=== PATIENT | female | born 1955 | race Hispanic/Latino ===

== ENCOUNTER 2017-08-24 10:03 | Emergency (ER) | payer BC, SELFPAY ==
--- NOTE | 2017-08-24 12:48 | ER ---
Nurse's Notes [facility] Name: Arline Gregory Age: 62 yrs Sex: Female : 1955 Arrival Date: 08/24/2017 Time: 10:06 Bed Treatment Private MD: Lev Hunter E Diagnosis: Other seasonal allergic rhinitis Presentation: 08/24 10:13 Presenting complaint: Patient states: Nonproductive cough and sore throat since last hb night. Son has Flu B, worried she is getting it now. Transition of care: patient was not received from another setting of care. Onset of symptoms was August 23, 2017. Care prior to arrival: None. 10:13 Method Of Arrival: Ambulatory hb 10:13 Acuity: BEENA 4 hb Historical: - Allergies: 10:15 Sulfa (Sulfonamide Antibiotics) (Hives); hb - Home Meds: 10:15 amlodipine oral [Active]; fenofibrate oral oral [Active]; esomeprazole magnesium oral hb oral [Active]; Simvastatin Oral [Active]; - PMHx: 10:15 Hypertension; hb - PSHx: 10:15 Cholecystectomy; hb - Immunization history:: Adult Immunizations up to date. - Social history:: Smoking status: Patient/guardian denies using tobacco. - Family history:: not pertinent. - Hospitalizations: : No recent hospitalization is reported. - History obtained from: mother. Screenin:21 Abuse screen: Denies threats or abuse. Denies injuries from another. Nutritional ss screening: No deficits noted. Tuberculosis screening: Never had TB. Fall Risk None identified. Assessment: 12:18 General: Appears in no apparent distress. comfortable, Behavior is calm, cooperative. ss Pain: Denies pain. Neuro: Level of Consciousness is awake, alert, obeys commands, Oriented to person, place, time, situation. Cardiovascular: Capillary refill < 3 seconds is brisk in bilateral fingers. Respiratory: Reports cough that is non-productive, Airway is patent Respiratory effort is even, unlabored, Breath sounds are clear bilaterally. Denies cough, pain with respiration, pain with cough, pain with movement. GI: Patient currently denies abdominal pain, diarrhea, nausea, vomiting. EENT: Oral mucosa is moist. Throat is clear. Derm: Skin is intact, is healthy with good turgor, Skin is dry, Skin is pink, warm \T\ dry. normal. Musculoskeletal: Circulation, motion, and sensation intact. Capillary refill < 3 seconds, is brisk, in bilateral fingers. Range of motion: intact in all extremities, Swelling absent. 13:02 Reassessment: Patient appears in no apparent distress at this time. Patient and/or ss family updated on plan of care and expected duration. Pain level reassessed. Vital Signs: 10:15 BP 126 / 69; Pulse 82; Resp 16; Temp 98; Pulse Ox 98% on R/A; Weight 72.57 kg (R); hb Height 5 ft. 4 in. (162.56 cm); Pain 3/10; 10:15 Body Mass Index 27.46 (72.57 kg, 162.56 cm) hb ED Course: 10:06 Patient arrived in ED. as 10:06 Lev Hunter MD is Private Physician. as 10:13 Triage completed. hb 10:15 Arm band placed on right wrist. hb 11:42 [facility]oney [facility]. kav 11:42 Melo Stock MD is Attending Physician. kav 12:17 Lory Hawk, REJI is Primary Nurse. ss 12:17 Influenza Screen (a \T\ B) Sent. ss 12:21 Patient has correct armband on for positive identification. Bed in low position. Call ss light in reach. 12:46 Lev Hunter MD is Referral Physician. kav 13:03 No provider procedures requiring assistance completed. Patient did not have IV access ss during this emergency room visit. Administered Medications: No medications were administered Outcome: 12:47 Discharge ordered by . kav 13:03 Discharged to home ambulatory. ss 13:03 Condition: good 13:03 Discharge instructions given to patient, Instructed on discharge instructions, follow up and referral plans. medication usage, Demonstrated understanding of instructions, follow-up care, medications, Prescriptions given X 1. 13:03 Patient left the ED. ss Signatures: Anjelica Toney FNP FLATWORK FOLDERShanta Black Shelby, REJI RN Evelin Gaitan RN RN Corrections: (The following items were deleted from the chart) 12:21 12:18 Respiratory: Airway is patent Respiratory effort is even, unlabored, Breath ss sounds are clear bilaterally. Denies cough, pain with respiration, pain with cough, pain with movement, ss
--- NOTE | 2017-08-24 12:48 | EDPHYS ---
Physician Documentation [facility] Name: Arline Gregory Age: 62 yrs Sex: Female : 1955 Arrival Date: 08/24/2017 Time: 10:06 Bed Treatment Private MD: Lev Hunter E ED Physician Melo Stock HPI: 08/24 11:51 This 62 yrs old Female presents to ER via Ambulatory with complaints of Sore kav Throat. 11:51 The patient presents with sore throat. The patient describes throat pain as scratchy. kav Onset: The symptoms/episode began/occurred acutely, 1 day(s) ago. Severity of symptoms: At their worst the symptoms were mild, just prior to arrival, this morning. Modifying factors: The symptoms are alleviated by nothing. Associated signs and symptoms: Pertinent positives: flu-like symptoms, Sore throat Pertinent negatives chest pain, chills, cough, diarrhea, dysphagia, earache, fever, headache, nausea, rhinorrhea, shortness of breath, vomiting. The patient has not experienced similar symptoms in the past. The patient has not recently seen a physician. patient reports that she was exposed to influenza B from her grandchild and wants the influenza test; c/o sore throat. Historical: - Allergies: 10:15 Sulfa (Sulfonamide Antibiotics) (Hives); hb - Home Meds: 10:15 amlodipine oral [Active]; fenofibrate oral oral [Active]; esomeprazole magnesium oral hb oral [Active]; Simvastatin Oral [Active]; - PMHx: 10:15 Hypertension; hb - PSHx: 10:15 Cholecystectomy; hb - Immunization history:: Adult Immunizations up to date. - Social history:: Smoking status: Patient/guardian denies using tobacco. - Family history:: not pertinent. - Hospitalizations: : No recent hospitalization is reported. - History obtained from: mother. ROS: 11:53 Constitutional: Negative for fever, chills, and weight loss, Eyes: Negative for injury, kav pain, redness, and discharge, Neck: Negative for injury, pain, and swelling, Cardiovascular: Negative for chest pain, palpitations, and edema, Respiratory: Negative for shortness of breath, cough, wheezing, and pleuritic chest pain, Abdomen/GI: Negative for abdominal pain, nausea, vomiting, diarrhea, and constipation, Back: Negative for injury and pain, : Negative for injury, bleeding, discharge, and swelling, MS/Extremity: Negative for injury and deformity, Skin: Negative for injury, rash, and discoloration, Neuro: Negative for headache, weakness, numbness, tingling, and seizure, Psych: Negative for depression, anxiety, suicide ideation, homicidal ideation, and hallucinations, Allergy/Immunology: Negative for hives, rash, and allergies, Endocrine: Negative for neck swelling, polydipsia, polyuria, polyphagia, and marked weight changes, Hematologic/Lymphatic: Negative for swollen nodes, abnormal bleeding, and unusual bruising. 11:53 ENT: Positive for sore throat, Negative for ear pain, nasal discharge, sinus congestion, sinus pain, hoarseness. Exam: 11:53 Constitutional: This is a well developed, well nourished patient who is awake, alert, kav and in no acute distress. Head/Face: Normocephalic, atraumatic. Eyes: Pupils equal round and reactive to light, extra-ocular motions intact. Lids and lashes normal. Conjunctiva and sclera are non-icteric and not injected. Cornea within normal limits. Periorbital areas with no swelling, redness, or edema. Neck: Trachea midline, no thyromegaly or masses palpated, and no cervical lymphadenopathy. Supple, full range of motion without nuchal rigidity, or vertebral point tenderness. No Meningismus. Chest/axilla: Normal chest wall appearance and motion. Nontender with no deformity. No lesions are appreciated. Cardiovascular: Regular rate and rhythm with a normal S1 and S2. No gallops, murmurs, or rubs. Normal PMI, no JVD. No pulse deficits. Respiratory: Lungs have equal breath sounds bilaterally, clear to auscultation and percussion. No rales, rhonchi or wheezes noted. No increased work of breathing, no retractions or nasal flaring. Abdomen/GI: Soft, non-tender, with normal bowel sounds. No distension or tympany. No guarding or rebound. No evidence of tenderness throughout. Back: No spinal tenderness. No costovertebral tenderness. Full range of motion. Skin: Warm, dry with normal turgor. Normal color with no rashes, no lesions, and no evidence of cellulitis. MS/ Extremity: Pulses equal, no cyanosis. Neurovascular intact. Full, normal range of motion. Neuro: Awake and alert, GCS 15, oriented to person, place, time, and situation. Cranial nerves II-XII grossly intact. Motor strength 5/5 in all extremities. Sensory grossly intact. Cerebellar exam normal. Normal gait. Psych: Awake, alert, with orientation to person, place and time. Behavior, mood, and affect are within normal limits. 11:53 ENT: Posterior pharynx: no acute changes. Vital Signs: 10:15 BP 126 / 69; Pulse 82; Resp 16; Temp 98; Pulse Ox 98% on R/A; Weight 72.57 kg (R); hb Height 5 ft. 4 in. (162.56 cm); Pain 3/10; 10:15 Body Mass Index 27.46 (72.57 kg, 162.56 cm) hb MDM: 11:42 Patient medically screened. [facility] 11:53 Data reviewed: vital signs, nurses notes. [facility] 12:46 Data reviewed: lab test result(s), Flu: negative. [facility] 08/24 11:48 Order name: Influenza Screen (a \T\ B); Complete Time: 12:33 [facility] 08/24 12:33 Interpretation: Within normal limits. ka Administered Medications: No medications were administered Disposition: 18:39 Co-signature as Attending Physician, Melo Stock MD. rn Disposition: 08/24/17 12:47 Discharged to Home. Impression: Other seasonal allergic rhinitis. - Condition is Stable. - Discharge Instructions: Allergic Rhinitis. - Prescriptions for Loratadine 10 mg Oral Tablet - take 1 Tablet by ORAL route once daily; 14 Tablet. - Medication Reconciliation Form, Thank You Letter, Antibiotic Education, Prescription Opioid Use form. - Follow up: Lev Hunter MD; When: 5 - 6 days; Reason: If symptoms return, Recheck today's complaints, Continuance of care, Re-evaluation by your physician. - Problem is new. - Symptoms are unchanged. Signatures: Dispatcher [employer] Anjelica Keller, RAILWAY SHUNTER RAILWAY SHUNTER Melo Biggs MD MD rn Smirch, Shelby, RN RN ss Evelin Gaitan RN RN hb
== END 2017-08-24 13:03 | disposition home or self-care (01) ==
LOC: ER 10:03
DX: J30.2 Other seasonal allergic rhinitis (principal); I10 Essential (primary) hypertension; Z88.2 Allergy status to sulfonamides
CPT/HCPCS: 87804; 99283

== ENCOUNTER 2018-12-11 12:33 | Emergency (ER) | payer BC ==
--- OUTSIDE RECORDS SUMMARY | 2018-12-11 12:35 | XMS REPORT ---
:1955 [facility] Address [address] [place] [address] Care Team Providers Name Role Phone Unavailable Unavailable Unavailable Payers Payer Name Policy Type Policy Number Effective Date Expiration Date Problems This patient has no known problems. Allergies, Adverse Reactions, Alerts This patient has no known allergies or adverse reactions. Medications This patient has no known medications.
--- NOTE | 2018-12-11 14:19 | RAD REPORT ---
EXAM DESCRIPTION: US - Extrem Venous W Compress Stevie - 12/11/2018 1:36 pm CLINICAL HISTORY: Leg pain and swelling COMPARISON: None. TECHNIQUE: Real-time sonographic evaluation of the bilateral lower extremity common femoral, superfi cial femoral, popliteal and posterior tibial veins was performed. FINDINGS: Normal compressibility, flow augmentation, phasic flow and spontaneous flow are identified in the left and right lower extremity common femoral, superficial femoral, popliteal and posterior t ibial veins. No intraluminal filling defects seen. IMPRESSION: No DVT in either lower extremity.
--- NOTE | 2018-12-11 14:34 | ER ---
Nurse's Notes [facility] Name: Arline Gregory Age: 63 yrs Sex: Female : 1955 Arrival Date: 12/11/2018 Time: 12:35 Bed 24 Private MD: Lve Hunter E Diagnosis: Pain in left lower leg;Pain in right lower leg Presentation: 12/11 12:39 Presenting complaint: Worsening left leg pain x 2 weeks, had bloodwork done today, hb instructed by Dr. Hunter office to come to ED to r/o clot. Transition of care: patient was not received from another setting of care. Onset of symptoms was December 11, 2018. Risk Assessment: Do you want to hurt yourself or someone else? Patient reports no desire to harm self or others. Initial Sepsis Screen: Does the patient meet any 2 criteria? No. Patient's initial sepsis screen is negative. Does the patient have a suspected source of infection? No. Patient's initial sepsis screen is negative. Care prior to arrival: None. 12:39 Method Of Arrival: Ambulatory hb 12:39 Acuity: BEENA 3 hb Historical: - Allergies: 12:42 Sulfa (Sulfonamide Antibiotics) (Hives); hb - Home Meds: 12:42 amlodipine oral [Active]; esomeprazole magnesium Oral [Active]; fenofibrate Oral hb [Active]; Simvastatin Oral [Active]; - PMHx: 12:42 Hypertension; hb - PSHx: 12:42 Cholecystectomy; hb - Immunization history:: Adult Immunizations up to date. - Social history:: Smoking status: Patient/guardian denies using tobacco. - Ebola Screening: : No symptoms or risks identified at this time. Screenin:58 Abuse screen: Denies threats or abuse. Denies injuries from another. Nutritional iw screening: No deficits noted. Tuberculosis screening: No symptoms or risk factors identified. Fall Risk None identified. Assessment: 12:57 General: Appears in no apparent distress. Behavior is calm, cooperative. Pain: iw Complains of pain in left leg. Neuro: Level of Consciousness is awake, alert, obeys commands, Oriented to person, place, time, situation. Cardiovascular: Patient's skin is warm and dry. Respiratory: Respiratory effort is even, unlabored. GI: No signs and/or symptoms were reported involving the gastrointestinal system. Derm: Skin is intact, is healthy with good turgor. Musculoskeletal: Reports pain in left leg. Musculoskeletal: Reports. Vital Signs: 12:41 BP 164 / 77; Pulse 79; Resp 16; Temp 98.1; Pulse Ox 100% on R/A; Weight 71.21 kg; hb Height 5 ft. 4 in. (162.56 cm); Pain 9/10; 12:57 BP 139 / 84; Pulse 77; Resp 16; Pulse Ox 98% on R/A; Pain 8/10; iw 12:41 Body Mass Index 26.95 (71.21 kg, 162.56 cm) hb ED Course: 12:35 Patient arrived in ED. as 12:35 Lev Hunter MD is Private Physician. as 12:41 Triage completed. hb 12:41 Arm band placed on. hb 12:43 Lora Spears FNP-C is PHCP. kb 12:44 Reji Dong MD is Attending Physician. kb 12:50 Abby Gregory, RN is Primary Nurse. iw 13:10 Patient has correct armband on for positive identification. iw 13:37 US Extremity Venous W Compression Stevie In Process Unspecified. EDMS 14:33 Lev Hunter MD is Referral Physician. kb 15:00 No provider procedures requiring assistance completed. Patient did not have IV access iw during this emergency room visit. Administered Medications: No medications were administered Outcome: 14:33 Discharge ordered by . kb 15:01 Discharged to home ambulatory. iw 15:01 Condition: good 15:01 Discharge instructions given to patient, Instructed on discharge instructions, follow up and referral plans. Demonstrated understanding of instructions, follow-up care. 15:02 Patient left the ED. iw Signatures: Dispatcher [employer] EDMO Lora Spears FNP-C FNP-Shanta Calvo as Abby Gregory, RN RN iw Evelin Gaitan RN RN hb
--- NOTE | 2018-12-11 14:34 | EDPHYS ---
Physician Documentation [facility] Name: Arline Gregory Age: 63 yrs Sex: Female : 1955 Arrival Date: 12/11/2018 Time: 12:35 Bed 24 Private MD: Lev Hunter E ED Physician Reji Dong HPI: 12/11 13:29 This 63 yrs old Female presents to ER via Ambulatory with complaints of Leg kb Pain. 13:29 The patient presents with pain. The complaints affect the right leg and left leg. kb Context: The problem was sustained at home, resulted from an unknown cause, the patient can fully bear weight, the patient is able to ambulate, Problem is a result from a previous injury: No. Onset: The symptoms/episode began/occurred 2 week(s) ago. Modifying factors: The symptoms are alleviated by nothing. the symptoms are aggravated by nothing. Associated signs and symptoms: The patient has no apparent associated signs or symptoms. Treatment prior to arrival includes: no previous treatment. Severity of symptoms: At their worst the symptoms were moderate, in the emergency department the symptoms are unchanged. The patient has not experienced similar symptoms in the past. The patient has been recently seen by a physician:. Pt reports pain in left calf that started 2 weeks ago. States the pain radiates up leg and down to foot. Pain is described as tightness. Pain is now to right leg as well. Has been seen by PCP for this and given antiinflammatories and muscle relaxants without relief. States she went back to PCP yesterday and they ordered labs and an x-ray. She had those done today and was called and told to come back to the hospital because she may have a clot. Historical: - Allergies: 12:42 Sulfa (Sulfonamide Antibiotics) (Hives); hb - Home Meds: 12:42 amlodipine oral [Active]; esomeprazole magnesium Oral [Active]; fenofibrate Oral hb [Active]; Simvastatin Oral [Active]; - PMHx: 12:42 Hypertension; hb - PSHx: 12:42 Cholecystectomy; hb - Immunization history:: Adult Immunizations up to date. - Social history:: Smoking status: Patient/guardian denies using tobacco. - Ebola Screening: : No symptoms or risks identified at this time. ROS: 13:23 Constitutional: Negative for fever, chills, and weight loss, Cardiovascular: Negative kb for chest pain, palpitations, and edema, Respiratory: Negative for shortness of breath, cough, wheezing, and pleuritic chest pain, Abdomen/GI: Negative for abdominal pain, nausea, vomiting, diarrhea, and constipation, Skin: Negative for injury, rash, and discoloration, Neuro: Negative for headache, weakness, numbness, tingling, and seizure. 13:23 MS/extremity: Positive for pain. Exam: 13:26 Constitutional: This is a well developed, well nourished patient who is awake, alert, kb and in no acute distress. Head/Face: Normocephalic, atraumatic. Chest/axilla: Normal chest wall appearance and motion. Nontender with no deformity. No lesions are appreciated. Cardiovascular: Regular rate and rhythm with a normal S1 and S2. No gallops, murmurs, or rubs. Normal PMI, no JVD. No pulse deficits. Respiratory: Lungs have equal breath sounds bilaterally, clear to auscultation and percussion. No rales, rhonchi or wheezes noted. No increased work of breathing, no retractions or nasal flaring. Abdomen/GI: Soft, non-tender, with normal bowel sounds. No distension or tympany. No guarding or rebound. No evidence of tenderness throughout. Skin: Warm, dry with normal turgor. Normal color with no rashes, no lesions, and no evidence of cellulitis. Neuro: Awake and alert, GCS 15, oriented to person, place, time, and situation. Cranial nerves II-XII grossly intact. Motor strength 5/5 in all extremities. Sensory grossly intact. Cerebellar exam normal. Normal gait. 13:26 Musculoskeletal/extremity: Extremities: grossly normal except: noted in the right leg and left leg: pain, ROM: intact in all extremities, Circulation is intact in all extremities. Sensation intact. DVT Exam: no tenderness, negative Homans' sign noted on exam, no appreciated bluish discoloration, no erythema, no increased warmth, pain, that is moderate, of the right leg, of the left leg, swelling, that is mild, of the left leg. Vital Signs: 12:41 BP 164 / 77; Pulse 79; Resp 16; Temp 98.1; Pulse Ox 100% on R/A; Weight 71.21 kg; hb Height 5 ft. 4 in. (162.56 cm); Pain 9/10; 12:57 BP 139 / 84; Pulse 77; Resp 16; Pulse Ox 98% on R/A; Pain 8/10; iw 12:41 Body Mass Index 26.95 (71.21 kg, 162.56 cm) hb MDM: 12:44 Patient medically screened. kb 13:26 Data reviewed: vital signs, nurses notes. Data interpreted: Pulse oximetry: on room air kb is 98 %. Interpretation: normal. 13:32 Data reviewed: old medical records, PCP ordered left foot x-ray, cbc, basic, and kb d-dimer. d-dimer was elevated at 644, x-ray and other labs normal. 14:32 Counseling: I had a detailed discussion with the patient and/or guardian regarding: the kb historical points, exam findings, and any diagnostic results supporting the discharge/admit diagnosis, lab results, radiology results, the need for outpatient follow up, a family practitioner, to return to the emergency department if symptoms worsen or persist or if there are any questions or concerns that arise at home. ED course: Pt has no shortness of breath or any other indications of PE. Educated to follow back up with PCP . 12/11 12:51 Order name: US Extremity Venous W Compression Stevie; Complete Time: 14:27 kb Administered Medications: No medications were administered Disposition: 12/12 06:42 Co-signature as Attending Physician, Reji Dong MD I agree with the assessment and kdr plan of care. Disposition: 12/11/18 14:33 Discharged to Home. Impression: Pain in left lower leg, Pain in right lower leg. - Condition is Stable. - Discharge Instructions: Musculoskeletal Pain, Muscle Cramps and Spasms, [id number]. - Medication Reconciliation Form, Thank You Letter, Antibiotic Education, Prescription Opioid Use, Work release form form. - Follow up: Emergency Department; When: As needed; Reason: Worsening of condition. Follow up: Lev Hunter MD; When: 2 - 3 days; Reason: Recheck today's complaints, Continuance of care, Re-evaluation by your physician. Signatures: Dispatcher [employer] EDMA Lora Spears, PAPITO-C SENIOR ORACLE ADF DEVELOPER-Reji Hernandez MD MD kdr Williams, Irene, RN RN iw Evelin Gaitan, REJI RN Corrections: (The following items were deleted from the chart) 12/11 13:14 12:45 Extremity Venous Uni Ltd+[email or web address] ordered. EDMS EDMS 15:02 14:33 12/11/2018 14:33 Discharged to Home. Impression: Pain in left lower leg; Pain in iw right lower leg. Condition is Stable. Forms are Medication Reconciliation Form, Thank You Letter, Antibiotic Education, Prescription Opioid Use. Follow up: Emergency Department; When: As needed; Reason: Worsening of condition. Follow up: Lev Hunter; When: 2 - 3 days; Reason: Recheck today's complaints, Continuance of care, Re-evaluation by your physician. kb
== END 2018-12-11 15:02 | disposition home or self-care (01) ==
LOC: ER 12:33
DX: M79.605 Pain in left leg (principal); M79.604 Pain in right leg; I10 Essential (primary) hypertension; Z88.2 Allergy status to sulfonamides
CPT/HCPCS: 93970; 99283

== ENCOUNTER 2019-03-10 08:55 | Day surgery (SDC) | payer OTHER, BC ==
[2019-03-10 09:25] LABS: MPV 8.6 fL (7.6-11.3)
[2019-03-10 09:33] LABS: Protime INR 1.03
[2019-03-10 09:40] VITALS: BMI 26.9
[2019-03-10 09:43] LABS: Platelet Estimate ADEQ
[2019-03-10 12:21] LABS: CSF Glucose 48 mg/dL (40-70)
--- NOTE | 2019-03-10 12:45 | RAD REPORT ---
EXAM DESCRIPTION: RAD - Myelography Lumbar - 03/10/2019 11:59 am CLINICAL HISTORY: Left lower extremity radiculopathy COMPARISON: Lumbar plain films February 03, 2019 TECHNIQUE: The procedure, risks and alternatives to the procedure were discussed with the patient in detail. After answering all questions, both oral and written consent were obtained. Time-out procedu re was performed. Patient had no contraindicated allergy or medication history. The patient was placed in an oblique prone position on the fluoroscopic table. The skin of the lower back was prepped and draped in the usual sterile fashion. After anesthetizing the skin and deeper sof t tissues with 1% lidocaine, a 22 gauge needle was advanced into the thecal sac at the L3 level. Intrathecal placement was confirmed. Clear colorless CSF was observed. Approximately 8 mL of CSF was retained for requested laboratory studies. The patient was then administered approximately 10 mL Isov ue-M 200 contrast material. The needle was withdrawn and a sterile bandage placed to the puncture sit e. Multiple myelogram images were obtained. The patient tolerated the procedure well without immediate complications. Post-procedure care and pre caution instructions were discussed with the patient before the procedure. The patient was transferred to the CT suite for CT lumbar spine imaging. AP and lateral hop separator films were obtained. There were 8 fluoroscopic myelogram images obtained. Fluoro time was 2.1 minutes. IMPRESSION: Successful fluoroscopic guided lumbar myelogram. Myelogram findings are incorporated int o the CT lumbar spine report. Approximately 8 mL of CSF was retained for the requested laboratory studies.
[2019-03-10 13:25] VITALS: O2SAT 99
[2019-03-10 13:48] LABS: Appearance CLEAR (CLEAR); Body Fluid Source CSF; Color of fluid Colorless (COLORLESS); Fluid Total Volume 7 ml
[2019-03-10 13:49] LABS: Body Fluid WBC 12 /mm^3
[2019-03-10 15:00] VITALS: BP 110/59; TEMP 97.9
--- NOTE | 2019-03-11 09:54 | RAD REPORT ---
EXAM DESCRIPTION: CT - Spine Lumbar Wo Con - 03/10/2019 11:41 am CLINICAL HISTORY: Back pain, foot drop, left lower extremity radiculopathy COMPARISON: Lumbar plain films February 03, MRI lumbar spine February 03 TECHNIQUE: Thin section axial imaging of the lumbar spine was performed. Sagittal and coronal recon struction images were generated and reviewed. All CT scans are performed using dose optimization technique as appropriate and may include automated exposure control or mA/KV adjustment according to patient size. FINDINGS: CT lumbar spine imaging was performed immediately following separately reported lumbar mye logram procedure. Myelogram and CT findings are incorporated into this single report. Lumbar bodies are normal in height and alignment. No acute vertebral body finding. Hemangioma is pres ent in the T12 body. No perispinal mass. Conus terminates at the inferior L1 level. There is no clumping or thickening of the cauda equina. T12-L1: No significant finding L1-2 level: No significant disc finding. Mild facet degenerative change. L2-3 level: No significant disc finding. Minimal facet degenerative change. L3-4 level: No disc herniation. Mild disc bulge change in the left exit foramen present. No significa nt foraminal stenosis. Minimal facet joint degenerative change. Small amount of extradural contrast i s present on the left related to myelogram procedure. L4-5 level: Disc bulge extends across the central canal and into each exit foramen. No herniation see n. Disc bulge flattens the anterior thecal sac. Midline thecal sac diameter is 12 mm. No significant foraminal encroachment. Facet degenerative change and ligamentous thickening are present. L5-S1 level: Disc thinning is present. Disc bulge present in the midline. Disc bulge contacts but bustillo s not displace the exiting S1 nerve root sleeves. Disc bulge and endplate spurring cause a mild bilat eral foraminal stenosis. Loss in disc height may in part be due to partial sacralization of the L5 amaya dy. SI joint degenerative changes are present slightly worse on the right. IMPRESSION: No disc herniation is present. No central spinal stenosis. L3-4, L4-5 and L5-S1 central canal disc bulge changes are present similar to the finding on the MRI s tudy. Mild bilateral L5-S1 foraminal stenosis due to disc bulge and endplate hypertrophy.
== END 2019-03-10 14:55 | disposition home or self-care (01) ==
LOC: DS 08:55
PROVIDERS: ATTEND Psychiatry & Neurology Neurology
DX: M54.16 Radiculopathy, lumbar region (principal); M21.372 Foot drop, left foot; M79.605 Pain in left leg; Z88.2 Allergy status to sulfonamides
CPT/HCPCS: 36415; 62304; 72131; 82945; 84157; 85049; 85610; 85730; 86592; 87015; 87070; 87102; 87116; 87206; 89050

== ENCOUNTER 2019-05-19 17:52 | Emergency (ER) | payer OTHER, BC ==
--- OUTSIDE RECORDS SUMMARY | 2019-05-19 17:54 | XMS REPORT ---
:1955 [facility] Address [address] [place] [address] Care Team Providers Name Role Phone Unavailable Unavailable Unavailable Payers Payer Name Policy Type Policy Number Effective Date Expiration Date Problems This patient has no known problems. Allergies, Adverse Reactions, Alerts This patient has no known allergies or adverse reactions. Medications This patient has no known medications.
--- NOTE | 2019-05-19 19:51 | RAD REPORT ---
EXAM DESCRIPTION: RAD - Foot Left 3 View - 05/19/2019 7:20 pm CLINICAL HISTORY: History of foot drop, fall, left foot pain COMPARISON: None. FINDINGS: No fracture, dislocation or periosteal reaction. No acute or destructive bony process. Sc attered degenerative changes are present in the foot. There is remodeling from an old fifth metatarsa l fracture. No plantar spur. No air or foreign body in the soft tissues. IMPRESSION: Negative left foot for fracture or acute bone finding.
--- NOTE | 2019-05-19 19:55 | EDPHYS ---
Physician Documentation [facility] Name: Arline Gregory Age: 64 yrs Sex: Female : 1955 Arrival Date: 05/19/2019 Time: 17:55 Bed 27 Private MD: ED Physician Melo Stock HPI: 05/19 19:22 This 64 yrs old Female presents to ER via Wheelchair with complaints of Foot rn Injury. 19:22 The patient presents with an injury, pain. The complaints affect the left foot. rn Context: The problem was sustained at home, resulted from the patient falling, a mis-step by the patient, the patient can partially bear weight, must have assistance. Onset: The symptoms/episode began/occurred just prior to arrival. Modifying factors: The symptoms are alleviated by nothing, the symptoms are aggravated by weight bearing, movement. Severity of symptoms: At their worst the symptoms were moderate, in the emergency department the symptoms are unchanged. The patient has not experienced similar symptoms in the past. Reports has foot drop for 5 months, has gone to numerous specialists and unclear etiology, today, got up quickly, tripped and left foot went backward, hurts along medial edge of left foot, + mild swelling but patient states has been swollen for some time. No other injury.. Historical: - Allergies: 18:11 Sulfa (Sulfonamide Antibiotics) (Hives); aj1 - Home Meds: 18:11 amlodipine oral [Active]; esomeprazole magnesium Oral [Active]; fenofibrate Oral aj1 [Active]; Simvastatin Oral [Active]; - PMHx: 18:11 Hypertension; aj1 - Immunization history:: Flu vaccine is not up to date. - Social history:: Smoking status: Patient uses tobacco products, denies chronic smoking, but will smoke occasionally. - Ebola Screening: : Patient denies travel to an Ebola-affected area in the 21 days before illness onset. - Family history:: not pertinent. - Hospitalizations: : No recent hospitalization is reported. ROS: 19:22 Constitutional: Negative for fever, chills, and weight loss, Eyes: Negative for injury, rn pain, redness, and discharge, Cardiovascular: Negative for chest pain, palpitations, and edema, Respiratory: Negative for shortness of breath, cough, wheezing, and pleuritic chest pain, Abdomen/GI: Negative for abdominal pain, nausea, vomiting, diarrhea, and constipation, MS/Extremity: + left foot injury and pain Skin: Negative for injury, rash, and discoloration, Neuro: Negative for headache, weakness, numbness, tingling, and seizure. Exam: 19:22 Constitutional: This is a well developed, well nourished patient who is awake, alert, rn and in no acute distress. MS/ Extremity: Pulses equal, no cyanosis. + tenderness along medial edge left foot with mild swelling. Vital Signs: 18:11 BP 139 / 70; Pulse 76; Resp 18; Temp 98.7; Pulse Ox 99% on R/A; Weight 71.21 kg (R); aj1 Height 5 ft. 4 in. (162.56 cm) (R); Pain 4/10; 19:00 BP 134 / 73; Pulse 73; Resp 18; Pulse Ox 99% on R/A; rv 20:22 BP 128 / 71; Pulse 69; Resp 16; Pulse Ox 99% on R/A; rv 18:11 Body Mass Index 26.95 (71.21 kg, 162.56 cm) aj1 MDM: 19:14 Patient medically screened. rn 19:53 Differential diagnosis: fracture. Data reviewed: vital signs, nurses notes, radiologic rn studies, plain films. Test interpretation: by ED physician or midlevel provider: plain radiologic studies, xray left foot neg for fracture. Counseling: I had a detailed discussion with the patient and/or guardian regarding: the historical points, exam findings, and any diagnostic results supporting the discharge/admit diagnosis, radiology results, the need for outpatient follow up, to return to the emergency department if symptoms worsen or persist or if there are any questions or concerns that arise at home. Special discussion: I discussed with the patient/guardian in detail that at this point there is no indication for admission to the hospital. It is understood, however, that if the symptoms persist or worsen the patient needs to return immediately for re-evaluation. 20:12 ED course: . rn 05/19 18:13 Order name: Foot Left 3 View XRAY; Complete Time: 19:53 aj1 Administered Medications: 20:15 Drug: TORadol - Ketorolac 15 mg Route: IM; Site: right deltoid; rv 20:20 Follow up: Response: Medication administered at discharge. rv 20:15 Drug: [place] 5 mg-325 mg 1 tabs {Note: RASS 0.} Route: PO; rv 20:21 Follow up: Response: Medication administered at discharge. rv Disposition: 05/19/19 19:54 Discharged to Home. Impression: Other sprain of left foot. - Condition is Stable. - Discharge Instructions: Foot Contusion, Foot Sprain. - Medication Reconciliation Form, Thank You Letter, Antibiotic Education, Prescription Opioid Use form. - Follow up: Private Physician; When: As needed; Reason: Recheck today's complaints, Re-evaluation by your physician. - Problem is new. - Symptoms have improved. Signatures: Dispatcher [employer] EDMS Ananya Calzada RN RN aj1 Melo Stock MD MD rn Vicente, Ronaldo, RN RN rv Corrections: (The following items were deleted from the chart) 20:14 20:12 ED course: Consulted with Dr. Fisher, requests transfer due to cirrhosis, and rn liver related coagulopathy, and no GI/hepatology to consult at this facility. . rn 20:23 19:54 05/19/2019 19:54 Discharged to Home. Impression: Other sprain of left foot. rv Condition is Stable. Forms are Medication Reconciliation Form, Thank You Letter, Antibiotic Education, Prescription Opioid Use. Follow up: Private Physician; When: As needed; Reason: Recheck today's complaints, Re-evaluation by your physician. Problem is new. Symptoms have improved. rn
--- NOTE | 2019-05-19 19:55 | ER ---
Nurse's Notes [facility] Name: Arline Gregory Age: 64 yrs Sex: Female : 1955 Arrival Date: 05/19/2019 Time: 17:55 Bed 27 Private MD: Diagnosis: Other sprain of left foot Presentation: 05/19 18:09 Presenting complaint: Patient states: "I'm having problem with my foot, I have foot aj1 drop, its affecting my ankle and my knee. Today I fell and my foot completely turned and I was in excruciating pain, and I think I broke my foot" Patient reports pain to left foot that radiates all the way up her left leg. Transition of care: patient was not received from another setting of care. Onset of symptoms was May 19, 2019. Risk Assessment: Do you want to hurt yourself or someone else? Patient reports no desire to harm self or others. Initial Sepsis Screen: Does the patient meet any 2 criteria? No. Patient's initial sepsis screen is negative. Does the patient have a suspected source of infection? No. Patient's initial sepsis screen is negative. Care prior to arrival: None. 18:09 Method Of Arrival: Wheelchair aj1 18:09 Acuity: BEENA 4 aj1 Triage Assessment: 18:11 General: Appears in no apparent distress. uncomfortable, Behavior is calm, cooperative, aj1 appropriate for age. Pain: Complains of pain in left leg. Pain: Pain currently is 4 out of 10 on a pain scale. Neuro: Level of Consciousness is awake, alert, obeys commands. Cardiovascular: Patient's skin is warm and dry. Respiratory: Airway is patent Respiratory effort is even, unlabored, Respiratory pattern is regular, symmetrical. Musculoskeletal: Range of motion: limited in right ankle. Injury Description: Patient reports that she fell and rolled her ankle. Historical: - Allergies: 18:11 Sulfa (Sulfonamide Antibiotics) (Hives); aj1 - Home Meds: 18:11 amlodipine oral [Active]; esomeprazole magnesium Oral [Active]; fenofibrate Oral aj1 [Active]; Simvastatin Oral [Active]; - PMHx: 18:11 Hypertension; aj1 - Immunization history:: Flu vaccine is not up to date. - Social history:: Smoking status: Patient uses tobacco products, denies chronic smoking, but will smoke occasionally. - Ebola Screening: : Patient denies travel to an Ebola-affected area in the 21 days before illness onset. - Family history:: not pertinent. - Hospitalizations: : No recent hospitalization is reported. Screenin:52 Abuse screen: Denies threats or abuse. Denies injuries from another. Nutritional rv screening: No deficits noted. Tuberculosis screening: No symptoms or risk factors identified. Fall Risk None identified. Assessment: 18:52 General: Appears in no apparent distress. comfortable, Behavior is calm, cooperative. rv Pain: Complains of pain in left foot. Neuro: Level of Consciousness is awake, alert, obeys commands, Oriented to person, place, time, situation. Cardiovascular: Patient's skin is warm and dry. Respiratory: Airway is patent. Derm: Skin is intact. Musculoskeletal: Swelling absent. Vital Signs: 18:11 BP 139 / 70; Pulse 76; Resp 18; Temp 98.7; Pulse Ox 99% on R/A; Weight 71.21 kg (R); aj1 Height 5 ft. 4 in. (162.56 cm) (R); Pain 4/10; 19:00 BP 134 / 73; Pulse 73; Resp 18; Pulse Ox 99% on R/A; rv 20:22 BP 128 / 71; Pulse 69; Resp 16; Pulse Ox 99% on R/A; rv 18:11 Body Mass Index 26.95 (71.21 kg, 162.56 cm) aj1 ED Course: 17:55 Patient arrived in ED. as 18:10 Triage completed. aj1 18:11 Arm band placed on Patient placed in waiting room. aj1 18:51 Roger Bradshaw, REJI is Primary Nurse. rv 18:53 Patient has correct armband on for positive identification. Bed in low position. Call rv light in reach. Pulse ox on. NIBP on. 19:14 Melo Stock MD is Attending Physician. rn 19:20 Foot Left 3 View XRAY In Process Unspecified. EDMS 20:23 No provider procedures requiring assistance completed. Patient did not have IV access rv during this emergency room visit. Administered Medications: 20:15 Drug: TORadol - Ketorolac 15 mg Route: IM; Site: right deltoid; rv 20:20 Follow up: Response: Medication administered at discharge. rv 20:15 Drug: [place] 5 mg-325 mg 1 tabs {Note: RASS 0.} Route: PO; rv 20:21 Follow up: Response: Medication administered at discharge. rv Outcome: 19:54 Discharge ordered by . rn 20:23 Discharged to home via wheelchair, with family. rv 20:23 Condition: good 20:23 Discharge instructions given to patient, Instructed on discharge instructions, follow up and referral plans. Demonstrated understanding of instructions, follow-up care. 20:23 Patient left the ED. rv Signatures: Dispatcher [employer] EDMS Ananya Calzada RN RN ajShanta Colby Roman, MD MD rn Vicente, Ronaldo, RN RN rv Corrections: (The following items were deleted from the chart) 20:23 20:22 BP 134 / 73; Pulse 73bpm; Resp 18bpm; Pulse Ox 99% RA; rv rv
[2019-05-19] MEDS ORDERED: HYDROCODONE/APAP 5/325 MG TAB ONE (20:15)
[2019-05-19] MEDS ORDERED: KETOROLAC 30 MG/ML INJ ONE (20:15)
[2019-05-19 20:30] VITALS: TEMP 98.7; O2SAT 99
[2019-05-19 20:32] VITALS: BP 128/71
== END 2019-05-19 20:23 | disposition home or self-care (01) ==
LOC: ER 17:52
DX: S93.692A Other sprain of left foot, initial encounter (principal); I10 Essential (primary) hypertension; W01.0XXA Fall on same level from slipping, tripping and stumbling without subsequent striking against object, initial encounter; Y93.01 Activity, walking, marching and hiking; Y92.009 Unspecified place in unspecified non-institutional (private) residence as the place of occurrence of the external cause; Z72.0 Tobacco use; Z88.2 Allergy status to sulfonamides
CPT/HCPCS: 96372; 99283

== ENCOUNTER 2019-12-21 11:11 | Emergency (ER) | payer OTHER, BC ==
--- OUTSIDE RECORDS SUMMARY | 2019-12-21 12:48 | XMS REPORT | Clinical Summary ---
:1955 Author Organization [facility] Address [address] [place] [address] Care Team Providers Name Role Phone Asked, No Pcp Primary Care Provider Unavailable Allergies Active Allergy Reactions Severity Noted Date Comments Sulfa (Sulfonamide Antibiotics) Rash Low 0 Medications Medication Sig Dispensed Refills Start End Status Date Date amlodipine besylate Take by mouth 0 Active (AMLODIPINE ORAL) daily. FENOFIBRATE ORAL Take by mouth. 0 Active SIMVASTATIN ORAL Take by mouth. 0 Active LANSOPRAZOLE ORAL Take by mouth. 0 Active cholecalciferol, Chew 2,000 30 tablet 11 07/22/19 Ac tive vitamin D3, 2,000 Units daily. 20 unit tablet,chewable riluzole (RILUTEK) 50 Take 1 tablet 60 tablet 11 07/23/19 03/0 5/2 Active mg tabletIndications: (50 mg total) 20 021 ALS (amyotrophic by mouth every lateral sclerosis) 12 (twelve) (HCC) hours. gabapentin 300 mg/6 Take 300 mg by 600 mL 3 09/28/19 Active mL (6 mL) solution mouth 3 (three) 20 times a day. albuterol (ACCUNEB) Take 3 mL (2.5 75 mL 12 11/28/19 08/ / Active 2.5 mg /3 mL (0.083 mg total) by 20 020 %) nebulizer nebulization solutionIndications: every 6 (six) Chronic midline low hours as needed back pain without for wheezing sciatica for up to 30 days. ergocalciferol Take 1 capsule 6 capsule 1 07/22/19// (VITAMIN D2) 50,000 (50,000 Units 20 020 unit capsule total) by mouth once a week for 6 doses. gabapentin Take 1 capsule 90 capsule 11 09/28/19 Dis continued (NEURONTIN) 300 mg (300 mg total) 20 020 (Formulary capsule by mouth 3 change) (three) times a day. methocarbamoL Take 1 tablet 20 tablet 0 11/27/19 Ex pired (ROBAXIN) 500 MG (500 mg total) 20 020 tablet by mouth 2 (two) times a day for 10 days. 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 Encounters Date Type Specialty Care Team Description 11/27/2019 - Emergency General Internal Edson Patel Chronic lo w back pain, unspecified back pain laterality, unspecified whether sciatica present (Primary Dx); 11/28/2019 Medicine MD René ALS (amyotrophic lateral sclerosis) ([facility] ); FRANSISCA Cabrera (shortness of breath); MD Jaycee Chronic midline low back pain without sc iatica; Sandhya Brambila MD 11/27/2019 Telephone Neurology Mason Trinidad RN 11/24/2019 Orders Only Neurology SUSAN Dumont (amyotrophi c lateral sclerosis) ([facility]) (Primary Dx); Naomi Paul RN Chronic respir atory insufficiency 11/23/2019 Social Work Neurology Светлана Hurley LCSW 11/19/2019 Travel 11/19/2019 Telephone Neurology Naomi Dumont RN 11/12/2019 Telephone Neurology Mason Trinidad, REJI 10/28/2019 Hospital Encounter Pulmonology Brenda Ford ALS (am marge Fernando MD lateral scleros is) ([facility]) 10/28/2019 Procedure visit Neurology Brenda Ford (chas Fernando MD lateral scleros is) ([facility]) 10/28/2019 Travel 10/27/2019 Social Work Neurology Светлана Hurley, LARRY 10/14/2019 Travel 10/07/2019 Orders Only Neurology Tim ALS (amyotrophi c Naomi Paul RN lateral sclero sis) ([facility]) (Primary Dx) 09/28/2019 Telemedicine Neurology Brenda Ford ALS (amyotrop hic lateral sclerosis) ([facility]) (Primary Dx); MD Abdullahi Chronic respira tory insufficiency 09/28/2019 Travel 09/23/2019 Telephone Neurology Brenda Ford MD 08/19/2019 Travel 07/30/2019 Telephone Neurology Ashley Calzada MA 07/23/2019 Hospital Encounter Radiology Brenda Ford Neuropa thy; MD Abdullahi Motor neuron di sease ([facility]) 07/23/2019 Procedure visit Neurology Brenda Ford ALS (chas Fernando MD lateral scleros is) ([facility]) (Primary Dx) 07/23/2019 Documentation Neurology Evelyne Singh Patient Edu cation RN 07/22/2019 Procedure visit Neurology Brenda Ford ALS (amyot rophic lateral sclerosis) ([facility]) (Primary Dx); MD Abdullahi Neuropathy; Motor neuron di sease ([facility]); Cranial nerve l esion 07/22/2019 Documentation ADMIN Jose Alfredo, Najma 07/22/2019 Documentation ADMIN [place], Najma 07/21/2019 Hospital Encounter Radiology Brenda Ford Multifo joana acquired motor axonopathy; MD Abdullahi Progressive foc al motor weakness 07/21/2019 Hospital Encounter Pulmonology Brenda Ford Multifo joana acquired motor axonopathy; MD Abdullahi Progressive foc al motor weakness; SOB (shortness of breath) 07/21/2019 Procedure visit Neurology Brenda Ford Multifocal acquired motor axonopathy; MD Abdullahi Progressive foc al motor weakness 07/21/2019 Social Work Neurology Светлана Hurley, LARRY 07/14/2019 Telephone Neurology Naomi Dumont RN 07/14/2019 Orders Only Neurology Cachorro Dumont acqu ired motor axonopathy (Primary Dx); Naomi Paul RN Progressive fo joana motor weakness 07/13/2019 Orders Only Neurology Brenda Ford Multifocal ac quired motor axonopathy (Primary Dx); MD Abdullahi Progressive foc al motor weakness 07/13/2019 Telephone Neurology Brenda Ford MD after 12/20/2018 Social History Tobacco Use Types Packs/Day Years Used Date Current Some Day Smoker Smokeless Tobacco: Former User Alcohol Use Drinks/Week oz/Week Comments Defer Sex Assigned at Date Recorded Not on file Job Start Date Occupation Industry Not on file Not on file Not on file Travel History Travel Start Travel End No recent travel history available. Last Filed Vital Signs Vital Sign Reading Time Taken Comments Blood Pressure 142/68 11/28/2019 7:35 AM CDT Pulse 91 11/28/2019 7:35 AM CDT Temperature 36.6 C (97.9 F) 11/28/2019 7:35 AM CDT Respiratory Rate 16 11/28/2019 7:35 AM CDT Oxygen Saturation 100% 11/28/2019 7:35 AM CDT Inhaled Oxygen Concentration - - Weight 66.1 kg (145 lb 12.8 oz) 10/28/2019 8:00 AM CDT Height 160 cm (5' 3") 10/28/2019 8:00 AM CDT Body Mass Index 25.83 10/28/2019 8:00 AM CDT Plan of Treatment Health Maintenance Due Date Last Done Comments BREAST CANCER SCREENING 01/10/2004 COLONOSCOPY SCREENING 01/10/2004 SHINGLES VACCINES (#1) 01/10/2004 65+ PNEUMOCOCCAL VACCINE (1 of 2 - PCV13) 2019 INFLUENZA VACCINE 12/19/2019 CERVICAL CANCER SCREENING 07/21/2022 07/22/2019 Procedures Procedure Name Priority Date/Time Associated Comments Diagnosis TTE COMPLETE, WO Routine 11/28/2019 12:00 Results for this CONTRAST, W DOPPLER PM CDT procedur e are in ([id number]) the results section. TROPONIN Timed 11/28/2019 6:00 Results for this AM CDT procedure are i n the results section. MRI BRAIN WO CONTRAST STAT 11/28/2019 5:05 Re sults for this AM CDT procedure are i n the results section. COVID-19 QUALITATIVE PCR STAT 11/28/2019 12:30 Results for this AM CDT procedure are i n the results section. XR CHEST 1 VW PORTABLE STAT 11/28/2019 12:05 R esults for this AM CDT procedure are i n the results section. CT ANGIOGRAM PE CHEST STAT 11/27/2019 11:57 Re sults for this PM CDT procedure are i n the results section. VENOUS BLOOD GAS STAT 11/27/2019 11:35 Results for this PM CDT procedure are i n the results section. TROPONIN STAT 11/27/2019 11:35 Results for this PM CDT procedure are i n the results section. B NATRIURETIC PEPTIDE STAT 11/27/2019 11:35 Re sults for this PM CDT procedure are i n the results section. CT LUMBAR SPINE WO STAT 11/27/2019 10:15 Resul ts for this CONTRAST PM CDT procedure are i n the results section. RI CRITICAL CARE, E/M Routine 11/27/2019 7:53 Re sults for this 30-74 MINUTES PM CDT procedure are in the results section. URINALYSIS SCREEN AND STAT 11/27/2019 7:45 Re sults for this MICROSCOPY, WITH REFLEX PM CDT proc edure are in TO CULTURE the results section. URINE CULTURE STAT 11/27/2019 7:45 Results fo r this PM CDT procedure are i n the results section. ESTIMATED GFR STAT 11/27/2019 7:35 Results fo r this PM CDT procedure are i n the results section. COMPREHENSIVE METABOLIC STAT 11/27/2019 7:35 Results for this PANEL PM CDT procedure are i n the results section. HC COMPLETE BLD COUNT STAT 11/27/2019 7:35 Re sults for this W/AUTO DIFF PM CDT procedure are i n the results section. SPIROMETRY, MIPS/MEPS Routine 10/28/2019 8:19 ALS (amyotrophi c Results for this AM CDT lateral sclerosis) procedure are in (HCC) the results section. ESTIMATED GFR Routine 10/28/2019 8:14 Results fo r this AM CDT procedure are i n the results section. HEPATIC FUNCTION PANEL Routine 10/28/2019 8:14 ALS (amyotroph ic Results for this AM CDT lateral sclerosis) procedure are in (HCC) the results section. BASIC METABOLIC PANEL Routine 10/28/2019 8:14 ALS (amyotrophi c Results for this AM CDT lateral sclerosis) procedure are in (HCC) the results section. CREATINE KINASE, TOTAL Routine 10/28/2019 8:14 ALS (amyotroph ic Results for this (CPK) AM CDT lateral sclerosis) procedure are in (HCC) the results section. HC COMPLETE BLD COUNT Routine 10/28/2019 8:14 ALS (amyotrophi c Results for this W/AUTO DIFF AM CDT lateral sclerosis) procedure are in (HCC) the results section. CT CHEST W CONTRAST Routine 07/23/2019 12:18 Neuropathy Results for this ABDOMEN W WO CONTRAST [employer] Motor neuron proced ure are in PELVIS W CONTRAST disease (HCC) the resul ts section. FLOW CYTOMETRY Routine 07/22/2019 12:03 Results f or this EVALUATION [employer] procedure are i n the results section. WEST NILE VIRUS BY PCR, Routine 07/22/2019 12:03 Results for this CSF [employer] procedure are i n the results section. ENTEROVIRUS BY PCR Routine 07/22/2019 12:03 Resul ts for this [employer] procedure are i n the results section. MALCOM CASH VIRUS (EBV) Routine 07/22/2019 12:03 Results for this BY PCR [employer] procedure are i n the results section. HERPES SIMPLEX VIRUS BY Routine 07/22/2019 12:03 Results for this PCR [employer] procedure are i n the results section. VARICELLA ZOSTER BY PCR Routine 07/22/2019 12:03 Results for this [employer] procedure are i n the results section. CYTOLOGY Routine 07/22/2019 11:44 Results for this (NON-GYNECOLOGICAL) [employer] procedur e are in REQUEST the results section. MISCELLANEOUS REFERRAL Routine 07/22/2019 8:44 R esults for this TEST [employer] procedure are i n the results section. OLIGOCLONAL BANDING, CSF Routine 07/21/2019 6:04 Results for this [employer] procedure are i n the results section. CSF CELL COUNT WITH Routine 07/21/2019 6:04 Multifocal Resu lts for this DIFFERENTIAL [employer] acquired motor procedure are in axonopathy the results Progressive focal section. motor weakness GLUCOSE LEVEL, CSF Routine 07/21/2019 6:04 Multifocal Resul ts for this [employer] acquired motor procedure are in axonopathy the results Progressive focal section. motor weakness IGG SYNTHESIS RATE STUDY Routine 07/21/2019 6:04 Multifocal Results for this [employer] acquired motor procedure are in axonopathy the results Progressive focal section. motor weakness MYELIN BASIC PROTEIN Routine 07/21/2019 6:04 Multifocal Res ults for this [employer] acquired motor procedure are in axonopathy the results Progressive focal section. motor weakness VDRL, CSF SCREEN Routine 07/21/2019 6:04 Multifocal Results for this [employer] acquired motor procedure are in axonopathy the results Progressive focal section. motor weakness ANGIOTENSIN CONVERTING Routine 07/21/2019 6:04 Multifocal R esults for this ENZYME, CSF [employer] acquired motor procedure are in axonopathy the results Progressive focal section. motor weakness GRAM STAIN Routine 07/21/2019 6:04 Results for this [employer] procedure are i n the results section. CSF CULTURE Routine 07/21/2019 6:04 Results for this [employer] procedure are i n the results section. MISCELLANEOUS REFERRAL Routine 07/21/2019 5:04 R esults for this TEST [employer] procedure are i n the results section. IR LUMBAR PUNCTURE Routine 07/21/2019 4:09 Multifocal Resul ts for this [employer] acquired motor procedure are in axonopathy the results Progressive focal section. motor weakness EMG Routine 07/21/2019 11:05 Multifocal Results for this [employer] acquired motor procedure are in axonopathy the results Progressive focal section. motor weakness SPIROMETRY, MIPS/MEPS Routine 07/21/2019 8:43 Multifocal Re sults for this [employer] acquired motor procedure are in axonopathy the results Progressive focal section. motor weakness SOB (shortness of breath) COMPREHENSIVE METABOLIC Routine 07/21/2019 6:49 Results for this PANEL [employer] procedure are i n the results section. ESTIMATED GFR Routine 07/21/2019 6:49 Results fo r this [employer] procedure are i n the results section. ACETYLCHOLINE RECEPTOR Routine 07/21/2019 6:49 Multifocal R esults for this BINDING AB [employer] acquired motor procedure are in axonopathy the results Progressive focal section. motor weakness SANDRA Routine 07/21/2019 6:49 Multifocal Results for this [employer] acquired motor procedure are in axonopathy the results Progressive focal section. motor weakness BASIC METABOLIC PANEL Routine 07/21/2019 6:49 Multifocal Re sults for this [employer] acquired motor procedure are in axonopathy the results Progressive focal section. motor weakness HC COMPLETE BLD COUNT Routine 07/21/2019 6:49 Multifocal Re sults for this W/AUTO DIFF [employer] acquired motor procedure are in axonopathy the results Progressive focal section. motor weakness CREATINE KINASE, TOTAL Routine 07/21/2019 6:49 Multifocal R esults for this (CPK) [employer] acquired motor procedure are in axonopathy the results Progressive focal section. motor weakness C-REACTIVE PROTEIN Routine 07/21/2019 6:49 Multifocal Resul ts for this [employer] acquired motor procedure are in axonopathy the results Progressive focal section. motor weakness GM1 AB PANEL Routine 07/21/2019 6:49 Multifocal Results for this [employer] acquired motor procedure are in axonopathy the results Progressive focal section. motor weakness HTLV I/II AB WITH REFLEX Routine 07/21/2019 6:49 Multifocal Results for this TO CONFIRMATION [employer] acquired motor procedure are in axonopathy the results Progressive focal section. motor weakness PARATHYROID HORMONE Routine 07/21/2019 6:49 Multifocal Resu lts for this [employer] acquired motor procedure are in axonopathy the results Progressive focal section. motor weakness SERUM ELECTROPHORESIS Routine 07/21/2019 6:49 Multifocal Re sults for this [employer] acquired motor procedure are in axonopathy the results Progressive focal section. motor weakness SEDIMENTATION RATE Routine 07/21/2019 6:49 Multifocal Resul ts for this [employer] acquired motor procedure are in axonopathy the results Progressive focal section. motor weakness RHEUMATOID FACTOR Routine 07/21/2019 6:49 Multifocal Result s for this [employer] acquired motor procedure are in axonopathy the results Progressive focal section. motor weakness PROTHROMBIN TIME WITH Routine 07/21/2019 6:49 Multifocal Re sults for this INR [employer] acquired motor procedure are in axonopathy the results Progressive focal section. motor weakness VITAMIN D 25 HYDROXY Routine 07/21/2019 6:49 Multifocal Res ults for this LEVEL [employer] acquired motor procedure are in axonopathy the results Progressive focal section. motor weakness VITAMIN B12 LEVEL Routine 07/21/2019 6:49 Multifocal Result s for this [employer] acquired motor procedure are in axonopathy the results Progressive focal section. motor weakness after 12/20/2018 Results Transthoracic Echocardiogram Complete, (w Contrast, Strain and 3D if needed) (11/28/2019 12:00 PM CDT) Specimen Narrative Performed At [facility] Echo cardiography Report [id number] [facility], [address] [place] [address], [place] [address] Pat.Name: PARVIN COVINGTON.ID: [id number] St.Date: 11/28/2019 Refer.MD: BRIAN DAVEY MD Exam Time: 10:29:00 AM Study Type:Ro utine Echo Height: 63in Weight: 145lb BSA: 1.69 m2 Ag e: 1955,64Y Sex: FEMALE BP: 142/68 HR: 91 bpm Sonogr phr: Declan Mcdaniels RDCS Pat. Stat.:Inpatient Room: [facility] Study Status:Final Echo Event ID:[id number] Order ID: [id number] Reason for Study:STROKE. Post stroke p rotocol. If Patient < 60 yrs old, please perform evaluation for PFO w ith saline agitation. Thanks. History / Clinical:Stroke Procedures: 2D Echo, Colorflow Doppler, Portable Race: SUMMARY: LV EF is normal.Estimated EF is >70%. RV systolic function is normal. LV filling pressure is normal. No significant valvular abnormalities. Estimated PA systolic pressure is appx 2 8 mmHg, assuming a mean RAP of 5 mmHg. FINDINGS: LV: LV size is normal. LV EF is normal. Overall wall motion is normal. Estimated EF is > 70%. RV: RV size is normal. RV systo lic function is normal. LA: LA size is normal. RA: RA size is normal. AO: Aortic root diameter is nor mal. MAL: No pericardial effusion. The re is an anterior space consistent with a promine nt epicardial fat pad. AV: No structural AV abnormalit ies noted. MV: No structural MV abnormalit ies noted. PV: Pulmonic valve not well see n. TV: No structural TV abnormalit ies noted. There is mild TR. Dean: LV relaxation is impaired. L V filling pressure is normal. Other: Estimated PA systolic pressu re is appx 28 mmHg, assuming a mean RAP of 5 mmHg. MEASUREMENTS: 2D Parasternal Long Combs Ao Rtd 3.1 cm Index 1.8 cm/m2 LVPWd 1 cm IVSd 1 cm LA Ds 2.5 cm LVIDd 3.4 cm Index 2 cm/m2 RWT 0.59 LVIDs 1.8 cm LV Mas s 99 g (87-129) LV%fs 47 % Left Ventricle LVM Index 59 g/m LA Sng Plane LA Area 16 cm (8.8-23.4) LA Vol 42 ml Index 25 ml/m2 LA LngAx 4.9 cm RA Sng Plane RA Vol 27 ml Index 16 ml/m2 RA LngAx 4.1 cm RA Area 11 cm (8.3-1 9.5) LVOT Stroke Vol LVOT 1.9 cm LVOT LVOT Area 2.8 cm DOPPLER LVOT Stroke Vol LVOT TVI 24 cm LVOT CI 3.7 l/m/m LVOT SV 68 ml HR 92 bpm LVOT CO 6.2 l/min LVOT SVi 40 ml/m Signed 11/28/2019 05:09 PM Reina Nguyen MD Procedure Note Interface, Radiology Results In - 2019 5:09 PM CDT Echocardiography Report [address] [place] [address] Pat.Name: PARVIN COVINGTON Susan.I D: [id number] .Date: 11/28/2019 Refer .MD: BRIAN DAVEY MD Exam Time: 10:29:00 AM Study Type:Routine Echo Height: 63in Weigh t: 145lb BSA: 1.69 m2 Age: 8 1955,64Y Sex: FEMALE BP: 142/68 HR: 91 bpm Sonog rphr: Declan Mcdaniels RDCS Pat. Stat.:Inpatient Room: [facility] Study Status:Final Echo Event ID:[id number] Order ID: [id number] Reason for Study:STROKE. Post stroke pr otocol. If Patient < 60 yrs old, please perform evaluation for PFO w ith saline agitation. Thanks. History / Clinical:Stroke Procedures: 2D Echo, Colorflow Doppler, Portable Race: SUMMARY: LV EF is normal.Estimated EF is >70%. RV systolic function is normal. LV filling pressure is normal. No significant valvular abnormalities. Estimated PA systolic pressure is appx 2 8 mmHg, assuming a mean RAP of 5 mmHg. FINDINGS: LV: LV size is normal. LV EF is no rmal. Overall wall motion is normal. Estimated EF is >70%. RV: RV size is normal. RV systolic function is normal. LA: LA size is normal. RA: RA size is normal. AO: Aortic root diameter is normal . MAL: No pericardial effusion. There is an anterior space consistent with a prominent ep icardial fat pad. AV: No structural AV abnormalities noted. MV: No structural MV abnormalities noted. PV: Pulmonic valve not well seen. TV: No structural TV abnormalities noted. There is mild TR. Dean: LV relaxation is impaired. LV filling pressure is normal. Other: Estimated PA systolic pressure is appx 28 mmHg, assuming a mean RAP of 5 mmHg. MEASUREMENTS: 2D Parasternal Long Combs Ao Rtd 3.1 cm Inde x 1.8 cm/m2 LVPWd 1 cm IVSd 1 cm LA D s 2.5 cm LVIDd 3.4 cm Inde x 2 cm/m2 RWT 0.59 LVIDs 1.8 cm LV M ass 99 g (87-129) LV%fs 47 % Left Ventricle LVM Index 59 g/m LA Sng Plane LA Area 16 cm (8.8-23.4) L A Vol 42 ml Index 25 ml/m2 LA LngAx 4.9 cm RA Sng Plane RA Vol 27 ml Inde x 16 ml/m2 RA LngAx 4.1 cm RA Area 11 cm (8.3-19.5) LVOT Stroke Vol LVOT 1.9 cm LVOT LVOT Area 2.8 cm DOPPLER LVOT Stroke Vol LVOT TVI 24 cm LVOT CI 3.7 l/m/m LVOT SV 68 ml HR 92 bpm LVOT CO 6.2 l/min LVOT SVi 40 ml/m Signed 11/28/2019 05:09 PM Reina Nguyen MD Performing Organization Address City/State/Zipcode Phone Number [facility] [address] [place] [address] Troponin (11/28/2019 6:00 AM CDT)Only the most recent of2 resultswithin the time period is included. Troponin <0.006 0.000 - 0.040 [facility] Comment: ng/mL [facility]OSPITAL In patients suspected of having a myocardial infarctio n, along with all other appropriate clinical measures and actions includ ing ECG and other diagnostics as appropriate, measure Ultra TnI at 0 hrs and at 3 hrs. Myocardial infarction VERY LIKELY The 0 hr TnI level is > 0.10 ng/mL Myocardial infarction LIKELY The 0 hr TnI level is > 0.04 ng/mL and 3 hr level is i ncreased or decreased by at least 0.020 ng/mL Myocardial infarction VERY UNLIKELY Both the 0 hr and 3 hr TnI levels <= 0.04 ng/mL(within normal limits) OR 0 hr is > 0.04 ng/mL and 3 hr is increased OR decreased by less than 0.020 ng/mL Specimen Blood Performing Organization Address City/State/Zipcode Phone Number [facility] DEPARTMENT OF PATHOLOGY AND [address] [place], [place] [address] [facility] [address] [place] [address] MRI Brain Wo Contrast (11/28/2019 5:05 AM CDT) Specimen Narrative Performed At This result has an attachment that is no t available. EXAMINATION: MRI BRAIN WO CONTRAST RADIANT CLINICAL HISTORY: stroke COMPARISON: None TECHNIQUE: Multiplanar and multisequence MRI imaging of the brain was obtained without contrast. FINDINGS: No acute intra or extra-axial hemorrhage , mass effect or shift of normally midline structures is present. There is no evidence of acute infarction. Sellar/suprasellar structures, craniocervical junction is maintained. Minimal periventricular and few punctate deep T2 FLAIR hyperintense foci are noted, nonspecific, likely to reflect chronic small vessel ischemic change. There is no abnormal signal on T2 star GRE to suggest intracranial blood products . Evidence of mild hyperostosis frontalis interna is incidentally noted along the inner table of the front al calvarium. Mild mucosal thickening is present in th e ethmoid sinus. Minimal mucosal thickening is seen in the maxillary sinuses bilaterally. Globes are maintained bilaterally. Principal intracranial flow voids are maintained. IMPRESSION: No acute intracranial abnorm ality. Mild nonspecific T2 FLAIR hyperintensities likely chronic small vessel ischemia otherwise unremarkable study. [id number] Procedure Note Interface, Radiology Results Incoming - 11/28/2019 6:46 AM CDT EXAMINATION: MRI BRAIN WO CONTRAST CLINICAL HISTORY: stroke COMPARISON: None TECHNIQUE: Multiplanar and multisequence MRI imaging of the brain was obtained without contrast. FINDINGS: No acute intra or extra-axial hemorrhage , mass effect or shift of normally midline structures is present. There is no evidence of acute infarction. Sellar/suprasellar structures, craniocervical junction is maintained. Minimal periventricular and few punctate deep T2 FLAIR hyperintense foci are noted, nonspecific, likely to reflect chronic small vessel ischemic change. There is no abnormal signal on T2 star GRE to suggest intracranial blood products. Evidence of mild hyperostosis frontalis interna is incidentally noted along the inner tabl e of the frontal calvarium. Mild mucosal thickening is present in th e ethmoid sinus. Minimal mucosal thickening is seen in the maxillary sinuses bilaterally. Globes are maintained bilaterally. Principal intracranial flow voids are maintained. IMPRESSION: No acute intracranial abnorm ality. Mild nonspecific T2 FLAIR hyperintensities likely chronic small vessel ischemia otherwise unremarkable study. [id number] Performing Organization Address City/[facility] Cent[facility]ode Phone Number [facility] [address] [place] [phone] COVID-19 qualitative PCR (11/28/2019 12:30 AM CDT) Interpretation Negative results do not prec lude 2019-nCoV infection and should not be used as the sole basis for treatment or other patient management decisions. Negative results must be combined with clinical observations, patient history, and epidemiological [place] information. [facility] COVID-19 qualitative Not-Detected Not-Detecte [place] PCR result d [facility] COVID-19 qualitative See link below for [place] PCR PDF Lab HINDUISM ReportComment: Case HOSPITAL Number: [id number] Specimen Nasopharyngeal swab Performing Organization Address [facility] Phone Number [facility] DEPARTMENT OF PATHOLOGY AND [address] [place] [address] GENOMIC MEDICINE [address] [address] [facility] XR Chest 1 Vw Portable (11/28/2019 12:05 AM CDT) Specimen Narrative Performed At EXAMINATION: XR CHEST 1 VW PORTABLE [facility] CLINICAL HISTORY: 64 years Female SOB COMPARISON: None. IMPRESSION: Lines/Tubes: None. Lungs/Pleura: Mild scarring/atelectasis is seen in the left lung base. No pleural effusion or pneumothorax is s een. Heart/Mediastinum: The cardiomediastinal silhouette is mildly enlarged. Bones: No acute osseous abnormality. [id number] Procedure Note Interface, Radiology Results Incoming - 11/28/2019 12:37 AM CDT EXAMINATION: XR CHEST 1 VW PORTABLE CLINICAL HISTORY: 64 years Female SOB COMPARISON: None. IMPRESSION: Lines/Tubes: None. Lungs/Pleura: Mild scarring/atelectasis is seen in the left lung base. No pleural effusion or pneumothorax is seen. Heart/Mediastinum: The cardiomediastinal silhouette is mildly enlarged. Bones: No acute osseous abnormality. [id number] Performing Organization Address [facility] Centercode Phone Number [facility] [address] [place] [address] CT Angiogram Pe Chest (11/27/2019 11:57 PM CDT) Specimen Narrative Performed At EXAMINATION: CT ANGIOGRAM PE CHEST [facility] CLINICAL HISTORY: 64 years Female sob TECHNIQUE: Multiple CT angiographic images of the ches t were obtained during intravenous administration of contrast. Multipl e computerized reformatted images as well as 3-D volume rendered imag es were also obtained. CT imaging was performed with iterative reconstruction techniques and/or automated e xposure control to reduce radiation dose. COMPARISON: CT of the chest, abdomen, and pelvis from 07/23/2019. FINDINGS: Lungs and airways: A 2 mm nodule along the right obliq ue fissure seen on series 303 image 41 is unchanged. There is mild atelec tasis in the lung bases bilaterally. An 8 mm calcified granuloma in the left lower lobe is stable. No new consolidation or mass lesion is identified in the lungs. Pleura: No pleural effusion or pneumotho rax. Mediastinum and lymph nodes: No lymphade nopathy. Cardiovascular: The heart is mildly enlarged. No peric ardial effusion is identified. The caliber of the ascending, transverse, and descendi ng thoracic aorta is normal. The thoracic aorta is patent. There is no e vidence of dissection flap in the thoracic aorta. The pulmonary artery trunk, right main pulmonary arter y, and left main pulmonary artery are within normal limits of size. No saddle embolus is identified. There is no evidence of right heart strain . No filling defect is identified within the central segmental opacified pulmonary arteries. Upper abdomen: No suspicious abnormalities. There is a small hiatal hernia. Bones: No suspicious osseous lesions. Other: None. IMPRESSION: 1.No evidence of pulmonary embolism. 2.No acute abnormality identified in the chest. [id number] Procedure Note Interface, Radiology Results Incoming - 11/28/2019 12:18 AM CDT EXAMINATION: CT ANGIOGRAM PE CHEST CLINICAL HISTORY: 64 years Female sob TECHNIQUE: Multiple CT angiographic imag es of the chest were obtained during intravenous administration of contrast. Multiple computerized reformatted images as well as 3-D volume rendered images were also obtained. CT imaging was performed with iterative reconstruction techniques and/ or automated exposure control to reduce radiation dose. COMPARISON: CT of the chest, abdomen, a nd pelvis from 07/23/2019. FINDINGS: Lungs and airways: A 2 mm nodule along t he right oblique fissure seen on series 303 image 41 is unchanged. There is mild atelectasis in the lung bases bilaterally. An 8 mm calcified granuloma in the left lower lobe is stable. No new consolidation or mass lesion is identified in the lungs. Pleura: No pleural effusion or pneumotho rax. Mediastinum and lymph nodes: No lymphade nopathy. Cardiovascular: The heart is mildly enla rged. No pericardial effusion is identified. The caliber of the ascending, transverse , and descending thoracic aorta is normal. The thoracic aorta is patent. There is no evidence of dissection flap in the thoracic aorta. The pulmonary artery trunk, right main p ulmonary artery, and left main pulmonary artery are within normal limits of size. No saddle embolus is identified. There is no evidence of right heart strain. No filling defect is identified within the central segmental opacified pulmonary arteries. Upper abdomen: No suspicious abnormaliti es. There is a small hiatal hernia. Bones: No suspicious osseous lesions. Other: None. IMPRESSION: 1.No evidence of pulmonary embolism. 2.No acute abnormality identified in the chest. [id number] Performing Organization Address [facility] Centercoar Phone Number [address] [address] B natriuretic peptide (11/27/2019 11:35 PM CDT) Pathologist [facility] BNP 5 0 - 100 pg/mL [facility] Specimen Blood Performing Organization Address [facility] Center[facility] Phone Number [facility] DEPARTMENT OF PATHOLOGY AND [address] [place] [phone] GENOMIC MEDICINE [address] [address] Venous blood gas (11/27/2019 11:35 PM CDT) Pathologist [facility] pH, venous 7.39 7.32 - 7.42 [facility] pCO2, venous 43 (L) 45 - 51 mmHg [facility] pO2, venous 54 (H) 25 - 40 mmHg [facility] Base excess, venous 1 -2 - 2 meq/L [facility] O2 saturation, 85 (H) 40 - 70 % [facility]OSPITAL Bicarbonate, venous 25.4 21.0 - 28.0 [facility] mmol/L HOSPITAL Specimen Blood Performing Organization Address [facility] Centercoar Phone Number [facility] DEPARTMENT OF PATHOLOGY AND [address] [place], [place] [address] GENOMIC MEDICINE [facility] [address] [place] [address] CT Lumbar Spine Wo Contrast (11/27/2019 10:15 PM CDT) Specimen Narrative Performed At EXAMINATION: CT LUMBAR SPINE WO CONTRA [facility] CLINICAL HISTORY: back pain COMPARISON: None. FINDINGS: Noncontrast CT of the lumbar spine is in terpreted. CT imaging was performed with iterative reconstruction techniques and/or automated exposure control to reduce rad iation dose. The lowest fully formed disc space is de signated L5-S1. Vertebral heights preserved. No displaced fracture agg ressive bone lesion is seen. T12 vertebral body hemangiomas present. L1-2: Unremarkable. L2-3: Unremarkable. L3-4: Unremarkable. L4-5: Mild disc degenerative changes. Mild disc bulge. Minimal bilateral facet arthrosis. Mild canal narrowing. L5-S1: Moderate loss of disc height. Mild disc bulge. Small right subarticular zone disc protrusion. There is potential slight contact on the traversing right S1 nerve root. There is deconditioning of the paraspino us musculature. IMPRESSION: Mild degenerative changes in the lower l umbar spine. Small right subarticular zone disc protrusion is suspe cted at L5-S1 and there is potential contact on the alteha sing right S1 nerve root. [id number] Procedure Note Interface, Radiology Results Incoming - 11/27/2019 10:24 PM CDT EXAMINATION: CT LUMBAR SPINE WO CONTRAST CLINICAL HISTORY: back pain COMPARISON: None. FINDINGS: Noncontrast CT of the lumbar spine is in terpreted. CT imaging was performed with iterative reconstruction techniques and/or automated exposure control to reduce radiation dose. The lowest fully formed disc space is de signated L5-S1. Vertebral heights preserved. No displace d fracture aggressive bone lesion is seen. T12 vertebral body hemangiomas present. L1-2: Unremarkable. L2-3: Unremarkable. L3-4: Unremarkable. L4-5: Mild disc degenerative changes. Mi ld disc bulge. Minimal bilateral facet arthrosis. Mild canal narrowing. L5-S1: Moderate loss of disc height. Mil d disc bulge. Small right subarticular zone disc protrusion. There is potential slight contact on the traversing right S1 nerve root. There is deconditioning of the paraspino us musculature. IMPRESSION: Mild degenerative changes in the lower l umbar spine. Small right subarticular zone disc protr usion is suspected at L5-S1 and there is potential contact on the traversing right S1 nerve root. [id number] Performing Organization Address City/State/Zipcode Phone Number YAJAIRA CARTY [address] [place] [address] CRITICAL CARE (11/27/2019 7:53 PM CDT) Narrative Performed At Edson Patel MD 11/30/2019 7:55 PM Critical Care Performed by: Edson Patel MD Authorized by: Edson Patel MD Critical care provider statement: Critical care time (minutes): 35 Critical care time was exclusive of: Separately b illable procedures and treating other patients and teaching marco e Critical care was necessary to treat or prevent imminent or life-threatening deterioration of the following condit ions: Respiratory failure and [employer] failure or compromise Critical care was time spent personal ly by me on the following activities: Obtaining history from patient or surrog ate, interpretation of cardiac output measurements, examinat ion of patient, evaluation of patient's response to treatment, discussions with cons ultants, development of treatment plan with patient or surrog ate, blood draw for specimens, ordering and performing treatments and interventions, ordering and review of laboratory studies, ordering and review of radiogra phic studies, pulse oximetry, re-evaluation of patient's con dition and review of old charts Timothy 'yes' if you are taking over critical care for this patient from another provider.: no Urinalysis screen and microscopy, with reflex to culture (11/27/2019 7:45 PM CDT) Specimen site Catheterized [facility] Color, UA Yellow [facility] Appearance, UA Hazy [facility] Specific gravity, UA 1.019 1.001 - 1.035 [facility] pH, UA 6.0 5.0 - 8.5 [facility] Protein, UA 1+ (A) Negative [facility] Glucose, UA Negative Negative [facility] Ketones, UA Negative Negative [facility] Bilirubin, UA Negative Negative [facility] Blood, UA Negative Negative [facility] Nitrite, UA Negative Negative [facility] Urobilinogen, UA 2.0 (A) <2.0 [facility] Leukocyte esterase, Negative Negative [facility] Epithelial cells, UA 3 /HPF [facility] WBC, UA 3 0 - 4 /HPF [facility] RBC, UA 1 0 - 5 /HPF [facility] Bacteria, UA Few None seen [facility] Yeast, UA None seen [facility] Yeast with None seen [facility] pseudohyphae, [facility] Hyaline casts, UA 1 /LPF [facility] Specimen Urine Performing Organization Address City/[facility]/Zipcode Phone Number [facility] DEPARTMENT OF PATHOLOGY AND [address] [place] [phone] Urine culture (11/27/2019 7:45 PM CDT) Pathologist Sig nature Urine culture SEE COMMENTComment: [facility] Bacteriuria screen HOSPITAL negative. Specimen Performing Organization Address [facility] Centercode Phone Number [facility] DEPARTMENT OF PATHOLOGY AND [address] [place] [phone] Estimated GFR (11/27/2019 7:35 PM CDT)Only the most recent of3 resultswithin the time period is included. Pathologist [facility] Estimated GFR >=90 mL/min/1.73 [facility] Comment: HOSPITAL Catergory Units Interpretation G1 >=90 Normal or high G2 60-89 Mildly decreased G3a 45-59 Mildly to moderately decreas ed G3b 30-44 Moderately to severely decre ased G4 15-29 Severely decreased G5 <15 Kidney failure The eGFR was calculated using the Chronic Kidney Disea se Epidemiology Collaboration (CKD-EPI) equation. Interpretation is based on recommendations of the National Kidney Foundation-Kidney Disease Outcomes Sumeet lity Initiative (NKF-KDOQI) published in 2014. Specimen Performing Organization Address City/[facility]/Zipcode Phone Number [facility] DEPARTMENT OF PATHOLOGY AND [address] [place] [phone] CBC with platelet and differential (11/27/2019 7:35 PM CDT)Only the most recent of3 resultswithin the time period is included. WBC 10.98 4.50 - 11.00 [facility] k/uL HOSPITAL RBC 4.26 4.20 - 5.50 [facility] m/uL HOSPITAL HGB 12.6 12.0 - 16.0 [facility] g/dL HOSPITAL HCT 39.0 37.0 - 47.0 % [facility] MCV 91.5 82.0 - 100.0 [facility] MCH 29.6 27.0 - 34.0 pg [facility] MCHC 32.3 31.0 - 37.0 [facility] g/dL HOSPITAL RDW - SD 40.6 37.0 - 55.0 [facility] MPV 10.3 8.8 - 13.2 [facility] Platelet count 285 150 - 400 k/uL [facility] Nucleated RBC 0.00 /100 WBC [facility] Neutrophils 70.2 (H) 39.0 - 69.0 % [facility] Lymphocytes 18.2 (L) 25.0 - 45.0 % [facility] Monocytes 4.7 0.0 - 10.0 % [facility] Eosinophils 6.1 (H) 0.0 - 5.0 % [facility] Basophils 0.5 0.0 - 1.0 % [facility] Immature granulocytes 0.3Comment: 0.0 - 1.0 % [facility] "Immature [facility] granulocytes" (promyelocytes , myelocytes, metamyelocytes ) Specimen Blood Performing Organization Address City/State/Zipcode Phone Number [facility] DEPARTMENT OF PATHOLOGY AND [address] [place], [place] [address] 0 GENOMIC MEDICINE [address] [address] Comprehensive metabolic panel (11/27/2019 7:35 PM CDT)Only the most recent of2 resultswithin the time period is included. Sodium 145 135 - 148 [facility] mEq/L [facility] Potassium 4.3 3.5 - 5.0 [facility] mEq/L [facility] Chloride 104 98 - 112 [facility] mEq/L [facility] CO2 27 24 - 31 mEq/L [facility] Anion gap 14@ANIO 7 - 15 mEq/L [facility] BUN 17 8 - 23 mg/dL [facility] Creatinine 0.35 (L) 0.50 - 0.90 [facility] mg/dL [facility] Glucose 95 65 - 99 mg/dL [facility] Calcium 9.9 8.8 - 10.2 [facility] mg/dL HOSPITAL Protein 7.0 6.3 - 8.3 [facility] Comment: g/dL HOSPITAL - 4.6-7.0 g/dL 1 week 4.4-7.6 g/dL 7 months-1year 5.1-7.3 g/dL 1-2 years 5.6-7.5 g/dL >3 years 6.0-8.0 g/dL 18-150 6.3-8.3 g/dL Albumin 4.0 3.5 - 5.0 [facility] g/dL [facility] A/G ratio 1.3 0.7 - 3.8 [facility] Alkaline phosphatase 64 35 - 104 U/L [facility] AST 39 (H) 10 - 35 U/L [facility] ALT 20 5 - 50 U/L [facility] Total bilirubin 0.3 0.0 - 1.2 [facility] mg/dL HOSPITAL Specimen Blood Performing Organization Address City/State/Zipcode Phone Number [facility] DEPARTMENT OF PATHOLOGY AND [address] [place] [phone] GENOMIC MEDICINE [facility] [address] [place] [address] Spirometry, MIPS/MEPS (10/28/2019 8:19 AM CDT) Pathologist Sig nature FEV1 Pre 1.43 1.74 - 2.90 L [facility] FEV1/FVC % Pre 79.37 68.43 - 87.06 % [facility] FVC Pre 1.80 2.28 - 3.65 L [facility] PEF Pre 3.80 3.67 - 7.56 L/s [facility] FEF 25-75% Pre 1.37 0.92 - 3.48 L/s [facility] FEV1 Predicted 2.32 [facility] FEV1 LLN 1.74 [facility] FEV1 % Pre of Predicted 61.6 % [facility] FVC Predicted 2.97 [facility] FVC LLN 2.28 [facility] FVC % Pre of Predicted 60.7 % [facility] FEV1/FVC % Predicted 78 [facility] FEV1/FVC % LLN 68 [facility] FEV1/FVC % Pre of Predicted 102.1 % [facility] FEF 25-75% Predicted 2.20 [facility] FEF 25-75% LLN 0.92 [facility] FEF 25-75% % Pre of 62.4 % [facility] Predicted PEF Predicted 5.62 [facility] PEF LLN 3.67 [facility] PEF % Pre of Predicted 67.7 % [facility] Specimen Narrative Performed At This result has an attachment that is no t available. Performing Organization Address [facility] Centercoar Phone Number [address] [address] Creatine kinase, total (CPK) (10/28/2019 8:14 AM CDT)Only the most recent of2 resultswithin the time period is included. Pathologist [facility] nature Creatine kinase 63 26 - 192 U/L [facility] Specimen Blood Performing Organization Address [facility] Phone Number [facility] DEPARTMENT OF PATHOLOGY AND [address] [place] [address] [address] Hepatic function panel (10/28/2019 8:14 AM CDT) Albumin 3.6 3.5 - 5.0 [facility] g/dL [facility] Total bilirubin 0.3 0.0 - 1.2 [facility] mg/dL [facility] Bilirubin direct <0.2 0.0 - 0.3 [facility] mg/dL [facility] Alkaline phosphatase 47 35 - 104 U/L [facility] Protein 6.1 (L) 6.3 - 8.3 [facility] Comment: g/dL [facility] - [place] 4.6-7.0 g/dL 1 week 4.4-7.6 g/dL 7 months-1year 5.1-7.3 g/dL 1-2 years 5.6-7.5 g/dL >3 years 6.0-8.0 g/dL 18-150 6.3-8.3 g/dL ALT 19 5 - 50 U/L [facility] AST 22 10 - 35 U/L [facility] Specimen Blood Performing Organization Address [facility] Phone Number [facility] DEPARTMENT OF PATHOLOGY AND [address] [place] [address] [phone] [address] Basic metabolic panel (10/28/2019 8:14 AM CDT)Only the most recent of2 results within the time period is included. Pathologist Sig nature Sodium 143 135 - 148 mEq/L [facility] L Potassium 4.0 3.5 - 5.0 mEq/L [facility] L Chloride 102 98 - 112 mEq/L [facility] CO2 28 24 - 31 mEq/L [facility] Anion gap 13@ANIO 7 - 15 mEq/L [facility] BUN 20 8 - 23 mg/dL [facility] Creatinine 0.53 0.50 - 0.90 mg/dL [facility] Glucose 94 65 - 99 mg/dL [facility] Calcium 9.9 8.8 - 10.2 mg/dL [facility] Specimen Blood Performing Organization Address City/State/Zipcode Phone Number [facility] DEPARTMENT OF PATHOLOGY AND [address] [place] [phone] GENOMIC MEDICINE [facility] [address] [place] [address] CT Chest W Contrast Abdomen W Wo Contrast Pelvis W Contrast (07/23/2019 12:18 PM [employer]) Specimen Narrative Performed At EXAMINATION: CT CHEST W CONTRAST ABDOMEN W WO CONTRA ST PELVIS W [facility] CONTRAST CLINICAL HISTORY: G62.9 Polyneuropathy unspecified , 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 TECHNIQUE: Axial images of the abdomen were obtained p rior to intravenous contrast administration. Multiple axial im ages of the chest, abdomen, and pelvis were obtained following intravenou s administration of iodinated contrast. Sagittal and ines nal computerized reformatted images were obt ained. CT imaging was performed with iterative reconstruction techniques and/or automated exposure control to reduce rad iation dose. COMPARISON: None. FINDINGS: Chest: No significant adenopathy is seen in the base of the n [place]. There is a nodule in the right lobe of the thyroid gland which me asures up to 1.4 cm in size. No significant adenopathy in the axilla. N o significant mediastinal or hilar lymph nodes by size criteria. Thoracic esophagus is grossly unremarkable. Small hiatal hernia. The thoracic aorta is nonaneurysmal. The left vertebra l artery arises directly from the aortic arch, an anatomic variant. Pu lmonary trunk is normal in caliber. Heart size is normal. No pericardial effusion. There is a nodule in the right lower lobe along the ma dionte fissure on series 3, image 61 which measures up to 3 mm in size. No definite additional nodule is seen. Calcified granuloma in the left lower lobe. There is an additional nodule in the rig ht middle lobe along the minor fissure whic h measures up to 5 mm in size. Degenerative changes of the bones. Abdomen: The liver is enlarged with fatty infiltration. There i s geographic fatty infiltration involving the right hepatic lobe relative to the left hepatic lobe. Hypodensity in segment 7 of the liver me asuring up to 8 mm is most consistent with a cyst. No definite additional focal abnormality is identified in the liver. The hepatic veins are patent. Portal vein, splenic vein, a nd superior mesenteric vein are patent. Prior cholecystectomy. No significant dilatation of th e intrahepatic or the extrahepatic biliary tree. The spleen is not enlar ged. Calcified granulomata are noted in the spleen. The adrenal gland s are unremarkable. No focal abnormality can b e seen within the pancreas. No peripancreatic inflammatory change o r evidence of ductal dilatation. The abdominal aorta is nonaneurysmal. The mesenteric v asculature appears widely patent. Atherosclerosis of the infrarenal abdom inal aorta without evidence of an aneurysm. There is no evidence of a solid mass seen in either ki dney. Numerous bilateral peripelvic cysts are noted with a discrete c yst in the posterior interpolar region of the left kidney measuri ng up to 1.4 cm in size. No hydronephrosis. No significant adenopathy in the upper abdomen, retrop eritoneum, or root of the mesentery by size criteria. No ascites. No susp icious peritoneal or omental nodularity. Apart from the small hiatal hernia. The stomach is verna ssly unremarkable although underdistended. The duodenum appears unremark able. No evidence of small bowel thickening or findings to suggest a sma ll bowel obstruction. Appendix is normal. Moderat e stool is seen in the colon. There is no evidence of abnorma l colonic wall thickening or evidence of a colonic obstruction. Few s cattered right-sided colonic diverticula. Pelvis: Urinary bladder is grossly unremarkable. Pelvic phlebo liths. Uterus appears unremarkable. No definite suspicious findings in the adnexa. No adenopathy. Degenerative changes of the bones. There is a hemangio ma in the T12 vertebral body. IMPRESSION: 1.No definite CT evidence of malignancy in the chest, abdomen, or pelvis. 2.2 small nodules in the right middle and right lower lobe. Follow-up per guidelines guidelines as detailed be low is recommended. 3.Hepatomegaly and diffuse fatty infiltration of the l iver with a small hepatic cyst. 4.Numerous peripelvic cysts in the kidne ys. 5.Moderate stool in colon. Colonic diverticulosis with out evidence of diverticulitis. 6.Right sided thyroid nodule for which further evaluat ion with thyroid ultrasound is recommended. 7.Small hiatal hernia. 8.Please see above for additional findin gs and details. 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 TECHNIQUE: Axial images of the abdomen w ere obtained prior to intravenous contrast administration. Multiple axial images of the chest, abdomen, and pelvis were obtained following intravenous administration of iodinated contrast. Sagittal and coronal computerized reformatted images were obt ained. CT imaging was performed with iterative reconstruction techniques and/or automated exposure control to reduce radiation dose. COMPARISON: None. FINDINGS: Chest: No significant adenopathy is seen in the base of the neck. There is a nodule in the right lobe of the thyroid gland which measures up to 1.4 cm in size. No significant adenopathy in the axilla. No significant mediastinal or hilar lymph nodes by size criteria. Thoracic esophagus is grossly unremarkable. Small hiatal hernia. The thoracic aorta is nonaneurysmal. The left vertebral artery arises directly from the aortic arch, an anatomic variant. Pulmonary trunk is normal in caliber. Heart size is normal. No pericardial effusion. There is a nodule in the right lower lob e along the major fissure on series 3, image 61 which measures up to 3 mm in size. No definite additional nodule is seen. Calcified granuloma in the left lower lobe. There is an additional nodule in the right middle lobe along the minor fissure whic h measures up to 5 mm in size. Degenerative changes of the bones. Abdomen: The liver is enlarged with fatty infiltr ation. There is geographic fatty infiltration involving the right hepatic lobe relative to the left hepatic lobe. Hypodensity in segment 7 of the liver measuring up to 8 mm is most consistent with a cyst. No definite additional focal abnormality is identified in the liver. The hepatic veins are patent. Portal vein, splenic vein, and superior mesenteric vein are patent. Prior cholecystectomy. No significant di latation of the intrahepatic or the extrahepatic biliary tree. The spleen is not enlarged. Calcified granulomata are noted in the spleen. The adrenal glands are unremarkable. No focal abnormality can be seen within the pancreas. No peripancreatic inflamm atory change or evidence of ductal dilatation. The abdominal aorta is nonaneurysmal. Th e mesenteric vasculature appears widely patent. Atherosclerosis of the infrarenal abdominal aorta without evidence of an aneurysm. There is no evidence of a solid mass see n in either kidney. Numerous bilateral peripelvic cysts are noted with a discrete cyst in the posterior interpolar region of the left kidney measuring up to 1.4 cm in size. No hydronephrosis. No significant adenopathy in the upper a bdomen, retroperitoneum, or root of the mesentery by size criteria. No ascites. No suspicious peritoneal or omental nodularity. Apart from the small hiatal hernia. The stomach is grossly unremarkable although underdistended. The duodenum appears unremarkable. No evidence of small bowel thickening or findings to suggest a small bowel obstruction. Appendix is normal. Moderate stool is seen in the colon. There is no evide nce of abnormal colonic wall thickening or evidence of a colonic obstruction. Few scattered right-sided colonic diverticula. Pelvis: Urinary bladder is grossly unremarkable. Pelvic phleboliths. Uterus appears unremarkable. No definite suspicious findings in the adnexa. No adenopathy. Degenerative changes of the bones. There is a hemangioma in the T12 vertebral body. IMPRESSION: 1.No definite CT evidence of malignancy in the chest, abdomen, or pelvis. 2.2 small nodules in the right middle an d right lower lobe. Follow-up per guidelines guidelines as detailed below is recommended. 3.Hepatomegaly and diffuse fatty infiltr ation of the liver with a small hepatic cyst. 4.Numerous peripelvic cysts in the kidne ys. 5.Moderate stool in colon. Colonic diver ticulosis without evidence of diverticulitis. 6.Right sided thyroid nodule for which f urther evaluation with thyroid ultrasound is recommended. 7.Small hiatal hernia. 8.Please see above for additional findin gs and details. Management Recommendations: According to a consensus statement published by the [employer] physicians and the Fleischner Society, the [facility] collaborative imaging recommendations for multiple solid nodules < 6 mm in a patient without malignancy or immunosuppression are: Low risk - No routine follow-up High risk - Optional CT at 12 months* *use most suspicious nodule as guide to management; follow-up intervals may vary according to size and risk [facility]-[id number] Performing Organization Address City/[facility]/Zipcode Phone Number [address] [address] West Nile virus by PCR, CSF (07/22/2019 12:03 PM SCHOOL FUNDRAISING DIRECTOR) West Nile virus Not-Detected Not-Detected [facility] PCR, CSF [facility] West Nile virus See link below [facility] PCR, CSF for PDF Lab HOSPITAL ReportComment: Specimen Performing Organization Address City/[facility] Phone Number [facility] DEPARTMENT OF PATHOLOGY AND [address] [place] [address] [phone] [address] [facility] Varicella zoster by PCR (07/22/2019 12:03 PM SCHOOL FUNDRAISING DIRECTOR) Pathologist [facility] VZV result Not-Detected Not-Detected [facility] copies/mL [facility] Varicella zoster, See link below [facility] pcr for PDF Lab HOSPITAL ReportComment: Specimen Performing Organization Address City/[facility]/Zipcode Phone Number [facility] DEPARTMENT OF PATHOLOGY AND [address] [place] [phone] GENOMIC MEDICINE [address] [address] [facility] Herpes simplex virus by PCR (07/22/2019 12:03 PM SCHOOL FUNDRAISING DIRECTOR) Herpes virus, PCR Not-Detected Not-Detected [facility] Herpes virus, PCR See link below [facility] for PDF Lab HOSPITAL ReportComment: Specimen Performing Organization Address City/State/Zipcode Phone Number [facility] DEPARTMENT OF PATHOLOGY AND [address] [place] [address] Flow cytometry evaluation (07/22/2019 12:03 PM SCHOOL FUNDRAISING DIRECTOR) [facility] Flow cytometry See link below [facility] evaluation for PDF Lab HOSPITAL Report Specimen Performing Organization Address City/[facility]/Zipcode Phone Number [facility] DEPARTMENT OF PATHOLOGY AND [address] [place] [address] Malcom Cash Virus (EBV) by PCR (07/22/2019 12:03 PM SCHOOL FUNDRAISING DIRECTOR) Malcom Cash virus, Not-Detected Not-Detected [facility] PCR copies/mL [facility] Malcom Cash virus, See link below [facility] PCR for PDF Lab HOSPITAL ReportComment: Specimen Performing Organization Address City/[facility] Centercode Phone Number [facility] DEPARTMENT OF PATHOLOGY AND [address] [place] [address] Enterovirus by PCR (07/22/2019 12:03 PM SCHOOL FUNDRAISING DIRECTOR) Pathologist Sig nature Enterovirus PCR Not-Detected Not-Detected [facility] Enterovirus PCR See link below [facility] for PDF Lab HOSPITAL ReportComment: Specimen Performing Organization Address City/[facility]/Zipcode Phone Number [facility] DEPARTMENT OF PATHOLOGY AND [address] [place] [address] Cytology (non-gynecological) request (07/22/2019 11:44 AM SCHOOL FUNDRAISING DIRECTOR) [facility] DEPARTMENT OF PATHOLOGY AND GENOMIC MEDICINE Cytology See link below [facility] DEPARTMENT OF (non-gynecological) for PDF Lab PATHOLOGY AND report Report GENOMIC MEDICINE Result status This is Final [facility] DEPARTMENT OF Report for PATHOLOGY AND [id number] GENOMIC MEDICINE Specimen Performing Organization Address City/[facility]/Zipcode Phone Number [facility] DEPARTMENT OF PATHOLOGY AND [address] [place] [address] GENOMIC MEDICINE Miscellaneous referral test (07/22/2019 8:44 AM SCHOOL FUNDRAISING DIRECTOR)Only the most recent of2 resultswithin the time period is included. [facility] test name ENS2 SHOWN ABOVE [facility] test result SEE NOTE SHOWN ABOVE Comment: Patient Name: PARVIN COVINGTON Date: 1955 Age: 64 Gender: F Order Number: [id number] Client Order Number: [id number] Report Status: FINAL ====== Encephalopathy-Autoimmune Eval, S ====== Encephalopathy, Interpretation, S No informative autoantibodies were detected in this evaluation. However, a negative result does not exclud e autoimmune encephalopathy, idiopathic or paraneoplasti c. Sensitivity and specificity of antibody testing are enhanced by testing both serum and CSF. ...................................................... ...... AChR Ganglionic Neuronal Ab, S 0.00 nmol/L Reference Value: <=0.02 ...................................................... ...... AMPA-R Ab CBA, S Negative Reference Value: Negative ...................................................... ...... Amphiphysin Ab, S Negative titer Reference Value: <1:240 ...................................................... ...... Anti-Glial Nuclear Ab, Type 1 AGNA-1, S Negative titer Reference Value: <1:240 ...................................................... ...... Anti-Neuronal Nuclear Ab, Type 1 PRANAV-1, S Negative titer Reference Value: <1:240 ...................................................... ...... Reflex Added None. ...................................................... ...... Anti-Neuronal Nuclear Ab, Type 2 PRANAV-2, S Negative titer Reference Value: <1:240 ...................................................... ...... Anti-Neuronal Nuclear Ab, Type 3 PRANAV-3, S Negative titer Reference Value: <1:240 ...................................................... ...... CASPR2-IgG CBA, S Negative Reference Value: Negative ...................................................... ...... CRMP-5-IgG, S Negative titer Reference Value: <1:240 ...................................................... ...... DPPX Ab IFA, S Negative Reference Value: Negative ...................................................... ...... JUANCHO-B-R Ab CBA, S Negative Reference Value: Negative ...................................................... ...... GAD65 Ab Assay, S 0.00 nmol/L Reference Value: <= 0.02 ...................................................... ...... GFAP IFA, S Negative Reference Value: Negative ...................................................... ...... LGI1-IgG CBA, S Negative Reference Value: Negative ...................................................... ...... mGluR1 Ab IFA, S Negative Reference Value: Negative ...................................................... ...... NMDA-R Ab CBA, S Negative Reference Value: Negative ...................................................... ...... N-Type Calcium Channel Ab 0.00 nmol/L Reference Value: <=0.03 ...................................................... ...... P/Q-Type Calcium Channel Ab 0.00 nmol/L Reference Value: <=0.02 ...................................................... ...... Purkinje Cell Cytoplasmic Ab Type 1 NET TECHNICAL ARCHITECT-1, S Negative titer Reference Value: <1:240 ...................................................... ...... Purkinje Cell Cytoplasmic Ab Type 2 NET TECHNICAL ARCHITECT-2, S Negative titer Reference Value: <1:240 ...................................................... ...... Purkinje Cell Cytoplasmic Ab Type Tr NET TECHNICAL ARCHITECT-Tr, S Negative titer Reference Value: <1:240 - - - - - - - - - - - - - - - - - - - - - - - - - - - - - - - Laboratory Notes: This test was developed and its performance characteristics determined by [facility] in a manner consistent with CLIA requirements. This test has not b een cleared or approved by the U.S. Food and Drug Administration. + -----+ : PERFORMING S ITE LEGEND : + -----+ : : [facility] : : : [address] [place] [address] : + -----+ Specimen Narrative Performed At [facility] AUTOIMMUNE ENCEPHALITIS PANEL 4ML [facility] ENT OF PATHOLOGY AND GENOMIC [employer] MEDICINE Test ID: [id number], Autoimmune Evaluation, Serum Performing Organization Address City/State/Zipcode Phone Number [facility] DEPARTMENT OF PATHOLOGY AND [address] [place], [place] [address] [employer] SHOWN ABOVE IgG synthesis rate study (07/21/2019 6:04 PM SCHOOL FUNDRAISING DIRECTOR) Pathologist Sig nature IgG albumin ratio, 0.09 0.00 - 0.23 [facility] IgG index, CSF 0.50 0.01 - 0.63 [facility] IgG synthetic rate 1.63 -9.90 - 3.30 [facility] mg/day HOSPITAL Q-albumin ratio, CSF 7.88 2.40 - 8.10 [facility] IgG, CSF 2.91 1.00 - 3.00 [facility] mg/dL [facility] Albumin, CSF 33.88 (H) 10.00 - 30.00 [facility] mg/dL HOSPITAL IgG 735 700 - 1,600 [facility] mg/dL HOSPITAL Albumin, S 4,300.0 3,640.0 - [facility]304.[facility] mg/dL HOSPITAL Specimen Serum Performing Organization Address [facility]/Zipcode Phone Number [facility] DEPARTMENT OF PATHOLOGY AND [address] [place], [place] [address] [facility] MEDICINE [address] [address] Oligoclonal banding, CSF (07/21/2019 6:04 PM SCHOOL FUNDRAISING DIRECTOR) Protein, CSF SEE COMMENT 15 - 45 [place] Comment: mg/dL [facility] Footnote--------- HOSPITAL Cancel test per Dr. Deirdre Burton. Credit will be [facility] ed. Corrected result; previously reported as 56 on 020 at 19:18 by I/AUT Prealbumin, CSF SEE 3.5 - 11.1 % [place] COMMENTComment: [facility] Footnote--------- HOSPITAL Albumin, CSF SEE 40.8 - 66.2 [place] COMMENTComment: % [facility] Footnote--------- HOSPITAL Alpha 1, CSF SEE 2.3 - 6.4 % [place] COMMENTComment: [facility] Footnote--------- HOSPITAL Alpha 2, CSF SEE 6.1 - 12.6 % [place] COMMENTComment: [facility] Footnote--------- HOSPITAL Beta, CSF SEE 11.7 - 24.1 [place] COMMENTComment: % [facility] Footnote--------- HOSPITAL Gamma, CSF SEE 5.6 - 12.2 % [place] COMMENTComment: [facility] Footnote--------- HOSPITAL CSF extended SEE [place] interpretation COMMENTComment: [facility] Footnote--------- HOSPITAL CSF interpretation SEE [place] COMMENTComment: [facility] Footnote--------- HOSPITAL Specimen Cerebrospinal fluid Performing Organization Address City/[facility]/Zipcode Phone Number [facility] DEPARTMENT OF PATHOLOGY AND [address] [place], [place] [address] [facility] MEDICINE [place] [id number] [place] [address] Gram stain (07/21/2019 6:04 PM SCHOOL FUNDRAISING DIRECTOR) Gram stain isolate No WBC's or organisms seen. ALESIA LAY Comment: HOSPITAL Specimen Information Specimen Source: CSF (Spinal Fluid) Specimen Site: No tube number noted Specimen Cerebrospinal fluid - No tube number not ed Performing Organization Address City/[facility]/Zipcode Phone Number [facility] DEPARTMENT OF PATHOLOGY AND [address] [place] [address] [phone] [address] CSF culture (07/21/2019 6:04 PM SCHOOL FUNDRAISING DIRECTOR) CSF culture No growth after 3 days. [facility] isolate Comment: HOSPITAL Specimen Information Specimen Source: CSF (Spinal Fluid) Specimen Site: No tube number noted Specimen Cerebrospinal fluid - No tube number not ed Performing Organization Address City/[facility]/Zipcode Phone Number [facility] DEPARTMENT OF PATHOLOGY AND [address] [place] [address] [phone] [address] CSF cell count with differential (07/21/2019 6:04 PM SCHOOL FUNDRAISING DIRECTOR) Pathologist Sig nature Color, CSF Colorless [facility] Appearance, CSF Clear [facility] RBC, CSF 1,836 (H) 0 - 1 /CMM [facility] WBC, CSF 40 (H) 0 - 5 /CMM [facility] CSF mononuclear cell See Diff [facility] Neutrophils, CSF 2 % [facility] Lymphocytes, CSF 93 % [facility] Monocytes, CSF 5 % [facility] Specimen Cerebrospinal fluid Performing Organization Address City/[facility] Centercoar Phone Number [facility] DEPARTMENT OF PATHOLOGY AND [address] [place] [address] [phone] [address] VDRL, CSF screen (07/21/2019 6:04 PM SCHOOL FUNDRAISING DIRECTOR) Pathologist Sig nature VDRL, CSF screen Non-reactive Non-reactive [facility] Specimen Cerebrospinal fluid Performing Organization Address City/[facility]/Zipcode Phone Number [facility] DEPARTMENT OF PATHOLOGY AND [address] [place] [address] [phone] [address] Myelin basic protein (07/21/2019 6:04 PM SCHOOL FUNDRAISING DIRECTOR) Myelin basic 10.15 (H) 0.00 - 5.50 [facility] REF LAB protein Comment: ng/mL INTERPRETIVE INFORMATION: Myelin Basic Protein Test developed and characteristics determined by [facility]. See Compliance Statement D: [employer]/ Performed by [facility], [address] [place] [id number] [email or web address], Damian Singh MD, Lab. Director Specimen Cerebrospinal fluid Performing Organization Address [facility] Centercode Phone Number [facility] [address] [place] [address] [facility] [address] [place] [address] Glucose level, CSF (07/21/2019 6:04 PM SCHOOL FUNDRAISING DIRECTOR) Pathologist Sig nature Glucose, CSF 56 40 - 70 mg/dL [facility] Specimen Cerebrospinal fluid Performing Organization Address [facility]/Zipcode Phone Number [facility] DEPARTMENT OF PATHOLOGY AND [address] [place], [place] [address] GENOMIC MEDICINE [facility] [address] [place] [address] Angiotensin converting enzyme, CSF (07/21/2019 6:04 PM SCHOOL FUNDRAISING DIRECTOR) Angiotensin <0.4 0.0 - 2.5 [facility] converting enzyme, Comment: U/L CSF This test was developed and its performance characteri stics determined by [facility]. The U.S. Food and Jonathon g Administration has not approved or cleared this test; however, FDA clearance or approval is not currently required for cl inical use. The results are not intended to be used as the sole me ans for clinical diagnosis or patient management decisions. Performed by [facility], [address] [place] [id number] [email or web address], Damian Singh MD, Lab. 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 The patient's lower back was prepped and draped in the usual sterile fashion. Fluoroscopy was used for image guidance for lumbar puncture. FINDINGS: 1% lidocaine was used for local anesthesia. Under dire ct fluoroscopic guidance, access to the thecal sac was made with a 22- gauge spinal needle at the L5-S1 level. A total of approximately 11 cc of clear colorless CSF was removed without diffic ulty. The patient tolerated the procedure well. There were no co mplications. The sample was sent to the laboratory for an alysis as requested. Total fluoroscopy time was 0.1 minute. Total radiati on dose is 1 mGY mGy 0 images IMPRESSION: Successful fluoroscopic guided lumbar pu ncture as detailed above. [facility]-[id number] Procedure Note Interface, Radiology Results Incoming - 07/21/2019 5:38 PM SCHOOL FUNDRAISING DIRECTOR EXAMINATION: IR LUMBAR PUNCTURE CLINICAL HISTORY: G62.89 Other specified polyneuropathies, R53.1 Weakness, mnd motor axonopathy COMPARISON: None TECHNIQUE: Informed consent and a timeou t was performed. The patient's lower back was prepped and draped in the usual sterile fashion. Fluoroscopy was used for image guidance for lumbar puncture. FINDINGS: 1% lidocaine was used for local anesthes ia. Under direct fluoroscopic guidance, access to the thecal sac was made with a 22-gauge spinal needle at the L5-S1 level. A total of approximately 11 cc of clear colorless CSF was removed without difficulty. The patient tolerated the procedure well. Th ere were no complications. The sample was sent to the laboratory for analysis as requested. Total fluoroscopy time was 0.1 minute. Total radiation dose is 1 mGY mGy 0 images IMPRESSION: Successful fluoroscopic guided lumbar pu ncture as detailed above. [facility]-[id number] Performing Organization Address City/State/Zipcode Phone Number [facility] [address] [place] [address] [facility] general request (07/21/2019 11:05 AM SCHOOL FUNDRAISING DIRECTOR) Impressions Performed At Ms. Covington complains of weakness in her bilateral arms a nd legs (especially her left leg), states that she has fasciculations and is being evaluated for neuropathy and motor neuron disease. 1) Right median motor latency is borderl ine normal with slightly slowed velocity and slightly small amplitudes; right ulnar motor latency is normal with borderline normal velocity a nd low normal amplitudes. 2) Phrenic motor latencies are bilateral ly normal with slightly small amplitudes. 3) Peroneal and tibial motor latencies a re normal in the right leg with borderline normal velocities and small a mplitudes; peroneal and tibial responses are absent in the left leg. 4) Repetitive stimulations are normal, a s noted above. 5) Sensory responses: a. Right median palmar delayed with borderline normal amplitude b. Right median digital: mildly delayed with normal amplitude c. Right ulnar normal d. Sural bilaterally minimally delayed with small amplitudes 6) Intramuscular recordings of the right arm, bilatera l legs and bilateral thoracic paraspinous (level T3-T11) musc les suggest acute and chronic denervation as noted above. 7) Intramuscular recordings of the bilat eral diaphragm and tongue (genioglossus) muscles are normal, witho ut denervation. 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 Vimal Ro M.D. Narrative Performed At This result has an attachment that is no t available. NERVE CONDUCTION AND ELECTROMYOGRAPHY REPORT Neurological [place], [facility]th [facility]; [place], [place] [address]; Teleph one [phone] Name: Parvin Covington Date of Procedure: July 21, 2019 Location: Sex: Female Date of : 53 Referring Physician: Brenda Rowan M.D. FAX: Patient is 5 3 ; 148 lbs.; RAa 35.1 C; RL 30.9 C; LL 31.4 C Nerve Conduction (Latencies in msec, Amplitudes uV, Distance cm, Velocity M/Sec) Right Motor Nerves Dist. Lat. Prox lat. D. amp. P. Amp . Dist. Velocity Right Median 3.9 8.3 4.6 4.3 21.0 48.4 Right Ulnar (below elb) 2.1 5.3 6.6 5.7 16.3 50. 1 Right Peroneal EDB 3.1 11.4 1.6 1.1 32.0 38.4 Right Tibial 6.5 13.6 1.5 0.4 36.5 38.4 Right Phrenic 6.2 0.3 Right Sensory Nerves Dist. Lat. Prox lat. Dist. amp. Prox Amp. Distance Velocity Right Median Palmar 2.7 52.0 8.0 Right Median Digital 3.6 22.0 13.0 Right Ulnar 2.7 19.3 11.0 Right Sural 4.1 7.7 14.0 Left Motor Nerves Dist. Lat. Prox lat. D. amp. P. Amp. Dist. Velocity Left Peroneal EDB absent absent Left Tibial absent absent Left Phrenic 6.5 0.4 Left Sensory Nerves Dist. Lat. Prox lat. Dist. a mp. Prox Amp. Distance Velocity Left Sural 4.1 3.2 14.0 Electromyography (Motor Unit in mV; H=High; L=Low; P=P olyphasic; NS=Non-specific) Right Arm Fibs. Pos. Waves Fasc. Polyphasia Motor Units Recruitment Deltoid wnl wnl wnl wnl wnl wnl Biceps wnl wnl wnl wnl wnl wnl Triceps R R wnl wnl wnl -1 Brachioradialis 1 1 wnl 30HP wnl -2 Ext. Dig. Comm. 2 2 wnl 30HP wnl -2 lst D. Interosseous 2 2 wnl 30HP wnl -2 Right Leg Fibs. Pos. Waves Fasc. Polyphasia Motor Units Recruitment Vas. Medialis R R 1P 30HP wnl -2 Ant. Tibialis 3 3 wnl 30HP wnl -3 Peroneus Longus 3 3 wnl 30HP wnl -3 Gastronemius wnl wnl wnl wnl wnl -3 Ext. Dig. Brevis 3 3 wnl 50HP wnl -3 Diaphragm Fibs. Pos. Waves Fasc. Polyphasia Motor Units Recruitment Right wnl wnl wnl wnl wnl wnl Left wnl wnl wnl wnl wnl wnl Left Leg Fibs. Pos. Waves Fasc. Polyphasia M otor Units Recruitment Vas. Medialis 2 2 1P 50HP wnl -3 Ant. Tibialis 3 3 wnl no motor units -0 Peroneus Longus 3 3 wnl no motor units -0 Gastronemius wnl wnl wnl wnl wnl -3 Ext. Dig. Brevis 3 3 wnl no motor units -0 Thoracic Paraspinous (T3-T11 level): Right: 3 3 wnl wnl wnl wnl Left: 2 2 wnl wnl wnl wnl Genioglossus (tongue): Left: wnl wnl wnl wnl wnl wnl Repetitive stimulations: Repetitive stimulations at 3 Hz. of the right ulnar ne rve (recording from ADM), before and after exercise, are normal, without s ignificant increment or decrement in the response: At rest: 4.2% decrement; immediately post-exercise: 2.2% increment; one minute post-exercis e: 1.0% decrement; two minutes post-exercise: 6.3% decrement; three minut es post-exercise: 0.0% decrement. Repetitive stimulations at 3 Hz. of the right XI nerve (recording from trapezius), before and after exercise, are normal, wit hout significant increment or decrement in the response: At rest: 2.8% decrement; immediately post-exercise: 2.9% decrement; one minute post-exercise: 3.0% decrement; two minutes post-exercise: 0.0% decrement; three minutes post-exercise: 1.5% increment. Spirometry, MIPS/MEPS (07/21/2019 8:43 AM SCHOOL FUNDRAISING DIRECTOR) Pathologist Sig nature FEV1 Pre 1.60 1.76 - 2.89 L [facility] FEV1/FVC % Pre 80.29 67.20 - 86.79 % [facility] FVC Pre 2.00 2.37 - 3.71 L [facility] PEF Pre 5.16 4.19 - 7.50 L/s [facility] FEF 25-75% Pre 1.60 0.87 - 3.27 L/s [facility] FEV1 Predicted 2.32 [facility] FEV1 LLN 1.76 [facility] FEV1 % Pre of Predicted 69.0 % [facility] FVC Predicted 3.04 [facility] FVC LLN 2.37 [facility] FVC % Pre of Predicted 65.6 % [facility] FEV1/FVC % Predicted 77 [facility] FEV1/FVC % LLN 67 [facility] FEV1/FVC % Pre of Predicted 104.3 % [facility] FEF 25-75% Predicted 2.07 [facility] FEF 25-75% LLN 0.87 [facility] FEF 25-75% % Pre of 77.1 % [facility] Predicted PEF Predicted 5.84 [facility] PEF LLN 4.19 [facility] PEF % Pre of Predicted 88.3 % [facility] Specimen Narrative Performed At This result has an attachment that is no t available. Performing Organization Address City/[facility]/Zipcode Phone Number [facility] [address] [place] [address] HTLV I/II Ab with reflex to confirmation (07/21/2019 6:49 AM SCHOOL FUNDRAISING DIRECTOR) Pathologist Sig nature HTLV I/II Ab Negative Negative [facility] Comment: Based on the non-reactive anti-HTLV SUNNY screen, the HTLV Western Blot is not indicated and therefore not performed. INTERPRETIVE INFORMATION: HTLV I/II Antibodies w/Ref stephanie to Confirm This assay should not be used for blood donor screenin g, associated re-entry protocols, or for screening Human Cell, Tissues and Cellular and Tissue-Based Products (HCT/P) . Performed by [facility], [address] [place] [id number] [email or web address], Damian Singh MD, Lab. Director Specimen Serum Performing Organization Address [facility]/Zip[employer]ar Phone Number [facility] [address] [place] [address] [facility] [address] [place] [address] GM1 Ab panel (07/21/2019 6:49 AM SCHOOL FUNDRAISING DIRECTOR) GM1 IgG 3 0 - 50 IV [facility] GM1 IgM 3 0 - 50 IV [facility] Comment: INTERPRETIVE INFORMATION: Ganglioside (GM1) Antibodies , IgG and IgM 29 IV or less: Negative 30-50 IV: Equivocal 51-100 IV: Positive 101 IV or greater: Strong positive Ganglioside antibodies are associated with diverse per ipheral neuropathies. Elevated antibody levels to ganglioside- monosialic acid (GM1) are associated with motor or sensorimotor n europathies, particularly multifocal motor neuropathy. Anti-GM1 may occur as IgM (polyclonal or monoclonal) or IgG antibodies. Thes e antibodies may also be found in patients with diverse connective tissue diseases as well as normal individuals. These tests by themselves are not diagnostic and should be used in conjunction w ith other clinical parameters to confirm disease. Test developed and characteristics determined by [facility]. See Compliance Statement D: [facility]/ Performed by [facility], [address] [place], [place] [id number] [email or web address], Damian Singh MD, Lab. Director Asialo GM1 IgG see noteComment: not [facility] performed as a part of GM1 panel Asialo GM1 IgM see noteComment: not [facility] performed as a part of GM1 panel Specimen Serum Performing Organization Address [facility] Phone Number [facility] [address] [place] [address] [facility] [address] [place] [address] Acetylcholine receptor binding Ab (07/21/2019 6:49 AM SCHOOL FUNDRAISING DIRECTOR) Acetylcholine 0.0 0.0 - 0.4 [facility] receptor binding Ab Comment: nmol/L INTERPRETIVE INFORMATION: Acetylcholine Binding Ab Negative ....... 0.0 - 0.4 nmol/L Positive ....... 0.5 nmol/L or greater Approximately 85-90 percent of patients with myastheni a gravis (MG) express antibodies to the acetylcholine receptor (AChR), which can be divided into binding, blocking, and modul ating antibodies. Binding antibody can activate complement a nd lead to loss of AChR. Blocking antibody may impair binding of acetylcholine to the receptor, leading to poor muscle contraction. Modulating antibody causes receptor endocytosis result ing in loss of AChR expression, which correlates most closely with clinical severity of disease. Approximately 10-15 percent of in dividuals with confirmed myasthenia gravis have no measurable bi nding, blocking, or modulating antibodies. Test developed and characteristics determined by [facility]. See Compliance Statement B: [employer]/ CS Performed by [facility], [address] [place], [place] [id number] [email or web address], Damian Singh MD, Lab. Director Specimen Serum Performing Organization Address [facility] Centercode Phone Number [facility] [address] [place] [address] [facility] [address] [place] [address] Vitamin D 25 hydroxy level (07/21/2019 6:49 AM SCHOOL FUNDRAISING DIRECTOR) Vitamin D, 8.9 (L) 30.0 - 150.0 [facility] 25-hydroxy Comment: ng/mL HOSPITAL This assay reports the sum of 25-hydroxy vitamin D3 an d 25-hydroxy vitamin D2. Reference range: 0-17 years: Deficiency: less than 20ng/mL Optimum level: greater than or equal to 20 ng/mL. 18 years and older: Deficiency: less than 20ng/mL Insufficiency: 20-29 ng/mL Optimum Level: 30-80 ng/mL The assay reportable range is 3.4 155.9 ng/mL. Level s higher than 150 ng/mL may be associated with toxicity. If toxicity is clinically suspected and the reported r esult is >155.9 ng/mL,contact lab for alternative methods to obtain a definitive level. If separate quantitation of 25-hydroxy vitamin D3 and 25-hydroxy vitamin D2 is needed, please contact lab for alternative methods. Specimen Blood Performing Organization Address City/[facility]/Zipcode Phone Number [facility] DEPARTMENT OF PATHOLOGY AND [address] [place] [address] [phone] [address] Sedimentation rate (07/21/2019 6:49 AM SCHOOL FUNDRAISING DIRECTOR) Pathologist [facility] Sedimentation rate 5 0 - 20 mm/hr [facility] Specimen Blood Performing Organization Address [facility] Centercode Phone Number [facility] DEPARTMENT OF PATHOLOGY AND [address] [place] [address] [phone] [address] Prothrombin time with INR (07/21/2019 6:49 AM SCHOOL FUNDRAISING DIRECTOR) Pathologist [facility] Prothrombin time 13.7 11.5 - 14.5 [facility] INR 1.0 [place] Comment: [facility] International Normalized Ratio (INR) is a [facility] monitoring tool for patients who are stable on oral anticoagulant therapy. An INR of 2.0-3.0 is suggested for deep vein thrombosis/pulmonary embolism. Specimen Blood Performing Organization Address City/[facility]/Zipcode Phone Number [facility] DEPARTMENT OF PATHOLOGY AND [address] [place] [address] [phone] [address] Rheumatoid factor (07/21/2019 6:49 AM SCHOOL FUNDRAISING DIRECTOR) Pathologist Sig nature Rheumatoid factor <10 0 - 13 IU/mL [facility] Specimen Plasma specimen Performing Organization Address City/[facility]/Zipcode Phone Number [facility] DEPARTMENT OF PATHOLOGY AND [address] [place] [address] [phone] [address] C-reactive protein (07/21/2019 6:49 AM SCHOOL FUNDRAISING DIRECTOR) Pathologist Sig nature CRP <0.30 0.00 - 0.50 mg/dL [facility] Specimen Plasma specimen Performing Organization Address [facility] Phone Number [facility] DEPARTMENT OF PATHOLOGY AND [address] [place] [address] [phone] [address] SANDRA (07/21/2019 6:49 AM SCHOOL FUNDRAISING DIRECTOR) SANDRA screen Negative Negative [facility] Comment: HOSPITAL Test performed using [employer] DAPI SANDRA kit (Indirect Immunofluorescence Assay) for Anti-Nuclear Antibody on [employer] 160 Analyzer. Specimen Blood Performing Organization Address [facility] Phone Number [facility] DEPARTMENT OF PATHOLOGY AND [address] [place] [address] Serum electrophoresis (07/21/2019 6:49 AM SCHOOL FUNDRAISING DIRECTOR) Pathologist Cele Protein 7.0 6.3 - 8.3 [place] Comment: g/dL HINDUISM Ueipkvs2623.6-7.0 g/dL HOSPITAL 1 xuss6750.4-7.6 g/dL 7 months-2ayzv299.1-7.3 g/dL 1-2 .6-7.5 g/dL >3 mbpil178.0-8.0 g/dL 18-3651954.3-8.3 g/dL SPE albumin 4.56 3.51 - 5.42 [place] g/dL [facility] SPE alpha 1 0.33 0.18 - 0.40 [place] g/dL [facility] SPE alpha 2 0.60 0.44 - 0.96 [place] g/dL [facility] SPE beta 0.86 0.52 - 1.07 [place] g/dL [facility] SPE gamma 0.64 (L) 0.70 - 1.54 [place] g/dL [facility] SPE extended See [place] interpretation CommentComment: HINDUISM Gamma globulins HOSPITAL are slightly decreased. SPE interpretation See [place] CommentComment: HINDUISM Yvon Aguilar, [facility] PhD; Lynn Daigle, PhD; Rui Lara MD, PhD Specimen Serum Performing Organization Address City/State/Zipcode Phone Number [facility] DEPARTMENT OF PATHOLOGY AND [address] [place], [place] [phone] [facility] [address] [place] [address] Parathyroid hormone (07/21/2019 6:49 AM SCHOOL FUNDRAISING DIRECTOR) Pathologist Sig nature PTH 33 15 - 65 pg/mL [facility] Specimen Blood Performing Organization Address City/State/Zipcode Phone Number [facility] DEPARTMENT OF PATHOLOGY AND [address] [place], [place] [address] [facility] [address] [place] [address] Vitamin B12 level (07/21/2019 6:49 AM SCHOOL FUNDRAISING DIRECTOR) Vitamin B12 570 211 - 946 [facility] Comment: pg/mL HOSPITAL Significant overlap exists between normal and deficien cy states. However, most patients with deficiencies will have Ser um B12 <200 pg/mL. Specimen Serum Performing Organization Address City/State/Zipcode Phone Number [facility] DEPARTMENT OF PATHOLOGY AND [address] [place], [place] [address] [facility] [address] [place] [address] after 12/20/2018 Insurance Payer Benefit Plan / Subscriber ID Effective Dates Phone Addre ss Type Group MEDICARE MEDICARE PART A xxxxxxxxxxx 2018-Present [place], [place] Medicare AND B BCBS BCBS CHOICE xxxxxxxxxxxx 2018-Present PPO PPO/[employer] PPO Advance Directives For more information, please contact: [phone] Type Date Recorded Patient [employer] Mechanical Explanati on Advance Directives, Living Will 11/27/2019 6:27 PM and Medical Power of Photoengraving Supervisor
--- OUTSIDE RECORDS SUMMARY | 2019-12-21 12:49 | XMS REPORT | Continuity of Care Document ---
:1955 Author Organization [facility] t Address [address] [place] [address] Care Team Providers Name Role Phone Asked, Pcp Primary Care Physician Unavailable René Patel MD Attending Clinician Deborah LAUREANO Attending Clinician Hardy Brambila MD Attending Clinician Vivi MENDOZA Attending Clinician Unavailable Hubmerto Dumont RN Attending Clinician Unavailable Xavi JUAREZ Attending Clinician Unavailable Abdullahi Ford MD Attending Clinician Zheng RODRÍGUEZ Attending Clinician Unavailable Francisco MENDOZA Attending Clinician Unavailable Jose Alfredo Attending Clinician Unavailable DEBORAH Branchitting Clinician Unavailable Payers Payer Name Policy Policy Number Effective Expiration Source Type Date Date MEDICAREMEDICARE PART xxxxxxxxxxx 2018 Ab lyonaleta Billingsley AND 00:00:00 [facility] [id number] [facility] BCBSBC[facility] CHOICE xxxxxxxxxxxx 2018 [place] PPO/FEDERAL EMPL 00:00:00 Methodis t PPOxxxxxxxxxxxx4-PresentPPO Problems Condition Condition Condition Status Onset Resolution Last Treating Co mments Source Name Details Category Date Date Treatment Clinician Date Chronic Chronic Disease Active [place] low back low back 11 Method i pain pain 00:00: st 00 SOB SOB Disease Active [place] (shortness (shortness 7-11 Me thodi of breath) of breath) 00:00: st 00 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 3-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 00:00: st sclerosis) sclerosis) 00 Chronic Chronic Disease Active [place] respirator respirator 3-03 Me thodi y y 00:00: st insufficie insufficie 00 ncy ncy Progressiv Progressiv Disease Active [place] e focal e focal 2-24 Method[facility] motor motor 00:00: st weakness weakness 00 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 00:00: MND st axonopathy axonopathy 00 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 Myasthenia Myasthenia Disease Active [place] gravis gravis Methodi with with st exacerbati exacerbati on on History of Past Illness Condition Condition Condition Status Onset Resolution Last Treating Co mments Source Name Details Category Date Date Treatment Clinician Date Motor Motor Disease Resolve 2019-07-23 2019-07-23 [place] neuron neuron d 00:00:00 13:35:[address] Allergies, Adverse Reactions, Alerts Allergy Allergy Status Severity Reaction(s) Onset Inactive Treating Comm ents Source Name Type Date Date Clinician Sulfa Propensi Active Rash [place] (Sulfona ty to 3-02 Methodi mide adverse 00:00: st Antibiot reaction 00 ics) s to drug Social History Social Habit Start Date Stop Date Quantity Comments Source Sex Assigned At [place] M ethodist Alcohol intake 2019-11-28 2019-11-28 [facility] thodist 00:00:00 00:00:00 Smoking Status Start Date Stop Date Source Current some day smoker 2019-11-28 00:00:00 [place] [facility] Medications Ordered Filled Start Stop Current Ordering Indication Dosage Frequency Signature Comments Components Source Medication Medication Date Date Medication? Clinician (SIG) Name Name amlodipine Yes QD Take by [place] besylate 11-27 mouth [facility] (AMLODIPINE 14:27: daily. st ORAL) 15 FENOFIBRATE 2020-0 Yes Take by Mychal ston ORAL 7-11 mouth. Methodi 14:27: st 15 SIMVASTATIN 2020-0 Yes Take by Mychal luna ORAL 7-11 mouth. [facility]i 14:27: st 15 LANSOPRAZOL 2020-0 Yes Take by Mychal luna E ORAL 7-11 mouth. [facility] 14:27: st 15 albuterol 2019-0 2020- Yes Chronic 2.5mg Q6H Take 3 mL [facility] (ACCUNEB) 11-27 08 midline low (2.5 mg Methodi 2.5 mg /3 00:00: 23:59 back pain total) by st mL (0.083 00 :00 without nebulizati %) sciatica on every 6 nebulizer (six) solution hours as needed for wheezing for up to 30 days. methocarbam 2019- No 500mg Q.5D Take 1 [place] oL 11-2620 tablet [facility] (ROBAXIN) 00:00: 23:59 ([address] 500 MG 00 :00 total) by tablet mouth 2 (two) times a day for 10 days. methylPREDN 2019- 2020- No follow Mychal luna ISolone 11-2616 package [facility] (MEDROL 00:00: 23:[address] DOSEPAK) 4 00 :00 mg tablet gabapentin 2019- Yes 300mg Q.[id number] Take 300 [place] 300 mg/6 mL 09-27 [id number] mg by Cal vides (6 mL) 00:00: 3D mouth 3 st solution 00 (three) times a day. gabapentin 2019-2019- No 300mg Q.26679875 Take 1 [place] (NEURONTIN) 09-27 [id number] capsule [facility] 300 mg 00:00: 00:00 3D ([address] capsule 00 :00 total) by mouth 3 (three) times a day. riluzole 2019-2020- No ALS [facility]H [facility] 03-05 (amyotrophi tablet (50 [facility] 50 mg 00:00: 23:59 c lateral mg total) s t tablet 00 :00 sclerosis) by mouth (HCC) every 12 (twelve) hours. cholecalcif 2020-0 Yes 2000U QD Chew 2,000 [place] kain, 3-04 Units [facility] vitamin D3, 00:00: daily. st 2,000 unit 00 tablet,chew able ergocalcife 2019- No 44604I Q7D Take 1 H shamar menjivar 07-21-09 capsule [facility] (VITAMIN 00:00: 23:59 (50,000 st D2) 50,000 00 :00 Units unit total) by capsule mouth once a week for 6 doses. Vital Signs Vital Name Observation Time Observation Value Comments Source Systolic blood 2019-11-28 07:35:14 142 mm[Hg] [place] [facility] pressure Diastolic blood 2019-11-28 07:35:14 68 mm[Hg] Ashley on [facility] pressure Heart rate 2019-11-28 07:35:14 91 /min [place] Body temperature 2019-11-28 07:35:14 36.61 [place] [facility] Respiratory rate 2019-11-28 07:35:14 16 /min [place] [facility] Oxygen saturation in 2019-11-28 07:35:14 100 /min [place] Arterial blood by Pulse oximetry Body height 2019-10-28 08:00:25 160 cm [place] Body weight 2019-10-28 08:00:25 66.134 kg [place] BMI 2019-10-28 08:00:25 25.83 kg/m2 [place] Procedures Procedure Date / Time Performing Clinician Source Performed TTE COMPLETE, WO CONTRAST, 2019-11-28 12:00:00 Vivi Sykes W DOPPLER ([id number]) Imarendenewe TROPONIN 2019-11-28 06:00:00 Todd Sykes ethodist Imarendcathi MRI BRAIN WO CONTRAST 2019-11-28 05:05:00 Todd Sykes Imarendcathi COVID-19 QUALITATIVE PCR 2019-11-28 00:30:00 Edson Patel XR CHEST 1 VW PORTABLE 2019-11-28 00:05:[address] ANGIOGRAM PE CHEST 2019-11-27 23:57:35 Edson Patel B NATRIURETIC PEPTIDE 2019-11-27 23:35:00 Edson Patel TROPONIN 2019-11-27 23:35:00 Todd Sykes M ethodist Imarendenewe VENOUS BLOOD GAS 2019-11-27 23:35:[address] LUMBAR SPINE WO 2019-11-27 22:15:55 Edson Patel [facility] CONTRAST WI CRITICAL CARE, E/M 2019-11-27 19:53:06 Edson Patel 30-74 MINUTES URINE CULTURE 2019-11-27 19:45:00 Edson Patel URINALYSIS SCREEN AND 2019-11-27 19:45:00 Edson Patel MICROSCOPY, WITH REFLEX TO CULTURE HC COMPLETE BLD COUNT 2019-11-27 19:35:00 Edson Patel W/AUTO DIFF COMPREHENSIVE METABOLIC 2019-11-27 19:35:00 dEson Patel PANEL ESTIMATED GFR 2019-11-27 19:35:00 Edson Patel SPIROMETRY, MIPS/MEPS 2019-10-28 08:19:05 Adelina Ford HC COMPLETE BLD COUNT 2019-10-28 08:14:00 Adelina Ford W/AUTO DIFF CREATINE KINASE, TOTAL 2019-10-28 08:14:00 Adelina Ford (CPK) BASIC METABOLIC PANEL 2019-10-28 08:14:00 Adelina Ford HEPATIC FUNCTION PANEL 2019-10-28 08:14:00 Adelina Ford ESTIMATED GFR 2019-10-28 08:14:[address] CHEST W CONTRAST 2019-07-23 12:18:16 Deirdre Burton ABDOMEN W WO CONTRAST PELVIS W CONTRAST HERPES SIMPLEX VIRUS BY 2019-07-22 12:03:00 Adelina Ford PCR MALCOM CASH VIRUS (EBV) 2019-07-22 12:03:00 Adelina Ford [facility] BY PCR ENTEROVIRUS BY PCR 2019-07-22 12:03:00 Adelina Ford Ab dawkins [facility] [place] VIRUS BY PCR, 2019-07-22 12:03:00 Adelina Ford Maciej [facility] CSF FLOW CYTOMETRY EVALUATION 2019-07-22 12:03:00 Adelina Ford Haja belle [facility] CYTOLOGY 2019-07-22 11:44:00 Adelina Ford on [facility] (NON-GYNECOLOGICAL) REQUEST MISCELLANEOUS REFERRAL 2019-07-22 08:44:00 Adelina Ford Dawn [facility] TEST CSF CULTURE 2019-07-21 18:04:00 Adelina Ford on [facility] GRAM STAIN 2019-07-21 18:04:00 Adelina Ford on [facility] ANGIOTENSIN CONVERTING 2019-07-21 18:04:00 Adelina Ford jaclyn [facility] ENZYME, CSF VDRL, CSF SCREEN 2019-07-21 18:04:00 Adelina Ford [facility] MYELIN BASIC PROTEIN 2019-07-21 18:04:00 Adelina Ford [facility] IGG SYNTHESIS RATE STUDY 2019-07-21 18:04:00 Adelina Ford an [place] GLUCOSE LEVEL, CSF 2019-07-21 18:04:00 Adelina Ford juancho [facility] CSF CELL COUNT WITH 2019-07-21 18:04:00 Adelina Ford [facility] DIFFERENTIAL OLIGOCLONAL BANDING, CSF 2019-07-21 18:04:00 Adelina Ford Toño [facility] MISCELLANEOUS REFERRAL 2019-07-21 17:04:00 Adelina Ford jaclyn [facility] TEST IR LUMBAR PUNCTURE 2019-07-21 16:09:40 Adelina Ford aleta Meade EMG 2019-07-21 11:05:51 Adelina Ford on [facility] SPIROMETRY, MIPS/MEPS 2019-07-21 08:43:41 Adelina Ford [facility] VITAMIN B12 LEVEL 2019-07-21 06:49:00 Adelina Ford [facility] VITAMIN D 25 HYDROXY LEVEL 2019-07-21 06:49:00 Adelina Ford hyun [facility] PROTHROMBIN TIME WITH INR 2019-07-21 06:49:00 Adelina Ford Haja belle [facility] RHEUMATOID FACTOR 2019-07-21 06:49:00 Adelina Fordshelby joseuqe [facility] SEDIMENTATION RATE 2019-07-21 06:49:00 Adelina Ford Ab dawkins [facility] SERUM ELECTROPHORESIS 2019-07-21 06:49:00 Adelina Ford [facility] PARATHYROID HORMONE 2019-07-21 06:49:00 Adelina Ford [facility] HTLV I/II AB WITH REFLEX 2019-07-21 06:49:00 Adelina Ford an Eh [place] TO CONFIRMATION GM1 AB PANEL 2019-07-21 06:49:00 Adelina Ford [facility] C-REACTIVE PROTEIN 2019-07-21 06:49:00 Adelina Ford juancho [facility] CREATINE KINASE, TOTAL 2019-07-21 06:49:00 Adelina Ford (CPK) HC COMPLETE BLD COUNT 2019-07-21 06:49:00 Adelina Ford W/AUTO DIFF BASIC METABOLIC PANEL 2019-07-21 06:49:00 Adelina Ford SANDRA 2019-07-21 06:49:00 Adelina Ford [facility] ACETYLCHOLINE RECEPTOR 2019-07-21 06:49:00 Adelina Ford BINDING AB ESTIMATED GFR 2019-07-21 06:49:00 Adelina Ford on [facility] COMPREHENSIVE METABOLIC 2019-07-21 06:49:00 Adelina Ford [facility] PANEL Plan of Care Planned Activity Planned Date Details Comments Source Future Scheduled 2022-07-21 Screening for [facility] Me thodist Test 00:00:00 malignant neoplasm of cervix (procedure) [code = 458048475] Future Scheduled 2019-12-19 INFLUENZA VACCINE [place] [facility] Test 00:00:00 [code = INFLUENZA VACCINE] Future Scheduled 2019 65+ PNEUMOCOCCAL [place] [facility] Test 00:00:00 VACCINE (1 of 2 - PCV13) [code = 65+ PNEUMOCOCCAL VACCINE (1 of 2 - PCV13)] Future Scheduled 2004-01-10 BREAST CANCER [place] Me thodist Test 00:00:00 SCREENING [code = BREAST CANCER SCREENING] Future Scheduled 2004-01-10 COLONOSCOPY SCREENING Ab dawkins [facility] Test 00:00:00 [code = COLONOSCOPY SCREENING] Future Scheduled 2004-01-10 SHINGLES VACCINES (#1) H shamar [facility] Test 00:00:00 [code = SHINGLES VACCINES (#1)] Encounters Start End Encounter Admission Attending Care Care Encounter Source Date/Time Date/Time Type Type Clinicians Facility Department ID 2019-11-27 2019-11-28 Outpatient DEBORAH, [facility] [id number] [place] 00:00:00 00:00:00 GIO [address] 2019-10-28 2019-10-28 Outpatient FORD, [facility] [id number] 109 [place] 00:00:00 00:00:00 ADELINA [address] 2019-10-28 2019-10-28 Outpatient FORD, [facility] [id number] 798 [place] 00:00:00 00:00:00 ADELINA [address] 2019-09-28 2019-09-28 Outpatient FORD, [facility] [id number] 267 [place] 00:00:00 00:00:00 ADELINA [address] 2019-07-23 2019-07-23 Outpatient FORD, [facility] [id number] 559 [place] 00:00:00 00:00:00 ADELINA [address] 2019-07-23 2019-07-23 Outpatient FORD, [facility] [id number] 910 [place] 00:00:00 00:00:00 ADELINA [address] 2019-07-22 2019-07-22 Outpatient FORD, [facility] [id number] 559 [place] 00:00:00 00:00:00 ADELINA [address] 2019-07-21 2019-07-21 Outpatient FORD, [facility] [id number] 557 [place] 00:00:00 00:00:00 ADELINA [address] 2019-07-21 2019-07-21 Outpatient FORD, [facility] [id number] 559 [place] 00:00:00 00:00:00 ADELINA [address] 2019-07-21 2019-07-21 Outpatient ANNALISA [facility] [id number] 795 [place] 00:00:00 00:00:00 ADELINA [address] 2019-07-21 2019-07-21 Outpatient ANNALISA [facility] [id number] 561 [place] 00:00:00 00:00:00 ADELINA [address] Results Test Description Test Time Test Results Result Source Comments Comments Transthoracic 2019-11-18 Interface, Radiology [facility] Echocardiogram 1 Results In - Methodis t Complete, (w 17:09:00 11/28/2019 5:09 PM Contrast, Strain CDT and 3D if needed) Echocardiography Report [address] [place] [address] Pat.Name: PARVIN COVINGTON.ID: [id number] .Date: 11/28/2019 Refer.MD: BRIAN DAVEY MD Exam Time: 10:29:00 AM Study Type:Routine Echo Height: 63in Weight: 145lb BSA: 1.69 m2 Age: 8 1955,64Y Sex: FEMALE BP: 142/68 HR: 91 bpm Sonogrphr: Declan Mcdaniels RDCS Pat. Stat.:Inpatient Room: [facility] Study Status:Final Echo Event ID:[id number] Order ID: [id number] Reason for Study:STROKE. Post stroke protocol. If Patient < 60 yrsold, please perform evaluation for PFO with saline agitation. Thanks.History / Clinical:Stroke Procedures: 2D Echo, Colorflow Doppler, PortableRace: SUMM JYOTSNA: LV EF is normal.Estimated EF is >70%.RV systolic function is normal.LV filling pressure is normal.No significant valvular abnormalities.Estima alex PA systolic pressure is appx 28 mmHg, assuming a mean RAP of5 mmHg. -FINDINGS: ------LV: LV size is normal. LV EF is normal. Overall wall motion is normal. Estimated EF is >70%.RV: RV size is normal. RV systolic function is normal.LA: LA size is normal.RA: RA size is normal.AO: Aortic root diameter is normal.MAL: No pericardial effusion. There is an anterior space consistent with a prominent epicardial fat pad.AV: No structural AV abnormalities noted.MV: No structural MV abnormalities noted.PV: Pulmonic valve not well seen.TV: No structural TV abnormalities noted. There is mild TR.Dean: LV relaxation is impaired. LV filling pressure is normal.Other: Estimated PA systolic pressure is appx 28 mmHg, assuming a mean RAP of 5 mmHg. -MEASUREMENTS:------ 2DParasternal Long [place] Ao Rtd 3.1 cm Index 1.8 cm/m2 LVPWd 1 cm IVSd 1 cm LA Ds 2.5 cm LVIDd 3.4 cm Index 2 cm/m2 RWT 0.59 LVIDs 1.8 cm LV Mass 99 g (87-129) LV%fs 47 % Left Ventricle LVM Index 59 g/m2 LA Sng Plane LA Area 16 cm2 (8.8-23.4) LA Vol 42 ml Index 25 ml/m2 LA LngAx 4.9 cm RA Sng Plane RA Vol 27 ml Index 16 ml/m2 RA LngAx 4.1 cm RA Area 11 cm2 (8.3-19.5)LVOT Stroke Vol LVOT 1.9 cm LVOT LVOT Area 2.8 cm2 DOPPLERLVOT Stroke Vol LVOT TVI 24 cm LVOT CI 3.7 l/m/m2 LVOT SV 68 ml HR 92 bpm LVOT CO 6.2 l/min LVOT SVi 40 ml/m2 Signed 11/28/2019 05:09 PMReina Nguyen MD COVID-19 qualitative PCR 2019-11-28 13:51:41 Test Item Value Reference Range Interpretation Comme nts Interpretation (test code = Negative results do not 8975917) preclude 2019-nCoV infection and should not be used as the sole basis for treatment or other patient management decisions. Negative results must be combined with clinical observations, patient history, and epidemiological information. COVID-19 qualitative PCR Not-Detected Not-Detected result (test code = 73953-9) COVID-19 qualitative PCR See link below for PDF Lab Case Number: (test code = 7070) Report [id number] [facility] [id number] 06:57:53 Test Item Value Reference Range Interpretation Comments Troponin (test code = <0.006 0-0.04 [place] [address]-8) having a myocar dial infarction, marc andrade with all other appro priate clinical measur es and actions includi ng ECG and other diagnosti cs as appropriate, me asure Ultra TnI at 0 hrs and at 3 hrs.Myocardia l infarction VERY LIKELYThe 0 hr TnI level is > 0.10 ng/mL --Myocardial in farction LIKELYThe 0 hr TnI level is > 0.04 ng/mL and 3 hr level is increa sed or decreased by at least 0.020 ng/mL -------Dandy cardial infarct ion VERY UNLIKELYBoth th e 0 hr and 3 hr TnI levels <= 0.04 ng/mL(within no rmal limits) OR 0 hr is > 0.04 ng/mL and 3 hr is increased OR de creased by less than 0.020 ng/mL [facility] [id number] 06:43:40Hm Interface, Radiology Results 11/28/2019 6:46 AM CDTEXAMINATION: MRI BRAIN WO CONTRASTC LINICAL HISTORY: strokeCOMPARISON: NoneTECHNIQUE: Multiplanar and multisequence MRI imaging of the brain was obtained without contrast.FINDINGS:No acute intra or extra-axial hemorrhage, mass effect orshift of normally midline structures is present. There is no evidence of acute infarction. Sellar/suprasellar structures, craniocervical junction is maintained. Minimal periventricular and few punctatedeep T2 FLAIR hyperintense foci are noted, nonspecific, likely to reflect chronic small vessel ischemic change. There is no abnormal signal on T2 star GRE to suggest intracranial blood products. Evidence of mild hyperostosis frontalis interna is incidentally noted along the inner table of the frontal c alvarium.Mild mucosal thickening is present in the ethmoid sinus. Minimal mucosal thickening is seenin the maxillary sinuses bilaterally. Globes are maintained bilaterally. Principal intracranial flowvoids are maintained.IMPRESSION: No acute intracranial abnormality. Mild nonspecific T2 FLAIR hyperintensities likely chronic small vessel ischemia otherwise unremarkable study.[id number] MethodistXR Chest 1 Vw Portable 2019-11-28 00:34:39Hm Interface, Radiology Results 11/28/2019 12:37 AM CDTEXAMINATION: XR CHEST 1 VW PORTABLECLINICAL HISTORY: 64 years Female SOBCOMPARISON: None.IMPRESSION:Lines/Tubes: None.Lungs/Pleura: Mild scarring/atelectasis is seen in the left lung base. No pleural effusion or pneumothorax is seen.Heart/Mediastinum: The cardiomediastinal silhouette is mildly enlarged.Bones: No acute osseous abnormality. [facility]-[id number] MethodistB natriuretic [id number] 00:16:37 Test Item Value Reference Range Interpretation Comments BNP (test code = 09691-1) 5 pg/mL 0-100 [place] MethodistCT Angiogram Pe [id number] 00:15:49Hm Interface, Radiology Results 11/28/2019 12:18 AM CDTEXAMINATION: CT ANGIOGRAM PE CHEST CLINICAL HISTORY: 64 years Female sobTECHNIQUE: Multiple CT angiographic images of the chest were obtained during intravenous administration of contrast. Multiple computerized reformatted images as well as 3-D volume rendered images were also obtained. CT imaging was performed with iterative reconstruction techniques and/or automated exposure control to reduce radiation dose. COMPARISON: CT of the chest, abdomen, and pelvis from 07/23/2019.FINDINGS:Lungs and airways: A 2 mm nodule along the right oblique fissure seen on series 303 image 41 is unchanged. There is mild atelectasis in the lung bases bilaterally. An 8 mm calcified granuloma in the left lower lobe is stable. No new consolidation or mass lesion is identified in the lungs. Pleura: No pleural effusion or pneumothorax.Mediastinum and lymph nodes: No lymphadenopathy. Cardiovascular: The heart is mildly enlarged. No pericardial effusion is identified.The caliber of the ascending, transverse, and descending thoracic aorta is normal. The thoracic aorta is patent. There is no evidence of dissection flap in the thoracic aorta.The pulmonary artery trunk, right main pulmonary artery, and left main pulmonary artery are within normal limits of s ize. No saddle embolus is identified. There is no evidence of right heart strain. No filling defect is identified within the central segmental opacified pulmonary arteries.Upper abdomen: No suspicious abnormalities. There is a small hiatal hernia.Bones: No suspicious osseous lesions. Other: None.IMPRESSION:1.No evidence of pulmonary embolism.2.No acute abnormality identified in the chest.[facility]-[id number] MethodistVenous blood [id number] 23:51:55 Test Item Value Reference Range Interpretation Comments pH, venous (test code = 2746-6) 7.39 7.32-7.42 pCO2, venous (test code = 2020-) 43 45- 51 mmHg L pO2, venous (test code = 2705-2) 54 25- 40 mmHg H Base excess, venous (test code = 1 meq/L -2-2 1927-3) O2 saturation, venous (test code 85 % 40-70 H = 2711-0) Bicarbonate, venous (test code = 25.4 mmol/L 21-28 25875-3) Lab Interpretation (test code = Abnormal 44953-3) [place] MethodistUrinalysis screen and microscopy, with reflex to culture 2019-11-27 22:44:59 Test Item Value Reference Range Interpretation Comments Specimen site (test code = Catheterized 5883876) Color, UA (test code = 5778-6) Yellow Appearance, UA (test code = Hazy 5767-9) Specific gravity, UA (test code 1.019 1.001-1.035 = 5811-5) pH, UA (test code = 5803-2) 6.0 5.0-8.5 Protein, UA (test code = 1+ Negative A 04237-2) Glucose, UA (test code = Negative Negative 43161-3) Ketones, UA (test code = 2514-8) Negative Negative Bilirubin, UA (test code = Negative Negative 5770-3) Blood, UA (test code = 5794-3) Negative Negative Nitrite, UA (test code = 5802-4) Negative Negative Urobilinogen, UA (test code = 2.0 <2.0 A 29156-9) Leukocyte esterase, UA (test Negative Negative code = 5799-2) Epithelial cells, UA (test code 3 /HPF = 5787-7) WBC, UA (test code = 5821-4) 3 0- 4 /HPF RBC, UA (test code = 13761-8) 1 0- 5 /HPF Bacteria, UA (test code = Few None seen 03607-1) Yeast, UA (test code = 11253-7) None seen Yeast with pseudohyphae, UA None seen (test code = 42866-9) Hyaline casts, UA (test code = 1 /LPF 5796-8) Lab Interpretation (test code = Abnormal 30113-5) [facility] Lumbar Spine Wo [id number] 22:21:13Hm Interface, Radiology Results 11/27/2019 10:24 PM CDTEXAMINATION: CT LUMBAR SPINE WO CONTRASTCLINICAL HISTORY: back painCOMPARISON: None.FINDINGS:Noncontrast CT of the lumbar spine is interpreted.CT imaging was performed with iterative reconstruction techniques and/or automated exposure control to reduce radiation dose.The lowest fully formed disc space is designated L5-S1.Vertebral heights preserved. No displaced fracture aggressive bone lesion is seen.T12 vertebral body hemangiomas present.L1-2: Unremarkable.L2-3: Unremarkable.L3-4: Unremarkable.L4-5: Mild disc degenerative changes. Mild disc bulge. Minimal bilateral facet arthrosis. Mild canal narrowing.L5-S1: Moderate loss of disc height. Mild disc bulge. Small right subarticular zone disc protrusion. There is potential slight contact on the traversing right S1 nerve root.There is deconditioning of the paraspinous musculature.IMPRESSION:Mild degenerative changes in the lower lumbar spine. Small right subarticular zone disc protrusion is suspected at L5-S1 and there is potential contact on the traversing right S1 nerve root.[id number] MethodistComprehensive metabolic [id number] 20:32:19 Test Item Value Reference Range Interpretation Comments Sodium (test code = 145 135- 148 mEq/L 2951-2) Potassium (test code = 4.3 3.5- 5.0 mEq/L 2823-3) Chloride (test code = 104 98- 112 mEq/L 2074-0) CO2 (test code = 2027-9) 27 24- 31 mEq/L Anion gap (test code = 14@ANIO 7- 15 mEq/L 36129-6) BUN (test code = 3094-0) 17 mg/dL 8-23 Creatinine (test code = 0.35 mg/dL 0.5-0.9 L 2160-0) Glucose (test code = 95 mg/dL 65-99 2345-7) Calcium (test code = 9.9 mg/dL 8.8-10.2 56295-9) Protein (test code = 7.0 g/dL 6.3-8.3 -[place] n 2885-2) 4.6-7.0 g/dL1 week 4.4-7 .6 g/dL7 months-1y ear 5.1-7 .3 g/dL1-2 years 5.6-7 .5 g/dL>3 years 6.0-8 .0 g/lE21-753 6.3-8 .3 g/dL Albumin (test code = 4.0 g/dL 3.5-5 1751-7) A/G ratio (test code = 1.3 0.7-3.8 1759-0) Alkaline phosphatase 64 U/L 35-104 (test code = 6768-6) AST (test code = 1920-8) 39 U/L 10-35 H ALT (test code = 1742-6) 20 U/L 5-50 Total bilirubin (test 0.3 mg/dL 0-1.2 code = 1975-2) Lab Interpretation (test Abnormal code = 46781-3) Eh MethodistEstimated [id number] 20:32:16 Test Item Value Reference Range Interpretation Comments Estimated GFR (test >=90 mL/min/1.73 m2 Melissa morales Units code = 5488) InterpretationG 1 >=90 Normal or highG2 60-89 Mildly hmyztbmshU7a 45-59 Mildly to mode rately szsbmjfnqY2m 30-44 Moderately to severely decreasedG4 15-29 Severely decre asedG5 <15 Kidn ey failureThe eGFR was calculated jojo jerome the Chronic Kidney Disease Epidemiology Co llaboration (CKD-EPI) equat ion. Interpretation is based on recommendations of the National Kidney Foundation-Kidn ey Disease Outcomes Qualit y Initiative (NKF-KDOQI) pub lished in 2013. [facility] MethodistUrine inyrvum2578-10-88 20:09:06 Test Item Value Reference Range Interpretation Comments Urine culture (test SEE COMMENT Bacteriu reji screen code = 0662870) negative. [place] MethodistCBC with platelet and eynbqzncaqma9217-78-24 20:05:32 Test Item Value Reference Range Interpretation Comments WBC (test code = 47778-2) 10.98 4.50- 11.00 k/uL RBC (test code = 54472-4) 4.26 m/uL 4.2-5.5 HGB (test code = 718-7) 12.6 g/dL 12-16 HCT (test code = 4544-3) 39.0 % 37-47 MCV (test code = 787-2) 91.5 fL 82-100 MCH (test code = 785-6) 29.6 pg 27-34 MCHC (test code = 786-4) 32.3 g/dL 31-37 RDW - SD (test code = 40.6 fL 37-55 93976-1) MPV (test code = 95101-7) 10.3 fL 8.8-13.2 Platelet count (test code 285 150- 400 k/uL = 02093-8) Nucleated RBC (test code 0.00 /100 WBC = 83065-2) Neutrophils (test code = 70.2 % 39-69 H 78892-3) Lymphocytes (test code = 18.2 % 25-45 L 72041-8) Monocytes (test code = 4.7 % 0-10 56720-6) Eosinophils (test code = 6.1 % 0-5 H 56637-1) Basophils (test code = 0.5 % 0-1 87899-1) Immature granulocytes 0.3 % 0-1 "Immat ure (test code = 20259-3) granul ocytes" (promyelocytes, myelocytes, metamyelocytes) Lab Interpretation (test Abnormal code = 69921-7) [facility] [id number] 19:53:06Edson Patel MD 11/30/2019 7:55 PMCritical CarePerformed by: Edson Patel MDAuthorized by: Edson Patel MD Critical care provider statement: Critical care time (minutes): 35 Critical care time was exclusive of: Separately billable procedures and treating other patients and teaching time Critical care was necessary to treat or prevent imminent or life-threatening deterioration of the following conditions: Respiratory failure and INSURANCE CLAIMS CLERK failure or compromise Critical care was time spent personally by me on the following activities: Obtaining history from patient or surrogate, interpretation of cardiac output measurements, examination of patient, evaluation of patient's response to treatment, discussions with consultants, development of treatment plan with patient or surrogate, blood draw for specimens, ordering and performing treatments and interventions, ordering and review of laboratory studies, ordering and review of radiographic studies, pulse oximetry, re-evaluation of patient's condition and review of old charts Timothy 'yes' if you are taking over critical care for this patient from another provider.: brendaBaylor Scott & White [facility] Center – Trophy ClubistBasic metabolic [id number] 10:46:49 Test Item Value Reference Range Interpretation Comments Sodium (test code = 2951-2) 143 135- 148 mEq/L Potassium (test code = 2823-3) 4.0 3.5- 5.0 mEq/L Chloride (test code = 2075-0) 102 98- 112 mEq/L CO2 (test code = 2027-9) 28 24- 31 mEq/L Anion gap (test code = 60382-7) 13@ANIO 7- 15 mEq/L BUN (test code = 3094-0) 20 mg/dL 8-23 Creatinine (test code = 2160-0) 0.53 mg/dL 0.5-0.9 Glucose (test code = 2345-7) 94 mg/dL 65-99 Calcium (test code = 82165-0) 9.9 mg/dL 8.8-10.2 [place] [facility] hospitalHepatic function [id number] 10:46:48 Test Item Value Reference Range Interpretation Comments Albumin (test code = 3.6 g/dL 3.5-5 1750-7) Total bilirubin (test 0.3 mg/dL 0-1.2 code = 1974-06) Bilirubin direct (test <0.2 0-0.3 code = 1967-11) Alkaline phosphatase 47 U/L 35-104 (test code = 6768-6) Protein (test code = 6.1 g/dL 6.3-8.3 L -[place] n 2885-2) 4.6-7.0 g /dL1 week 4.4-7.6 g/dL 7 months-1year 5.1-7.3 g/dL 1-2 years 5.6-7.5 g/dL>3 years 6.0-8.0 g/sF30-293 6.3-8. 3 g/dL ALT (test code = 1742-6) 19 U/L 5-50 AST (test code = 1920-8) 22 U/L 10-35 Lab Interpretation (test Abnormal code = 04028-8) [place] MethodistCreatine kinase, total (CPK)2019-10-28 10:46:48 Test Item Value Reference Range Interpretation Comments Creatine kinase (test code = 2157-6) 63 U/L 26-192 [place] MethodistSpirometry, [facility]/[id number] 08:19:05 Test Item Value Reference Range Interpretation Comments FEV1 Pre (test code = 5348) 1.43 L 1.74-2.9 FEV1/FVC % Pre (test code = 5361) 79.37 % 68.43-87.06 FVC Pre (test code = 5354) 1.8 L 2.28-3.65 PEF Pre (test code = 5367) 3.8 L/s 3.67-7.56 FEF 25-75% Pre (test code = 5547) 1.37 L/s 0.92-3.48 FEV1 Predicted (test code = 5302) 2.32 FEV1 LLN (test code = 5347) 1.74 FEV1 % Pre of Predicted (test code = 61.6 % 5308) FVC Predicted (test code = 5307) 2.97 FVC LLN (test code = 5353) 2.28 FVC % Pre of Predicted (test code = 60.7 % 5355) FEV1/FVC % Predicted (test code = 78 5359) FEV1/FVC % LLN (test code = 5360) 68 FEV1/FVC % Pre of Predicted (test 102.1 % code = 5362) FEF 25-75% Predicted (test code = 2.2 5546) FEF 25-75% LLN (test code = 5545) 0.92 FEF 25-75% % Pre of Predicted (test 62.4 % code = 5548) PEF Predicted (test code = 5310) 5.62 PEF LLN (test code = 5366) 3.67 PEF % Pre of Predicted (test code = 67.7 % 5368) [place] MethodistMiscellaneous referral [id number] 17:42:02 Test Item Value Reference Interpretation Comments Range Misc test ENS2 name (test code = 2566) Mis test SEE NOTE Patient ID: result [id number] Name: (test code Ginny COVINGTON Date: = 1729) 1955 Age: 64 Gender: FOrder Number: [id number] Order Number: [id number] Status: FINAL =====Encephalop athy-Autoimmune Eval, S =Encephalopathy , Interpretation, S No in formative autoantibodies were detected in this evaluat ion. However, a negative result does not exclude autoimm une encephalopathy, idiopathic or paraneoplastic. Sensitivity and specificity of antibody testing are enh anced by testing both se rum and CSF............ ............... ............... ............... ....AChR Gangli onic Neuronal Ab, S 0.00 nmol/L Reference Value: <=0.02......... ............... ............... ............... ......AMPA-R Ab CBA, S Negative R eference Value: Negative....... ............... ............... ............... ........Amphiph ysin Ab, S Negative tit er Reference Value : <1:240......... ............... ............... ............... ......Anti-Glia l Nuclear Ab, Type 1 AGNA-1, S Negative titer Reference Value: <1:240......... ............... ............... ............... ......Anti-Neur onal Nuclear Ab, Type 1 PRANAV-1, S Negative titer Reference Value: <1:240......... ............... ............... ............... ......Reflex Ad ded None. ............... ............... ............... ............... Anti-Neuronal N uclear Ab, Type 2 PRANAV-2, S Negative titer Reference Value: <1:240......... ............... ............... ............... ......Anti-Neur onal Nuclear Ab, Type 3 PRANAV-3, S Negative titer Reference Value: <1:240......... ............... ............... ............... ......CASPR2-Ig G CBA, S Negative R eference Value: Negative....... ............... ............... ............... ........CRMP-5- IgG, S Negative tit er Reference Value : <1:240......... ............... ............... ............... ......DPPX Ab I FA, S Negative R eference Value: Negative....... ............... ............... ............... ........JUANCHO-B- R Ab CBA, S Negative Reference Value: Negative....... ............... ............... ............... ........GAD65 A b Assay, S 0.00 nmol/L Reference Value: <= 0.02........... ............... ............... ............... ....GFAP IFA, S Negative Re ference Value: Negative....... ............... ............... ............... ........LGI1-Ig G CBA, S Negative Reference Value: Negative....... ............... ............... ............... ........mGluR1 Ab IFA, S Negative Reference Value: Negative....... ............... ............... ............... ........NMDA-R Ab CBA, S Negative Reference Value: Negative....... ............... ............... ............... ........N-Type Calcium Channel Ab 0.00 nmol/L Reference Value: <=0.03......... ............... ............... ............... ......P/Q-Type Calcium Channel Ab 0.00 nmol/L Reference Value: <=0.02......... ............... ............... ............... ......Purkinje Cell Cytoplasmic Ab Type 1 MOLDING CUTTER -1, S Negative titer Reference Value : <1:240......... ............... ............... ............... ......Purkinje Cell Cytoplasmic Ab Type 2 MOLDING CUTTER -2, S Negative titer Reference Value : <1:240......... ............... ............... ............... ......Purkinje Cell Cytoplasmic Ab Type Tr MOLDING CUTTER -Tr, S Negative titer Reference Value : <1:240- - - - - - - - - - - - - - - - - - - - - - - - - - - - - - -Laboratory Not es:This test was developed a nd its performancechar acteristics determined by [facility] in a mannerconsisten t with CLIA requirements. T his test has not beencleared or approved by the U.S. Food a nd DrugAdministrat ion.+ ---+: PERFORMI NG SITE LEGEND :+ +: : [facility] :: : [address] , [place], [place] [address] :+ + DIANE (test WOODWARD AUTOIMMUNE code = DIANE) ENCEPHALITIS PANEL 4ML RED TOPTest ID: [id number] hy, Autoimmune Evaluation, Serum Eh MethodistCSF [id number] 17:25:01 Test Item Value Reference Range Interpretation Comments CSF culture No growth Specimen isolate (test after 3 days. InformationSp ecimen code = 606-4) Source: CSF (S jerome Fluid)Specimen Site: No tube number not ed Eh MethodistGram [id number] 17:25:01 Test Item Value Reference Range Interpretation Comments Gram stain No WBC's or Specimen isolate (test organisms seen. Information Specimen code = 1469) Source: CSF (Sp inal Fluid)Specimen Site: No tube number not ed [place] MethodistMyelin basic [id number] 16:44:37 Test Item Value Reference Range Interpretation Comments Myelin basic protein 10.15 ng/mL 0-5.5 H INTERPR ETIVE (test code = 2638-5) INFORMA TION: Myelin Basic ProteinTe st developed and characteristics determined by [facility]. S ee Compliance Stat ement D: Betyah/CSP erform ed by [employer],[address] [place] [address] uiz .[employer], Damian Singh MD, La b. Director Lab Interpretation Abnormal (test code = 99876-1) [place] MethodistAngiotensin converting enzyme, [id number] 08:30:20 Test Item Value Reference Range Interpretation Comments Angiotensin converting <0.4 0-2.5 This test was developed enzyme, CSF (test code and i ts performance = 69937-9) characteristics determined by [facility]. The U.S. Food and D rug Administration has not approved or leonardo ared this test; however, FDA clearance or ap proval is not currently r equired for clinical use. T he results are not intende d to be used as the asha e means for clinical diagno sis or patient managem ent decisions.Perfo rmed by [facility],[address], [facility] [address] qdn .[facility] centerlab.Damian valentin MD, Lab. Director Eh MeadeWest Nile virus by PCR, [id number] 07:02:48 Test Item Value Reference Range Interpretation Comments West Nile virus Not-Detected Not-Detected PCR, CSF (test code = 78532-2) West Nile virus See link below for Case N umber: PCR, CSF (test PDF Lab Report [id number] 7 code = 2510) Eh MeadeEpstein Cash Virus (EBV) by [id number] 18:09:10 Test Item Value Reference Range Interpretation Comments Malcom Cash Not-Detected Not-Detected virus, PCR (test copies/mL code = 5005-4) Malcom Cash See link below Case Number: virus, PCR (test for PDF Lab [id number] 7 code = 1340) Report Eh MeadeHerpes simplex virus by [id number] 15:46:50 Test Item Value Reference Range Interpretation Comments Herpes virus, PCR Not-Detected Not-Detected (test code = 55931-8) Herpes virus, PCR See link below Case Num adilson: (test code = 1523) for PDF Lab [id number] Report Eh MeadeVaricella zoster by [id number] 15:14:54 Test Item Value Reference Range Interpretation Comments VZV result (test Not-Detected Not-Detected code = 61025-6) copies/mL Varicella zoster, See link below Case Num adilson: pcr (test code = for PDF Lab [id number] 7 124) Report Eh MethodistEnterovirus by [id number] 15:08:50 Test Item Value Reference Range Interpretation Comments Enterovirus PCR (test See link below Not-Detected Case Number: code = 30378-7) for PDF Lab [id number] Report Eh MethodistGM1 Ab [id number] 14:24:13 Test Item Value Reference Range Interpretation Comments GM1 IgG (test 3 0- 50 IV code = 76139-9) GM1 IgM (test 3 0- 50 IV INTERPRETIVE I NFORMATION: code = 49465-9) Ganglioside (GM1) Antibodies, IgG an d IgM 29 IV or less: Negati ve 30-50 IV: Equivocal 51-10 0 IV: Positive 101 IV or greater: Strong positive Ganglioside antibodies are associated with diverse pe ripheral neuropathies. E levated antibody levels to ganglioside-mon osialic acid (GM1) are assoc iated with motor or sensor imotor neuropathies, p articularly multifocal garrison r neuropathy. Anti-GM1 may oc cur as IgM (polyclonal or monoclonal) or IgG antibodi es. These antibodies may also be found in patients wit h diverse connective tiss ue diseases as well as norm al individuals. Th ron tests by themselves are not diagnostic and should be used in conjunc tion with other clinical parameters to confirm disease .Test developed and characteristics determined by [facility]. See Compliance Stat ement D: Betyah/CSP erformed by [employer] Abdulaziz parson,[address], [facility] [address] erw .[facility], Damian Singh MD, Lab. Director Asialo GM1 IgM see note not performed as a part of (test code = GM1 panel 92655-8) [place] MethodistCytology (non-gynecological) [id number] 14:19:55 Test Item Value Reference Range Interpretation Comments Case number (test code = [id number]) Cytology See link below for (non-gynecological) PDF Lab Report report (test code = 1178) Result status (test code This is Final Report = [id number]) for [id number] [place] MethodistCT Chest W Contrast Abdomen W Wo Contrast Pelvis W Contrast 2019-07-23 12:55:05Hm Interface, Radiology Results 07/23/2019 12:58 PM CSTEXAMINATION: CT CHEST W CONTRAST ABDOMEN W WO CONTRAST PELVIS W CONTRASTCLINICAL HISTORY: G62.9 Polyneuropathy unspecified, 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 Multiple axial images of the chest, abdomen, and pelvis were obtained following intravenous administration of iodinated contrast. Sagittal and coronal computerized reformatted images were obtained.CT imaging was performed with iterative reconstructiontechniques and/or automated exposure control to reduce radiation dose.COMPARISON: None.FINDINGS:Chest: No significant adenopathy is seen in the base of the neck. There is a nodule in the right lobe of the thyroid gland which measures up to 1.4 cm in size. No significant adenopathy in the axilla. No significant mediastinal or hilar lymph nodes by size criteria. Thoracic esophagus is grossly unremarkable. Small hiatal hernia.The thoracic aorta is nonaneurysmal. The left vertebral artery arises directly from the aortic arch, an anatomic variant. Pulmonary trunk is normal in caliber. Heart size is normal. No pericardial effusion.There is a nodule in the right lower lobe along the major fissure on series 3, image 61 which measures up to 3 mm in size. No definite additional nodule is seen. Calcified granuloma in the left lower lobe. There is an additional nodule in the right middle lobe along the min or fissure which measures up to 5 mm in size.Degenerative changes of the bones.Abdomen: The liver isenlarged with fatty infiltration. There is geographic fatty infiltration involving the right hepaticlobe relative to the left hepatic lobe. Hypodensity in segment 7 of the liver measuring up to 8 mm is most consistent with a cyst. No definite additional focal abnormality is identified in the liver. The hepatic veins are patent. Portal vein, splenic vein, and superior mesenteric vein are patent.Priorcholecystectomy. No significant dilatation of the intrahepatic or the extrahepatic biliary tree. Thespleen is not enlarged. Calcified granulomata are noted in the spleen. The adrenal glands are unremarkable. No focal abnormality can be seen within the pancreas. No peripancreatic inflammatory change or evidence of ductal dilatation.The abdominal aorta is nonaneurysmal. The mesenteric vasculature appears widely patent. Atherosclerosis of the infrarenal abdominal aorta without evidence of an aneurysm.There is no evidence of a solid mass seen in either kidney. Numerous bilateral peripelvic cysts are noted with a discrete cyst in the posterior interpolar region of the left kidney measuring up to 1.4 cm in size. No hydronephrosis.No significant adenopathy in the upper abdomen, retroperitoneum, or rootof the mesentery by size criteria. No ascites. No suspicious peritoneal or omental nodularity.Apart from the small hiatal hernia. The stomach is grossly unremarkable although underdistended. The duodenum appears unremarkable. No evidence of small bowel thickening or findings to suggest a small bowel ob struction. Appendix is normal. Moderate stool is seen in the colon. There is no evidence of abnormalcolonic wall thickening or evidence of a colonic obstruction. Few scattered right-sided colonic diverticula.Pelvis: Urinary bladder is grossly unremarkable. Pelvic phleboliths. Uterus appears unremarkab le. No definite suspicious findings in the adnexa. No adenopathy.Degenerative changes of the bones. There is a hemangioma in the T12 vertebral body.IMPRESSION:1.No definite CT evidence of malignancy inthe chest, abdomen, or pelvis.2.2 small nodules in the right middle and right lower lobe. Follow-up per guidelines guidelines as detailed below is recommended.3.Hepatomegaly and diffuse fatty infiltration of the liver with a small hepatic cyst.4.Numerous peripelvic cysts in the kidneys.5.Moderate stool in colon. Colonic diverticulosis without evidence of diverticulitis.6.Right sided thyroid nodule for which further evaluation with thyroid ultrasound is recommended.7.Small hiatal hernia.8.Please see above for additional findings and details.Management Recommendations: According to a consensus statement published by the [employer] of chest physicians and the Fleischner Society, the [facility] collaborative imaging recommendations for multiple solid nodules < 6 mm in a patient without malignancy or immunosuppression are:Low risk - No routine follow-upHigh risk - Optional CT at 12 monthsuse most suspicious nodule as guide to management; follow-up intervals may vary according to size and riskHM [id number] MethodistIg synthesis rate [id number] 11:34:23 Test Item Value Reference Range Interpretation Comments IgG albumin ratio, CSF (test 0.09 0.00-0.23 code = 1588) IgG index, CSF (test code = 0.50 0.01-0.63 97369-5) IgG synthetic rate (test 1.63 -9.90 - 3.30 mg-day code = 28268-4) Q-albumin ratio, CSF (test 7.88 2.40-8.10 code = 1756-6) IgG, CSF (test code = 2.91 mg/dL 1-3 2464-6) Albumin, CSF (test code = 33.88 mg/dL 10-30 H 33958-5) IgG (test code = 2465-3) 735 mg/dL 700-1600 Albumin, S (test code = 4300.0 mg/dL 1542-1708 37694-3) Lab Interpretation (test Abnormal code = 28607-4) [place] MormonismFlow cytometry [id number] 09:24:00 Test Item Value Reference Range Interpretation Comments Case number (test code = [id number]) Flow cytometry evaluation See link below for (test code = 8692049) PDF Lab Report Eh MeadeVDRL, CSF [id number] 20:51:39 Test Item Value Reference Range Interpretation Comments VDRL, CSF screen (test code = Non-reactive Non-reactive 3046) [place] MethodistAcetylcholine receptor binding [id number] 18:05:55 Test Item Value Reference Range Interpretation Comments Acetylcholine 0.0 nmol/L 0-0.4 INTERPRETIVE I NFORMATION: receptor binding Ab Acetylch oline Binding Ab (test code = 482) Negative . ...... 0.0 - 0.4 nmol/L Pos itive ....... 0.5 nmo l/L or greaterApproxim ately 85-90 percent o f patients with myasthenia gravis (MG) express an tibodies to the acetylch oline receptor (AChR) , which can be divided into binding, blocki ng, and modulating anti bodies. Binding antibod y can activate comple ment and lead to loss of AChR. Blocking antibo dy may impair binding of acetylcholine t o the receptor, leadi ng to poor muscle contract ion. Modulating anti body causes receptor endocytosis res ulting in loss of AChR ex pression, which correlate s most closely with cl inical severity of dis ease. Approximately 1 0-15 percent of rita viduals with confirmed myasthenia gravis have no measurable binding, blocki ng, or modulating antibodies.Test developed and characteris tics determined by [facility]. S ee Compliance Stat ement B: Betyah/CSP erformed by [facility],[address], [place] [address] nqz .ryanne.c Damian carver do, MD, Lab. Director [place] MethodistSerum [id number] 17:44:08 Test Item Value Reference Range Interpretation Comments Protein (test code = 7.0 g/dL 6.3-8.3 [place] 9994.6-7.0 2885-2) g/dL1 qgvo0386.4-7.6 g/dL7 months-1yyht061 .1- 7.3 g/dL1-2 .6-7.5 g/dL>3 otpvm114.0-8.0 g/mI86-1243799. 3-8 .3 g/dL SPE albumin (test code = 4.56 g/dL 3.51-5.42 2862-1) SPE alpha 1 (test code = 0.33 g/dL 0.18-0.4 2865-4) SPE alpha 2 (test code = 0.60 g/dL 0.44-0.96 2868-8) SPE beta (test code = 0.86 g/dL 0.52-1.07 92321-6) SPE gamma (test code = 0.64 g/dL 0.7-1.54 L 2874-6) SPE extended See Comment Gamma globulins interpretation (test are sli ghtly code = 66325-4) decreased. SPE interpretation (test See Comment Armani Aguilar, PhD; code = 2218) Lynn Daigle, PhD; Zia Lara MD, Ph D Lab Interpretation (test Abnormal code = 32691-3) [place] [id number] 15:21:32 Test Item Value Reference Range Interpretation Comments SANDRA screen (test Negative Negative Test perfor med using NOVA code = 550) Lite DAPI SANDRA k it (Indirect Immunofluoresce nce Assay) for Anti-Nuclea r Antibody on [employer] QUANTA-Ly ser 160 Analyzer. [place] KeilaistHTLV I/II Ab with reflex to [id number] 14:35:16 Test Item Value Reference Range Interpretation Comments HTLV I/II Ab (test Negative Negative Based on the non-reactive code = 63279-5) anti-HTLV EL MARY JO screen, the HTLV Katelyn n Blot is not indicated a nd therefore not performed.INTER PRETIVE INFORMATION: H TLV I/II Antibodies w/Re flex to ConfirmThis ass ay should not be used for blood donor screening , associated re-e ntry protocols, or f or screening Human Cell, Tissues and [place] lular and Tissue-Based Pr oducts (HCT/P).Perform ed by [facility],[address] [facility], [facility],[place] [address] xqw .[facility]fax medical centerCuriosityville.co Damian harkins MD, Lab. Director [facility] Trophy ClubistOligoclonal banding, [id number] 13:46:30 Test Item Value Reference Range Interpretation Comments Protein, CSF (test code SEE COMMENT 15-45 Foot note---------Ca = 2880-3) ncel test per Joelle Burton. Credit will be issued.Correcte d result; beatrice malhotra reported as 56 on 07/21/2019 at 1 9:18 by I/AUT Prealbumin, CSF (test SEE COMMENT 3.5-11.1 Footno te--------- code = 76128-8) Albumin, CSF (test code SEE COMMENT 40.8-66.2 Foot note--------- = 40476-4) Alpha 1, CSF (test code SEE COMMENT 2.3-6.4 Foot note--------- = 36714-4) Alpha 2, CSF (test code SEE COMMENT 6.1-12.6 Foot note--------- = 23709-3) Beta, CSF (test code = SEE COMMENT 11.7-24.1 Footn ote--------- 82793-3) Gamma, CSF (test code = SEE COMMENT 5.6-12.2 Foot note--------- 98479-7) CSF extended SEE COMMENT Footnote------- -- interpretation (test code = 16952-4) CSF interpretation SEE COMMENT Footnote- -------- (test code = 1163) Formerly [facility] cell count with [id number] 21:25:11 Test Item Value Reference Range Interpretation Comments Color, CSF (test code = 07160-7) Colorless Appearance, CSF (test code = Clear 31736-1) RBC, CSF (test code = 52136-1) 1836 0- 1 /CMM H WBC, CSF (test code = 92684-3) 40 0- 5 /CMM H CSF mononuclear cell (test code = See Diff 34393-2) Neutrophils, CSF (test code = 2 % 15315-9) Lymphocytes, CSF (test code = 93 % 13657-2) Monocytes, CSF (test code = 5 % 64838-5) Lab Interpretation (test code = Abnormal 31806-2) Eh MeadeGlucose level, [id number] 19:18:51 Test Item Value Reference Range Interpretation Comments Glucose, CSF (test code = 2342-4) 56 mg/dL 40-70 Eh MeadeIR Lumbar Puncture by [id number] 17:35:17Hm Interface, Radiology Results 07/21/2019 5:38 PM CSTEXAMINATION: IR LUMBAR PUNCTURECLINICAL HISTORY: G62.89 Other specified polyneuropathies, R53.1 Weakness, mnd motor axonopathyCOMPARISON: NoneTECHNIQUE: Informed consent and a timeout was performed. The patient's lower back was preppedand draped in the usual sterile fashion. Fluoroscopy was used for image guidance for lumbar puncture.FINDINGS:1% lidocaine was used for local anesthesia. Under direct fluoroscopic guidance, access to the thecal sac was made with a 22-gauge spinal needle at the L5-S1 level. A total of approximately 11 cc of clear colorless CSF was removed without difficulty. The patient tolerated the procedure well. There were no complications. The sample was sent to the laboratory for analysis as requested.Total fluoroscopy time was 0.1 minute. Total radiation dose is 1 mGY mGy 0 imagesIMPRESSION:Successful fluoroscopic guided lumbar puncture as detailed above.[facility]-[id number] MethodistVitamin D 25 hydroxy level 2019-07-21 15:36:36 Test Item Value Reference Range Interpretation Comments Vitamin D, 25-hydroxy 8.9 ng/mL 30-150 L This a ssay reports (test code = 1989-3) the sum of 25-hydroxy vitamin D3 and 25-hydroxy reta min D2. Reference range:0-17 years:Deficienc y: less than 20ng/mLOptimum level: greater than or equal to 20 ng/mL.18 years and older:Defic iency: less than 20ng/mLInsuffic iency: 20-29 ng/mLOpti mum Level: 30-80 ng /mLThe assay reportabl e range is 3.4 1 55.9 ng/mL. Levels h igher than 150 ng/mL may be associated with toxicity.If tox icity is clinically suspected and t he reported result is >155.9 ng/mL,co ntact lab for alterna tive methods to obta in a definitive lev el.If separate quanti tation of 25-hydroxy v itamin D3 and 25-hydro xy vitamin D2 is n eeded, please contact lab for alternative methods. Lab Interpretation Abnormal (test code = 89596-5) Eh MethodistRheumatoid [id number] 12:20:51 Test Item Value Reference Range Interpretation Comments Rheumatoid factor (test code = 47617-2) <10 0- 13 IU/mL Stauffer MethodistVitamin B12 [id number] 10:08:29 Test Item Value Reference Range Interpretation Comments Vitamin B12 (test 570 pg/mL 211-946 Significan t overlap code = 2132-9) exists betwee n normal and deficiency states.However, most patients with deficiencies wi ll have Serum B12 <2 00 pg/mL. Eh MethodistC-reactive [id number] 09:51:45 Test Item Value Reference Range Interpretation Comments CRP (test code = 1988-5) <0.30 0-0.5 Stauffer MethodistParathyroid [id number] 09:42:53 Test Item Value Reference Range Interpretation Comments PTH (test code = 2731-8) 33 pg/mL 15-65 Stauffer MethodistSedimentation [id number] 09:42:53 Test Item Value Reference Range Interpretation Comments Sedimentation rate (test code = 5 0- 20 mm/hr 76701-6) Eh MethodistProthrombin time with [id number] 09:35:21 Test Item Value Reference Range Interpretation Comments Prothrombin time (test 13.7 11.5- 14.5 sec code = 5902-2) INR (test code = 1.0 The Interna tional 35126-2) Normalized Rati o (INR) is a therapeutic m onitoring tool for patien ts who are stable on oral anticoagulant t herapy. An INR of 2.0-3.0 is suggested for d eep vein thrombosis/pulm onary embolism. hE MethodistSpirometry, [id number] 08:43:41 Test Item Value Reference Range Interpretation Comments FEV1 Pre (test code = 5348) 1.6 L 1.76-2.89 FEV1/FVC % Pre (test code = 5361) 80.29 % 67.2-86.79 FVC Pre (test code = 5354) 2 L 2.37-3.71 PEF Pre (test code = 5367) 5.16 L/s 4.19-7.5 FEF 25-75% Pre (test code = 5547) 1.6 L/s 0.87-3.27 FEV1 Predicted (test code = 5302) 2.32 FEV1 LLN (test code = 5347) 1.76 FEV1 % Pre of Predicted (test code = 69 % 5308) FVC Predicted (test code = 5307) 3.04 FVC LLN (test code = 5353) 2.37 FVC % Pre of Predicted (test code = 65.6 % 5355) FEV1/FVC % Predicted (test code = 77 5359) FEV1/FVC % LLN (test code = 5360) 67 FEV1/FVC % Pre of Predicted (test 104.3 % code = 5362) FEF 25-75% Predicted (test code = 2.07 5546) FEF 25-75% LLN (test code = 5545) 0.87 FEF 25-75% % Pre of Predicted (test 77.1 % code = 5548) PEF Predicted (test code = 5310) 5.84 PEF LLN (test code = 5366) 4.19 PEF % Pre of Predicted (test code = 88.3 % 5368) Eh Meade
--- NOTE | 2019-12-21 12:59 | RAD REPORT ---
EXAM DESCRIPTION: Daniel Single View12/21/2019 12:50 pm CLINICAL HISTORY: cough COMPARISON: none FINDINGS: The lungs appear clear of acute infiltrate. The heart is borderline enlarged IMPRESSION: No acute abnormalities displayed
--- NOTE | 2019-12-21 14:32 | EDPHYS ---
Physician Documentation [facility] Name: Arline Gregory Age: 64 yrs Sex: Female : 1955 Arrival Date: 12/21/2019 Time: 11:21 Bed 16 Private MD: ED Physician Rashad Loredo HPI: 12/20 12:20 This 64 yrs old Female presents to ER via EMS with complaints of Phlegm in snw throat. 12:20 Onset: The symptoms/episode began/occurred gradually, and became worse this morning. snw Associated signs and symptoms: Pertinent positives: congestion, Pertinent negatives: chest pain. The patient has experienced similar episodes in the past, multiple times, but today's symptoms are worse, unable to get mucus expelled, today's symptoms are similar. It is unknown whether or not the patient has recently seen a physician. Historical: - Allergies: 11:28 Sulfa (Sulfonamide Antibiotics) (Hives); aa5 - Home Meds: 11:28 amlodipine oral [Active]; esomeprazole magnesium Oral [Active]; fenofibrate Oral aa5 [Active]; Simvastatin Oral [Active]; riluzole 50 mg oral tab 1 tab every 12 hours [Active]; - PMHx: 11:28 Hypertension; ALS; aa5 11:28 Uses CPAP at home; aa5 - Immunization history:: Adult Immunizations unknown. - Social history:: Smoking status: Patient reports the use of cigarette tobacco products, denies chronic smoking, but will smoke occasionally. ROS: 12:17 Constitutional: Negative for fever, chills, and weight loss, Eyes: Negative for injury, snw pain, redness, and discharge, Cardiovascular: Negative for chest pain, palpitations, and edema, Abdomen/GI: Negative for abdominal pain, nausea, vomiting, diarrhea, and constipation, Back: Negative for injury and pain, : Negative for injury, bleeding, discharge, and swelling, MS/Extremity: Negative for injury and deformity, Skin: Negative for injury, rash, and discoloration, Neuro: Negative for headache, weakness, numbness, tingling, and seizure, Psych: Negative for depression, anxiety, suicide ideation, homicidal ideation, and hallucinations. 12:17 Neck: Negative for injury, pain, and swelling. 12:17 ENT: Positive for pt states she is trying to cough up phlegm but is unable to produce forceful enough cough to expel it. 12:17 Respiratory: Positive for shortness of breath, at rest. Exam: 12:16 Constitutional: This is a well developed, well nourished patient who is awake, alert, snw and in no acute distress. Head/Face: Normocephalic, atraumatic. Eyes: Pupils equal round and reactive to light, extra-ocular motions intact. Lids and lashes normal. Conjunctiva and sclera are non-icteric and not injected. Cornea within normal limits. Periorbital areas with no swelling, redness, or edema. ENT: Nares patent. No nasal discharge, no septal abnormalities noted. Tympanic membranes are normal and external auditory canals are clear. Oropharynx with no redness, swelling, or masses, exudates, or evidence of obstruction, uvula midline. Mucous membranes moist. Neck: Trachea midline, no thyromegaly or masses palpated, and no cervical lymphadenopathy. Supple, full range of motion without nuchal rigidity, or vertebral point tenderness. No Meningismus. Chest/axilla: Normal chest wall appearance and motion. Nontender with no deformity. No lesions are appreciated. Respiratory: Lungs have equal breath sounds bilaterally, clear to auscultation and percussion. No rales, rhonchi or wheezes noted. No increased work of breathing, no retractions or nasal flaring. 12:16 Abdomen/GI: Soft, non-tender, with normal bowel sounds. No distension or tympany. No guarding or rebound. No evidence of tenderness throughout. Back: No spinal tenderness. No costovertebral tenderness. Full range of motion. Skin: Warm, dry with normal turgor. Normal color with no rashes, no lesions, and no evidence of cellulitis. MS/ Extremity: Pulses equal, no cyanosis. Neurovascular intact. Full, normal range of motion. Neuro: Awake and alert, GCS 15, oriented to person, place, time, and situation. Cranial nerves II-XII grossly intact. Motor strength 5/5 in all extremities. Sensory grossly intact. Cerebellar exam normal. Normal gait. 12:16 Cardiovascular: Rate: normal, Rhythm: irregular. Vital Signs: 11:21 BP 118 / 74; Pulse 95; Resp 20 S; Temp 98.7(O); Pulse Ox 97% on 2 lpm NC; Weight 63.5 aa5 kg (R); Height 5 ft. 3 in. (160.02 cm) (R); Pain 0/10; 14:00 BP 134 / 90; Pulse 92; Resp 20; Pulse Ox 96% on R/A; aa5 15:00 BP 130 / 88; Pulse 88; Resp 16 S; Pulse Ox 95% on R/A; aa5 11:21 Body Mass Index 24.80 (63.50 kg, 160.02 cm) aa5 MDM: 11:36 Patient medically screened. [facility] [place] 14:32 Data reviewed: vital signs, nurses notes. Data interpreted: Pulse oximetry: on room air snw is 93 %. Interpretation: acceptable. Counseling: I had a detailed discussion with the patient and/or guardian regarding: the historical points, exam findings, and any diagnostic results supporting the discharge/admit diagnosis, radiology results, the need for outpatient follow up, for definitive care. Response to treatment: the patient's symptoms have mildly improved after treatment. Special discussion: Based on the history and exam findings, there is no indication for further emergent testing or inpatient evaluation. I discussed with the patient/guardian the need to see the primary care provider for further evaluation of the symptoms. ED course: Pt with ineffective cough 2nd to ALS. 12/20 11:46 Order name: Chest Single View XRAY; Complete Time: 13:05 snw 12/20 12:06 Order name: Suction; Complete Time: 12:36 snw Administered Medications: No medications were administered Disposition: 17:43 Co-signature as Attending Physician, Rashad Loredo MD I agree with the assessment and [facility] [place] plan of care. Disposition: 12/21/19 14:31 Discharged to Home. Impression: Cough. - Condition is Stable. - Discharge Instructions: Cool Mist Vaporizer, Cough, Adult. - Medication Reconciliation Form, Thank You Letter, Antibiotic Education, Prescription Opioid Use form. - Follow up: Private Physician; When: 1 - 2 days; Reason: Recheck today's complaints, Continuance of care, Re-evaluation by your physician. Follow up: Emergency Department; When: As needed; Reason: Worsening of condition. Signatures: Dispatcher [employer] Rashad Howell MD MD cha Waters, Shelly, RUG RENOVATOR-C RUG RENOVATOR-Csnw Liz Roldan, RN RN aa5 Corrections: (The following items were deleted from the chart) 15:10 14:31 12/21/2019 14:31 Discharged to Home. Impression: Cough. Condition is Stable. aa5 Forms are Medication Reconciliation Form, Thank You Letter, Antibiotic Education, Prescription Opioid Use. Follow up: Private Physician; When: 1 - 2 days; Reason: Recheck today's complaints, Continuance of care, Re-evaluation by your physician. Follow up: Emergency Department; When: As needed; Reason: Worsening of condition. snw
--- NOTE | 2019-12-21 14:32 | ER ---
Nurse's Notes [facility] Name: Arline Gregory Age: 64 yrs Sex: Female : 1955 Arrival Date: 12/21/2019 Time: 11:21 Bed 16 Private MD: Diagnosis: Cough Presentation: 12/20 11:21 Chief complaint: Patient states: "I have phlegm in my throat and I can't cough it up". aa5 Pt reports baseline SOB and states "I am only coughing because I am trying to get this phlegm to come up". Pt reports negative COVID-19 results approximately 3 weeks ago. EMS reports pt was 91% RA upon scene arrival and increased to 96% via 2 L NC. 11:21 Coronavirus screen: Client denies travel out of the [place] in the last 14 days. "phlegm aa5 in throat" Client presents with at least one sign or symptom that may indicate coronavirus-19. Standard/surgical mask placed on the client. Provider contacted for isolation considerations. The client reports previous COVID testing was negative. Ebola Screen: Patient negative for fever greater than or equal to 101.5 degrees Fahrenheit, and additional compatible Ebola Virus Disease symptoms. Initial Sepsis Screen: Does the patient meet any 2 criteria? No. Patient's initial sepsis screen is negative. Does the patient have a suspected source of infection? No. Patient's initial sepsis screen is negative. Risk Assessment: Do you want to hurt yourself or someone else? Patient reports no desire to harm self or others. Onset of symptoms was 2019. 11:21 Acuity: BEENA 3 aa5 11:21 Method Of Arrival: EMS: [facility] aa5 Historical: - Allergies: 11:28 Sulfa (Sulfonamide Antibiotics) (Hives); aa5 - Home Meds: 11:28 amlodipine oral [Active]; esomeprazole magnesium Oral [Active]; fenofibrate Oral aa5 [Active]; Simvastatin Oral [Active]; riluzole 50 mg oral tab 1 tab every 12 hours [Active]; - PMHx: 11:28 Hypertension; ALS; aa5 11:28 Uses CPAP at home; aa5 - Immunization history:: Adult Immunizations unknown. - Social history:: Smoking status: Patient reports the use of cigarette tobacco products, denies chronic smoking, but will smoke occasionally. Screenin:30 Abuse screen: Denies threats or abuse. Nutritional screening: No deficits noted. aa5 Tuberculosis screening: No symptoms or risk factors identified. Fall Risk Fall in past 12 months (25 points). Secondary diagnosis (15 points) ALS. Total [place] Fall Scale indicates High Risk Score (45 or more points). Fall prevention measures have been instituted. Side Rails Up X 2 Placed Close to Nursing Station. Assessment: 11:30 General: Appears comfortable, Behavior is calm, cooperative. Pain: Denies pain. Neuro: aa5 Level of Consciousness is awake, alert, obeys commands, Oriented to person, place, time, situation. Cardiovascular: Heart tones S1 S2 present Rhythm is regular. Respiratory: Airway is patent Respiratory effort is even, unlabored, Respiratory pattern is regular, symmetrical, Breath sounds are clear bilaterally. GI: No signs and/or symptoms were reported involving the gastrointestinal system. : No signs and/or symptoms were reported regarding the genitourinary system. EENT: Reports "phlegm in throat" . Derm: Skin is pink, warm \\T\\ dry. Musculoskeletal: Range of motion: intact in all extremities. 12:30 Reassessment: RT at bedside deep suctioning pt per C JAVA DEVELOPER. aa5 12:42 Reassessment: RT states she was able to suction small amount of sputum. . aa5 13:00 Reassessment: Patient is alert, oriented x 3, equal unlabored respirations, skin aa5 warm/dry/pink. 13:55 Reassessment: Patient is alert, oriented x 3, equal unlabored respirations, skin aa5 warm/dry/pink. NC d/c'd at this time per C JAVA DEVELOPER for monitoring O2 sat on RA per C JAVA DEVELOPER at this time. Pt sitting up in bed, states no complaints, pt notified of wait time for disposition, pt verbalized understanding. . 14:15 Reassessment: Pt's O2 sat fluctuating between 93% to 95 % on RA, Leodan, C JAVA DEVELOPER aa5 notified of findings. . 15:05 Reassessment: Patient is alert, oriented x 3, equal unlabored respirations, skin aa5 warm/dry/pink. Vital Signs: 11:21 BP 118 / 74; Pulse 95; Resp 20 S; Temp 98.7(O); Pulse Ox 97% on 2 lpm NC; Weight 63.5 aa5 kg (R); Height 5 ft. 3 in. (160.02 cm) (R); Pain 0/10; 14:00 BP 134 / 90; Pulse 92; Resp 20; Pulse Ox 96% on R/A; aa5 15:00 BP 130 / 88; Pulse 88; Resp 16 S; Pulse Ox 95% on R/A; aa5 11:21 Body Mass Index 24.80 (63.50 kg, 160.02 cm) aa5 ED Course: 11:21 Patient arrived in ED. aa5 11:21 Arm band placed on. aa5 11:21 Patient has correct armband on for positive identification. Bed in low position. Call aa5 light in reach. Side rails up X2. Pulse ox on. NIBP on. 11:22 Liz Roldan, RN is Primary Nurse. aa5 11:24 Petty Marquez FNP-C is PHCP. snw 11:24 Rashad Loredo MD is Attending Physician. snw 11:27 Triage completed. aa5 12:50 Chest Single View XRAY In Process Unspecified. EDMS 15:05 No provider procedures requiring assistance completed. Patient did not have IV access aa5 during this emergency room visit. Administered Medications: No medications were administered Outcome: 14:31 Discharge ordered by . snw 15:05 Discharged to home via wheelchair, with significant other. aa5 15:05 Condition: stable 15:05 Discharge instructions given to patient, Instructed on discharge instructions, follow up and referral plans. Demonstrated understanding of instructions, follow-up care, Pt instructed by C JAVA DEVELOPER to use CPAP at home and to use albuterol inhaler at home. 15:10 Patient left the ED. aa5 Signatures: Dispatcher [employer] EDMS Petty Marquez FNP-C PROFESSOR OF GERMAN-Csnw Liz Roldan, RN RN aa5 Corrections: (The following items were deleted from the chart) 11:30 11:21 BP 118 / 74; Pulse 95bpm; Resp 20bpm; Spontaneous; Pulse Ox 97% 2 lpm Nasal aa5 Cannula; aa5
[2019-12-21 15:15] VITALS: TEMP 98.7
[2019-12-21 15:16] VITALS: BP 134/90; O2SAT 96
== END 2019-12-21 15:10 | disposition home or self-care (01) ==
LOC: ER 11:11
DX: R05 Cough (principal); I10 Essential (primary) hypertension; Z88.2 Allergy status to sulfonamides; Z72.0 Tobacco use
CPT/HCPCS: 71045; 99283

== ENCOUNTER 2019-12-22 10:56 | Observation (INO) | payer OTHER, BC ==
--- OUTSIDE RECORDS SUMMARY | 2019-12-22 11:30 | XMS REPORT | Clinical Summary ---
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); Naomi Paul RN Chronic respir atory insufficiency 11/23/2019 Social Work Neurology Светлана Hurley LCSW 11/19/2019 Travel 11/19/2019 Telephone Neurology Naomi Dumont RN 11/12/2019 Telephone Neurology Mason Trinidad, REJI 10/28/2019 Hospital Encounter Pulmonology Brenda Ford ALS (am marge Fernando MD lateral scleros is) ([facility]) 10/28/2019 Procedure visit Neurology Brenda Ford (chas Fernando MD lateral scleros is) ([facility]) 10/28/2019 Travel 10/27/2019 Social Work Neurology Светлана Hurley, LARRY 10/14/2019 Travel 10/07/2019 Orders Only Neurology Tim ALS (amyotrophi c Naomi Paul RN lateral sclero sis) ([facility]) (Primary Dx) 09/28/2019 Telemedicine Neurology Brenda Ford ALS (amyotrop hic lateral sclerosis) ([facility]) (Primary Dx); MD Abdullahi Chronic respira tory insufficiency 09/28/2019 Travel 09/23/2019 Telephone Neurology Brenda Ford MD 08/19/2019 Travel 07/30/2019 Telephone Neurology Ashley Calzada MA 07/23/2019 Hospital Encounter Radiology Brenda Ford Neuropa thy; MD Abdullahi 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 Procedure visit Neurology Brenda Ford ALS (chas Fernando MD lateral scleros is) ([facility]) (Primary Dx) 07/23/2019 Documentation Neurology Evelyne Singh Patient Edu cation RN 07/22/2019 Procedure visit Neurology Brenda Ford ALS (amyot rophic lateral sclerosis) ([facility]) (Primary Dx); MD Abdullahi Neuropathy; 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 TROPONIN Timed 11/28/2019 6:00 [...] procedure are i n the results section. NC CRITICAL CARE, E/M Routine 11/27/2019 7:53 Re [...] for this ABDOMEN W WO CONTRAST PM DISABILITY ADVOCATE Motor neuron proced ure are in PELVIS W CONTRAST disease (HCC) the resul ts section. FLOW CYTOMETRY Routine 07/22/2019 12:03 Results f or this EVALUATION PM DISABILITY ADVOCATE procedure are i n the results section. WEST NILE VIRUS BY PCR, Routine 07/22/2019 12:03 Results for this CSF PM DISABILITY ADVOCATE procedure are i n the results section. ENTEROVIRUS BY PCR Routine 07/22/2019 12:03 Resul ts for this PM [facility]ABILITY [facility]OC[facility] procedure are i n the results section. MALCOM CASH VIRUS (EBV) Routine 07/22/2019 12:03 Results for this BY PCR PM [facility]ABILITY [facility]OCATE procedure are i n the results section. HERPES SIMPLEX VIRUS BY Routine 07/22/2019 12:03 Results for this PCR PM DISABILITY AD[facility]OCATE procedure are i n the results section. VARICELLA ZOSTER BY PCR Routine 07/22/2019 12:03 Results for this PM [facility]ABILITY [facility]OCATE procedure are i n the results section. CYTOLOGY Routine 07/22/2019 11:44 Results for this (NON-GYNECOLOGICAL) AM DISABILITY AD[facility]OCATE procedur e are in REQUEST the results section. MISCELLANEOUS REFERRAL Routine 07/22/2019 8:44 R esults for this TEST AM DISABILITY ADVOCATE procedure are i n the results section. OLIGOCLONAL BANDING, CSF Routine 07/21/2019 6:04 Results for this PM [facility] procedure are i n the results section. CSF CELL COUNT WITH Routine 07/21/2019 6:04 Multifocal Resu lts for this DIFFERENTIAL PM DISABILITY AD[facility]OCATE acquired motor procedure are in axonopathy the results Progressive focal section. motor weakness GLUCOSE LEVEL, CSF Routine 07/21/2019 6:04 Multifocal Resul ts for this PM [facility]ABILITY ADVOCATE acquired motor procedure are in axonopathy the results Progressive focal section. motor weakness IGG SYNTHESIS RATE STUDY Routine 07/21/2019 6:04 Multifocal Results for this PM DISABILITY ADVOCATE acquired motor procedure are in axonopathy the results Progressive focal section. motor weakness MYELIN BASIC PROTEIN Routine 07/21/2019 6:04 Multifocal Res ults for this PM [employer]ABILITY ADVOCATE acquired motor procedure are in axonopathy the results Progressive focal section. motor weakness VDRL, CSF SCREEN Routine 07/21/2019 6:04 Multifocal Results for this PM [employer]ABILITY ADVOCATE acquired motor procedure are in axonopathy the results Progressive focal section. motor weakness ANGIOTENSIN CONVERTING Routine 07/21/2019 6:04 Multifocal R esults for this ENZYME, CSF PM DISABILITY ADVOCATE acquired motor procedure are in axonopathy the results Progressive focal section. motor weakness GRAM STAIN Routine 07/21/2019 6:04 Results for this PM [facility] procedure are i n the results section. CSF CULTURE Routine 07/21/2019 6:04 Results for this PM [facility]ABILITY [facility]OCATE procedure are i n the results section. MISCELLANEOUS REFERRAL Routine 07/21/2019 5:04 R esults for this TEST PM DISABILITY ADVOCATE procedure are i n the results section. 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 motor weakness EMG Routine 07/21/2019 11:05 Multifocal Results for this AM DISABILITY ADVOCATE acquired motor procedure are in axonopathy the results Progressive focal section. motor weakness SPIROMETRY, MIPS/MEPS Routine 07/21/2019 8:43 Multifocal Re sults for this AM DISABILITY ADVOCATE acquired motor procedure are in axonopathy the results Progressive focal section. motor weakness SOB (shortness of breath) COMPREHENSIVE METABOLIC Routine 07/21/2019 6:49 Results for this PANEL AM DISABILITY ADVOCATE procedure are i n the results section. ESTIMATED GFR Routine 07/21/2019 6:49 Results fo r this AM [facility]ABILITY [facility]ATE procedure are i n the results section. ACETYLCHOLINE RECEPTOR Routine 07/21/2019 6:49 Multifocal R esults for this BINDING AB AM DISABILITY ADVOCATE acquired motor procedure are in axonopathy the results Progressive focal section. motor weakness SANDRA Routine 07/21/2019 6:49 Multifocal Results for this AM DISABILITY ADVOCATE acquired motor procedure are in axonopathy the results Progressive focal section. motor weakness BASIC METABOLIC PANEL Routine 07/21/2019 6:49 Multifocal Re sults for this AM DISABILITY ADVOCATE acquired motor procedure are in axonopathy the results Progressive focal section. motor weakness HC COMPLETE BLD COUNT Routine 07/21/2019 6:49 Multifocal Re sults for this W/AUTO DIFF AM DISABILITY ADVOCATE acquired motor procedure are in axonopathy the results Progressive focal section. motor weakness CREATINE KINASE, TOTAL Routine 07/21/2019 6:49 Multifocal R esults for this (CPK) AM DISABILITY ADVOCATE acquired motor procedure are in axonopathy the results Progressive focal section. motor weakness C-REACTIVE PROTEIN Routine 07/21/2019 6:49 Multifocal Resul ts for this AM DISABILITY ADVOCATE acquired motor procedure are in axonopathy the results Progressive focal section. motor weakness GM1 AB PANEL Routine 07/21/2019 6:49 Multifocal Results for this AM DISABILITY ADVOCATE acquired motor procedure are in axonopathy the results Progressive focal section. motor weakness HTLV I/II AB WITH REFLEX Routine 07/21/2019 6:49 Multifocal Results for this TO CONFIRMATION AM DISABILITY ADVOCATE acquired motor procedure are in axonopathy the results Progressive focal section. motor weakness PARATHYROID HORMONE Routine 07/21/2019 6:49 Multifocal Resu lts for this AM DISABILITY ADVOCATE acquired motor procedure are in axonopathy the results Progressive focal section. motor weakness SERUM ELECTROPHORESIS Routine 07/21/2019 6:49 Multifocal Re sults for this AM DISABILITY ADVOCATE acquired motor procedure are in axonopathy the results Progressive focal section. motor weakness SEDIMENTATION RATE Routine 07/21/2019 6:49 Multifocal Resul ts for this AM DISABILITY ADVOCATE acquired motor procedure are in axonopathy the results Progressive focal section. motor weakness RHEUMATOID FACTOR Routine 07/21/2019 6:49 Multifocal Result s for this AM DISABILITY ADVOCATE acquired motor procedure are in axonopathy the results Progressive focal section. motor weakness PROTHROMBIN TIME WITH Routine 07/21/2019 6:49 Multifocal Re sults for this INR AM DISABILITY ADVOCATE acquired motor procedure are in axonopathy the results Progressive focal section. motor weakness VITAMIN D 25 HYDROXY Routine 07/21/2019 6:49 Multifocal Res ults for this LEVEL AM DISABILITY ADVOCATE acquired motor procedure are in axonopathy the results Progressive focal section. motor weakness VITAMIN B12 LEVEL Routine 07/21/2019 6:49 Multifocal Result s for this AM DISABILITY ADVOCATE acquired motor procedure are in axonopathy the results Progressive focal section. motor weakness after 12/21/2018 Results Transthoracic Echocardiogram Complete, (w Contrast, Strain and 3D if needed) (11/28/2019 12:00 PM CDT) Specimen Narrative Performed At [facility] Echo cardiography Report [address] [facility], [place] [address], [place] [address] Pat.Name: PARVIN COVINGTON.ID: [id number] St.Date: 11/28/2019 Refer.MD: BRIAN DAVEY MD Exam Time: 10:29:00 AM Study Type:Ro utine Echo Height: 63in Weight: 145lb BSA: 1.69 m2 Ag e: 1955,64Y Sex: FEMALE BP: 142/68 HR: 91 bpm Sonogr phr: Declan Mcdaniels RDCS Pat. Stat.:Inpatient Room: [facility] Study Status:Final Echo Event ID:[id number] Order ID: [id number] Reason for Study:STROKE. Post stroke p rotocol. [...] of 5 mmHg. MEASUREMENTS: 2D Parasternal Long [place] Ao Rtd 3.1 cm Index 1.8 cm/m2 [...] 2019 5:09 PM CDT Echocardiography Report [address] [place] [address] Pat.Name: PARVIN COVINGTON Susan.I D: [id number] .Date: 11/28/2019 Refer .MD: BRIAN DAVEY MD Exam Time: 10:29:00 AM Study Type:Routine Echo Height: 63in Weigh t: 145lb BSA: 1.69 m2 Age: 8 1955,64Y Sex: FEMALE BP: 142/68 HR: 91 bpm Sonog rphr: Declan Mcdaniels RDCS Pat. Stat.:Inpatient Room: [facility] Study Status:Final Echo Event ID:[id number] Order ID: [id number] Reason for Study:STROKE. Post stroke pr otocol. [...] of 5 mmHg. MEASUREMENTS: 2D Parasternal Long [place] Ao Rtd 3.1 cm Inde x 1.8 [...] Performing Organization Address City/State/Zipcode Phone Number [facility] [address] [place] [address] Troponin (11/28/2019 6:00 AM CDT)Only the most recent of2 resultswithin the time period is included. Troponin <0.006 0.000 - 0.040 [place] [facility] Comment: ng/mL HOSPITAL In patients suspected of [...] Blood Performing Organization Address City/State/Zipcode Phone Number [facility] DEPARTMENT OF PATHOLOGY AND [address] [place], [place] [address] [facility] MED[facility] [address] [place] [address] MRI Brain Wo Contrast (11/28/2019 5:05 AM [...] chronic small vessel ischemia otherwise unremarkable study. [id number] Procedure Note Interface, Radiology Results Incoming - [...] chronic small vessel ischemia otherwise unremarkable study. [id number] Performing Organization Address City/[facility] Phone Number [facility] [address] [place] [phone] COVID-19 qualitative PCR (11/28/2019 12:30 AM CDT) Interpretation Negative results do not prec lude 2019-nCoV infection and should not be used as the sole basis for treatment or other patient management decisions. Negative results must be combined with clinical observations, patient history, and epidemiological [place] information. [facility] COVID-19 qualitative Not-Detected Not-Detecte [place] PCR result d [facility] COVID-19 qualitative See link below for [place] PCR PDF Lab [facility] ReportComment: Case HOSPITAL Number: [id number] Specimen Nasopharyngeal swab Performing Organization Address [facility] Phone Number [facility] DEPARTMENT OF PATHOLOGY AND [address] [place] [address] [facility] MEDICINE [address] [address] [facility] XR Chest 1 Vw Portable (11/28/2019 12:05 AM CDT) Specimen Narrative Performed At EXAMINATION: XR CHEST 1 VW PORTABLE RADIBANNER CLINICAL HISTORY: 64 years Female SOB COMPARISON: None. IMPRESSION: Lines/Tubes: None. Lungs/Pleura: Mild scarring/atelectasis is seen in the left lung base. No pleural effusion or pneumothorax is s een. Heart/Mediastinum: The cardiomediastinal silhouette is mildly enlarged. Bones: No acute osseous abnormality. [facility]-[id number] Procedure Note Interface, Radiology Results Incoming - 11/28/2019 12:37 AM CDT EXAMINATION: XR CHEST 1 VW PORTABLE CLINICAL HISTORY: 64 years Female SOB COMPARISON: None. IMPRESSION: Lines/Tubes: None. Lungs/Pleura: Mild scarring/atelectasis is seen in the left lung base. No pleural effusion or pneumothorax is seen. Heart/Mediastinum: The cardiomediastinal silhouette is mildly enlarged. Bones: No acute osseous abnormality. [facility]-[id number] Performing Organization Address [facility] Cent[facility]ode Phone Number [facility] [address] [place] [address] CT Angiogram Pe Chest (11/27/2019 11:57 PM [...] 2.No acute abnormality identified in the chest. [facility]-[id number] Procedure Note Interface, Radiology Results Incoming - [...] 2.No acute abnormality identified in the chest. [facility]-[id number] Performing Organization Address [facility] Phone Number [address] [address] B natriuretic peptide (11/27/2019 11:35 PM CDT) Pathologist [facility] BNP 5 0 - 100 pg/mL [facility] Specimen Blood Performing Organization Address [facility] Phone Number [facility] DEPARTMENT OF PATHOLOGY AND [address] [place] [phone] GENOMIC MEDICINE [address] [address] Venous blood gas (11/27/2019 11:35 PM CDT) Pathologist [facility] pH, venous 7.39 7.32 - 7.42 [facility] pCO2, venous 43 (L) 45 - 51 mmHg [facility] pO2, venous 54 (H) 25 - 40 mmHg [facility] Base excess, venous 1 -2 - 2 meq/L [facility] O2 saturation, 85 (H) 40 - 70 % [facility] Bicarbonate, venous 25.4 21.0 - 28.0 [facility] mmol/L HOSPITAL Specimen Blood Performing Organization Address [facility] Phone Number [facility] DEPARTMENT OF PATHOLOGY AND [address] [place], [place] [address] [facility] MEDICINE [facility] [address] [place] [address] CT Lumbar Spine Wo Contrast (11/27/2019 10:15 [...] and there is potential contact on the aletha sing right S1 nerve root. [facility]-[id number] Procedure Note Interface, Radiology Results Incoming - [...] on the traversing right S1 nerve root. [facility]-[id number] Performing Organization Address City/State/Zipcode Phone Number YAJAIRA CART[facility] [address] [place] [address] CRITICAL CARE (11/27/2019 7:53 PM CDT) Narrative [...] the following condit ions: Respiratory failure and [employer] failure or compromise Critical care was time [...] (11/27/2019 7:45 PM CDT) Specimen site Catheterized [facility] Color, UA Yellow [facility] Appearance, UA Hazy [facility] Specific gravity, UA 1.019 1.001 - 1.035 [facility] pH, UA 6.0 5.0 - 8.5 [facility] Protein, UA 1+ (A) Negative [facility] Glucose, UA Negative Negative [facility] Ketones, UA Negative Negative [facility] Bilirubin, UA Negative Negative [facility] Blood, UA Negative Negative [facility] Nitrite, UA Negative Negative [facility] Urobilinogen, UA 2.0 (A) <2.0 [facility] Leukocyte esterase, Negative Negative [facility] Epithelial cells, UA 3 /HPF [facility] WBC, UA 3 0 - 4 /HPF [facility] RBC, UA 1 0 - 5 /HPF [facility] Bacteria, UA Few None seen [facility] Yeast, UA None seen [facility] Yeast with None seen [facility] pseudohyphae, [facility] Hyaline casts, UA 1 /LPF [facility] Specimen Urine Performing Organization Address City/[facility]/Zipcode Phone Number [facility] DEPARTMENT OF PATHOLOGY AND [address] [place] [phone] Urine culture (11/27/2019 7:45 PM CDT) Pathologist Sig nature Urine culture SEE COMMENTComment: [facility] Bacteriuria screen HOSPITAL negative. Specimen Performing Organization Address [facility] Centercode Phone Number [facility] DEPARTMENT OF PATHOLOGY AND [address] [place] [phone] Estimated GFR (11/27/2019 7:35 PM CDT)Only the most recent of3 resultswithin the time period is included. Pathologist [facility] Estimated GFR >=90 mL/min/1.73 [facility] Comment: HOSPITAL Catergory Units Interpretation G1 >=90 [...] published in 2014. Specimen Performing Organization Address City/[facility]/Zipcode Phone Number [facility] DEPARTMENT OF PATHOLOGY AND [address] [place] [phone] CBC with platelet and differential (11/27/2019 7:35 PM CDT)Only the most recent of3 resultswithin the time period is included. WBC 10.98 4.50 - 11.00 [facility] k/uL HOSPITAL RBC 4.26 4.20 - 5.50 [facility] m/uL HOSPITAL HGB 12.6 12.0 - 16.0 [facility] g/dL HOSPITAL HCT 39.0 37.0 - 47.0 % [facility] MCV 91.5 82.0 - 100.0 [facility] MCH 29.6 27.0 - 34.0 pg [facility] MCHC 32.3 31.0 - 37.0 [facility] g/dL HOSPITAL RDW - SD 40.6 37.0 - 55.0 [facility] MPV 10.3 8.8 - 13.2 [facility] Platelet count 285 150 - 400 k/uL [facility] Nucleated RBC 0.00 /100 WBC [facility] Neutrophils 70.2 (H) 39.0 - 69.0 % [facility] Lymphocytes 18.2 (L) 25.0 - 45.0 % [facility] Monocytes 4.7 0.0 - 10.0 % [facility] Eosinophils 6.1 (H) 0.0 - 5.0 % [facility] Basophils 0.5 0.0 - 1.0 % [facility] Immature granulocytes 0.3Comment: 0.0 - 1.0 % [facility] "Immature [facility] granulocytes" (promyelocytes , myelocytes, metamyelocytes ) Specimen Blood Performing Organization Address City/State/Zipcode Phone Number [facility] DEPARTMENT OF PATHOLOGY AND [address] [place], [place] [address] GENOM[facility] MEDICINE [address] [address] Comprehensive metabolic panel (11/27/2019 7:35 PM CDT)Only the most recent of2 resultswithin the time period is included. Sodium 145 135 - 148 [facility] mEq/L [facility] Potassium 4.3 3.5 - 5.0 [facility] mEq/L [facility] Chloride 104 98 - 112 [facility] mEq/L [facility] CO2 27 24 - 31 mEq/L [facility] Anion gap 14@ANIO 7 - 15 mEq/L [facility] BUN 17 8 - 23 mg/dL [facility] Creatinine 0.35 (L) 0.50 - 0.90 [facility] mg/dL [facility] Glucose 95 65 - 99 mg/dL [facility] Calcium 9.9 8.8 - 10.2 [facility] mg/dL HOSPITAL Protein 7.0 6.3 - 8.3 [facility] Comment: g/dL HOSPITAL - 4.6-7.0 g/dL 1 week 4.4-7.6 g/dL 7 months-1year 5.1-7.3 g/dL 1-2 years 5.6-7.5 g/dL >3 years 6.0-8.0 g/dL 18-150 6.3-8.3 g/dL Albumin 4.0 3.5 - 5.0 [facility] g/dL [facility] A/G ratio 1.3 0.7 - 3.8 [facility] Alkaline phosphatase 64 35 - 104 U/L [facility] AST 39 (H) 10 - 35 U/L [facility] ALT 20 5 - 50 U/L [facility] Total bilirubin 0.3 0.0 - 1.2 [facility] mg/dL HOSPITAL Specimen Blood Performing Organization Address City/State/Zipcode Phone Number [facility] DEPARTMENT OF PATHOLOGY AND [address] [place] [phone] GENOMIC MEDICINE [facility] [address] [place] [address] Spirometry, MIPS/MEPS (10/28/2019 8:19 AM CDT) Pathologist [...] is no t available. Performing Organization Address [facility] Phone Number [facility] [address] Creatine kinase, total (CPK) (10/28/2019 8:14 AM CDT)Only the most recent of2 resultswithin the time period is included. Pathologist [facility] nature Creatine kinase 63 26 - 192 U/L [facility] L Specimen Blood Performing Organization Address [facility] Phone Number [facility] DEPARTMENT OF PATHOLOGY AND [address] [place] [address] [address] Hepatic function panel (10/28/2019 8:14 AM CDT) Albumin 3.6 3.5 - 5.0 [facility] g/dL [facility] Total bilirubin 0.3 0.0 - 1.2 [facility] mg/dL [facility] Bilirubin direct <0.2 0.0 - 0.3 [facility] mg/dL [facility] Alkaline phosphatase 47 35 - 104 U/L [facility] Protein 6.1 (L) 6.3 - 8.3 [facility] Comment: g/dL HOSPITAL - [place] 4.6-7.0 g/dL 1 week 4.4-7.6 g/dL 7 months-1year 5.1-7.3 g/dL 1-2 years 5.6-7.5 g/dL >3 years 6.0-8.0 g/dL 18-150 6.3-8.3 g/dL ALT 19 5 - 50 U/L [facility] AST 22 10 - 35 U/L [facility] Specimen Blood Performing Organization Address [facility] Phone Number [facility] DEPARTMENT OF PATHOLOGY AND [address] [place] [address] [phone] [address] Basic metabolic panel (10/28/2019 8:14 AM CDT)Only the most recent of2 results within the time period is included. Pathologist Sig nature Sodium 143 135 - 148 mEq/L [facility] L Potassium 4.0 3.5 - 5.0 mEq/L [facility] L Chloride 102 98 - 112 mEq/L [facility] CO2 28 24 - 31 mEq/L [facility] Anion gap 13@ANIO 7 - 15 mEq/L [facility] BUN 20 8 - 23 mg/dL [facility] Creatinine 0.53 0.50 - 0.90 mg/dL [facility] Glucose 94 65 - 99 mg/dL [facility] Calcium 9.9 8.8 - 10.2 mg/dL [facility] Specimen Blood Performing Organization Address City/State/Zipcode Phone Number [facility] DEPARTMENT OF PATHOLOGY AND [address] [place] [phone] GENOMIC MEDICINE [facility] [address] [place] [address] CT Chest W Contrast Abdomen W Wo Contrast Pelvis W Contrast (07/23/2019 12:18 PM DISABILITY ADVOCATE) Specimen Narrative Performed At EXAMINATION: CT CHEST [...] a consensus s tatement published by the [employer] chest physicians and the [place] eischner [employer], the [facility] collaborative imaging recommendations for mult iple solid nodules < 6 mm in a patient without malignancy or immunosuppression are: Low risk - No routine follow-up High risk - Optional CT at 12 months* *use most suspicious nodule as guide to management; fo llow-up intervals may vary according to size and risk [id number] Procedure Note Interface, Radiology Results Incoming - 07/23/2019 12:58 PM DISABILITY ADVOCATE EXAMINATION: CT CHEST W CONTRAST ABDOMEN W [...] to a consensus statement published by the [employer] of chest physicians and the Fleischner [employer], the [facility] collaborative imaging recommendations for multiple solid nodules < 6 mm in a patient without malignancy or immunosuppression are: Low risk - No routine follow-up High risk - Optional CT at 12 months* *use most suspicious nodule as guide to management; follow-up intervals may vary according to size and risk [facility]-[id number] Performing Organization Address City/[facility]/Zipcode Phone Number [address] [address] West Nile virus by PCR, CSF (07/22/2019 12:03 PM DISABILITY ADVOCATE) West Nile virus Not-Detected Not-Detected [facility] PCR, CSF [facility] West Nile virus See link below [facility] PCR, CSF for PDF Lab HOSPITAL ReportComment: Specimen Performing Organization Address City/[facility] Cent[facility]ode Phone Number [facility] DEPARTMENT OF PATHOLOGY AND [address] [place] [address] [phone] [address] [facility] Varicella zoster by PCR (07/22/2019 12:03 PM DISABILITY ADVOCATE) Pathologist [facility] VZV result Not-Detected Not-Detected [facility] copies/mL [facility] Varicella zoster, See link below [facility] pcr for PDF Lab HOSPITAL ReportComment: Specimen Performing Organization Address City/[facility]/Zipcode Phone Number [facility] DEPARTMENT OF PATHOLOGY AND [address] [place] [address] [phone] [facility] [address] [address] [facility] Herpes simplex virus by PCR (07/22/2019 12:03 PM DISABILITY ADVOCATE) Herpes virus, PCR Not-Detected Not-Detected [facility] Herpes virus, PCR See link below [facility] for PDF Lab HOSPITAL ReportComment: Specimen Performing Organization Address City/State/Zipcode Phone Number [facility] DEPARTMENT OF PATHOLOGY AND [address] [place] [address] Flow cytometry evaluation (07/22/2019 12:03 PM DISABILITY ADVOCATE) [facility] Flow cytometry See link below [facility] evaluation for PDF Lab HOSPITAL Report Specimen Performing Organization Address City/[facility]/Zipcode Phone Number [facility] DEPARTMENT OF PATHOLOGY AND [address] [place] [address] Malcom Cash Virus (EBV) by PCR (07/22/2019 12:03 PM DISABILITY ADVOCATE) Malcom Cash virus, Not-Detected Not-Detected [facility] PCR copies/mL [facility] Malcom Cash virus, See link below [facility] PCR for PDF Lab HOSPITAL ReportComment: Specimen Performing Organization Address City/[facility] Centercode Phone Number [facility] DEPARTMENT OF PATHOLOGY AND [address] [place] [address] Enterovirus by PCR (07/22/2019 12:03 PM DISABILITY ADVOCATE) Pathologist Sig nature Enterovirus PCR Not-Detected Not-Detected [facility] Enterovirus PCR See link below [facility] for PDF Lab HOSPITAL ReportComment: Specimen Performing Organization Address City/[facility]/Zipcode Phone Number [facility] DEPARTMENT OF PATHOLOGY AND [address] [place] [address] Cytology (non-gynecological) request (07/22/2019 11:44 AM DISABILITY ADVOCATE) [facility] DEPARTMENT OF PATHOLOGY AND GENOMIC MEDICINE Cytology See link below [facility] DEPARTMENT OF (non-gynecological) for PDF Lab PATHOLOGY AND report Report GENOMIC MEDICINE Result status This is Final [facility] DEPARTMENT OF Report for PATHOLOGY AND [id number] [facility]ICINE Specimen Performing Organization Address City/[facility]/Zipcode Phone Number [facility] DEPARTMENT OF PATHOLOGY AND [address] [place] [address] GENOMIC MEDICINE Miscellaneous referral test (07/22/2019 8:44 AM DISABILITY ADVOCATE)Only the most recent of2 resultswithin the time period is included. [facility] test name ENS2 SHOWN ABOVE [facility] test result SEE NOTE SHOWN ABOVE Comment: Patient Name: PARVIN COVINGTON Date: 1955 Age: 64 Gender: F Order Number: [id number] Client Order Number: [id number] Report Status: FINAL ====== Encephalopathy-Autoimmune Eval, S [...] ...... Purkinje Cell Cytoplasmic Ab Type 1 SUPPLY CATALOGUER-1, S Negative titer Reference Value: <1:240 ...................................................... ...... Purkinje Cell Cytoplasmic Ab Type 2 SUPPLY CATALOGUER-2, S Negative titer Reference Value: <1:240 ...................................................... ...... Purkinje Cell Cytoplasmic Ab Type Tr SUPPLY CATALOGUER-Tr, S Negative titer Reference Value: <1:240 - - - - - - - - - - - - - - - - - - - - - - - - - - - - - - - Laboratory Notes: This test was developed and its performance characteristics determined by [facility] in a manner consistent with CLIA requirements. This test has not b een cleared or approved by the U.S. Food and Drug Administration. + -----+ : PERFORMING S ITE LEGEND : + -----+ : : [facility] : : : [address] [place] [address] : + -----+ Specimen Narrative Performed At [place] AUTOIMMUNE ENCEPHALITIS PANEL 4ML RED [facility] ENT OF PATHOLOGY AND GENOMIC [employer] MEDICINE Test ID: [id number], Autoimmune Evaluation, Serum Performing Organization Address City/State/Zipcode Phone Number [facility] DEPARTMENT OF PATHOLOGY AND [address] [place], [place] [address] [employer] SHOWN ABOVE IgG synthesis rate study (07/21/2019 6:04 PM DISABILITY ADVOCATE) Pathologist Sig nature IgG albumin ratio, 0.09 0.00 - 0.[address] [facility] IgG index, CSF 0.50 0.01 - 0.63 [facility] IgG synthetic rate 1.63 -9.90 - 3.30 [facility] mg/day HOSPITAL Q-albumin ratio, CSF 7.88 2.40 - 8.10 [facility] IgG, CSF 2.91 1.00 - 3.00 [facility] mg/dL [facility] Albumin, CSF 33.88 (H) 10.00 - 30.00 [facility] mg/dL HOSPITAL IgG 735 700 - 1,600 [facility] mg/dL HOSPITAL Albumin, S 4,300.0 3,640.0 - [facility],304.0 mg/dL HOSPITAL Specimen Serum Performing Organization Address [facility]/Zipcode Phone Number [facility] DEPARTMENT OF PATHOLOGY AND [address] [place], [place] [address] [facility] MEDICINE [address] [address] Oligoclonal banding, CSF (07/21/2019 6:04 PM DISABILITY ADVOCATE) Protein, CSF SEE COMMENT 15 - 45 [place] Comment: mg/dL [facility] Footnote--------- HOSPITAL Cancel test per Dr. Deirdre Burton. Credit will be [facility] ed. Corrected result; previously reported as 56 on 020 at 19:18 by I/AUT Prealbumin, CSF SEE 3.5 - 11.1 % [place] COMMENTComment: [facility] Footnote--------- HOSPITAL Albumin, CSF SEE 40.8 - 66.2 [place] COMMENTComment: % [facility] Footnote--------- HOSPITAL Alpha 1, CSF SEE 2.3 - 6.4 % [place] COMMENTComment: [facility] Footnote--------- HOSPITAL Alpha 2, CSF SEE 6.1 - 12.6 % [place] COMMENTComment: [facility] Footnote--------- HOSPITAL Beta, CSF SEE 11.7 - 24.1 [place] COMMENTComment: % [facility] Footnote--------- HOSPITAL Gamma, CSF SEE 5.6 - 12.2 % [place] COMMENTComment: [facility] Footnote--------- HOSPITAL CSF extended SEE [place] interpretation COMMENTComment: [facility] Footnote--------- HOSPITAL CSF interpretation SEE [place] COMMENTComment: [facility] Footnote--------- HOSPITAL Specimen Cerebrospinal fluid Performing Organization Address City/[facility]/Zipcode Phone Number [facility] DEPARTMENT OF PATHOLOGY AND [address] [place], [place] [address] [facility] MEDICINE [place] [id number] [place] [address] Gram stain (07/21/2019 6:04 PM DISABILITY ADVOCATE) Gram stain isolate No WBC's or organisms seen. ALESIA [facility] Comment: HOSPITAL Specimen Information Specimen Source: CSF (Spinal Fluid) Specimen Site: No tube number noted Specimen Cerebrospinal fluid - No tube number not ed Performing Organization Address City/[facility]/Zipcode Phone Number [facility] DEPARTMENT OF PATHOLOGY AND [address] [place] [address] [phone] [address] CSF culture (07/21/2019 6:04 PM DISABILITY ADVOCATE) CSF culture No growth after 3 days. [facility] isolate Comment: HOSPITAL Specimen Information Specimen Source: CSF (Spinal Fluid) Specimen Site: No tube number noted Specimen Cerebrospinal fluid - No tube number not ed Performing Organization Address City/[facility]/Zipcode Phone Number [facility] DEPARTMENT OF PATHOLOGY AND [address] [place] [address] [phone] [address] CSF cell count with differential (07/21/2019 6:04 PM DISABILITY ADVOCATE) Pathologist Sig nature Color, CSF Colorless [facility] Appearance, CSF Clear [facility] RBC, CSF 1,836 (H) 0 - 1 /[facility] WBC, CSF 40 (H) 0 - 5 /[facility] CSF mononuclear cell See Diff [facility] Neutrophils, CSF 2 % [facility] Lymphocytes, CSF 93 % [facility] Monocytes, CSF 5 % [facility] Specimen Cerebrospinal fluid Performing Organization Address City/[facility] Cent[facility]owa Phone Number [facility] DEPARTMENT OF PATHOLOGY AND [address] [place] [address] [phone] [address] VDRL, CSF screen (07/21/2019 6:04 PM DISABILITY ADVOCATE) Pathologist Sig nature VDRL, CSF screen Non-reactive Non-reactive [facility] Specimen Cerebrospinal fluid Performing Organization Address City/[facility]/Zipcode Phone Number [facility] DEPARTMENT OF PATHOLOGY AND [address] [place] [address] [phone] [address] Myelin basic protein (07/21/2019 6:04 PM DISABILITY ADVOCATE) Myelin basic 10.15 (H) 0.00 - 5.50 [facility] REF LAB protein Comment: ng/mL INTERPRETIVE INFORMATION: Myelin Basic Protein Test developed and characteristics determined by [facility]. See Compliance Statement D: [facility]/ Performed by [facility], [address] [place] [id number] www.[facility], Damian Singh MD, Lab. Director Specimen Cerebrospinal fluid Performing Organization Address [facility] Centercode Phone Number [facility] [address] [place] [address] [facility] [address] [place] [address] Glucose level, CSF (07/21/2019 6:04 PM DISABILITY ADVOCATE) Pathologist Sig nature Glucose, CSF 56 40 - 70 mg/dL [facility] Specimen Cerebrospinal fluid Performing Organization Address [facility]/Zipcode Phone Number [facility] DEPARTMENT OF PATHOLOGY AND [address] [place], [place] [address] GENOMIC MEDICINE [facility] [address] [place] [address] Angiotensin converting enzyme, CSF (07/21/2019 6:04 PM DISABILITY ADVOCATE) Angiotensin <0.4 0.0 - 2.5 [facility] converting enzyme, Comment: U/L CSF This test was developed and its performance characteri stics determined by [facility]. The U.S. Food and Jonathon g Administration has not approved or cleared this test; however, FDA clearance or approval is not currently required for cl inical use. The results are not intended to be used as the sole me ans for clinical diagnosis or patient management decisions. Performed by [facility], [address] [place] [id number] www.[facility], Damian Singh MD, Lab. Director Specimen Cerebrospinal fluid Performing Organization Address [facility] Phone Number [facility] [address] [place] [address] [facility] [address] [place] [address] IR Lumbar Puncture by Radiology (07/21/2019 4:09 PM DISABILITY ADVOCATE) Specimen Narrative Performed At EXAMINATION: IR LUMBAR [...] guided lumbar pu ncture as detailed above. [facility]-[id number] Procedure Note Interface, Radiology Results Incoming - 07/21/2019 5:38 PM DISABILITY ADVOCATE EXAMINATION: IR LUMBAR PUNCTURE CLINICAL HISTORY: G62.89 [...] guided lumbar pu ncture as detailed above. [facility]-[id number] Performing Organization Address City/State/Zipcode Phone Number [facility] [address] [place] [address] EMG general request (07/21/2019 11:05 AM DISABILITY ADVOCATE) Impressions Performed At Ms. Covington complains of [...] available. NERVE CONDUCTION AND ELECTROMYOGRAPHY REPORT Neurological [place], [facility]th Floor; [place], [place] [address]; Teleph one [phone] Name: Parvin Covington Date of Procedure: July [...] 1.5% increment. Spirometry, MIPS/MEPS (07/21/2019 8:43 AM DISABILITY ADVOCATE) Pathologist Sig nature FEV1 Pre 1.60 1.76 [...] is no t available. Performing Organization Address City/[facility]/Zipcode Phone Number [facility] [address] [place] [address] HTLV I/II Ab with reflex to confirmation (07/21/2019 6:49 AM DISABILITY ADVOCATE) Pathologist Sig nature HTLV I/II Ab Negative [...] and Tissue-Based Products (HCT/P) . Performed by [facility], [address] [place] [id number] www.[facility], Damian Singh MD, Lab. Director Specimen Serum Performing Organization Address [facility]/[place] Phone Number [facility] [address] [place] [address] [facility] [address] [place] [address] GM1 Ab panel (07/21/2019 6:49 AM DISABILITY ADVOCATE) GM1 IgG 3 0 - 50 IV [...] disease. Test developed and characteristics determined by [facility]. See Compliance Statement D: [facility]/ Performed by [facility], [address] [place], [place] [id number] www.[facility], Damian Singh MD, Lab. Director Asialo GM1 IgG see noteComment: not [facility] performed as a part of GM1 panel Asialo GM1 IgM see noteComment: not [facility] performed as a part of GM1 panel Specimen Serum Performing Organization Address [facility] Phone Number [facility] [address] [place] [address] [facility] [address] [place] [address] Acetylcholine receptor binding Ab (07/21/2019 6:49 AM DISABILITY ADVOCATE) Acetylcholine 0.0 0.0 - 0.4 [facility] [...] antibodies. Test developed and characteristics determined by [facility]. See Compliance Statement B: [employer]/ CS Performed by [facility], [address] [place], [place] [id number] www.[facility], Damian Singh MD, Lab. Director Specimen Serum Performing Organization Address [facility] Centercode Phone Number [facility] [address] [place] [address] [facility] [address] [place] [address] Vitamin D 25 hydroxy level (07/21/2019 6:49 AM DISABILITY ADVOCATE) Vitamin D, 8.9 (L) 30.0 - 150.0 [...] alternative methods. Specimen Blood Performing Organization Address City/[facility]/Zipcode Phone Number [facility] DEPARTMENT OF PATHOLOGY AND [address] [place] [address] [phone] [address] Sedimentation rate (07/21/2019 6:49 AM DISABILITY ADVOCATE) Pathologist [facility] Sedimentation rate 5 0 - 20 mm/hr [facility] Specimen Blood Performing Organization Address [facility] Centercode Phone Number [facility] DEPARTMENT OF PATHOLOGY AND [address] [place] [address] [phone] [address] Prothrombin time with INR (07/21/2019 6:49 AM DISABILITY ADVOCATE) Pathologist [facility] Prothrombin time 13.7 11.5 - 14.5 [facility] INR 1.0 [place] Comment: [facility] International Normalized Ratio (INR) is a [facility] monitoring tool for patients who are stable on oral anticoagulant therapy. An INR of 2.0-3.0 is suggested for deep vein thrombosis/pulmonary embolism. Specimen Blood Performing Organization Address City/[facility]/Zipcode Phone Number [facility] DEPARTMENT OF PATHOLOGY AND [address] [place] [address] [phone] [address] Rheumatoid factor (07/21/2019 6:49 AM DISABILITY ADVOCATE) Pathologist Sig nature Rheumatoid factor <10 0 - 13 IU/mL [facility] Specimen Plasma specimen Performing Organization Address City/[facility]/Zipcode Phone Number [facility] DEPARTMENT OF PATHOLOGY AND [address] [place] [address] [phone] [address] C-reactive protein (07/21/2019 6:49 AM DISABILITY ADVOCATE) Pathologist Sig nature CRP <0.30 0.00 - 0.50 mg/dL [facility] Specimen Plasma specimen Performing Organization Address [facility] Phone Number [facility] DEPARTMENT OF PATHOLOGY AND [address] [place] [address] [phone] [address] SANDRA (07/21/2019 6:49 AM DISABILITY ADVOCATE) SANDRA screen Negative Negative [facility] Comment: HOSPITAL Test performed using [employer] O[employer] DAPI SANDRA kit (Indirect Immunofluorescence Assay) for Anti-Nuclear Antibody on [employer] 160 Analyzer. Specimen Blood Performing Organization Address [facility] Phone Number [facility] DEPARTMENT OF PATHOLOGY AND [address] [place] [address] Serum electrophoresis (07/21/2019 6:49 AM DISABILITY ADVOCATE) Pathologist Cele Protein 7.0 6.3 - 8.3 [place] Comment: g/dL [facility] Eexebwf9254.6-7.0 g/dL HOSPITAL 1 yzet6775.4-7.6 g/dL 7 months-1dite173.1-7.3 g/dL 1-2 .6-7.5 g/dL >3 bhlug828.0-8.0 g/dL 18-6223390.3-8.3 g/dL SPE albumin 4.56 3.51 - 5.42 [place] g/dL [facility] SPE alpha 1 0.33 0.18 - 0.40 [place] g/dL [facility] SPE alpha 2 0.60 0.44 - 0.96 [place] g/dL [facility] SPE beta 0.86 0.52 - 1.07 [place] g/dL [facility] SPE gamma 0.64 (L) 0.70 - 1.54 [place] g/dL [facility] SPE extended See [place] interpretation CommentComment: [facility] Gamma globulins HOSPITAL are slightly decreased. SPE interpretation See [place] CommentComment: [facility] Yvon Aguilar, [facility] PhD; Lynn Daigle, PhD; Rui Lara MD, PhD Specimen Serum Performing Organization Address City/State/Zipcode Phone Number [facility] DEPARTMENT OF PATHOLOGY AND [address] [place], [place] [address] [facility] [address] [place] [address] Parathyroid hormone (07/21/2019 6:49 AM DISABILITY ADVOCATE) Pathologist Sig nature PTH 33 15 - 65 pg/mL [facility] Specimen Blood Performing Organization Address City/State/Zipcode Phone Number [facility] DEPARTMENT OF PATHOLOGY AND [address] [place] [address] [facility] [address] [place] [address] Vitamin B12 level (07/21/2019 6:49 AM DISABILITY ADVOCATE) Vitamin B12 570 211 - 946 [facility] Comment: pg/mL HOSPITAL Significant overlap exists between normal and deficien cy states. However, most patients with deficiencies will have Ser um B12 <200 pg/mL. Specimen Serum Performing Organization Address City/State/Zipcode Phone Number [facility] DEPARTMENT OF PATHOLOGY AND [address] [place], [place] [address] [facility] [address] [place] [address] after 12/21/2018 Insurance Payer Benefit Plan / Subscriber ID Effective Dates Phone Addre ss Type Group MEDICARE MEDICARE PART A xxxxxxxxxxx 2018-Present [place], [place] Medicare AND B BCBS BCBS CHOICE xxxxxxxxxxxx 2018-Present PPO PPO/[employer]PL PPO Advance Directives For more information, please contact: [phone] Type Date Recorded Patient Water Filter Cleaner Explanati on Advance Directives, Living Will 11/27/2019 6:27 PM and Medical Power of Editor Book
--- OUTSIDE RECORDS SUMMARY | 2019-12-22 11:32 | XMS REPORT | Continuity of Care Document ---
:1955 Author Organization [facility] t Address [address] [place] [address] Care Team Providers Name Role Phone Asked, Pcp Primary Care Physician Unavailable René Patel MD Attending Clinician Deborah LAUREANO Attending Clinician Hardy Brambila MD Attending Clinician Vivi MENDOZA Attending Clinician Unavailable Humberto Dumont RN Attending Clinician Unavailable Xavi JUAREZ Attending Clinician Unavailable Abdullahi Ford MD Attending Clinician Zheng RODRÍGUEZ Attending Clinician Unavailable Francisco MENDOZA Attending Clinician Unavailable Jose Alfredo Attending Clinician Unavailable DEBORAH Branchitting Clinician Unavailable Payers Payer Name Policy Policy Number Effective Expiration Source Type Date Date MEDICAREMEDICARE PART xxxxxxxxxxx 2018 Ab lyonaleta Billingsley AND 00:00:00 Confucianism Bxxxxxxxxxxx8- 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 3-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 00:00: st sclerosis) sclerosis) 00 Chronic Chronic Disease Active [place] respirator respirator 3-03 Me thodi y y 00:00: st insufficie insufficie 00 ncy ncy Progressiv Progressiv Disease Active [place] e focal e focal 2-24 Methodi motor motor 00:00: st weakness weakness 00 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 00:00: MND st axonopathy axonopathy 00 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 [...] Date Motor Motor Disease Resolve 2019-07-23 2019-07-23 [place] neuron neuron d 00:00:00 13:35:[address] Allergies, Adverse Reactions, Alerts Allergy Allergy Status Severity Reaction(s) Onset Inactive Treating Comm ents Source Name Type Date Date Clinician Sulfa Propensi Active Rash [place] (Sulfona ty to 3-02 Methodi mide adverse 00:00: st Antibiot reaction 00 ics) s to drug Social History Social Habit Start Date Stop Date Quantity Comments Source Sex Assigned At [place] M ethodist Alcohol intake 2019-11-28 2019-11-28 [facility] thodist 00:00:00 00:00:00 Smoking Status Start Date Stop Date Source Current some day smoker 2019-11-28 00:00:00 [place] Confucianism Medications Ordered Filled Start Stop Current Ordering [...] :00 mg tablet gabapentin 2019- Yes 300mg Q.[id number] Take 300 [place] 300 mg/6 mL 09-27 [id number] mg by Cal vides (6 mL) 00:00: 3D mouth 3 st solution 00 (three) times a day. gabapentin 2019-2019- No 300mg Q.13917963 Take 1 [place] (NEURONTIN) 09-27 [id number] capsule Methodi 300 mg 00:00: 00:00 3D ([address] capsule 00 :00 total) by mouth 3 (three) times a day. riluzole 2019-2020- No ALS 50[facility]H [facility] 07-22 03-05 (amyotrophi tablet (50 Methodi 50 mg 00:00: 23:59 c lateral mg total) s t tablet 00 :00 sclerosis) by mouth (HCC) every 12 (twelve) hours. cholecalcif 2020-0 Yes 2000U QD Chew 2,000 Stauffer kain, 3-04 Units Methodi vitamin D3, 00:00: daily. st 2,000 unit 00 tablet,chew able ergocalcife 2019- No 51575L Q7D Take 1 H shamar menjivar 07-21-09 capsule Methodi (VITAMIN 00:00: 23:59 (50,000 st D2) 50,000 00 :00 Units unit total) by capsule mouth once a week for 6 doses. Vital Signs Vital Name Observation Time Observation Value Comments Source Systolic blood 2019-11-28 07:35:14 142 mm[Hg] [place] Confucianism pressure Diastolic blood 2019-11-28 07:35:14 68 mm[Hg] Ashley on Confucianism pressure Heart rate 2019-11-28 07:35:14 91 /min Eh Meade Body temperature 2019-11-28 07:35:14 36.61 [place] Confucianism Respiratory rate 2019-11-28 07:35:14 16 /min [place] Confucianism Oxygen saturation in 2019-11-28 07:35:14 100 /min Eh Meade Arterial blood by Pulse oximetry Body height 2019-10-28 08:00:25 160 cm Eh Meade Body weight 2019-10-28 08:00:25 66.134 kg Eh Meade BMI 2019-10-28 08:00:25 25.83 kg/m2 Eh Meade Procedures Procedure Date / Time Performing Clinician Source Performed TTE COMPLETE, WO CONTRAST, 2019-11-28 12:00:00 Vivi Sykes W DOPPLER ([id number]) Imarendenewe TROPONIN 2019-11-28 06:00:00 Todd Sykes ethodist [...] LUMBAR SPINE WO 2019-11-27 22:15:55 Edson Patel Confucianism CONTRAST OR CRITICAL CARE, E/M 2019-11-27 19:53:06 Edson Patel 30-74 MINUTES URINE CULTURE 2019-11-27 19:45:00 Edson Patel URINALYSIS SCREEN AND 2019-11-27 19:45:00 Edson Patel MICROSCOPY, WITH REFLEX TO CULTURE HC COMPLETE BLD COUNT 2019-11-27 19:35:00 Edson Patel W/AUTO DIFF COMPREHENSIVE METABOLIC 2019-11-27 19:35:00 Edson Patel PANEL ESTIMATED GFR 2019-11-27 19:35:00 Edson [...] CASH VIRUS (EBV) 2019-07-22 12:03:00 Adelina Ford Confucianism BY PCR ENTEROVIRUS BY PCR 2019-07-22 12:03:00 Adelina Ford Ab dawkins Confucianism [place] VIRUS BY PCR, 2019-07-22 12:03:00 Adelina Ford Maciej Stauffer Confucianism CSF FLOW CYTOMETRY EVALUATION 2019-07-22 12:03:00 Adelina Ford Haja belle Stauffer Confucianism CYTOLOGY 2019-07-22 11:44:00 Adelina Ford on Confucianism (NON-GYNECOLOGICAL) REQUEST MISCELLANEOUS REFERRAL 2019-07-22 08:44:00 Adelina Ford Dawn Stauffer Confucianism TEST CSF CULTURE 2019-07-21 18:04:00 Adelina Ford on Confucianism GRAM STAIN 2019-07-21 18:04:00 Adelina Ford on Confucianism ANGIOTENSIN CONVERTING 2019-07-21 18:04:00 Adelina Ford jaclyn Stauffer Confucianism ENZYME, CSF VDRL, CSF SCREEN 2019-07-21 18:04:00 Adelina Ford Confucianism MYELIN BASIC PROTEIN 2019-07-21 18:04:00 Adelina Ford Confucianism IGG SYNTHESIS RATE STUDY 2019-07-21 18:04:00 Adelina Ford an Stauffer Confucianism GLUCOSE LEVEL, CSF 2019-07-21 18:04:00 Adelina Ford juancho Confucianism CSF CELL COUNT WITH 2019-07-21 18:04:00 Adelina Ford Confucianism DIFFERENTIAL OLIGOCLONAL BANDING, CSF 2019-07-21 18:04:00 Adelina Ford Toño Stauffer Confucianism MISCELLANEOUS REFERRAL 2019-07-21 17:04:00 Adelina Ford jaclyn Stauffer Confucianism TEST IR LUMBAR PUNCTURE 2019-07-21 16:09:40 Adelina Ford aleta Meade EMG 2019-07-21 11:05:51 Adelina Ford on Confucianism SPIROMETRY, MIPS/MEPS 2019-07-21 08:43:41 Adelina Ford Confucianism VITAMIN B12 LEVEL 2019-07-21 06:49:00 Adelina Ford Confucianism VITAMIN D 25 HYDROXY LEVEL 2019-07-21 06:49:00 Adelina Ford hyun Stauffer Confucianism PROTHROMBIN TIME WITH INR 2019-07-21 06:49:00 Adelina Ford Haja belle Stauffer Confucianism RHEUMATOID FACTOR 2019-07-21 06:49:00 Adelina Fordsehlby joseque Confucianism SEDIMENTATION RATE 2019-07-21 06:49:00 Adelina Ford Ab dawkins Confucianism SERUM ELECTROPHORESIS 2019-07-21 06:49:00 Adelina Ford Confucianism PARATHYROID HORMONE 2019-07-21 06:49:00 Adelina Ford Confucianism HTLV I/II AB WITH REFLEX 2019-07-21 06:49:00 Adelina Ford an Eh Meade TO CONFIRMATION GM1 AB PANEL 2019-07-21 06:49:00 Adelina Ford Confucianism C-REACTIVE PROTEIN 2019-07-21 06:49:00 Adelina Ford juancho Confucianism CREATINE KINASE, TOTAL 2019-07-21 06:49:00 Adelina Ford (CPK) HC COMPLETE BLD COUNT 2019-07-21 06:49:00 Adelina Ford W/AUTO DIFF BASIC METABOLIC PANEL 2019-07-21 06:49:00 Adelina Ford SANDRA 2019-07-21 06:49:00 Adelina Ford Confucianism ACETYLCHOLINE RECEPTOR 2019-07-21 06:49:00 Adelina Ford BINDING AB ESTIMATED GFR 2019-07-21 06:49:00 Adelina Ford on Confucianism COMPREHENSIVE METABOLIC 2019-07-21 06:49:00 Adelina Ford Confucianism PANEL Plan of Care Planned Activity Planned Date Details Comments Source Future Scheduled 2022-07-21 Screening for Stauffer Me thodist Test 00:00:00 malignant neoplasm of cervix (procedure) [code = 339040903] Future Scheduled 2019-12-19 INFLUENZA VACCINE [place] Confucianism Test 00:00:00 [code = INFLUENZA VACCINE] Future Scheduled 2019 65+ PNEUMOCOCCAL [place] Confucianism Test 00:00:00 VACCINE (1 of 2 - PCV13) [code = 65+ PNEUMOCOCCAL VACCINE (1 of 2 - PCV13)] Future Scheduled 2004-01-10 BREAST CANCER [place] Me thodist Test 00:00:00 SCREENING [code = BREAST CANCER SCREENING] Future Scheduled 2004-01-10 COLONOSCOPY SCREENING Ab dawkins Confucianism Test 00:00:00 [code = COLONOSCOPY SCREENING] Future Scheduled 2004-01-10 SHINGLES VACCINES (#1) H shamar Confucianism Test 00:00:00 [code = SHINGLES VACCINES (#1)] Encounters Start End Encounter Admission Attending Care Care Encounter Source Date/Time Date/Time Type Type Clinicians Facility Department ID 2019-11-27 2019-11-28 Outpatient DEBORAH, [facility] [id number] [place] 00:00:00 00:00:00 GIO [address] 2019-10-28 2019-10-28 Outpatient FORD, [facility] [id number] [place] 00:00:00 00:00:00 ADELINA [address] 2019-10-28 2019-10-28 Outpatient FORD, [facility] [id number] [place] 00:00:00 00:00:00 ADELINA [address] 2019-09-28 2019-09-28 Outpatient FORD, [facility] [id number] [place] 00:00:00 00:00:00 ADELINA [address] 2019-07-23 2019-07-23 Outpatient FORD, [facility] [id number] [place] 00:00:00 00:00:00 ADELINA [address] 2019-07-23 2019-07-23 Outpatient FORD, [facility] [id number] [place] 00:00:00 00:00:00 ADELINA [address] 2019-07-22 2019-07-22 Outpatient FORD, [facility] [id number] [place] 00:00:00 00:00:00 ADELINA [address] 2019-07-21 2019-07-21 Outpatient FORD, [facility] [id number] [place] 00:00:00 00:00:00 ADELINA [address] 2019-07-21 2019-07-21 Outpatient FORD, [facility] [id number] [place] 00:00:00 00:00:00 ADELINA [address] 2019-07-21 2019-07-21 Outpatient ANNALISA [facility] [id number] [place] 00:00:00 00:00:00 ADELINA [address] 2019-07-21 2019-07-21 Outpatient ANNALISA [facility] [id number] [place] 00:00:00 00:00:00 ADELINA [address] Results Test Description Test Time Test Results Result Source Comments Comments Transthoracic 2019-11-18 Interface, Radiology [facility] Echocardiogram 1 Results In - Methodis t Complete, (w 17:09:00 11/28/2019 5:09 PM Contrast, Strain CDT and 3D if needed) Echocardiography Report [address] [place] [address] Pat.Name: PARVIN COVINGTON.ID: [id number] .Date: 11/28/2019 Refer.MD: BRIAN DAVEY MD Exam Time: 10:29:00 AM Study Type:Routine Echo Height: 63in Weight: 145lb BSA: 1.69 m2 Age: 8 1955,64Y Sex: FEMALE BP: 142/68 HR: 91 bpm Sonogrphr: Declan Mcdaniels RDCS Pat. Stat.:Inpatient Room: [facility] Study Status:Final Echo Event ID:[id number] Order ID: [id number] Reason for Study:STROKE. Post stroke protocol. If [...] RAP of 5 mmHg. -MEASUREMENTS:------ 2DParasternal Long [place] Ao Rtd 3.1 cm Index 1.8 cm/m2 [...] (test code = Negative results do not 9161154) preclude 2019-nCoV infection and should not be used as the sole basis for treatment or other patient management decisions. Negative results must be combined with clinical observations, patient history, and epidemiological information. COVID-19 qualitative PCR Not-Detected Not-Detected result (test code = 99015-7) COVID-19 qualitative PCR See link below for PDF Lab Case Number: (test code = 7070) Report [id number] [place] [id number] 06:57:53 Test Item Value Reference Range Interpretation Comments Troponin (test code = <0.006 0-0.04 [place] [address]-3) having a myocar dial infarction, marc andrade [...] de creased by less than 0.020 ng/mL [facility] Wo [id number] 06:43:40Hm Interface, Radiology Results 11/28/2019 6:46 AM [...] likely chronic small vessel ischemia otherwise unremarkable study.[id number] MethodistXR Chest 1 Vw Portable 2019-11-28 00:34:39Hm Interface, Radiology Results 11/28/2019 12:37 AM CDTEXAMINATION: XR CHEST 1 VW PORTABLECLINICAL HISTORY: 64 years Female SOBCOMPARISON: None.IMPRESSION:Lines/Tubes: None.Lungs/Pleura: Mild scarring/atelectasis is seen in the left lung base. No pleural effusion or pneumothorax is seen.Heart/Mediastinum: The cardiomediastinal silhouette is mildly enlarged.Bones: No acute osseous abnormality. [facility]-[id number] MethodistB natriuretic [id number] 00:16:37 Test Item Value Reference Range Interpretation Comments BNP (test code = 89001-8) 5 pg/mL 0-100 [place] MethodistCT Angiogram Pe [id number] 00:15:49Hm Interface, Radiology Results 11/28/2019 12:18 AM [...] pulmonary embolism.2.No acute abnormality identified in the chest.[facility]-[id number] MethodistVenous blood [id number] 23:51:55 Test Item Value Reference Range Interpretation [...] venous (test code = 25.4 mmol/L 21-28 99622-8) Lab Interpretation (test code = Abnormal 63484-7) [place] MethodistUrinalysis screen and microscopy, with reflex to culture 2019-11-27 22:44:59 Test Item Value Reference Range Interpretation Comments Specimen site (test code = Catheterized 2292997) Color, UA (test code = 5778-6) Yellow Appearance, UA (test code = Hazy 5767-9) Specific gravity, UA (test code 1.019 1.001-1.035 = 5811-5) pH, UA (test code = 5803-2) 6.0 5.0-8.5 Protein, UA (test code = 1+ Negative A 80322-0) Glucose, UA (test code = Negative Negative 44951-7) Ketones, UA (test code = 2514-8) Negative Negative Bilirubin, UA (test code = Negative Negative 5770-3) Blood, UA (test code = 5794-3) Negative Negative Nitrite, UA (test code = 5802-4) Negative Negative Urobilinogen, UA (test code = 2.0 <2.0 A 82022-0) Leukocyte esterase, UA (test Negative Negative code = 5799-2) Epithelial cells, UA (test code 3 /HPF = 5787-7) WBC, UA (test code = 5821-4) 3 0- 4 /HPF RBC, UA (test code = 21916-6) 1 0- 5 /HPF Bacteria, UA (test code = Few None seen 87116-3) Yeast, UA (test code = 47224-9) None seen Yeast with pseudohyphae, UA None seen (test code = 46756-6) Hyaline casts, UA (test code = 1 /LPF 5796-8) Lab Interpretation (test code = Abnormal 53638-7) [facility] Lumbar Spine Wo [id number] 22:21:13Hm Interface, Radiology Results 11/27/2019 10:24 PM [...] contact on the traversing right S1 nerve root.[id number] MethodistComprehensive metabolic [id number] 20:32:19 Test Item Value Reference Range Interpretation Comments Sodium (test code = 145 135- 148 mEq/L 2951-2) Potassium (test code = 4.3 3.5- 5.0 mEq/L 2823-3) Chloride (test code = 104 98- 112 mEq/L 2074-0) CO2 (test code = 2027-9) 27 24- 31 mEq/L Anion gap (test code = 14@ANIO 7- 15 mEq/L 11725-7) BUN (test code = 3094-0) 17 mg/dL 8-23 Creatinine (test code = 0.35 mg/dL 0.5-0.9 L 2160-0) Glucose (test code = 95 mg/dL 65-99 2345-7) Calcium (test code = 9.9 mg/dL 8.8-10.2 67119-5) Protein (test code = 7.0 g/dL 6.3-8.3 -[place] n 2885-2) 4.6-7.0 g/dL1 week 4.4-7 .6 g/dL7 months-1y ear 5.1-7 .3 g/dL1-2 years 5.6-7 .5 g/dL>3 years 6.0-8 .0 g/mS50-275 6.3-8 .3 g/dL Albumin (test code = 4.0 g/dL 3.5-5 1751-7) A/G ratio (test code = 1.3 0.7-3.8 1759-0) Alkaline phosphatase 64 U/L 35-104 (test code = 6768-6) AST (test code = 1920-8) 39 U/L 10-35 H ALT (test code = 1742-6) 20 U/L 5-50 Total bilirubin (test 0.3 mg/dL 0-1.2 code = 1975-2) Lab Interpretation (test Abnormal code = 16778-6) Eh MethodistEstimated [id number] 20:32:16 Test Item Value Reference Range Interpretation Comments Estimated GFR (test >=90 mL/min/1.73 m2 Melissa morales Units code = 5488) InterpretationG 1 >=90 Normal or highG2 60-89 Mildly zqqraobmzI6h 45-59 Mildly to mode rately mehkyljooK1b 30-44 Moderately to severely decreasedG4 15-29 Severely decre asedG5 <15 Kidn ey failureThe eGFR was calculated jojo jerome the Chronic Kidney Disease Epidemiology Co llaboration (CKD-EPI) equat ion. Interpretation is based on recommendations of the National Kidney Foundation-Kidn ey Disease Outcomes Qualit y Initiative (NKF-KDOQI) pub lished in 2013. Stauffer MethodistUrine [id number] 20:09:06 Test Item Value Reference Range Interpretation Comments Urine culture (test SEE COMMENT Bacteriu reji screen code = 1064983) negative. [place] MethodistCBC with platelet and awbfaagkhbtd4038-91-87 20:05:32 Test Item Value Reference Range Interpretation Comments WBC (test code = 84547-0) 10.98 4.50- 11.00 k/uL RBC (test code = 08137-2) 4.26 m/uL 4.2-5.5 HGB (test code = 718-7) 12.6 g/dL 12-16 HCT (test code = 4544-3) 39.0 % 37-47 MCV (test code = 787-2) 91.5 fL 82-100 MCH (test code = 785-6) 29.6 pg 27-34 MCHC (test code = 786-4) 32.3 g/dL 31-37 RDW - SD (test code = 40.6 fL 37-55 14571-0) MPV (test code = 47060-7) 10.3 fL 8.8-13.2 Platelet count (test code 285 150- 400 k/uL = 02708-8) Nucleated RBC (test code 0.00 /100 WBC = 44557-5) Neutrophils (test code = 70.2 % 39-69 H 27324-2) Lymphocytes (test code = 18.2 % 25-45 L 71233-8) Monocytes (test code = 4.7 % 0-10 50995-8) Eosinophils (test code = 6.1 % 0-5 H 90139-3) Basophils (test code = 0.5 % 0-1 90130-1) Immature granulocytes 0.3 % 0-1 "Immat ure (test code = 84021-7) granul ocytes" (promyelocytes, myelocytes, metamyelocytes) Lab Interpretation (test Abnormal code = 11416-0) [facility] [id number] 19:53:06Edson Patel MD 11/30/2019 7:55 PMCritical CarePerformed by: Edson Patel MDAuthorized by: Edson Patel MD Critical care provider statement: Critical care time (minutes): 35 Critical care time was exclusive of: Separately billable procedures and treating other patients and teaching time Critical care was necessary to treat or prevent imminent or life-threatening deterioration of the following conditions: Respiratory failure and TUBE SKIVER failure or compromise Critical care was time [...] care for this patient from another provider.: [facility] TomballistBasic metabolic [id number] 10:46:49 Test Item Value Reference Range Interpretation Comments Sodium (test code = 2951-2) 143 135- 148 mEq/L Potassium (test code = 2823-3) 4.0 3.5- 5.0 mEq/L Chloride (test code = 2075-0) 102 98- 112 mEq/L CO2 (test code = 2027-9) 28 24- 31 mEq/L Anion gap (test code = 21909-2) 13@ANIO 7- 15 mEq/L BUN (test code = 3094-0) 20 mg/dL 8-23 Creatinine (test code = 2160-0) 0.53 mg/dL 0.5-0.9 Glucose (test code = 2345-7) 94 mg/dL 65-99 Calcium (test code = 39055-6) 9.9 mg/dL 8.8-10.2 [place] Methodmescalero service unitHepatic function [id number] 10:46:48 Test Item Value Reference Range Interpretation [...] g/dL 1-2 years 5.6-7.5 g/dL>3 years 6.0-8.0 g/oH11-360 6.3-8. 3 g/dL ALT (test code = 1742-6) 19 U/L 5-50 AST (test code = 1920-8) 22 U/L 10-35 Lab Interpretation (test Abnormal code = 19521-0) [place] MethodistCreatine kinase, total (CPK)2019-10-28 10:46:48 Test Item Value Reference Range Interpretation Comments Creatine kinase (test code = 2157-6) 63 U/L 26-192 [place] MethodistSpirometry, [facility]/[id number] 08:19:05 Test Item Value Reference Range Interpretation [...] Predicted (test code = 67.7 % 5368) [place] MethodistMiscellaneous referral [id number] 17:42:02 Test Item Value Reference Interpretation Comments Range Misc test ENS2 name (test code = 2566) Mis test SEE NOTE Patient ID: result [id number] Name: (test code Ginny COVINGTON Date: = 1729) 1955 Age: 64 Gender: FOrder Number: [id number] Order Number: [id number] Status: FINAL =====Encephalop athy-Autoimmune Eval, S [...] ............... ......Purkinje Cell Cytoplasmic Ab Type 1 DIGITAL CAMPAIGN SPECIALIST -1, S Negative titer Reference Value : <1:240......... ............... ............... ............... ......Purkinje Cell Cytoplasmic Ab Type 2 DIGITAL CAMPAIGN SPECIALIST -2, S Negative titer Reference Value : <1:240......... ............... ............... ............... ......Purkinje Cell Cytoplasmic Ab Type Tr DIGITAL CAMPAIGN SPECIALIST -Tr, S Negative titer Reference Value : <1:240- - - - - - - - - - - - - - - - - - - - - - - - - - - - - - -Laboratory Not es:This test was developed a nd its performancechar acteristics determined by [facility] in a mannerconsisten t with CLIA requirements. T his test has not beencleared or approved by the U.S. Food a nd DrugAdministrat ion.+ ---+: PERFORMI NG SITE LEGEND :+ +: : [facility], [place] :: : [address] , [place], [place] [address] :+ + DIANE (test [place] AUTOIMMUNE code = DIANE) ENCEPHALITIS PANEL 4ML RED TOPTest ID: [id number] hy, Autoimmune Evaluation, Serum Eh MethodistCSF [id number] 17:25:01 Test Item Value Reference Range Interpretation Comments CSF culture No growth Specimen isolate (test after 3 days. InformationSp ecimen code = 606-4) Source: CSF (S jerome Fluid)Specimen Site: No tube number not ed Eh MethodistGram [id number] 17:25:01 Test Item Value Reference Range Interpretation Comments Gram stain No WBC's or Specimen isolate (test organisms seen. Information Specimen code = 1469) Source: CSF (Sp inal Fluid)Specimen Site: No tube number not ed [place] MethodistMyelin basic [id number] 16:44:37 Test Item Value Reference Range Interpretation Comments Myelin basic protein 10.15 ng/mL 0-5.5 H INTERPR ETIVE (test code = 2638-5) INFORMA TION: Myelin Basic ProteinTe st developed and characteristics determined by [facility]. S ee Compliance Stat ement D: [employer]/CSP erform ed by [employer],[address] [place] [address] nlr .[employer], Damian Singh MD, La b. Director Lab Interpretation Abnormal (test code = 29496-3) [place] MethodistAngiotensin converting enzyme, [id number] 08:30:20 Test Item Value Reference Range Interpretation Comments Angiotensin converting <0.4 0-2.5 This test was developed enzyme, CSF (test code and i ts performance = 43659-5) characteristics determined by [employer] [facility]. The U.S. Food and D rug Administration has not approved or leonardo ared this test; however, FDA clearance or ap proval is not currently r equired for clinical use. T he results are not intende d to be used as the asha e means for clinical diagno sis or patient managem ent decisions.Perfo rmed by [employer] [facility],[address], [place] [address] doc .[facility].Damian valentin MD, Lab. Director Eh MeadeWest Nile virus by PCR, [id number] 07:02:48 Test Item Value Reference Range Interpretation Comments West Nile virus Not-Detected Not-Detected PCR, CSF (test code = 02456-4) West Nile virus See link below for Case N umber: PCR, CSF (test PDF Lab Report [id number] 7 code = 2510) Eh MeadeEpstein Cash Virus (EBV) by [id number] 18:09:10 Test Item Value Reference Range Interpretation Comments Malcom Cash Not-Detected Not-Detected virus, PCR (test copies/mL code = 5005-4) Malcom Cash See link below Case Number: virus, PCR (test for PDF Lab [id number] 7 code = 1340) Report Eh MeadeHerpes simplex virus by [id number] 15:46:50 Test Item Value Reference Range Interpretation Comments Herpes virus, PCR Not-Detected Not-Detected (test code = 44939-8) Herpes virus, PCR See link below Case Num adilson: (test code = 1523) for PDF Lab [id number] Report Eh MeadeVaricella zoster by [id number] 15:14:54 Test Item Value Reference Range Interpretation Comments VZV result (test Not-Detected Not-Detected code = 77161-3) copies/mL Varicella zoster, See link below Case Num adilson: pcr (test code = for PDF Lab [id number] 7 124) Report Eh MethodistEnterovirus by [id number] 15:08:50 Test Item Value Reference Range Interpretation Comments Enterovirus PCR (test See link below Not-Detected Case Number: code = 79912-1) for PDF Lab [id number] Report Eh MethodistGM1 Ab [id number] 14:24:13 Test Item Value Reference Range Interpretation Comments GM1 IgG (test 3 0- 50 IV code = 23206-8) GM1 IgM (test 3 0- 50 IV INTERPRETIVE I NFORMATION: code = 88858-3) Ganglioside (GM1) Antibodies, IgG an d IgM [...] disease .Test developed and characteristics determined by Tindie negro. See Compliance Stat ement D: [employer]/CSP erformed by [employer] Abdulaziz parson,Uzma Maurer, [place] [address] typ .[employer], Damian Singh MD, Lab. Director Asialo GM1 IgM see note not performed as a part of (test code = GM1 panel 88562-6) [place] MethodistCytology (non-gynecological) [id number] 14:19:55 Test Item Value Reference Range Interpretation Comments Case number (test code = [id number]) Cytology See link below for (non-gynecological) PDF Lab Report report (test code = 1178) Result status (test code This is Final Report = [id number]) for [id number] [place] MethodistCT Chest W Contrast Abdomen W Wo [...] to a consensus statement published by the [place] [employer] physicians and the Fleischner Society, the [facility] collaborative imaging recommendations for multiple solid nodules < 6 mm in a patient without malignancy or immunosuppression are:Low risk - No routine follow-upHigh risk - Optional CT at 12 monthsuse most suspicious nodule as guide to management; follow-up intervals may vary according to size and riskHM [id number] MethodistIg synthesis rate [id number] 11:34:23 Test Item Value Reference Range Interpretation Comments IgG albumin ratio, CSF (test 0.09 0.00-0.23 code = 1588) IgG index, CSF (test code = 0.50 0.01-0.63 38947-5) IgG synthetic rate (test 1.63 -9.90 - 3.30 mg-day code = 69139-7) Q-albumin ratio, CSF (test 7.88 2.40-8.10 code = 1756-6) IgG, CSF (test code = 2.91 mg/dL 1-3 2464-6) Albumin, CSF (test code = 33.88 mg/dL 10-30 H 51180-7) IgG (test code = 2465-3) 735 mg/dL 700-1600 Albumin, S (test code = 4300.0 mg/dL 2142-1387 95175-7) Lab Interpretation (test Abnormal code = 18190-9) [place] ConfucianismFlow cytometry [id number] 09:24:00 Test Item Value Reference Range Interpretation Comments Case number (test code = [id number]) Flow cytometry evaluation See link below for (test code = 6352794) PDF Lab Report Eh MeadeVDRL, CSF [id number] 20:51:39 Test Item Value Reference Range Interpretation Comments VDRL, CSF screen (test code = Non-reactive Non-reactive 3046) [place] MethodistAcetylcholine receptor binding [id number] 18:05:55 Test Item Value Reference Range Interpretation [...] Laboratories. S ee Compliance Stat ement B: [facility]/CSP erformed by RENEE tom,[address], [place] [address] rbp .ryanne.c Damian carver do, MD, Lab. Director [place] MethodistSerum [id number] 17:44:08 Test Item Value Reference Range Interpretation Comments Protein (test code = 7.0 g/dL 6.3-8.3 [place] 9994.6-7.0 2885-2) g/dL1 uxjc7070.4-7.6 g/dL7 months-4blub147 .1- 7.3 g/dL1-2 ngwaq980.6-7.5 g/dL>3 lfvaf615.0-8.0 g/yG18-4028341. 3-8 .3 g/dL SPE albumin (test code = 4.56 g/dL 3.51-5.42 2862-1) SPE alpha 1 (test code = 0.33 g/dL 0.18-0.4 2865-4) SPE alpha 2 (test code = 0.60 g/dL 0.44-0.96 2868-8) SPE beta (test code = 0.86 g/dL 0.52-1.07 53471-0) SPE gamma (test code = 0.64 g/dL 0.7-1.54 L 2874-6) SPE extended See Comment Gamma globulins interpretation (test are sli ghtly code = 95366-6) decreased. SPE interpretation (test See Comment Armani Aguilar, PhD; code = 2218) Lynn Daigle, PhD; Zia Lara MD, Ph D Lab Interpretation (test Abnormal code = 25021-7) [place] [id number] 15:21:32 Test Item Value Reference Range Interpretation Comments SANDRA screen (test Negative Negative Test perfor med using NOVA code = 550) Lite DAPI SANDRA k it (Indirect Immunofluoresce nce Assay) for Anti-Nuclea r Antibody on [employer] QUANTA-Ly ser 160 Analyzer. [place] KeilaistHTLV I/II Ab with reflex to [id number] 14:35:16 Test Item Value Reference Range Interpretation Comments HTLV I/II Ab (test Negative Negative Based on the non-reactive code = 36323-9) anti-HTLV EL MARY JO screen, the HTLV Katelyn n Blot is not indicated a nd therefore not performed.INTER PRETIVE INFORMATION: H TLV I/II Antibodies w/Re flex to ConfirmThis ass ay should not be used for blood donor screening , associated re-e ntry protocols, or f or screening Human Cell, Tissues and [place] lular and Tissue-Based Pr oducts (HCT/P).Perform ed by [facility] Attivio,50 0 [facility], [facility] [place] [address] zkz .[facility] centerDanforth [employer] Damian harkins MD, Lab. Director [facility] TomballistOligoclonal banding, [id number] 13:46:30 Test Item Value Reference Range Interpretation Comments Protein, CSF (test code SEE COMMENT 15-45 Foot note---------Ca = 2880-3) ncel test per Joelle Burton. Credit will be issued.Correcte d result; beatrice malhotra reported as 55 on 07/21/2019 at 1 9:18 by I/AUT Prealbumin, CSF (test SEE COMMENT 3.5-11.1 Footno te--------- code = 58762-6) Albumin, CSF (test code SEE COMMENT 40.8-66.2 Foot note--------- = 10188-6) Alpha 1, CSF (test code SEE COMMENT 2.3-6.4 Foot note--------- = 27063-9) Alpha 2, CSF (test code SEE COMMENT 6.1-12.6 Foot note--------- = 00531-3) Beta, CSF (test code = SEE COMMENT 11.7-24.1 Footn ote--------- 60538-4) Gamma, CSF (test code = SEE COMMENT 5.6-12.2 Foot note--------- 61403-1) CSF extended SEE COMMENT Footnote------- -- interpretation (test code = 07992-2) CSF interpretation SEE COMMENT Footnote- -------- (test code = 1163) [facility] cell count with [id number] 21:25:11 Test Item Value Reference Range Interpretation Comments Color, CSF (test code = 08931-4) Colorless Appearance, CSF (test code = Clear 67048-8) RBC, CSF (test code = 05990-9) 1836 0- 1 /CMM H WBC, CSF (test code = 16951-3) 40 0- 5 /CMM H CSF mononuclear cell (test code = See Diff 64747-8) Neutrophils, CSF (test code = 2 % 22524-5) Lymphocytes, CSF (test code = 93 % 19344-4) Monocytes, CSF (test code = 5 % 30487-2) Lab Interpretation (test code = Abnormal 03339-2) Eh MeadeGlucose level, [id number] 19:18:51 Test Item Value Reference Range Interpretation Comments Glucose, CSF (test code = 2342-4) 56 mg/dL 40-70 Eh MeadeIR Lumbar Puncture by [id number] 17:35:17Hm Interface, Radiology Results 07/21/2019 5:38 PM [...] imagesIMPRESSION:Successful fluoroscopic guided lumbar puncture as detailed above.[facility]-[id number] MethodistVitamin D 25 hydroxy level 2019-07-21 15:36:36 [...] methods. Lab Interpretation Abnormal (test code = 24035-7) Eh MethodistRheumatoid [id number] 12:20:51 Test Item Value Reference Range Interpretation Comments Rheumatoid factor (test code = 06407-3) <10 0- 13 IU/mL [place] MethodistVitamin B12 [id number] 10:08:29 Test Item Value Reference Range Interpretation Comments Vitamin B12 (test 570 pg/mL 211-946 Significan t overlap code = 2132-9) exists betwee n normal and deficiency states.However, most patients with deficiencies wi ll have Serum B12 <2 00 pg/mL. Eh MethodistC-reactive [id number] 09:51:45 Test Item Value Reference Range Interpretation Comments CRP (test code = 1988-5) <0.30 0-0.5 [place] MethodistParathyroid [id number] 09:42:53 Test Item Value Reference Range Interpretation Comments PTH (test code = 2731-8) 33 pg/mL 15-65 [place] MethodistSedimentation [id number] 09:42:53 Test Item Value Reference Range Interpretation Comments Sedimentation rate (test code = 5 0- 20 mm/hr 77498-5) Eh MethodistProthrombin time with [id number] 09:35:21 Test Item Value Reference Range Interpretation Comments Prothrombin time (test 13.7 11.5- 14.5 sec code = 5902-2) INR (test code = 1.0 The Interna tional 61881-2) Normalized Rati o (INR) is a therapeutic m onitoring tool for patien ts who are stable on oral anticoagulant t herapy. An INR of 2.0-3.0 is suggested for d eep vein thrombosis/pulm onary embolism. Eh MethodistSpirometry, [id number] 08:43:41 Test Item Value Reference Range Interpretation [...]
[2019-12-22 11:43] LABS: Arterial Blood Carboxyhemoglob 0.6 % (0-1.5); Blood O2 Saturation 89.8 % (92-98.5)
[2019-12-22] MEDS ORDERED: ALBUTEROL 2.5 MG/3 ML NEB SOL ONE (11:47)
[2019-12-22] MEDS ORDERED: NA CHLORIDE 0.9% 1,000 ML ONE (11:47)
[2019-12-22] MEDS ORDERED: IPRATROPIUM BROM 0.5MG/2.5ML ONE (11:47)
--- NOTE | 2019-12-22 11:50 | RAD REPORT ---
EXAM DESCRIPTION: RAD - Chest Single View - 12/22/2019 11:35 am CLINICAL HISTORY: Cough;Dyspnea Chest pain. COMPARISON: Chest Single View dated 12/21/2019; Chest Pa And Lat (2 Views) dated 05/18/2019; Chest Pa And Lat (2 Views) dated 04/29/2018; Chest Pa And Lat (2 Views) dated 05/08/2016 FINDINGS: Portable technique limits examination quality. The lungs are grossly clear. Patient's chin obscures the right apex. The heart is mildly enlarged.
[2019-12-22 12:13] LABS: Absolute Lymphocytes (CBC) 2.2 K/uL (0.7-4.9); Basophils % 0.5 % (0-1.3); Hematocrit 40.1 % (36.0-45.0); Lymphocytes % 18.9 % (15.3-44.8); MPV 8.1 fL (7.6-11.3); RBC Red Blood Cell Count 4.55 M/uL (3.86-4.86)
[2019-12-22 12:31] LABS: ALT/SGPT 36 U/L (12-78); AST/SGOT 27 U/L (15-37); Albumin 4.2 g/dL (3.4-5.0); Alkaline Phosphatase 65 U/L (45-117); BUN Blood Urea Nitrogen 24 mg/dL (7-18); Bicarbonate 29 mmol/L (21-32); Bilirubin Direct 0.2 mg/dL (0-0.2); Bilirubin Total 0.5 mg/dL (0.2-1.0); Glucose Level 140 mg/dL (74-106); Magnesium 2.2 mg/dL (1.8-2.4); NT PRO-BNP 54 pg/mL (<125); Potassium 3.5 mmol/L (3.5-5.1); Protein, Total 7.4 g/dL (6.4-8.2); Sodium Level 143 mmol/L (136-145); Troponin (Emerg Dept Use Only) 0.15 ng/mL (0.0-0.045)
[2019-12-22] MEDS ORDERED: FAMOTIDINE 20 MG/2 ML VIAL IV ONE (12:52)
[2019-12-22] MEDS ORDERED: ASPIRIN 81 MG CHEWABLE TABLET ONE (12:52)
[2019-12-22] MEDS ORDERED: Levofloxacin500mg IV 500 MG/100 ML BAG IV ONE (12:52)
[2019-12-22] MEDS ORDERED: ENOXAPARIN 60 MG/0.6 ML SQ ONE (12:52)
--- NOTE | 2019-12-22 13:11 | EDPHYS ---
Physician Documentation [facility] Name: Arline Gregory Age: 64 yrs Sex: Female : 1955 Arrival Date: 12/22/2019 Time: 10:59 Bed 15 Private MD: ED Physician Rashad Loredo HPI: 12/21 11:16 This 64 yrs old Female presents to ER via EMS with complaints of Breathing agapito Difficulty. 11:16 The patient has shortness of breath at rest. Onset: The symptoms/episode began/occurred agapito 3 day(s) ago. Duration: The symptoms are continuous, and are steadily getting worse. The patient's shortness of breath has no apparent modifying factors. Associated signs and symptoms: Pertinent positives: non-productive cough. Severity of symptoms: At their worst the symptoms were mild moderate in the emergency department the symptoms are unchanged. The patient has experienced similar episodes in the past, multiple times. Historical: - Allergies: 11:02 Sulfa (Sulfonamide Antibiotics) (Hives); tw2 - Home Meds: 11:02 Simvastatin Oral [Active]; riluzole 50 mg Oral tab 1 tab every 12 hours [Active]; tw2 fenofibrate Oral [Active]; esomeprazole magnesium Oral [Active]; amlodipine oral [Active]; - PMHx: 11:02 Hypertension; ALS; Uses CPAP at home; tw2 - Immunization history:: Adult Immunizations. - Social history:: Smoking status: . ROS: 11:18 Constitutional: Negative for fever, chills, and weight loss, Eyes: Negative for injury, agapito pain, redness, and discharge, ENT: Negative for injury, pain, and discharge, Neck: Negative for injury, pain, and swelling, Cardiovascular: Negative for chest pain, palpitations, and edema, Abdomen/GI: Negative for abdominal pain, nausea, vomiting, diarrhea, and constipation, Back: Negative for injury and pain, : Negative for injury, bleeding, discharge, and swelling, MS/Extremity: Negative for injury and deformity, Neuro: Negative for headache, weakness, numbness, tingling, and seizure, Psych: Negative for depression, anxiety, suicide ideation, homicidal ideation, and hallucinations, Allergy/Immunology: Negative for hives, rash, and allergies, Endocrine: Negative for neck swelling, polydipsia, polyuria, polyphagia, and marked weight changes, Hematologic/Lymphatic: Negative for swollen nodes, abnormal bleeding, and unusual bruising. 11:18 Respiratory: Positive for cough, shortness of breath. 11:18 Neuro: Positive for weakness. Exam: 11:20 Constitutional: This is a well developed, well nourished patient who is awake, alert, agapito and in no acute distress. Head/Face: Normocephalic, atraumatic. Eyes: Pupils equal round and reactive to light, extra-ocular motions intact. Lids and lashes normal. Conjunctiva and sclera are non-icteric and not injected. Cornea within normal limits. Periorbital areas with no swelling, redness, or edema. ENT: Nares patent. No nasal discharge, no septal abnormalities noted. Tympanic membranes are normal and external auditory canals are clear. Oropharynx with no redness, swelling, or masses, exudates, or evidence of obstruction, uvula midline. Mucous membranes moist. Neck: Trachea midline, no thyromegaly or masses palpated, and no cervical lymphadenopathy. Supple, full range of motion without nuchal rigidity, or vertebral point tenderness. No Meningismus. Chest/axilla: Normal chest wall appearance and motion. Nontender with no deformity. No lesions are appreciated. Abdomen/GI: Soft, non-tender, with normal bowel sounds. No distension or tympany. No guarding or rebound. No evidence of tenderness throughout. Back: No spinal tenderness. No costovertebral tenderness. Full range of motion. Female : Normal external genitalia. MS/ Extremity: Pulses equal, no cyanosis. Neurovascular intact. Full, normal range of motion. Neuro: Awake and alert, GCS 15, oriented to person, place, time, and situation. Cranial nerves II-XII grossly intact. Motor strength 5/5 in all extremities. Sensory grossly intact. Cerebellar exam normal. Normal gait. Psych: Awake, alert, with orientation to person, place and time. Behavior, mood, and affect are within normal limits. 11:20 Cardiovascular: Rate: tachycardic, Rhythm: regular, Pulses: Pulses are 4+ in bilateral radial, brachial, femoral, popliteal, posterior tibial and and dorsalis pedis arteries.. Heart sounds: normal, Edema: is not appreciated, JVD: is not appreciated. 11:20 Respiratory: mild respiratory distress is noted, Respirations: labored breathing, that is mild, Breath sounds: decreased breath sounds, Respiratory rate: 22 13:16 ECG was reviewed by the Attending Physician. [facility] Vital Signs: 10:59 BP 117 / 90; Pulse 103; Resp 19; Temp 98.8(O); Pulse Ox 93% on R/A; Weight 56.7 kg (R); tw2 12:22 BP 117 / 77; Pulse 100; Resp 22; Pulse Ox 98% on 2 lpm NC; tw2 13:26 BP 120 / 82; Pulse 77; Resp 20; Pulse Ox 99% on 2 lpm NC; tw2 14:11 BP 118 / 80; Pulse 102; Resp 23; Pulse Ox 98% on 2 lpm NC; tw2 10:59 pt placed on 2L nc for comfort tw2 MDM: 11:09 Patient medically screened. [facility] 13:04 Differential diagnosis: asthma, Bronchitis CHF exacerbation, Chronic Obstructive agapito Pulmonary Disease pneumonia, pulmonary edema, Pulmonary Embolism reactive airway disease, Sepsis Unstable Angina. Antibiotic administration: Levaquin given. The patient's Wells Deep Vein Thrombosis Score was calculated as follows: Heart Rate >100 BPM (1.5 Pts) Imm/Surg in last 4 wks (1.5 Pts) Total Score: 3-6 Pts - Mod Risk. Differential Diagnosis: Obstructed Airway Bronchitis Influenza Asthma Exacerbation Pneumonia. The patient's pulmonary embolism risk score was calculated as follows: the patients heart rate is greater than 100 beats per minute (1.5 Pts) patient has experienced immobilization or surgery in the last four weeks (1.5 Pts) Total Score: 3-6 points. This patient was found to be at moderate risk for a pulmonary embolism by using the Well's assessment criteria. Immunization status: Pneumococcal vaccine: Influenza vaccine: Data reviewed: vital signs, nurses notes, old medical records, lab test result(s), EKG, radiologic studies. Data interpreted: hose seamer: rate is 100 beats/min, rhythm is regular, Pulse oximetry: on 2L(s) per nasal canula, is 98 %. Test interpretation: by ED physician or midlevel provider: ECG, plain radiologic studies. 13:06 ED course: hx als, co dyspnea, no pain, weak cough, sats on room air 93%. [facility] 12/21 11:15 Order name: Basic Metabolic Panel; Complete Time: 12:33 [facility] 12/21 11:15 Order name: CBC with Diff; Complete Time: 12:33 [facility] 12/21 11:15 Order name: LFT's; Complete Time: 12:33 [facility] 12/21 11:15 Order name: Magnesium; Complete Time: 12:33 [facility] 12/21 11:15 Order name: NT PRO-BNP; Complete Time: 12:33 [facility] 12/21 11:15 Order name: Troponin (emerg Dept Use Only); Complete Time: 12:33 [facility] 12/21 11:15 Order name: XRAY Chest (1 view); Complete Time: 12:33 [facility] 12/21 11:15 Order name: D-Dimer; Complete Time: 12:33 [facility] 12/21 11:15 Order name: ABG: room air; Complete Time: 12:33 [facility] 12/21 11:30 Order name: Blood Culture Adult (2) 12/21 12:37 Order name: CT Chest For PE Angio; Complete Time: 13:47 [facility] 12/21 11:15 Order name: EKG; Complete Time: 11:16 [facility] 12/21 11:15 Order name: Cardiac monitoring; Complete Time: 12:04 [facility] 12/21 11:15 Order name: EKG - Nurse/Tech; Complete Time: 12:22 [facility] 12/21 11:15 Order name: IV Saline Lock; Complete Time: 12:04 [facility] 12/21 11:15 Order name: Labs collected and sent; Complete Time: 12:05 [facility] 12/21 11:15 Order name: O2 Per Protocol; Complete Time: 11:32 [facility] 12/21 11:15 Order name: O2 Sat Monitoring; Complete Time: 11:32 [facility] EC:16 Rate is 94 beats/min. Rhythm is regular. QRS [place] is Normal. OR interval is normal. QRS agapito interval is normal. QT interval is normal. No Q waves. T waves are Normal. No ST changes noted. Clinical impression: NSR w/ Non-specific ST/T Changes and No evidence of ischemia. Interpreted by me. Reviewed by me. Administered Medications: 11:50 Drug: NS 0.9% 500 ml Route: IV; Rate: bolus; Site: left antecubital; tw2 12:00 Follow up: Response: No adverse reaction; IV Status: Completed infusion; IV Intake: tw2 500ml 11:50 Drug: NS 0.9% 1000 ml Route: IV; Rate: 125 ml/hr; Site: left antecubital; tw2 14:37 Follow up: IV Status: Infusion continued upon admission tw2 12:00 Drug: Xopenex 2.5 mg Route: Inhalation; tw2 12:00 Drug: AtroVENT Aerosol 0.5 mg Route: Inhalation; tw2 12:50 Drug: Aspirin 162 mg Route: PO; tw2 13:29 Follow up: Response: No adverse reaction tw2 12:50 Drug: Lovenox 1 mg/kg Route: Sub-Q; Site: right lower abdomen; tw2 13:29 Follow up: Response: No adverse reaction tw2 12:57 Drug: Pepcid 20 mg Route: IVP; Site: left antecubital; tw2 13:29 Follow up: Response: No adverse reaction tw2 13:24 Drug: levofloxacin 500 mg Volume: 100 ml; Route: IVPB; Infused Over: 60 mins; Site: tw2 left antecubital; 14:30 Follow up: Response: No adverse reaction; IV Status: Completed infusion tw2 Disposition: 12/22/19 13:11 Hospitalization ordered by Prince Mike for Inpatient Admission. Preliminary diagnosis are Dyspnea, Amyotrophic lateral sclerosis, Hypoxemia, Weakness. - Bed requested for Telemetry/MedSurg (Inpatient). - Status is Inpatient Admission. tw2 - Condition is Fair. - Problem is new. - Symptoms have improved. Signatures: Dispatcher [employer] Reshma Shelley RN Rashad Ann MD MD cha Attema, Lee, HOME AIDE-C HOME AIDE-Cla1 Yanna Salomon RN RN tw2 Corrections: (The following items were deleted from the chart) 13:43 13:11 Hospitalization Ordered by Prince Mike LAUREANO for Inpatient Admission. Preliminary dw diagnosis is Dyspnea; Amyotrophic lateral sclerosis; Hypoxemia; Weakness. Bed requested for Telemetry/MedSurg (Inpatient). Status is Inpatient Admission. Condition is Fair. Problem is new. Symptoms have improved. agapito 14:36 13:43 12/22/2019 13:11 Hospitalization Ordered by Prince Mike LAUREANO for Inpatient tw2 Admission. Preliminary diagnosis is Dyspnea; Amyotrophic lateral sclerosis; Hypoxemia; Weakness. Bed requested for Telemetry/MedSurg (Inpatient). Status is Inpatient Admission. Condition is Fair. Problem is new. Symptoms have improved. lu
--- NOTE | 2019-12-22 13:11 | ER ---
Nurse's Notes [facility] Name: Arline Gregory Age: 64 yrs Sex: Female : 1955 Arrival Date: 12/22/2019 Time: 10:59 Bed 15 Private MD: Diagnosis: Dyspnea;Amyotrophic lateral sclerosis;Hypoxemia;Weakness Presentation: 12/21 10:59 Chief complaint: EMS states: call out was for breathing difficulty, she has a hx of ALS tw2 and says that she is too weak to cough it up, on the way here she was anxious and stating over and over that she couldn't breathe, 92% on RA upon arrival, vs stable. she does try to cough but is really too weak to get a productive cough. Coronavirus screen: Client denies travel out of the [place] in the last 14 days. Ebola Screen: Patient denies travel to an Ebola-affected area in the 21 days before illness onset. Initial Sepsis Screen: Does the patient meet any 2 criteria? HR > 90 bpm. No. Patient's initial sepsis screen is negative. Does the patient have a suspected source of infection? No. Patient's initial sepsis screen is negative. Risk Assessment: Do you want to hurt yourself or someone else? Patient reports no desire to harm self or others. Onset of symptoms was December 22, 2019. 10:59 Method Of Arrival: EMS: [facility] tw2 10:59 Acuity: BEENA 3 tw2 Triage Assessment: 11:03 General: Appears slender, Behavior is anxious. Pain: Denies pain. Respiratory: Reports tw2 shortness of breath Onset: The symptoms/episode began/occurred yesterday, the patient has mild shortness of breath. Historical: - Allergies: 11:02 Sulfa (Sulfonamide Antibiotics) (Hives); tw2 - Home Meds: 11:02 Simvastatin Oral [Active]; riluzole 50 mg Oral tab 1 tab every 12 hours [Active]; tw2 fenofibrate Oral [Active]; esomeprazole magnesium Oral [Active]; amlodipine oral [Active]; - PMHx: 11:02 Hypertension; ALS; Uses CPAP at home; tw2 - Immunization history:: Adult Immunizations. - Social history:: Smoking status: . Screenin:05 Abuse screen: Denies threats or abuse. Nutritional screening: No deficits noted. tw2 Tuberculosis screening: No symptoms or risk factors identified. Fall Risk Secondary diagnosis (15 points) impaired mobility, ALS. Assessment: 11:00 General: Appears in no apparent distress. Behavior is anxious. Pain: Denies pain. tw2 Neuro: Level of Consciousness is awake, alert, obeys commands, Oriented to person, place, time, situation. Cardiovascular: Heart tones S1 S2 Patient's skin is warm and dry. Rhythm is sinus tachycardia. Respiratory: Reports shortness of breath at rest on exertion pt reports "i just cant cough good, i feel so short of breath" Airway is patent Respiratory effort is even, unlabored, Respiratory pattern is regular, symmetrical, Breath sounds are diminished bilaterally. GI: No signs and/or symptoms were reported involving the gastrointestinal system. Abdomen is flat, Bowel sounds present X 4 quads. : No signs and/or symptoms were reported regarding the genitourinary system. EENT: No signs and/or symptoms were reported regarding the EENT system. Derm: No signs and/or symptoms reported regarding the dermatologic system. Musculoskeletal: Circulation, motion, and sensation intact. 12:24 Reassessment: Patient appears in no apparent distress at this time. Patient and/or tw2 family updated on plan of care and expected duration. Pain level reassessed. 13:27 Reassessment: Patient appears in no apparent distress at this time. Patient and/or tw2 family updated on plan of care and expected duration. Pain level reassessed. 13:27 Reassessment: pts spouse called to check status of pt, informed spouse pt will need to tw2 be admitted for at least an overnight stay d/t her elevated cardiac enzymes for monitoring and that a room # has no been assigned yet. he said he would have to call us back to check on the room # because his cell phone wasn't ringing. 14:00 Reassessment: pt was rolled by REJI Hill to right side of the bed and bed benites was placed tw2 under pt, pt returned 200 ml alma urine, unable to obtain urine specimen collection as wipe contaminated urine, pt cleaned and repositioned with HOB elevated until comfortable. 14:12 Reassessment: Patient appears in no apparent distress at this time. Patient and/or tw2 family updated on plan of care and expected duration. Pain level reassessed. Patient is alert, oriented x 3, equal unlabored respirations, skin warm/dry/pink. Vital Signs: 10:59 BP 117 / 90; Pulse 103; Resp 19; Temp 98.8(O); Pulse Ox 93% on R/A; Weight 56.7 kg (R); tw2 12:22 BP 117 / 77; Pulse 100; Resp 22; Pulse Ox 98% on 2 lpm NC; tw2 13:26 BP 120 / 82; Pulse 77; Resp 20; Pulse Ox 99% on 2 lpm NC; tw2 14:11 BP 118 / 80; Pulse 102; Resp 23; Pulse Ox 98% on 2 lpm NC; tw2 10:59 pt placed on 2L nc for comfort tw2 ED Course: 10:59 Patient arrived in ED. tw2 11:00 Bed in low position. Call light in reach. Side rails up X2. monitor technician on. Pulse tw2 ox on. NIBP on. Warm blanket given. 11:01 Triage completed. tw2 11:03 Arm band placed on. tw2 11:09 Rashad Loredo MD is Attending Physician. agapito 11:31 Yanna Salomon RN is Primary Nurse. tw2 11:35 XRAY Chest (1 view) In Process Unspecified. EDMS 11:50 Inserted saline lock: 22 gauge in left antecubital area, using aseptic technique. Blood tw2 collected. 13:06 CT Chest For PE Angio In Process Unspecified. EDMS 13:09 Prince Mckeon MD is Hospitalizing Provider. agapito 14:11 No provider procedures requiring assistance completed. Patient admitted, IV remains in tw2 place. Administered Medications: 11:50 Drug: NS 0.9% 500 ml Route: IV; Rate: bolus; Site: left antecubital; tw2 12:00 Follow up: Response: No adverse reaction; IV Status: Completed infusion; IV Intake: tw2 500ml 11:50 Drug: NS 0.9% 1000 ml Route: IV; Rate: 125 ml/hr; Site: left antecubital; tw2 14:37 Follow up: IV Status: Infusion continued upon admission tw2 12:00 Drug: Xopenex 2.5 mg Route: Inhalation; tw2 12:00 Drug: AtroVENT Aerosol 0.5 mg Route: Inhalation; tw2 12:50 Drug: Aspirin 162 mg Route: PO; tw2 13:29 Follow up: Response: No adverse reaction tw2 12:50 Drug: Lovenox 1 mg/kg Route: Sub-Q; Site: right lower abdomen; tw2 13:29 Follow up: Response: No adverse reaction tw2 12:57 Drug: Pepcid 20 mg Route: IVP; Site: left antecubital; tw2 13:29 Follow up: Response: No adverse reaction tw2 13:24 Drug: levofloxacin 500 mg Volume: 100 ml; Route: IVPB; Infused Over: 60 mins; Site: tw2 left antecubital; 14:30 Follow up: Response: No adverse reaction; IV Status: Completed infusion tw2 Intake: 12:00 IV: 500ml; Total: 500ml. tw2 Outcome: 13:11 Decision to Hospitalize by Provider. agapito 14:18 Admitted to Med/surg accompanied by tech, via stretcher, room 204, Report called to tw2 REJI Salvador 14:18 Condition: stable 14:18 Instructed on the need for admit. 14:36 Patient left the ED. tw2 Signatures: Dispatcher [employer] EDRashad Benitez MD MD cha Wise, Tara, RN RN tw2 Corrections: (The following items were deleted from the chart) 11:03 10:59 Chief complaint: EMS states: call out was for breathing difficulty, she has a hx tw2 of ALS and says that she is too weak to cough it up, on the way here she was anxious and stating over and over that she couldn't breathe, 92% on RA, vs stable. tw2
--- NOTE | 2019-12-22 13:29 | RAD REPORT ---
EXAM DESCRIPTION: CT - Chest For Pe Angio - 12/22/2019 1:06 pm CLINICAL HISTORY: Chest pain COMPARISON: None. TECHNIQUE: Dynamically enhanced axial 3 mm thick images of the chest were obtained during administra tion of <100> mL Isovue 370 IV contrast. Coronal and oblique reconstruction images were generated and reviewed. Exam utilizes a protocol for optimal evaluation of pulmonary arterial tree. Maximum intensity projections 3D imaging was utilized All CT scans are performed using dose optimization technique as appropriate and may include automated exposure control or mA/KV adjustment according to patient size. FINDINGS: A pulmonary embolus is not seen. A thoracic aortic aneurysm is not noted. A pleural effusion is not seen. A pericardial effusion is not seen. Mild right lower lobe atelectasis Soft tissue is present within the right lower lobe bronchus Parapelvic renal cysts IMPRESSION: Negative for a pulmonary embolism. Soft tissue within the right lower lobe bronchus may represent mucus, less likely neoplasm. It is rec ommended that patient have a followup CT chest in 1 month for re-evaluation. Alternatively an endosco py could be performed
[2019-12-22 15:05] VITALS: BMI 24.7
--- NOTE | 2019-12-22 16:01 | P.HP ---
Certification for Inpatient Patient admitted to: Observation With expected LOS: <2 Midnights Practitioner: I am a practitioner with admitting privileges, knowledge of patient current condition, hospital course, and medical plan of care. Services: Services provided to patient in accordance with Admission requirements found in Title 42 Section 412.3 of the Code of Federal Regulations Patient History Date of Service: 12/22/19 Reason for admission: hypoxia History of Present Illness: 54-year-old female with unknown past medical history of hypertension anxiety and a recent diagnosis of Brii Gehrig's disease June of 2019. She present to the hospital complaining of a 7 day history of shortness of breath associated with cough. Patient is been having dry cough but was unable to expectorate the sputum. This caused her to become dyspneic and anxious. She denies any fever or chills. Was tested for coronal virus 3 weeks ago and was negative. She was hypoxic in the ER. A CT scan ruled out pulmonary embolism but revealed findings concerning for mucus plug. Patient lives with her and has outpatient physical therapy scheduled. Allergies Sulfa (Sulfonamide Antibiotics) Allergy (Unverified 08/24/17 13:06) Unknown - Past Medical/Surgical History Has patient received pneumonia vaccine in the past: No - Social History Smoking Status: Never smoker Alcohol use: No CD- Drugs: No Caffeine use: No Place of Residence: Home Review of Systems 10-point ROS is otherwise unremarkable Physical Examination - Vital Signs Temperature: 97.5 F Blood Pressure: 137/84 Pulse: 98 Respirations: 20 Pulse Ox (%): 98 - Physical Exam General: In no apparent distress, Cooperative, Other (Speaking in full sentences) HEENT: Atraumatic, Normocephalic, EOMI Neck: Supple, Other (no stridor) Respiratory: Clear to auscultation bilaterally, Normal air movement Cardiovascular: No edema, Normal pulses, Regular rate/rhythm, Normal S1 S2 Gastrointestinal: Normal bowel sounds, Soft and benign, Non-distended, No tende rness Musculoskeletal: No clubbing, No swelling, No contractures, No erythema, No tenderness, No warmth Integumentary: No rashes, No breakdown, No significant lesion, No tenderness/swelling, No erythema, No warmth, No cyanosis Neurological: Normal speech, Normal affect, Other (flaccid lower extremities) - Studies Laboratory Data (last 24 hrs) 12/22/19 11:50: WBC 11.7 H, Hgb 13.1, Hct 40.1, Plt Count 347 12/22/19 11:50: Sodium 143, Potassium 3.5, BUN 24 H, Creatinine 0.48 L, Glucose 140 H, Magnesium 2.2, Total Bilirubin 0.5, AST 27, ALT 36, Alkaline Phosphatase 65 Assessment and Plan - Problems (Diagnosis) (1) Acute respiratory distress Current Visit: Yes Status: Acute (2) ALS (amyotrophic lateral sclerosis) Current Visit: Yes Status: Acute (3) Hypertension after donor nephrectomy requiring medication Current Visit: Yes Status: Acute (4) Anxiety Current Visit: Yes Status: Acute - Advance Directives Does patient have a Living Will: No Does patient have a Durable POA for Healthcare: No Physician Review Additional Text: Assessment 64 year old female with ALS admitted with acute respiratory. Pulmonary embolism has been ruled out. CT chest suspicious for mucous plug ALS Respiratory distress Mucous plug HTN Anxiety Plan Admit to observation with telemetry Start albuterol nebulizer and mucomyst Respiratory therapy consulted Chest physiotherapy Wean off O2 as tolerated Resume home regimen for HTN and anxiety Anticipating discharge for tomorrow
[2019-12-22] MEDS: ALBUTEROL 2.5 MG/3 ML NEB SOL NEB SCH ×3 (16:10→23:40)
[2019-12-22] MEDS: ACETYLCYST 20% 4 ML VIAL IH SCH ×2 (16:10→20:00)
[2019-12-22] MEDS ORDERED: LORazepam 2 MG/ML VIAL IV PRN (20:21)
[2019-12-23] MEDS: ACETYLCYST 20% 4 ML VIAL IH SCH ×2 (02:00→07:45)
[2019-12-23] MEDS: ALBUTEROL 2.5 MG/3 ML NEB SOL NEB SCH ×3 (02:53→12:15)
--- NOTE | 2019-12-23 07:16 | EKG ---
Test Date: 2019-12-22 Test Time: 12:19:10 Customer Care Assistant: YVETTE MEASUREMENT RESULTS: Intervals: Rate: 94 IN: 150 QRSD: 76 QT: 376 QTc: 470 Ogema: P: 14 IN: 150 QRS: -13 T: 7 INTERPRETIVE STATEMENTS: Normal sinus rhythm Inferior infarct, age undetermined Cannot rule out Anterior infarct, age undetermined Abnormal ECG Compared to ECG 08/08/2010 08:22:28 No significant changes Electronically Signed On 12-23-19 07:15:50 CDT by Dell Dillon
[2019-12-23 08:57] VITALS: O2SAT 98
[2019-12-23] MEDS ORDERED: PNEUMOCOCCAL VACCINE 0.5 ML IMVAC ONE (09:00)
[2019-12-23] MEDS ORDERED: hydrOXYzine HCL 25 MG TAB PO PRN (11:23)
[2019-12-23] MEDS ORDERED: LORAZEPAM 1 MG TABLET PO PRN (11:23)
[2019-12-23] MEDS ORDERED: ONDANSETRON 4 MG/2 ML VIAL IV PRN (11:24)
[2019-12-23] MEDS ORDERED: RILUZOLE 50 MG PO SCH (11:30)
--- NOTE | 2019-12-23 12:40 | P.DS ---
Admission Date: 12/22/19 Discharge Date: 12/23/19 Disposition: ROUTINE DISCHARGE Discharge Condition: GOOD Reason for Admission: hypoxia - Problems (1) Acute respiratory distress Current Visit: Yes Status: Acute (2) ALS (amyotrophic lateral sclerosis) Current Visit: Yes Status: Acute (3) Hypertension after donor nephrectomy requiring medication Current Visit: Yes Status: Acute (4) Anxiety Current Visit: Yes Status: Acute Brief History of Present Illness: 54-year-old female with unknown past medical history of hypertension anxiety and a recent diagnosis of Brii Gehrig's disease June of 2019. She present to the hospital complaining of a 7 day history of shortness of breath associated with cough. Patient is been having dry cough but was unable to expectorate the sputum. This caused her to become dyspneic and anxious. She denies any fever or chills. Was tested for coronal virus 3 weeks ago and was negative. She was hypoxic in the ER. A CT scan ruled out pulmonary embolism but revealed findings concerning for mucus plug. Patient lives with her and has outpatient physical therapy scheduled. Hospital Course: Patient is a 64-year-old female with a recent diagnosis of Brii Gehrig's disease who presented to the ER with acute respiratory distress. She was placed on oxygen on admission. A CT chest ruled out pulmonary embolism but did revealed possible right bronchus mucous plugging. She was placed on nebulizer therapy including Mucomyst and responded to the above therapy. Was weaned off oxygen entirely. Respiratory therapist was also consulted for chest physiotherapy. I also consulted speech therapy for swallow evaluation and she passed. She can be discharged to follow up with her PCP Vital Signs/Physical Exam: Temp Pulse Resp BP Pulse Ox 98.0 F 108 H 18 128/74 97 12/23/19 08:00 12/23/19 10:17 12/23/19 10:17 12/23/19 10:17 12/23/19 10:17 General: Alert, In no apparent distress, Cooperative HEENT: Atraumatic, Normocephalic, EOMI Neck: Supple Respiratory: Clear to auscultation bilaterally, Normal air movement Cardiovascular: No edema, Normal pulses, Regular rate/rhythm, Normal S1 S2 Gastrointestinal: Normal bowel sounds, Soft and benign, Non-distended, No tenderness Neurological: Normal speech, Sensation intact, Normal affect Laboratory Data at Discharge: WBC 11.7 K/uL (4.3-10.9) H 12/22/19 11:50 Hgb 13.1 g/dL (12.0-15.0) 12/22/19 11:50 Hct 40.1 % (36.0-45.0) 12/22/19 11:50 Plt Count 347 K/uL (152-406) 12/22/19 11:50 Sodium 143 mmol/L (136-145) 12/22/19 11:50 Potassium 3.5 mmol/L (3.5-5.1) 12/22/19 11:50 BUN 24 mg/dL (7-18) H 12/22/19 11:50 Creatinine 0.48 mg/dL (0.55-1.3) L 12/22/19 11:50 Glucose 140 mg/dL (74-106) H 12/22/19 11:50 Magnesium 2.2 mg/dL (1.8-2.4) 12/22/19 11:50 Total Bilirubin 0.5 mg/dL (0.2-1.0) 12/22/19 11:50 AST 27 U/L (15-37) 12/22/19 11:50 ALT 36 U/L (12-78) 12/22/19 11:50 Alkaline Phosphatase 65 U/L (45-117) 12/22/19 11:50 Home Medications: Fenofibrate [Tricor*] 145 mg PO DAILY 12/22/19 Gabapentin [Neurontin Oral Soln] 300 mg PO TID 12/22/19 LORazepam [Ativan*] 1 mg PO DAILY PRN 12/22/19 Lansoprazole [Prevacid] 30 mg PO DAILY 12/22/19 Riluzole [Rilutek] 50 mg PO Q12H 12/22/19 Simvastatin 20 mg PO DAILY 12/22/19 hydrOXYzine HCL [Atarax*] 1 tab PO Q8H PRN 12/22/19
[2019-12-23] MEDS ORDERED: GABAPENTIN 300 MG CAP PO SCH (14:00)
[2019-12-23 17:56] VITALS: BP 135/75; TEMP 97.2
[2019-12-23] MEDS ORDERED: ATORVASTATIN 10 MG TAB PO SCH (21:00)
[2019-12-24] MEDS ORDERED: PANTOPRAZOLE 40MG TABLET PO SCH (06:30)
[2019-12-24] MEDS ORDERED: HOME MED 1 EA UNK (Lansoprazole [Prevacid] 30 MG) PO SCH (09:00)
[2019-12-24] MEDS ORDERED: FENOFIBRATE 160 MG TAB PO SCH (09:00)
[2019-12-24] MEDS ORDERED: HOME MED 1 EA UNK (Simvastatin [Simvastatin] 20 MG) PO SCH (09:00)
== END 2019-12-23 14:38 | disposition home or self-care (01) ==
LOC: ER 10:56 → ERHOLD 13:22 → INTOOBSV 13:22 → 2ND 14:20
PROVIDERS: ADMIT Internal Medicine; ATTEND Internal Medicine
DX: R06.03 Acute respiratory distress (principal); G12.21 Amyotrophic lateral sclerosis; I11.9 Hypertensive heart disease without heart failure; Z52.4 Kidney donor; F41.9 Anxiety disorder, unspecified; Z79.899 Other long term (current) drug therapy; R94.31 Abnormal electrocardiogram [ECG] [EKG]
CPT/HCPCS: 96365; 96361; 93005; 87040 ×2; 85025; 80048; 36415; 83735; 85379; 80076; 84484; 83880; 71275; 71045; 92610; 94667; 82805; 94668 ×2; 96375; 96372; 99285; Q9967; J1650; J7030; J2405

== ENCOUNTER 2020-01-04 05:54 | Observation (INO) | payer OTHER, BC ==
--- OUTSIDE RECORDS SUMMARY | 2020-01-04 05:59 | XMS REPORT | Clinical Summary ---
:1955 Author Organization [facility] Address [address] [place] [address] Care Team Providers Name Role Phone Asked, No Pcp Primary Care Provider Unavailable Allergies Active Allergy Reactions Severity Noted Date Comments Sulfa (Sulfonamide Antibiotics) Rash Low 0 Medications Medication Sig Dispensed Refills Start End Status Date Date simvastatin (ZOCOR) Take 20 mg by 0 Active 20 mg tablet mouth daily. lansoprazole Take 1 capsule 0 Ac tive (PREVACID) 30 MG by mouth daily. capsule cholecalciferol, Chew 2,000 30 tablet 11 Ac tive vitamin D3, 2,000 Units daily. 020 unit tablet,chewable riluzole (RILUTEK) 50 Take 1 tablet 60 tablet 11 03/0 5/ Active mg tabletIndications: (50 mg total) 020 2020 ALS (amyotrophic by mouth every lateral sclerosis) 12 (twelve) (HCC) hours. amLODIPine-benazepriL Take 1 capsule 0 Active (LOTREL 5-20) 5-20 mg by mouth daily. per capsule fenofibrate (TRICOR) Take 145 mg by 0 Active 145 MG tablet mouth daily. LORAZepam (ATIVAN) 1 Take 1 mg by 0 Active MG tablet mouth daily as needed for anxiety. traMADoL (ULTRAM) 50 Take 50 mg by 0 Active mg tabletIndications: mouth every 6 acute pain (six) hours as needed for moderate pain or severe pain .acute pain. hydrOXYzine (ATARAX) Take 25 mg by 0 Active 25 MG tablet mouth 3 (three) times a day as needed for itching, allergies or anxiety. MELATONIN ORAL Take 1 tablet 0 A ctive by mouth nightly. ascorbic acid Take 1 tablet 0 Ac tive (VITAMIN C ORAL) by mouth 2 (two) times a day. BETA CAROTENE ORAL Take 1 capsule 0 Active by mouth daily. acetylcysteine Take 4 mL by 240 mL 1 03/02/ Ac tive (MUCOMYST) 200 mg/mL nebulization 2019 (20 %) nebulizer every 12 solution (twelve) hours for 60 days. bisacodyL (DULCOLAX) Insert 1 7 suppository 0 01/08 / Active 10 mg suppository suppository (10 2019 mg total) into the rectum daily as needed for constipation for up to 7 days. budesonide Take 2 mL (0.5 120 mL 1 03/02/ Acti ve (PULMICORT) 0.5 mg/2 mg total) by 2019 mL nebulizer nebulization 2 solutionIndications: (two) times a ALS (amyotrophic day for 60 lateral sclerosis) days. (HCC) guaiFENesin Take 10 mL (200 473 mL 0 01/31/ Ac tive (ROBITUSSIN) 100 mg/5 mg total) by 2019 mL syrup mouth every 6 (six) hours as needed for cough or congestion for up to 30 days. ondansetron ODT Take 1 tablet 30 tablet 0 01/31/ Active (ZOFRAN-ODT) 4 MG (4 mg total) by 2019 disintegrating tablet mouth every 8 (eight) hours as needed for nausea or vomiting for up to 30 days. polyethylene glycol Take 17 g by 30 packet 0 01/31/ Active (MIRALAX) 17 gram mouth daily for 2019 packet 30 days. sennosides-docusate Take 1 tablet 30 tablet 0 01/31/ Active sodium (SENOKOT-S) by mouth 2 2019 8.6-50 mg per tablet (two) times a day as needed for constipation for up to 30 days. phenylephrine-mineral Insert 1 1 Tube 0 01/15/ Active oil-petrolatum application 2019 (Preparation H) (0.0101 g 0.25-14-74.9 % total) into the ointment rectum 2 (two) times a day as needed (hemorrhoids) for up to 14 days. ipratropium-albuteroL Take 3 mL by 270 mL 1 03/02 / Active (DUO-NEB) 0.5-2.5 nebulization 020 2019 mg/3 mL nebulizer every 6 (six) hours while awake for 60 days. levoFLOXacin Take 1 tablet 2 tablet 0 2 01/03/ Act david (Levaquin) 750 MG (750 mg total) 020 2019 tablet by mouth daily for 2 days. gabapentin Take 12 mL (600 1080 mL 1 03/03/ Act david (NEURONTIN) 250 mg/5 mg total) by 020 2019 mL solution mouth 3 (three) times a day for 60 days. amlodipine besylate Take by mouth 0 12/24/ Discontinued (AMLODIPINE ORAL) daily. 2020 (E rror) FENOFIBRATE ORAL Take 145 mg by 0 12/24/ Discontinued mouth. 2020 (Med List Cleanup) ergocalciferol Take 1 capsule 6 capsule 1 08/26/ (VITAMIN D2) 50,000 (50,000 Units 2019 unit capsule total) by mouth once a week for 6 doses. gabapentin Take 1 capsule 90 capsule 11 09/27/ Dis continued (NEURONTIN) 300 mg (300 mg total) 2019 (Formulary capsule by mouth 3 change) (three) times a day. gabapentin 300 mg/6 Take 300 mg by 600 mL 3 12/24 / Discontinued mL (6 mL) solution mouth 3 (three) 2019 (Med List times a day. Cleanup ) methocarbamoL Take 1 tablet 20 tablet 0 12/06/ Ex pired (ROBAXIN) 500 MG (500 mg total) 2019 tablet by mouth 2 (two) times a day for 10 days. methylPREDNISolone follow package 21 tablet 0 12/02/ (MEDROL DOSEPAK) 4 mg directions 2019 tablet albuterol (ACCUNEB) Take 3 mL (2.5 75 mL 12 01/02 / Discontinued 2.5 mg /3 mL (0.083 mg total) by 2019 (Stop Taking %) nebulizer nebulization at D ischarge) solutionIndications: every 6 (six) Chronic midline low hours as needed back pain without for wheezing sciatica for up to 30 days. traMADoL (ULTRAM) 50 Take 50 mg by 0 12/24 / Discontinued mg tabletIndications: mouth as needed 20 20 acute pain for moderate pain .acute pain. gabapentin Take 290 mg by 0 ontinued (NEURONTIN) 250 mg/5 mouth 3 (three) 202 0 (Stop Taking mL solution times a day. 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 Overview: Possible MND Cranial nerve lesion Idiopathic progressive polyneuropathy Myasthenia gravis with exacerbation Resolved Problems Problem Noted Date Resolved Date 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 Encounters Date Type Specialty Care Team Description 01/01/2020 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 Stella Elizalde, REJI 12/31/2019 Anesthesia Event Gastroenterology Dhother, Pieter Kline MD 12/31/2019 Surgery Gastroenterology Juarez Herr EGD WITH JARROD Feliciano MD PLACEMENT 12/25/2019 Hospital Encounter Cardiology Benita Mckeon-Jose ALS (amyo trophic lateral sclerosis) ([facility]) (Primary Dx); - MD Jan Hypoxia; 01/03/2020 Sandhya Brambila of br eath; MD Hardy Altered mental status, unspecified alter ed mental status type; Jaycee Cabrera, NSTEMI (non -ST elevated myocardial infarction) ([facility]); Oropharyngeal dysphagia Hernan Jurado DO 12/25/2019 Telephone Neurology Mason Trinidad, REJI 11/27/2019 Emergency General Internal PatelEdson barr Chronic lo w back pain, unspecified back pain laterality, unspecified whether sciatica present (Primary Dx); - Shine Merritt MD ALS (amyotrophic lateral sclerosis) ([facility] ); 11/28/2019 Jaycee Cabrera, SOB (shortn ess of breath); Chronic midline low back pain without sc iatica; Sandhya Brambila MD 11/27/2019 Telephone Neurology Mason Trinidad, REJI 11/24/2019 Orders Only Neurology Tim ALS (amyotrophi c lateral sclerosis) ([facility]) (Primary Dx); Naomi Paul RN Chronic respir atory insufficiency 11/23/2019 Social Work Neurology Светлана Hurley, LARRY 11/19/2019 Travel 11/19/2019 Telephone Neurology Naomi Dumont RN 11/12/2019 Telephone Neurology Mason Trinidad RN 10/28/2019 Hospital Encounter Pulmonology Brenda Ford ALS (clayton Fernando MD lateral scleros is) ([facility]) 10/28/2019 Procedure visit Neurology Brenda Ford (chas Fernando MD lateral scleros is) ([facility]) 10/28/2019 Travel 10/27/2019 Social Work Neurology Светлана Hurley, [employer] 10/14/2019 Travel 10/07/2019 Orders Only Neurology Tim, ALS (amyotrophi c Naomi Paul RN lateral sclero sis) ([facility]) (Primary Dx) 09/28/2019 Telemedicine Neurology Brenda Ford ALS (amyotrop hic lateral sclerosis) ([facility]) (Primary Dx); MD Abdullahi Chronic respira tory insufficiency 09/28/2019 Travel 09/23/2019 Telephone Neurology Brenda Ford MD 08/19/2019 Travel 07/30/2019 Telephone Neurology Ashley Calzada MA 07/23/2019 Hospital Encounter Radiology Brenda Ford Neuropa thy; MD Abdullahi Motor neuron di sease ([facility]) 07/23/2019 Procedure visit Neurology Brenda Ford (chas Fernando MD lateral scleros is) ([facility]) (Primary Dx) 07/23/2019 Documentation Neurology Evelyne Singh Patient Edu cation RN 07/22/2019 Procedure visit Neurology Brenda Ford ALS (amyot rophic lateral sclerosis) ([facility]) (Primary Dx); MD Abdullahi Neuropathy; Motor neuron di sease ([facility]); Cranial nerve l esion 07/22/2019 Documentation ADMIN Najma Veliz 07/22/2019 Documentation ADMIN Najma Veliz 07/21/2019 Hospital Encounter Radiology Brenda Ford Multifo joana acquired motor axonopathy; MD Abdullahi Progressive foc al motor weakness 07/21/2019 Hospital Encounter Pulmonology Brenda Ford Multifo joana acquired motor axonopathy; MD Abdullahi Progressive foc al motor weakness; SOB (shortness of breath) 07/21/2019 Procedure visit Neurology Brenda Ford Multifocal acquired motor axonopathy; MD Abdullahi Progressive foc al motor weakness 07/21/2019 Social Work Neurology Светлана Hurley, [employer] 07/14/2019 Telephone Neurology Naomi Dumont RN 07/14/2019 Orders Only Neurology Cachorro Dumont acqu ired motor axonopathy (Primary Dx); Naomi Paul RN Progressive fo joana motor weakness 07/13/2019 Orders Only Neurology Brenda Ford Multifocal ac quired motor axonopathy (Primary Dx); MD Abdullahi Progressive foc al motor weakness 07/13/2019 Telephone Neurology Brenda Ford MD after 01/03/2019 Social History Tobacco Use Types Packs/Day Years Used Date Current Some Day Smoker Cigarettes Smokeless Tobacco: Never Used Comments: "1 cigarette here and there" p er pt Alcohol Use Drinks/Week oz/Week Comments Not Currently Sex Assigned at Date Recorded Not on file Job Start Date Occupation Industry Not on file Not on file Not on file Travel History Travel Start Travel End No recent travel history available. Last Filed Vital Signs Vital Sign Reading Time Taken Comments Blood Pressure 136/66 01/03/2020 4:00 PM CDT Pulse 104 01/03/2020 4:00 PM CDT Temperature 37.1 C (98.8 F) 01/03/2020 12:11 PM CDT Respiratory Rate 40 01/03/2020 4:00 PM CDT Oxygen Saturation 99% 01/03/2020 4:00 PM CDT Inhaled Oxygen Concentration - - Weight 64.5 kg (142 lb 4.8 oz) 12/26/2019 11:00 AM CDT Height 160 cm (5' 3") 12/26/2019 11:00 AM CDT Body Mass Index 25.21 12/26/2019 11:00 AM CDT Plan of Treatment Health Maintenance Due Date Last Done Comments BREAST CANCER SCREENING 01/10/2004 COLONOSCOPY SCREENING 01/10/2004 SHINGLES VACCINES (#1) 01/10/2004 65+ PNEUMOCOCCAL VACCINE (1 of 2 - PCV13) 2019 INFLUENZA VACCINE 01/19/2020 CERVICAL CANCER SCREENING 07/21/2022 07/22/2019 Procedures Procedure Name Priority Date/Time Associated Comments Diagnosis POC GLUCOSE Routine 01/03/2020 Results for 12:13 PM CDT this procedure are in the results section. POC GLUCOSE Routine 01/03/2020 Results for 8:11 AM CDT this procedure are in the results section. POC GLUCOSE Routine 01/03/2020 Results for 5:09 AM CDT this procedure are in the results section. POC GLUCOSE Routine 01/03/2020 Results for 12:27 AM CDT this procedure are in the results section. POC GLUCOSE Routine 01/02/2020 Results for 8:27 PM CDT this procedure are in the results section. POC GLUCOSE Routine 01/02/2020 Results for 4:06 PM CDT this procedure are in the results section. XR CHEST 1 VW PORTABLE STAT 01/02/2020 Resul ts for 12:47 PM CDT this procedure are in the results section. POC GLUCOSE Routine 01/02/2020 Results for 11:53 AM CDT this procedure are in the results section. POC GLUCOSE Routine 01/02/2020 Results for 8:26 AM CDT this procedure are in the results section. POC GLUCOSE Routine 01/02/2020 Results for 6:01 AM CDT this procedure are in the results section. ESTIMATED GFR Routine 01/02/2020 Results for 4:00 AM CDT this procedure are in the results section. BASIC METABOLIC PANEL Routine 01/02/2020 Result s for 4:00 AM CDT this procedure are in the results section. HC COMPLETE BLD COUNT W/AUTO Routine 01/02/2020 Results for DIFF 3:50 AM CDT this procedure are in the results section. POC GLUCOSE Routine 01/02/2020 Results for 1:53 AM CDT this procedure are in the results section. POC GLUCOSE Routine 01/01/2020 Results for 9:26 PM CDT this procedure are in the results section. POC GLUCOSE Routine 01/01/2020 Results for 4:52 PM CDT this procedure are in the results section. POC GLUCOSE Routine 01/01/2020 Results for 12:38 PM CDT this procedure are in the results section. POC GLUCOSE Routine 01/01/2020 Results for 8:47 AM CDT this procedure are in the results section. POC GLUCOSE Routine 01/01/2020 Results for 5:16 AM CDT this procedure are in the results section. CBC HEMOGRAM Routine 01/01/2020 Results for 3:34 AM CDT this procedure are in the results section. ESTIMATED GFR Routine 01/01/2020 Results for 3:34 AM CDT this procedure are in the results section. BASIC METABOLIC PANEL Routine 01/01/2020 Result s for 3:34 AM CDT this procedure are in the results section. MAGNESIUM LEVEL Routine 01/01/2020 Results for 3:34 AM CDT this procedure are in the results section. PHOSPHORUS LEVEL Routine 01/01/2020 Results for 3:34 AM CDT this procedure are in the results section. POC GLUCOSE Routine 01/01/2020 Results for 1:12 AM CDT this procedure are in the results section. POC GLUCOSE Routine 12/31/2019 Results for 8:15 PM CDT this procedure are in the results section. POC GLUCOSE Routine 12/31/2019 Results for 5:28 PM CDT this procedure are in the results section. ESOPHAGOGASTRODUODENOSCOPY (EGD) 12/31/2019 Amyotrop hic 3:11 PM CDT lateral sclerosis (HCC) Dysphagia, unspecified Case Notes REQ 1500 START, EST 1HR Special Needs REQ 1500 START, EST 1HR POC GLUCOSE Routine 12/31/2019 12:11 Results for this PM CDT procedure are i n the results section. POC GLUCOSE Routine 12/31/2019 8:14 Results for this AM CDT procedure are i n the results section. POC GLUCOSE Routine 12/31/2019 5:19 Results for this AM CDT procedure are i n the results section. ESTIMATED GFR Routine 12/31/2019 5:12 Results fo r this AM CDT procedure are i n the results section. PHOSPHORUS LEVEL Routine 12/31/2019 5:12 Results for this AM CDT procedure are i n the results section. COMPREHENSIVE METABOLIC Routine 12/31/2019 5:12 Results for this PANEL AM CDT procedure are i n the results section. MAGNESIUM LEVEL Routine 12/31/2019 5:12 Results for this AM CDT procedure are i n the results section. POC GLUCOSE Routine 12/31/2019 12:50 Results for this AM CDT procedure are i n the results section. POC GLUCOSE Routine 12/30/2019 9:14 Results for this PM CDT procedure are i n the results section. POC GLUCOSE Routine 12/30/2019 4:27 Results for this PM CDT procedure are i n the results section. POC GLUCOSE Routine 12/30/2019 12:11 Results for this PM CDT procedure are i n the results section. COVID-19 QUALITATIVE PCR Routine 12/30/2019 9:35 Results for this AM CDT procedure are i n the results section. POC GLUCOSE Routine 12/30/2019 7:55 Results for this AM CDT procedure are i n the results section. ESTIMATED GFR Routine 12/30/2019 6:15 Results fo r this AM CDT procedure are i n the results section. BASIC METABOLIC PANEL Routine 12/30/2019 6:15 Re sults for this AM CDT procedure are i n the results section. HC COMPLETE BLD COUNT Routine 12/30/2019 6:15 Re sults for this W/AUTO DIFF AM CDT procedure are i n the results section. MAGNESIUM LEVEL Routine 12/30/2019 6:15 Results for this AM CDT procedure are i n the results section. PHOSPHORUS LEVEL Routine 12/30/2019 6:15 Results for this AM CDT procedure are i n the results section. POC GLUCOSE Routine 12/30/2019 5:23 Results for this AM CDT procedure are i n the results section. POC GLUCOSE Routine 12/30/2019 2:29 Results for this AM CDT procedure are i n the results section. POC GLUCOSE Routine 12/29/2019 9:01 Results for this PM CDT procedure are i n the results section. POC GLUCOSE Routine 12/29/2019 5:39 Results for this PM CDT procedure are i n the results section. POC GLUCOSE Routine 12/29/2019 11:44 Results for this AM CDT procedure are i n the results section. POC GLUCOSE Routine 12/29/2019 8:09 Results for this AM CDT procedure are i n the results section. POC GLUCOSE Routine 12/29/2019 3:55 Results for this AM CDT procedure are i n the results section. ESTIMATED GFR Routine 12/29/2019 3:38 Results fo r this AM CDT procedure are i n the results section. MAGNESIUM LEVEL Routine 12/29/2019 3:38 Results for this AM CDT procedure are i n the results section. PHOSPHORUS LEVEL Routine 12/29/2019 3:38 Results for this AM CDT procedure are i n the results section. BASIC METABOLIC PANEL Routine 12/29/2019 3:38 Re sults for this AM CDT procedure are i n the results section. HC COMPLETE BLD COUNT Routine 12/29/2019 3:38 Re sults for this W/AUTO DIFF AM CDT procedure are i n the results section. POC GLUCOSE Routine 12/28/2019 11:54 Results for this PM CDT procedure are i n the results section. POC GLUCOSE Routine 12/28/2019 7:26 Results for this PM CDT procedure are i n the results section. POC GLUCOSE Routine 12/28/2019 5:56 Results for this PM CDT procedure are i n the results section. POC GLUCOSE Routine 12/28/2019 4:34 Results for this PM CDT procedure are i n the results section. POC GLUCOSE Routine 12/28/2019 12:14 Results for this PM CDT procedure are i n the results section. POC GLUCOSE Routine 12/28/2019 3:31 Results for this AM CDT procedure are i n the results section. ESTIMATED GFR Routine 12/28/2019 3:09 Results fo r this AM CDT procedure are i n the results section. MAGNESIUM LEVEL Routine 12/28/2019 3:09 Results for this AM CDT procedure are i n the results section. PHOSPHORUS LEVEL Routine 12/28/2019 3:09 Results for this AM CDT procedure are i n the results section. TRIGLYCERIDES Routine 12/28/2019 3:09 Results fo r this AM CDT procedure are i n the results section. BASIC METABOLIC PANEL Routine 12/28/2019 3:09 Re sults for this AM CDT procedure are i n the results section. HC COMPLETE BLD COUNT Routine 12/28/2019 3:09 Re sults for this W/AUTO DIFF AM CDT procedure are i n the results section. POC GLUCOSE Routine 12/27/2019 11:21 Results for this PM CDT procedure are i n the results section. POC GLUCOSE Routine 12/27/2019 8:26 Results for this PM CDT procedure are i n the results section. POC GLUCOSE Routine 12/27/2019 4:17 Results for this PM CDT procedure are i n the results section. POC GLUCOSE Routine 12/27/2019 11:51 Results for this AM CDT procedure are i n the results section. POC GLUCOSE Routine 12/27/2019 8:03 Results for this AM CDT procedure are i n the results section. HC COMPLETE BLD COUNT Routine 12/27/2019 5:20 Re sults for this W/AUTO DIFF AM CDT procedure are i n the results section. ESTIMATED GFR Routine 12/27/2019 4:00 Results fo r this AM CDT procedure are i n the results section. BASIC METABOLIC PANEL Routine 12/27/2019 4:00 Re sults for this AM CDT procedure are i n the results section. POC GLUCOSE Routine 12/26/2019 9:23 Results for this PM CDT procedure are i n the results section. POC GLUCOSE Routine 12/26/2019 10:09 Results for this AM CDT procedure are i n the results section. US DUPLEX VENOUS LOWER Routine 12/26/2019 9:15 R esults for this EXTREMITY BILATERAL AM CDT procedur e are in the results section. ESTIMATED GFR Routine 12/26/2019 1:11 Results fo r this AM CDT procedure are i n the results section. CBC HEMOGRAM Routine 12/26/2019 1:11 Results for this AM CDT procedure are i n the results section. BASIC METABOLIC PANEL Routine 12/26/2019 1:11 Re sults for this AM CDT procedure are i n the results section. ARTERIAL BLOOD GAS Routine 12/25/2019 8:58 Resul ts for this PM CDT procedure are i n the results section. XR CHEST 1 VW PORTABLE STAT 12/25/2019 2:36 R esults for this PM CDT procedure are i n the results section. CT CHEST WO CONTRAST STAT 12/25/2019 1:39 Res ults for this PM CDT procedure are i n the results section. BLOOD CULTURE, AEROBIC & Routine 12/25/2019 1:20 Results for this ANAEROBIC PM CDT procedure are i n the results section. SMEAR REVIEW Routine 12/25/2019 1:10 Results for this PM CDT procedure are i n the results section. ARTERIAL BLOOD GAS STAT 12/25/2019 1:10 Resul ts for this PM CDT procedure are i n the results section. ESTIMATED GFR Routine 12/25/2019 1:10 Results fo r this PM CDT procedure are i n the results section. B NATRIURETIC PEPTIDE Routine 12/25/2019 1:10 Re sults for this PM CDT procedure are i n the results section. TROPONIN Routine 12/25/2019 1:10 Results for this PM CDT procedure are i n the results section. COMPREHENSIVE METABOLIC Routine 12/25/2019 1:10 Results for this PANEL PM CDT procedure are i n the results section. PARTIAL THROMBOPLASTIN Routine 12/25/2019 1:10 R esults for this TIME (PTT) PM CDT procedure are i n the results section. PROTHROMBIN TIME WITH Routine 12/25/2019 1:10 Re sults for this INR PM CDT procedure are i n the results section. HC COMPLETE BLD COUNT Routine 12/25/2019 1:10 Re sults for this W/AUTO DIFF PM CDT procedure are i n the results section. COVID-19 QUALITATIVE PCR STAT 12/25/2019 1:10 Results for this PM CDT procedure are i n the results section. ECG ED PRELIMINARY Routine 12/25/2019 1:02 Resul ts for this INTERPRETATION PM CDT procedure are in the results section. CO CRITICAL CARE, E/M Routine 12/25/2019 1:02 Re sults for this 30-74 MINUTES PM CDT procedure are in the results section. ECG 12-LEAD STAT 12/25/2019 12:59 Results for this PM CDT procedure are i n the results section. TTE COMPLETE, WO Routine 11/28/2019 12:00 Results for this CONTRAST, W DOPPLER PM CDT procedur e are in ([id number]) the results section. TROPONIN Timed 11/28/2019 6:00 [...] procedure are i n the results section. CO CRITICAL CARE, E/M Routine 11/27/2019 7:53 Re [...] for this ABDOMEN W WO CONTRAST PM [employer] Motor neuron proced ure are in PELVIS W CONTRAST disease (HCC) the resul ts section. FLOW CYTOMETRY Routine 07/22/2019 12:03 Results f or this EVALUATION PM [employer] procedure are i n the results section. WEST NILE VIRUS BY PCR, Routine 07/22/2019 12:03 Results for this CSF PM [employer] procedure are i n the results section. ENTEROVIRUS BY PCR Routine 07/22/2019 12:03 Resul ts for this PM [employer] procedure are i n the results section. MALCOM CASH VIRUS (EBV) Routine 07/22/2019 12:03 Results for this BY PCR PM [employer] procedure are i n the results section. HERPES SIMPLEX VIRUS BY Routine 07/22/2019 12:03 Results for this PCR PM [employer] procedure are i n the results section. VARICELLA ZOSTER BY PCR Routine 07/22/2019 12:03 Results for this PM [employer] procedure are i n the results section. CYTOLOGY Routine 07/22/2019 11:44 Results for this (NON-GYNECOLOGICAL) AM [employer] procedur e are in REQUEST the results section. MISCELLANEOUS REFERRAL Routine 07/22/2019 8:44 R esults for this TEST AM [employer] procedure are i n the results section. OLIGOCLONAL BANDING, CSF Routine 07/21/2019 6:04 Results for this PM [employer] procedure are i n the results section. CSF CELL COUNT WITH Routine 07/21/2019 6:04 Multifocal Resu lts for this DIFFERENTIAL PM [employer] acquired motor procedure are in axonopathy the results Progressive focal section. motor weakness GLUCOSE LEVEL, CSF Routine 07/21/2019 6:04 Multifocal Resul ts for this PM [employer] acquired motor procedure are in axonopathy the results Progressive focal section. motor weakness IGG SYNTHESIS RATE STUDY Routine 07/21/2019 6:04 Multifocal Results for this PM [employer] acquired motor procedure are in axonopathy the results Progressive focal section. motor weakness MYELIN BASIC PROTEIN Routine 07/21/2019 6:04 Multifocal Res ults for this PM [employer] acquired motor procedure are in axonopathy the results Progressive focal section. motor weakness VDRL, CSF SCREEN Routine 07/21/2019 6:04 Multifocal Results for this PM [employer] acquired motor procedure are in axonopathy the results Progressive focal section. motor weakness ANGIOTENSIN CONVERTING Routine 07/21/2019 6:04 Multifocal R esults for this ENZYME, CSF PM [employer] acquired motor procedure are in axonopathy the results Progressive focal section. motor weakness GRAM STAIN Routine 07/21/2019 6:04 Results for this PM [employer]ERAMIC SAW [employer]ENDER procedure are i n the results section. CSF CULTURE Routine 07/21/2019 6:04 Results for this PM [employer]ER procedure are i n the results section. MISCELLANEOUS REFERRAL Routine 07/21/2019 5:04 R esults for this TEST PM [employer]ER procedure are i n the results section. 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 motor weakness SOB (shortness of breath) COMPREHENSIVE METABOLIC Routine 07/21/2019 6:49 Results for this PANEL AM [employer]ER procedure are i n the results section. ESTIMATED GFR Routine 07/21/2019 6:49 Results fo r this AM [employer]ER procedure are i n the results section. 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 motor weakness PROTHROMBIN TIME WITH Routine 07/21/2019 6:49 Multifocal Re sults for this INR AM [employer]ER acquired motor procedure are in axonopathy the results Progressive focal section. 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 motor weakness after 01/03/2019 Results POC glucose (01/03/2020 12:13 PM CDT)Only the most recent of46 resultswithin the time period is included. Pathologist Sig nature POC glucose 146 (H) 65 - 99 mg/dL [facility] Comment: HOSPITAL Vendor Management Consultant Name: Raad Dejesus Device ID: [id number] Chartable: [facility] Notified RN Specimen Blood Performing Organization Address City/State/Zipcode Phone Number [facility] DEPARTMENT OF PATHOLOGY AND [address] [place] [phone] GENOMIC MEDICINE [address] [address] XR Chest 1 Vw Portable (01/02/2020 12:47 PM CDT)Only the most recent of3 results within the time period is included. Specimen Narrative Performed At EXAMINATION: XR CHEST 1 VW PORTABLE RADIANT CLINICAL HISTORY: Shortness of breath COMPARISON: Single view chest from 12/24 IMPRESSION: An AP radiograph of the chest was submit alex for interpretation. Vague airspace disease is again seen within both lung bases and may have slightly improved when compared to prior s examination. Mild pulmonary vascular congestion. No new focal areas of consolidation. No pneumothorax. No pleural effusion. The mediastinal contours and cardiac chandu houette are unchanged. Osteopenia. [id number] Procedure Note Interface, Radiology Results Incoming - 01/02/2020 12:57 PM CDT EXAMINATION: XR CHEST 1 VW PORTABLE CLINICAL HISTORY: Shortness of breath COMPARISON: Single view chest from 2019 IMPRESSION: An AP radiograph of the chest was submit alex for interpretation. Vague airspace disease is again seen wit hin both lung bases and may have slightly improved when compared to priors examination. Mild pulmonary vascular congestion. No new focal areas of consolidation. No pneumothorax. No pleural effusion. The mediastinal contours and cardiac chandu houette are unchanged. Osteopenia. [facility]-[id number] Performing Organization Address City/[facility]/Zipcode Phone Number [facility] [address] [place] [address] Estimated GFR (01/02/2020 4:00 AM CDT)Only the most recent of12 resultswithin the time period is included. Estimated GFR >=90 mL/min/1.73 [facility] Comment: m2 HOSPITAL Catergory Units Interpretation G1 >=90 Normal [...] published in 2014. Specimen Performing Organization Address City/[facility] Phone Number [facility] DEPARTMENT OF PATHOLOGY AND [address] [place] [phone] GENOMIC MEDICINE [address] [address] Basic metabolic panel (01/02/2020 4:00 AM CDT)Only the most recent of9 results within the time period is included. Pathologist Sig nature Sodium 144 135 - 148 mEq/L [facility] Potassium 4.0 3.5 - 5.0 mEq/L [facility] Chloride 102 98 - 112 mEq/L [facility] CO2 26 24 - 31 mEq/L [facility] Anion gap 16@ANIO (H) 7 - 15 mEq/L [facility] BUN 18 8 - 23 mg/dL [facility] Creatinine 0.29 (L) 0.50 - 0.90 mg/dL [facility] Glucose 123 (H) 65 - 99 mg/dL [facility] Calcium 10.1 8.8 - 10.2 mg/dL [facility] Specimen Blood Performing Organization Address City/State/Zipcode Phone Number [facility] DEPARTMENT OF PATHOLOGY AND [address] [place] [address] [phone] [address] CBC with platelet and differential (01/02/2020 3:50 AM CDT)Only the most recent of9 resultswithin the time period is included. WBC 6.04 4.50 - 11.00 [facility] k/uL HOSPITAL RBC 4.00 (L) 4.20 - 5.50 [facility] m/uL [facility] HGB 11.6 (L) 12.0 - 16.0 [facility] gdL [facility] HCT 36.2 (L) 37.0 - 47.0 % [facility] MCV 90.5 82.0 - 100.0 [facility] MCH 29.0 27.0 - 34.0 pg [facility] MCHC 32.0 31.0 - 37.0 [facility] RDW - SD 42.0 37.0 - 55.0 fL [facility] MPV 10.8 8.8 - 13.2 fL [facility] Platelet count 303 150 - 400 k/uL [facility] Nucleated RBC 0.00 /100 WBC [facility] Neutrophils 47.7 39.0 - 69.0 % [facility] Lymphocytes 38.4 25.0 - 45.0 % [facility] Monocytes 7.8 0.0 - 10.0 % [facility] Eosinophils 5.3 (H) 0.0 - 5.0 % [facility] Basophils 0.3 0.0 - 1.0 % [facility] Immature granulocytes 0.5Comment: 0.0 - 1.0 % [facility] "Immature [facility] granulocytes" (promyelocytes , myelocytes, metamyelocytes ) Specimen Blood Performing Organization Address City/[facility]/Zipcode Phone Number [facility] DEPARTMENT OF PATHOLOGY AND [address] [place] [address] [place] [id number] [place] [address] CBC hemogram (01/01/2020 3:34 AM CDT)Only the most recent of2 resultswithin the time period is included. Pathologist Sig nature WBC 7.63 4.50 - 11.00 k/uL [facility] RBC 3.77 (L) 4.20 - 5.50 m/uL [facility] HGB 11.0 (L) 12.0 - 16.0 g/dL [facility] HCT 33.8 (L) 37.0 - 47.0 % [facility] MCV 89.7 82.0 - 100.0 fL [facility] MCH 29.2 27.0 - 34.0 pg [facility] MCHC 32.5 31.0 - 37.0 g/dL [facility] RDW - SD 41.8 37.0 - 55.0 fL [facility] MPV 9.9 8.8 - 13.2 fL [facility] Platelet count 291 150 - 400 k/uL [facility] Nucleated RBC 0.00 /100 WBC [facility] Specimen Performing Organization Address City/[facility] Phone Number [facility] DEPARTMENT OF PATHOLOGY AND [address] [place] [phone] Phosphorus level (01/01/2020 3:34 AM CDT)Only the most recent of5 resultswithin the time period is included. Pathologist Sig nature Phosphorus 3.9 2.4 - 4.5 mg/dL [facility] Specimen Blood Performing Organization Address [facility] Phone Number [facility] DEPARTMENT OF PATHOLOGY AND [address] [place] [address] Magnesium level (01/01/2020 3:34 AM CDT)Only the most recent of5 resultswithin the time period is included. Pathologist Sig nature Magnesium 1.9 1.6 - 2.4 mg/dL [facility] Specimen Performing Organization Address City/[facility] Phone Number [facility] DEPARTMENT OF PATHOLOGY AND [address] [place] [address] [place] [address] Comprehensive metabolic panel (12/31/2019 5:12 AM CDT)Only the most recent of4 resultswithin the time period is included. Pathologist [facility] Sodium 141 135 - 148 [facility] mEq/L [facility] Potassium 4.1 3.5 - 5.0 [facility] mEq/L [facility] Chloride 103 98 - 112 [facility] mEq/L [facility] CO2 26 24 - 31 mEq/L [facility] Anion gap 12@ANIO 7 - 15 mEq/L [facility] BUN 12 8 - 23 mg/dL [facility] Creatinine 0.38 (L) 0.50 - 0.90 [facility] mg/dL [facility] Glucose 111 (H) 65 - 99 mg/dL [facility] Calcium 9.8 8.8 - 10.2 [facility] mg/dL [facility] Protein 5.9 (L) 6.3 - 8.3 [facility] Comment: g/dL HOSPITAL - 4.6-7.0 g/dL 1 week 4.4-7.6 g/dL 7 months-1year 5.1-7.3 g/dL 1-2 years 5.6-7.5 g/dL >3 years 6.0-8.0 g/dL 18-150 6.3-8.3 g/dL Albumin 2.9 (L) 3.5 - 5.0 [facility] g/dL [facility] A/G ratio 1.0 0.7 - 3.8 [facility] Alkaline phosphatase 59 35 - 104 U/L [facility] AST 24 10 - 35 U/L [facility] ALT 31 5 - 50 U/L [facility] Total bilirubin <0.2 0.0 - 1.2 [facility] mg/dL [facility] Specimen Blood Performing Organization Address City/State/Zipcode Phone Number [facility] DEPARTMENT OF PATHOLOGY AND [address] [place], [place] [address] GENOMIC MED[address]INE [address] [address] COVID-19 qualitative PCR (12/30/2019 9:35 AM CDT)Only the most recent of3 resultswithin the time period is included. Pathologist [facility] Interpretation Negative results do not prec lude 2019-nCoV infection and should not be used as the sole basis for treatment or other patient management decisions. Negative results must be combined with clinical observations, patient history, and epidemiological [place] information. [facility] COVID-19 qualitative Not-Detected Not-Detecte [place] PCR result d [facility] COVID-19 qualitative See link below for [place] PCR PDF Lab [facility] ReportComment: Case HOSPITAL Number: [id number] Specimen Nasopharyngeal swab Performing Organization Address City/[facility]/Zipcode Phone Number [facility] DEPARTMENT OF PATHOLOGY AND [address] [phone] [facility] MEDICINE [address] Triglycerides (12/28/2019 3:09 AM CDT) Pathologist Sig nature Triglycerides 306 (H) <150 mg/dL [facility] Specimen Blood Performing Organization Address [facility]/Zipcode Phone Number [facility] DEPARTMENT OF PATHOLOGY AND [address] [place] [address] 0 [facility] [address] [place] [address] duplex venous lower extremity (12/26/2019 9:15 AM CDT) Specimen Narrative Performed At [facility] Lower Extr emity Venous Report [address] [place] [address] [address], [place] [address] Pat.Name: PARVIN COVINGTON Pat.ID: [id number] .Date: 12/26/2019 Refer.MD: PHYSICIAN, EMERGENCY, MD Exam Time: 8:43:00 AM Study Type:L E Venous Weight: 145lb Ag e: 1955,64Y Sex: FEMALE Sonogrp hr: Светлана Melo, RVT Pat. Stat.:Outpatient Room: [address] Vol: RF, CPT - 4: [address]194 Echo Event ID:[id number] Order ID: [id number] Reason for Study:Bilateral leg swelling. Dyspnea and acute on chronic hypoxemic and hypercapnic respiratory fa ilure, ALS (07/2019), aspiration pneunomitis. Procedures: Colorflow, Grayscale/2D, Pow er Doppler Imaging SUMMARY: Deep Veins Superficial Veins * Normal Reflux Criteria: < 1 second * Normal Reflux Criteria: < 0.5 seconds * Abnormal Reflux Criteria: > or equal to 1 second * Abnormal Reflux Criteria: > or equal to 0.5 seconds DUPLEX SCAN OBSERVATIONS Deep Veins Superficial Veins Right Left Right Left GSV (prox) Normal Normal CFV Normal Normal (above knee) Femoral Normal Normal GSV (dist) Normal Normal Profunda Normal Normal (below knee) Popliteal Normal Normal PT (prox) Normal Normal SSV Not Visual ized Not Visualized PT (dist) Normal Normal Peroneal Not Visualized Not Visualized Gastrocs Normal Normal RIGHT: There is normal compressibility w ith no evidence of echogenic material noted within the lumen of the v isualized veins. Colorflow and Doppler signals are normal. LEFT: There is normal compressibility with no evidence of echogenic material noted within the lumen of the v isualized veins. Colorflow and Doppler signals are normal. PRELIMINARY FINDINGS: 1. Normal venous duplex exam of the visu alized veins. PHYSICIAN INTERPRETATION: Venous examination of the both lower ext remities demonstrated no evidence of venous thrombosis in the vis ualized veins. Normal compressibility and augmentation of all veins visualized. FINDINGS: Signed 12/26/2019 04:17 PM Maximo Vela MD, RPVI Procedure Note Interface, Radiology Results In - 2019 4:18 PM CDT [facility] Lower Extremity Veno us Report [address] [place] [address] Pat.Name: PARVIN COVINGTON Vickie D: [id number] .Date: 12/26/2019 Refer .MD: PHYSICIAN, EMERGENCY, Exam Time: 8:43:00 AM Study Type:LE Venous Weight: 145lb Age: 7 1955,64Y Sex: FEMALE Sonog rphr: Светлана Melo RVT Pat. Stat.:Outpatient Room: [address] Vol: RF, CPT - 4: [address] Echo Event ID:[id number] Order ID: [id number] Reason for Study:Bilateral leg swelling. Dyspnea and acute on chronic hypoxemic and hypercapnic respiratory fa ilure, ALS (07/2019), aspiration pneunomitis. Procedures: Colorflow, Grayscale/2D, Pow er Doppler Imaging SUMMARY: Deep Veins Superfi cial Veins * Normal Reflux Criteria: < 1 second * Normal Reflux Criteria: < 0.5 seconds * Abnormal Reflux Criteria: > or equal to 1 second * Abnormal Reflux Criteria: > or equal to 0.5 seconds DUPLEX SCAN OBSERVATIONS Deep Veins Superficial Veins Right Left Right Left GSV (prox) Normal Normal CFV Normal Normal (above knee) Femoral Normal Normal GSV (dist) Normal Normal Profunda Normal Normal (below knee) Popliteal Normal Normal PT (prox) Normal Normal SSV Not Visuali zed Not Visualized PT (dist) Normal Normal Peroneal Not Visualized Not Visualized Gastrocs Normal Normal RIGHT: There is normal compressibility w ith no evidence of echogenic material noted within the lumen of the v isualized veins. Colorflow and Doppler signals are normal. LEFT: There is normal compressibility w ith no evidence of echogenic material noted within the lumen of the v isualized veins. Colorflow and Doppler signals are normal. PRELIMINARY FINDINGS: 1. Normal venous duplex exam of the visu alized veins. PHYSICIAN INTERPRETATION: Venous examination of the both lower ext remities demonstrated no evidence of venous thrombosis in the vis ualized veins. Normal compressibility and augmentation of all veins visualized. FINDINGS: Signed 12/26/2019 04:17 PM Maximo Vela MD, RPVI Performing Organization Address City/State/Zipcode Phone Number [facility] [address] [place] [address] Arterial blood gas (12/25/2019 8:58 PM CDT)Only the most recent of2 results within the time period is included. Pathologist Sig nature pH, arterial 7.44 7.35 - 7.45 [facility] pCO2, arterial 41 35 - 45 mmHg [facility] pO2, arterial 121 (H) 80 - 90 mmHg [facility] Bicarbonate, 27.6 21.0 - 28.0 [facility] arterial mmol/L HOSPITAL Base excess, 4 (H) -2 - 2 mEq/L [facility] O2 saturation, 97 95 - 100 % [facility] Specimen Blood Performing Organization Address City/State/Zipcode Phone Number [facility] DEPARTMENT OF PATHOLOGY AND [address] [place], [place] [address] GENOMIC MEDICINE [facility] [address] [place] [address] CT Chest Wo Contrast (12/25/2019 1:39 PM CDT) Specimen Narrative Performed At EXAMINATION: CT CHEST WO CONTRAST RADIANT CLINICAL HISTORY: 64 years Female sob TECHNIQUE: Multiple axial images of the chest were o btained without intravenous contrast. Sagittal and coronal computerize d reformatted images were also obtained. CT imaging was performed wi iterative reconstruction techniques and/or automat ed exposure control to reduce radiation dos e. COMPARISON: 11/27/2019 IMPRESSION: Lungs and airways: There is mucus involving the trache a and right lower lobe bronchus and there is patchy airspace disease and consolidation at the right lung base. Minimal atelectatic changes are p resent at the left lung base. Calcified granuloma left lung base. No suspicious pulmonary nodul es. Pleura: No pleural effusion or pneumotho rax. Mediastinum and lymph nodes: No lymphade nopathy. Cardiovascular: The heart size is slightly enlarged. T race pericardial fluid. The thoracic aorta is atherosclerotic without e vidence of aneurysm. Upper abdomen: Status post cholecystecto my. Bones: Hypertrophic changes are present in the thoraci c spine. Benign vertebral hemangioma is noted at T12. Other: None. SUMMARY: 1.Right lower lobe consolidation with mucous in the ri ght lower lobe bronchus and to a lesser extent the trac hea. 2.Minimal left basilar atelectasis. 3.Mild cardiomegaly. 4.Status post cholecystectomy. [facility]-[id number] Procedure Note Interface, Radiology Results Incoming - 12/25/2019 1:58 PM CDT EXAMINATION: CT CHEST WO CONTRAST CLINICAL HISTORY: 64 years Female sob TECHNIQUE: Multiple axial images of the chest were obtained without intravenous contrast. Sagittal and coronal computerized reformatted images were also obtained. CT imaging was performed with iterative reconstruction techniques and/or automated exposure control to reduce radiation dos e. COMPARISON: 11/27/2019 IMPRESSION: Lungs and airways: There is mucus involv ing the trachea and right lower lobe bronchus and there is patchy airspace disease and consolidation at the right lung base. Minimal atelectatic changes are present at the left lung base. Calcified granuloma left lung base. No suspicious pulmonary nodul es. Pleura: No pleural effusion or pneumotho rax. Mediastinum and lymph nodes: No lymphade nopathy. Cardiovascular: The heart size is slight ly enlarged. Trace pericardial fluid. The thoracic aorta is atherosclerotic without evidence of aneurysm. Upper abdomen: Status post cholecystecto my. Bones: Hypertrophic changes are present in the thoracic spine. Benign vertebral hemangioma is noted at T12. Other: None. SUMMARY: 1.Right lower lobe consolidation with mu cous in the right lower lobe bronchus and to a lesser extent the trachea. 2.Minimal left basilar atelectasis. 3.Mild cardiomegaly. 4.Status post cholecystectomy. [facility]-[id number] Performing Organization Address City/[facility]/Zipcode Phone Number [address] [address] Blood culture, aerobic & anaerobic (12/25/2019 1:20 PM CDT) Blood culture No growth after 5 days of incubation. HO JESSI LAY isolate Comment: HOSPITAL Specimen Information Specimen Source: Blood Specimen Site: Forearm, right Specimen Blood - Forearm, right Performing Organization Address City/[facility] Phone Number [facility] DEPARTMENT OF PATHOLOGY AND [address] [place] [phone] GENOMIC MEDICINE [address] [address] Smear review (12/25/2019 1:10 PM CDT) Pathologist Sig nature Platelet slide review Kristina adequate [facility] Anisocytosis Moderate [facility] Spherocytes Occasional [facility] Ovalocytes Moderate [facility] Enlarged platelets Moderate (A) [facility] Smudge cells Few [facility] Reactive lymphocytes Few [facility] Specimen Performing Organization Address City/[facility] Phone Number [facility] [facility] DEPARTMENT OF PATHOLOGY AND [address] [place], [place] [address] [facility] [address] [place] [address] Troponin (12/25/2019 1:10 PM CDT)Only the most recent of3 resultswithin the time period is included. Troponin 0.506 (H) 0.000 - 0.040 [facility] Comment: ng/mL HOSPITAL In patients suspected of [...] Blood Performing Organization Address City/State/Zipcode Phone Number [facility] DEPARTMENT OF PATHOLOGY AND [address] [place], [place] [address] [facility] [address] [place] [address] Partial thromboplastin time, activated (12/25/2019 1:10 PM CDT) PTT 27.3 23.0 - 36.0 [facility] Comment: sec HOSPITAL PTT therapeutic range for unfractionated heparin is 61.0-112.0 seconds which corresponds to Anti-Xa 0.3-0.7 U/ml. Specimen Blood Performing Organization Address City/[facility]/Zipcode Phone Number [facility] DEPARTMENT OF PATHOLOGY AND [address] [place] [address] Prothrombin time with INR (12/25/2019 1:10 PM CDT)Only the most recent of2 resultswithin the time period is included. Prothrombin time 14.1 11.5 - 14.5 [facility] INR 1.1 [place] Comment: [facility] International Normalized Ratio (INR) is a [facility] monitoring tool for patients who are stable on oral anticoagulant therapy. An INR of 2.0-3.0 is suggested for deep vein thrombosis/pulmonary embolism. Specimen Blood Performing Organization Address City/[facility] Phone Number [facility] DEPARTMENT OF PATHOLOGY AND [address] [place] [address] B natriuretic peptide (12/25/2019 1:10 PM CDT)Only the most recent of2 results within the time period is included. Pathologist Sig nature BNP 103 (H) 0 - 100 pg/mL [facility] Specimen Blood Performing Organization Address City/[facility] Phone Number [facility] DEPARTMENT OF PATHOLOGY AND [address] [place] [address] ECG ED Preliminary Interpretation - Not an Order (12/25/2019 1:02 PM CDT) Narrative Performed At Kelsie Mckeon MD 12/28/2019 11:46 PM ECG ED Preliminary Interpretation - Not an Order Performed by: Kelsie Mckeon MD Authorized by: Kelsie Mckeon MD ECG reviewed by ED Physician in the 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: yes Previous ECG: Previous ECG: Unavailable Interpretation: Interpretation: abnormal Rate: ECG rate: 131 ECG rate assessment: tachycardic Rhythm: Rhythm: sinus tachycardia Ectopy: Ectopy: none QRS: QRS axis: Normal QRS intervals: Normal Conduction: Conduction: normal ST segments: ST segments: Normal CRITICAL CARE (12/25/2019 1:02 PM CDT) Narrative Performed At Kelsie Mckeon MD 12/28/2019 11:46 PM Critical Care Performed by: Kelsie Mckeon MD Authorized by: Kelsie Mckeon MD Critical care provider statement: Critical care time (minutes): 35 Critical care start time: 12/25/2019 1:05 PM Critical care end time: 12/25/2019 1: 40 PM Critical care time was exclusive of: Separately b illable procedures and treating other patients Critical care was necessary to treat or prevent imminent or life-threatening deterioration of the following condit ions: Respiratory failure Critical care was time spent personal ly by me on the following activities: Development of treatment p jun with patient or surrogate, discussions with consultants, evaluation of patient's response to treatment, examination of patient, inter pretation of cardiac output measurements, obtaining history from pat ient or surrogate, ordering and performing treatments and interventions, ordering and review of laboratory studies, ordering and review of radiogra phic studies, pulse oximetry, re-evaluation of patient's condition and review of old charts Timothy 'yes' if you are taking over critical care for this patient from another provider.: no ECG 12 lead (12/25/2019 12:59 PM CDT) Pathologist Sig nature Ventricular rate 131 [facility] Atrial rate 131 [facility] CO interval 142 [facility] QRSD interval 88 [facility] QT interval 294 [facility] QTC interval 434 [facility] P axis 1 40 [facility] QRS axis 1 27 [facility] T wave axis 25 [facility] EKG impression Sinus [facility] tachycardia-Otherwise normal ECG-No previous ECGs available-Electronicall y Signed By Nancy LAUREANO, Eben Pearson ([id number]) on 12/25/2019 5:13:39 PM Specimen Narrative Performed At This result has an attachment that is no t available. Performing Organization Address City/State/Zipcode Phone Number [facility] MUSE [address] [place] [address] Transthoracic Echocardiogram Complete, (w Contrast, Strain and 3D if needed) (11/28/2019 12:00 PM CDT) Specimen Narrative Performed At [facility] Echo cardiography Report [address] [facility], [address], [place] [address] [facility].Name: PARVIN COVINGTON Pat.ID: [id number] .Date: 11/28/2019 Refer.MD: BRIAN DAVEY MD Exam Time: 10:29:00 AM Study Type:Amie deutsch Echo Height: 63in Weight: 145lb BSA: 1.69 m2 Ag e: 1955,64Y Sex: FEMALE BP: 142/68 HR: 91 bpm Sonogr phr: Declan Mcdaniels RDCS Pat. Stat.:Inpatient Room: [facility] Study Status:Final Echo Event ID:[id number] Order ID: [id number] Reason for Study:STROKE. Post stroke p rotocol. [...] of 5 mmHg. MEASUREMENTS: 2D Parasternal Long Orlando Ao Rtd 3.1 cm Index 1.8 cm/m2 [...] 2019 5:09 PM CDT Echocardiography Report [address] [place] [address] Pat.Name: PARVIN COVINGTON I D: [id number] .Date: 11/28/2019 Refer .MD: BRIAN DAVEY MD Exam Time: 10:29:00 AM Study Type:Routine Echo Height: 63in Weigh t: 145lb BSA: 1.69 m2 Age: 7 1955,64Y Sex: FEMALE BP: 142/68 HR: 91 bpm Sonog rphr: Declan Mcdaniels RDCS Pat. Stat.:Inpatient Room: [facility] Study Status:Final Echo Event ID:[id number] Order ID: [id number] Reason for Study:STROKE. Post stroke pr otocol. [...] of 5 mmHg. MEASUREMENTS: 2D Parasternal Long Orlando Ao Rtd 3.1 cm Inde x 1.8 [...] Performing Organization Address City/State/Zipcode Phone Number [facility] [address] [place] [address] MRI Brain Wo Contrast (11/28/2019 5:05 AM [...] chronic small vessel ischemia otherwise unremarkable study. [id number] Procedure Note Hm Interface, Radiology Results Incoming - 11/28/2019 6:46 [...] chronic small vessel ischemia otherwise unremarkable study. [id number] Performing Organization Address City/State/Zipcode Phone Number [facility] [address] [place] [address] CT Angiogram Pe Chest (11/27/2019 11:57 PM CDT) Specimen Narrative Performed At EXAMINATION: CT ANGIOGRAM PE CHEST [facility] CLINICAL HISTORY: 64 years Female sob TECHNIQUE: [...] 2.No acute abnormality identified in the chest. [id number] Procedure Note Interface, Radiology Results Incoming - [...] 2.No acute abnormality identified in the chest. [id number] Performing Organization Address City/[facility]/Zipcode Phone Number [facility] [address] [place] [address] Venous blood gas (11/27/2019 11:35 PM CDT) Pathologist Sig nature pH, venous 7.39 7.32 - 7.42 [facility] pCO2, venous 43 (L) 45 - 51 mmHg [facility] pO2, venous 54 (H) 25 - 40 mmHg [facility] Base excess, venous 1 -2 - 2 meq/L [facility] O2 saturation, 85 (H) 40 - 70 % [facility] HOSPITAL Bicarbonate, venous 25.4 21.0 - 28.0 [facility] mmol/L HOSPITAL Specimen Blood Performing Organization Address [facility] Phone Number [facility] DEPARTMENT OF PATHOLOGY AND [address] [place] [phone] GENOMIC MEDICINE [facility] [address] [place] [address] CT Lumbar Spine Wo Contrast (11/27/2019 10:15 [...] the aletha sing right S1 nerve root. [id number] Procedure Note Interface, Radiology Results Incoming - [...] on the traversing right S1 nerve root. [id number] Performing Organization Address City/State/Zipcode Phone Number [facility] [address] [place] [address] CRITICAL CARE (11/27/2019 7:53 PM CDT) Narrative [...] the following condit ions: Respiratory failure and [employer] failure or compromise Critical care was time [...] (11/27/2019 7:45 PM CDT) Specimen site Catheterized [facility] Color, UA Yellow [facility] Appearance, UA Hazy [facility] Specific gravity, UA 1.019 1.001 - 1.035 [facility] pH, UA 6.0 5.0 - 8.5 [facility] Protein, UA 1+ (A) Negative [facility] Glucose, UA Negative Negative [facility] Ketones, UA Negative Negative [facility] Bilirubin, UA Negative Negative [facility] Blood, UA Negative Negative [facility] Nitrite, UA Negative Negative [facility] Urobilinogen, UA 2.0 (A) <2.0 [facility] Leukocyte esterase, Negative Negative [facility] Epithelial cells, UA 3 /HPF [facility] WBC, UA 3 0 - 4 /HPF [facility] RBC, UA 1 0 - 5 /HPF [facility] Bacteria, UA Few None seen [facility] Yeast, UA None seen [facility] Yeast with None seen [facility] pseudohyphae, [facility] Hyaline casts, UA 1 /LPF [facility] Specimen Urine Performing Organization Address City/[facility] Phone Number [facility] DEPARTMENT OF PATHOLOGY AND [address] [place] [address] [phone] [address] Urine culture (11/27/2019 7:45 PM CDT) Pathologist Sig [facility] Urine culture SEE COMMENTComment: [facility] Bacteriuria screen HOSPITAL negative. Specimen Performing Organization Address City/[facility] Phone Number [facility] DEPARTMENT OF PATHOLOGY AND [address] [place] [address] [phone] [address] Spirometry, MIPS/MEPS (10/28/2019 8:19 AM CDT) Pathologist [...] is no t available. Performing Organization Address City/[facility] Phone Number [address] [address] Creatine kinase, total (CPK) (10/28/2019 8:14 AM CDT)Only the most recent of2 resultswithin the time period is included. Pathologist Sig michelle Creatine kinase 63 26 - 192 U/L [facility] L Specimen Blood Performing Organization Address City/[facility] Phone Number [facility] DEPARTMENT OF PATHOLOGY AND [address] [place] [phone] GENOMIC MEDICINE [address] [address] Hepatic function panel (10/28/2019 8:14 AM CDT) Albumin 3.6 3.5 - 5.0 [facility] g/dL [facility] Total bilirubin 0.3 0.0 - 1.2 [facility] mg/dL [facility] Bilirubin direct <0.2 0.0 - 0.3 [facility] mg/dL [facility] Alkaline phosphatase 47 35 - 104 U/L [facility] Protein 6.1 (L) 6.3 - 8.3 [facility] Comment: g/dL [facility] [place] 4.6-7.0 g/dL 1 week 4.4-7.6 g/dL 7 months-1year 5.1-7.3 g/dL 1-2 years 5.6-7.5 g/dL >3 years 6.0-8.0 g/dL 18-150 6.3-8.3 g/dL ALT 19 5 - 50 U/L [facility] AST 22 10 - 35 U/L [facility] Specimen Blood Performing Organization Address City/State/Zipcode Phone Number [facility] DEPARTMENT OF PATHOLOGY AND [address] [place], [place] [address] GENOMIC MEDICINE [facility] [address] [place] [address] CT Chest W Contrast Abdomen W Wo Contrast Pelvis W Contrast (07/23/2019 12:18 PM CERAMIC SAW TENDER) Specimen Narrative Performed At EXAMINATION: CT CHEST [...] a consensus s tatement published by the [place] [employer] of chest physicians and the Fl eischner Society, the [facility] collaborative imaging recommendations for mult iple solid nodules < 6 mm in a patient without malignancy or immunosuppression are: Low risk - No routine follow-up High risk - Optional CT at 12 months* *use most suspicious nodule as guide to management; fo llow-up intervals may vary according to size and risk [id number] Procedure Note Hm Interface, Radiology Results Incoming - 07/23/2019 12:58 PM CERAMIC SAW TENDER EXAMINATION: CT CHEST W CONTRAST ABDOMEN W [...] to a consensus statement published by the [place] College of chest physicians and the Fleischner Society, the [facility] collaborative imaging recommendations for multiple solid nodules < 6 mm in a patient without malignancy or immunosuppression are: Low risk - No routine follow-up High risk - Optional CT at 12 months* *use most suspicious nodule as guide to management; follow-up intervals may vary according to size and risk [id number] Performing Organization Address City/[facility]/Zipcode Phone Number [address] [address] West Nile virus by PCR, CSF (07/22/2019 12:03 PM CERAMIC SAW TENDER) Pathologist [facility] West Nile virus Not-Detected Not-Detected [facility] PCR, CSF [facility] West Nile virus See link below [facility] PCR, CSF for PDF Lab HOSPITAL ReportComment: Specimen Performing Organization Address [facility] Phone Number [facility] DEPARTMENT OF PATHOLOGY AND [address] [place] [address] Varicella zoster by PCR (07/22/2019 12:03 PM CERAMIC SAW TENDER) Pathologist [facility] VZV result Not-Detected Not-Detected [facility] copies/mL [facility] Varicella zoster, See link below [facility] pcr for PDF Lab HOSPITAL ReportComment: Specimen Performing Organization Address [facility] Phone Number [facility] DEPARTMENT OF PATHOLOGY AND [address] [place] [phone] [place] [id number] [facility] Herpes simplex virus by PCR (07/22/2019 12:03 PM CERAMIC SAW TENDER) Herpes virus, PCR Not-Detected Not-Detected [facility] Herpes virus, PCR See link below [facility] for PDF Lab HOSPITAL ReportComment: Specimen Performing Organization Address City/[facility] Phone Number [facility] DEPARTMENT OF PATHOLOGY AND [address] [place] [address] [phone] [address] [facility] Flow cytometry evaluation (07/22/2019 12:03 PM CERAMIC SAW TENDER) [facility] Flow cytometry See link below [facility] evaluation for PDF Lab HOSPITAL Report Specimen Performing Organization Address City/State/Zipcode Phone Number [facility] DEPARTMENT OF PATHOLOGY AND [address] [place] [address] Malcom Cash Virus (EBV) by PCR (07/22/2019 12:03 PM CERAMIC SAW TENDER) Pathologist [facility] Malcom Cash virus, Not-Detected Not-Detected [facility] PCR copies/mL HOSPITAL Malcom Cash virus, See link below [facility] PCR for PDF Lab HOSPITAL ReportComment: Specimen Performing Organization Address City/State/Zipcode Phone Number [facility] DEPARTMENT OF PATHOLOGY AND [address] [place] [address] Enterovirus by PCR (07/22/2019 12:03 PM CERAMIC SAW TENDER) Pathologist [facility] nature Enterovirus PCR Not-Detected Not-Detected [facility] Enterovirus PCR See link below [facility] for PDF Lab HOSPITAL ReportComment: Specimen Performing Organization Address City/State/Zipcode Phone Number [facility] DEPARTMENT OF PATHOLOGY AND [address] [place] [address] Cytology (non-gynecological) request (07/22/2019 11:44 AM CERAMIC SAW TENDER) [facility] DEPARTMENT OF PATHOLOGY AND GENOMIC MEDICINE Cytology See link below [facility] DEPARTMENT OF (non-gynecological) for PDF Lab PATHOLOGY AND report Report GENOMIC MEDICINE Result status This is Final [facility] DEPARTMENT OF Report for PATHOLOGY AND [id number] GENOMIC MEDICINE Specimen Performing Organization Address City/State/Zipcode Phone Number [facility] DEPARTMENT OF PATHOLOGY AND [address] [place] [address] GENOMIC MEDICINE Miscellaneous referral test (07/22/2019 8:44 AM CERAMIC SAW TENDER)Only the most recent of2 resultswithin the time period is included. Pathologist [facility] Misc test name ENS2 SHOWN ABOVE Misc test result SEE NOTE SHOWN ABOVE Comment: Patient Name: PARVIN COVINGTON Date: 1955 Age: 64 Gender: F Order Number: [id number] Client Order Number: [id number] Report Status: FINAL ====== Encephalopathy-Autoimmune Eval, S [...] ...... Purkinje Cell Cytoplasmic Ab Type 1 COMMODITY INDUSTRY ANALYST-1, S Negative titer Reference Value: <1:240 ...................................................... ...... Purkinje Cell Cytoplasmic Ab Type 2 COMMODITY INDUSTRY ANALYST-2, S Negative titer Reference Value: <1:240 ...................................................... ...... Purkinje Cell Cytoplasmic Ab Type Tr COMMODITY INDUSTRY ANALYST-Tr, S Negative titer Reference Value: <1:240 - - - - - - - - - - - - - - - - - - - - - - - - - - - - - - - Laboratory Notes: This test was developed and its performance characteristics determined by [facility] in a manner consistent with CLIA requirements. This test has not b een cleared or approved by the U.S. Food and Drug Administration. + -----+ : PERFORMING S ITE LEGEND : + -----+ : : [facility] : : : [address] [place] [address] : + -----+ Specimen Narrative Performed At [facility] AUTOIMMUNE ENCEPHALITIS PANEL 4ML [facility] OF PATHOLOGY AND [employer] [facility] Test ID: [id number], Autoimmune Evaluation, Serum Performing Organization Address [facility] Phone Number [facility] DEPARTMENT OF PATHOLOGY AND [address] [place], [place] [address] [facility] SHOWN ABOVE IgG synthesis rate study (07/21/2019 6:04 PM CERAMIC SAW TENDER) Pathologist Sig nature IgG albumin ratio, 0.09 0.00 - 0.23 [facility] IgG index, CSF 0.50 0.01 - 0.63 [facility] IgG synthetic rate 1.63 -9.90 - 3.30 [facility] mg/day HOSPITAL Q-albumin ratio, CSF 7.88 2.40 - 8.10 [facility] IgG, CSF 2.91 1.00 - 3.00 [facility] mg/dL HOSPITAL Albumin, CSF 33.88 (H) 10.00 - 30.00 [facility] mg/dL HOSPITAL IgG 735 700 - 1,600 [facility] mg/dL HOSPITAL Albumin, S 4,300.0 3,640.0 - [facility] 5,304.0 mg/dL HOSPITAL Specimen Serum Performing Organization Address [facility] Phone Number [facility] DEPARTMENT OF PATHOLOGY AND [address] [place], [place] [address] [address] Oligoclonal banding, CSF (07/21/2019 6:04 PM CERAMIC SAW TENDER) Protein, CSF SEE COMMENT 15 - 45 [place] Comment: mg/dL [facility] Footnote--------- HOSPITAL Cancel test per Dr. Deirdre Burton. [facility] Corrected result; previously reported as 56 on 020 at 19:18 by I/AUT Prealbumin, CSF SEE 3.5 - 11.1 % [place] COMMENTComment: [facility] Footnote--------- HOSPITAL Albumin, CSF SEE 40.8 - 66.2 [place] COMMENTComment: % [facility] Footnote--------- HOSPITAL Alpha 1, CSF SEE 2.3 - 6.4 % [place] COMMENTComment: [facility] Footnote--------- HOSPITAL Alpha 2, CSF SEE 6.1 - 12.6 % [place] COMMENTComment: [facility] Footnote--------- HOSPITAL Beta, CSF SEE 11.7 - 24.1 [place] COMMENTComment: % [facility] Footnote--------- HOSPITAL Gamma, CSF SEE 5.6 - 12.2 % [place] COMMENTComment: [facility] Footnote--------- HOSPITAL CSF extended SEE [place] interpretation COMMENTComment: [facility] Footnote--------- HOSPITAL CSF interpretation SEE [place] COMMENTComment: [facility] Footnote--------- HOSPITAL Specimen Cerebrospinal fluid Performing Organization Address City/[facility] Phone Number [facility] DEPARTMENT OF PATHOLOGY AND [address] [place] [phone] [facility] MEDICINE [address] [address] Gram stain (07/21/2019 6:04 PM CERAMIC SAW TENDER) Pathologist [facility] Gram stain isolate No WBC's or organisms seen. [facility] Comment: HOSPITAL Specimen Information Specimen Source: CSF (Spinal Fluid) Specimen Site: No tube number noted Specimen Cerebrospinal fluid - No tube number not ed Performing Organization Address [facility] Phone Number [facility] DEPARTMENT OF PATHOLOGY AND [address] [place] [phone] [facility] MEDICINE [address] [address] CSF culture (07/21/2019 6:04 PM CERAMIC SAW TENDER) CSF culture No growth after 3 days. [facility] Comment: HOSPITAL Specimen Information Specimen Source: CSF (Spinal Fluid) Specimen Site: No tube number noted Specimen Cerebrospinal fluid - No tube number not ed Performing Organization Address City/[facility]/Zipcode Phone Number [facility] DEPARTMENT OF PATHOLOGY AND [address] [place] [address] [phone] [address] CSF cell count with differential (07/21/2019 6:04 PM CERAMIC SAW TENDER) Pathologist Sig nature Color, CSF Colorless [facility] Appearance, CSF Clear [facility] RBC, CSF 1,836 (H) 0 - 1 /CMM [facility] WBC, CSF 40 (H) 0 - 5 /CMM [facility] CSF mononuclear cell See Diff [facility] Neutrophils, CSF 2 % [facility] [place] Lymphocytes, CSF 93 % [facility] [place] Monocytes, CSF 5 % [facility] [place] Specimen Cerebrospinal fluid Performing Organization Address City/[facility] Phone Number [facility] DEPARTMENT OF PATHOLOGY AND [address] [place] [address] [phone] [address] VDRL, CSF screen (07/21/2019 6:04 PM CERAMIC SAW TENDER) Pathologist Sig nature VDRL, CSF screen Non-reactive Non-reactive [facility] [place] Specimen Cerebrospinal fluid Performing Organization Address City/[facility] Phone Number [facility] DEPARTMENT OF PATHOLOGY AND [address] [place], [place] [phone] [address] [address] Myelin basic protein (07/21/2019 6:04 PM CERAMIC SAW TENDER) Myelin basic 10.15 (H) 0.00 - 5.50 [facility] protein Comment: ng/mL INTERPRETIVE INFORMATION: Myelin Basic Protein Test developed and characteristics determined by [facility]. See Compliance Statement D: [employer]/ CS Performed by [facility], [address] [place] [address] www.[email or web address], Damian Singh MD, Lab. Director Specimen Cerebrospinal fluid Performing Organization Address City/[facility]/Zipcode Phone Number [facility] [address] [place] [address] [facility] [address] [place] [address] Glucose level, CSF (07/21/2019 6:04 PM CERAMIC SAW TENDER) Pathologist Sig nature Glucose, CSF 56 40 - 70 mg/dL [facility] [place] Specimen Cerebrospinal fluid Performing Organization Address City/[facility]/Zipcode Phone Number [facility] DEPARTMENT OF PATHOLOGY AND [address] [place], [place] [address] GENOMIC MEDICINE [facility] [place] [address] [place] [address] Angiotensin converting enzyme, CSF (07/21/2019 6:04 PM CERAMIC SAW TENDER) Angiotensin <0.4 0.0 - 2.5 [facility] converting enzyme, Comment: U/L CSF This test was developed and its performance characteri stics determined by [facility]. The [place] Food and Jonathon g Administration has not approved or cleared this test; however, FDA clearance or approval is not currently required for cl inical use. The results are not intended to be used as the sole me ans for clinical diagnosis or patient management decisions. Performed by [facility], [address] [place] [id number] [email or web address], Damian Singh MD, Lab. Director Specimen Cerebrospinal fluid Performing Organization Address [facility] Mex[facility]ode Phone Number [facility] [address] [place] [address] [facility] [address] [place] [address] IR Lumbar Puncture by Radiology (07/21/2019 4:09 PM CERAMIC SAW TENDER) Specimen Narrative Performed At EXAMINATION: IR LUMBAR [...] guided lumbar pu ncture as detailed above. [facility]-[id number] Procedure Note Hm Interface, Radiology Results Incoming - 07/21/2019 5:38 PM CERAMIC SAW TENDER EXAMINATION: IR LUMBAR PUNCTURE CLINICAL HISTORY: G62.89 [...] guided lumbar pu ncture as detailed above. [facility]-[id number] Performing Organization Address City/State/Zipcode Phone Number [facility] [address] [place] [address] EMG general request (07/21/2019 11:05 AM CERAMIC SAW TENDER) Impressions Performed At Ms. Covington complains of [...] available. NERVE CONDUCTION AND ELECTROMYOGRAPHY REPORT Neurological [place], [facility]; [place], [place] [address]; Teleph one [phone] Name: Parvin Covington Date of Procedure: July [...] 1.5% increment. Spirometry, MIPS/MEPS (07/21/2019 8:43 AM CERAMIC SAW TENDER) Pathologist Sig nature FEV1 Pre 1.60 1.76 [...] is no t available. Performing Organization Address City/State/Zipcode Phone Number [facility] [address] [place] [address] HTLV I/II Ab with reflex to confirmation (07/21/2019 6:49 AM CERAMIC SAW TENDER) Pathologist Sig nature HTLV I/II Ab Negative [...] and Tissue-Based Products (HCT/P) . Performed by [facility], [address] [place], [place] [id number] [email or web address], Damian Singh MD, Lab. Director Specimen Serum Performing Organization Address [facility] Mex[facility]oms Phone Number [facility] [address] [place] [phone] [facility] [address] [place] [address] GM1 Ab panel (07/21/2019 6:49 AM CERAMIC SAW TENDER) GM1 IgG 3 0 - 50 IV [...] disease. Test developed and characteristics determined by [facility]. See Compliance Statement D: [email or web address] Performed by [facility], [address] [place], [place] [id number] www.[email or web address], Damian Singh MD, Lab. Director Asialo GM1 IgG see noteComment: not [facility] performed as a part of GM1 panel Asialo GM1 IgM see noteComment: not [facility] performed as a part of GM1 panel Specimen Serum Performing Organization Address [facility] Mex[facility]ode Phone Number [facility] [address] [place] [address] [facility] [address] [place] [address] Acetylcholine receptor binding Ab (07/21/2019 6:49 AM CERAMIC SAW TENDER) Pathologist [facility] Acetylcholine 0.0 0.0 - 0.4 [facility] receptor binding Ab Comment: nmol/L [...] antibodies. Test developed and characteristics determined by [facility]. See Compliance Statement B: [email or web address] CS Performed by [facility], [address] [place] [address] www.[facility], Damian Singh MD, Lab. Director Specimen Serum Performing Organization Address City/State/Zipcode Phone Number [facility] [address] [place] [address] [facility] [address] [place] [address] Vitamin D 25 hydroxy level (07/21/2019 6:49 AM CERAMIC SAW TENDER) Pathologist [facility] Vitamin D, 8.9 (L) 30.0 - 150.0 [facility] LATTER DAY 25-hydroxy Comment: ng/mL HOSPITAL This assay reports [...] alternative methods. Specimen Blood Performing Organization Address City/[facility] Mex[facility]ode Phone Number [facility] DEPARTMENT OF PATHOLOGY AND [address] [place] [address] Sedimentation rate (07/21/2019 6:49 AM CERAMIC SAW TENDER) Pathologist Sig nature Sedimentation rate 5 0 - 20 mm/hr [facility] [place] Specimen Blood Performing Organization Address [facility] Phone Number [facility] DEPARTMENT OF PATHOLOGY AND [address] [place] [address] Rheumatoid factor (07/21/2019 6:49 AM CERAMIC SAW TENDER) Pathologist [facility] nature Rheumatoid factor <10 0 - 13 IU/mL [facility] Specimen Plasma specimen Performing Organization Address [facility] Phone Number [facility] DEPARTMENT OF PATHOLOGY AND [address] [place] [address] C-reactive protein (07/21/2019 6:49 AM CERAMIC SAW TENDER) Pathologist [facility] nature CRP <0.30 0.00 - 0.50 mg/dL [facility] Specimen Plasma specimen Performing Organization Address [facility] Phone Number [facility] DEPARTMENT OF PATHOLOGY AND [address] [place] [address] SANDRA (07/21/2019 6:49 AM CERAMIC SAW TENDER) SANDRA screen Negative Negative [facility] Comment: HOSPITAL Test performed using [employer] DAPI SANDRA kit (Indirect Immunofluorescence Assay) for Anti-Nuclear Antibody on [employer] 160 Analyzer. Specimen Blood Performing Organization Address City/[facility] Phone Number [facility] DEPARTMENT OF PATHOLOGY AND [address] [place] [address] Serum electrophoresis (07/21/2019 6:49 AM CERAMIC SAW TENDER) Pathologist [facility] Protein 7.0 6.3 - 8.3 [place] Comment: g/dL LATTER [facility] Wisqahj9155.6-7.0 g/dL [facility] 1 kmff0818.4-7.6 g/dL 7 months-7lbrb420.1-7.3 g/dL 1-2 .6-7.5 g/dL >3 roypl855.0-8.0 g/dL [id number] g/dL SPE albumin 4.56 3.51 - 5.42 [place] g/dL [facility] SPE alpha 1 0.33 0.18 - 0.40 [place] g/dL [facility] SPE alpha 2 0.60 0.44 - 0.96 [place] g/dL [facility] SPE beta 0.86 0.52 - 1.07 [place] g/dL [facility] SPE gamma 0.64 (L) 0.70 - 1.54 [place] g/dL [facility] SPE extended See [place] interpretation CommentComment: LATTER DAY Gamma globulins HOSPITAL are slightly decreased. SPE interpretation See [place] CommentComment: LATTER DAY [facility] PhD; Lynn Daigle, PhD; Rui Lara MD, PhD Specimen Serum Performing Organization Address City/[facility]ode Phone Number [facility] DEPARTMENT OF PATHOLOGY AND [address] [place] [address] Parathyroid hormone (07/21/2019 6:49 AM CERAMIC SAW TENDER) Pathologist Sig nature PTH 33 15 - 65 pg/mL [facility] [place] Specimen Blood Performing Organization Address City/[facility]/Zipcode Phone Number [facility] DEPARTMENT OF PATHOLOGY AND [address] [place] [address] [place] [address] Vitamin B12 level (07/21/2019 6:49 AM CERAMIC SAW TENDER) Pathologist [facility] Vitamin B12 570 211 - 946 [facility] Comment: pg/mL HOSPITAL Significant overlap exists between normal and deficien cy states. However, most patients with deficiencies will have Ser um B12 <200 pg/mL. Specimen Serum Performing Organization Address City/[facility] Mex[facility]ode Phone Number [facility] DEPARTMENT OF PATHOLOGY AND [address] [place] [phone] GENOMIC MEDICINE [facility] [place] [address] [place] [phone] after 01/03/2019 Insurance Payer Benefit Plan / Subscriber ID Effective Dates Phone Addre ss Type Group MEDICARE MEDICARE PART A xxxxxxxxxxx 2018-Present [place], [place] Medicare AND B BCBS [employer] xxxxxxxxxxxx 2018-Present PPO [phone] [id number] (Work) Advance Directives For more information, please contact: [phone] Type Date Recorded Patient Salon Assistant Explanati on Advance Directives, Living Will 11/27/2019 6:27 PM and Medical Power of Operations Technician
--- OUTSIDE RECORDS SUMMARY | 2020-01-04 06:02 | XMS REPORT | Continuity of Care Document ---
:1955 Author Organization [facility] t Address [address] [place] [address] Care Team Providers Name Role Phone Asked, Pcp Primary Care Physician Unavailable Jan Mckeon MD Attending Clinician Hardy Brambila MD Attending Clinician Deborah LAUREANO Attending Clinician Jeff Jurado DO Attending Clinician Fide MENDOZA Attending Clinician Unavailable Carmenza LAUREANO V. Attending Clinician Eliud Reynaga MD Attending Clinician Vivi MENDOZA Attending Clinician Unavailable René Patel MD Attending Clinician Tim MENDOZA, L Attending Clinician Unavailable Xavi JUAREZ Attending Clinician Unavailable Abdullahi Ford MD Attending Clinician Zheng RODRÍGUEZ Attending Clinician Unavailable Francisco MENDOZA Attending Clinician Unavailable Jose Alfredo Attending Clinician Unavailable PATTY Admitting Clinician Unavailable DEBORAH Admitting Clinician Unavailable Payers Payer Name Policy Policy Number Effective Expiration Source Type Date Date MEDICAREMEDICARE PART xxxxxxxxxxx 2018 Ab Billingsley AND 00:00:00 [facility] [place]xxx 2018 Eh [id number] 00:00:00 Met hodist 2019-PresentPPO Problems Condition Condition Condition Status Onset Resolution Last Treating Co mments Source Name Details Category Date Date Treatment Clinician Date Chronic Chronic Disease Active [place] respirator respirator 8-16 Me thodi y failure y failure 00:00: st with with 00 hypoxia hypoxia and and hypercapni hypercapni a a Acute on Acute on Disease Active [place] chronic chronic 8-07 Methodi respirator respirator 00:00: st y failure y failure 00 with with hypoxia hypoxia and and hypercapni hypercapni a a Oropharyng Oropharyng Disease Active Overview : [place] eal eal 8-07 Added Methodi dysphagia dysphagia 00:00: automatic s t 00 ally from request for surgery [id number] Chronic Chronic Disease Active [place] low back low back 7-11 Method i pain pain 00:00: st 00 SOB SOB Disease Active [place] (shortness (shortness 7-11 Me thodi of breath) of breath) 00:00: st 00 ALS 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 3-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 00:00: st sclerosis) sclerosis) 00 Chronic Chronic Disease Active [place] respirator respirator 3-03 Me thodi y y 00:00: st insufficie insufficie 00 ncy ncy Progressiv Progressiv Disease Active [place] e focal e focal 2-24 Methodi motor motor 00:00: st weakness weakness 00 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 00:00: MND st axonopathy axonopathy 00 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 [...] Date Motor Motor Disease Resolve 2019-07-23 2019-07-23 [place] neuron neuron d 00:00:00 13:35:47 Method i disease disease [address] Allergies, Adverse Reactions, Alerts Allergy Allergy Status Severity Reaction(s) Onset Inactive Treating Comm ents Source Name Type Date Date Clinician Sulfa Propensi Active Rash [place] (Sulfona ty to 3-02 Methodi mide adverse 00:00: st Antibiot reaction 00 ics) s to drug Social History Social Habit Start Date Stop Date Quantity Comments Source History of Cigarette Smoker Eh Meade tobacco use Sex Assigned At [place] M ethodist Alcohol intake 2020-01-01 2020-01-01 Ex-drinker [facility] thodist 00:00:00 00:00:00 (finding) Tobacco Comment 2019-12-31 2019-12-31 "1 cigarette here Ab dawkins [facility] 00:00:00 00:00:00 and there" per pt Smoking Status Start Date Stop Date Source Current some day smoker 2020-01-01 00:00:00 [place] [facility] Medications Ordered Filled Start Stop Current Ordering Indication Dosage Frequency Signature Comments Components Source Medication Medication Date Date Medication? Clinician (SIG) Name Name gabapentin 2020- No 290mg Q.[id number] Take 290 Stauffer (NEURONTIN) 8-16 08-16 [id number] mg by Methodi 250 mg/5 mL 16:38: 00:[address] solution 02 :00 (three) times a day. simvastatin 2019-0 Yes 20mg QD Take 20 mg Stauffer (ZOCOR) 20 8-16 by mouth Metho di mg tablet 16:37: daily. st 59 lansoprazol 2020-0 Yes 1{capsu QD Take 1 [place] e 8-16 le} capsule by Eduarda (PREVACID) 16:37: mouth st 30 MG 59 daily. capsule amLODIPine- 2020-0 Yes 1{capsu QD Take 1 [place] benazepriL 8-16 le} capsule by Met fuentes (LOTREL 16:37: mouth st 5-20) 5-20 59 daily. mg per capsule fenofibrate 2019-0 Yes 145mg QD Take 145 [place] (TRICOR) 8-16 mg by Methodi 145 MG 16:37: mouth st tablet 59 daily. LORAZepam 2020-0 Yes 1mg Q24H Take 1 mg Mychal stoque (ATIVAN) 1 8-16 by mouth Metho di MG tablet 16:37: daily as st 59 needed for anxiety. traMADoL 2020-0 Yes acute pain 50mg Q6H Take 50 mg Stauffer (ULTRAM) 50 8-16 by mouth Meth karen mg tablet 16:37: every 6 st 59 (six) hours as needed for moderate pain or severe pain .acute pain. hydrOXYzine 2020-0 Yes 25mg Q.[id number] Take 25 mg Stauffer (ATARAX) 25 8-16 [id number] by mouth 3 Methodi MG tablet 16:37: 3D (three) st 59 times a day as needed for itching, allergies or anxiety. MELATONIN 2020-0 Yes 1{tbl} QD Take 1 [place] ORAL 8-16 tablet by Methodi 16:37: mouth st 59 nightly. ascorbic 2020-0 Yes 1{tbl} Q.5D Take 1 [place] acid 8-16 tablet by Methodi (VITAMIN C 16:37: mouth 2 st ORAL) 59 (two) times a day. BETA 2020-0 Yes 1{capsu QD Take 1 [facility] CAROTENE 8-16 le} capsule by Metho di ORAL 16:37: mouth st 59 daily. gabapentin 2020-0 2020- Yes 600mg Q.[id number] Take 12 mL Stauffer (NEURONTIN) -16 - [id number] (600 mg Methodi 250 mg/5 mL 00:00: 23:59 3D total) by st solution 00 :00 mouth 3 (three) times a day for 60 days. acetylcyste 2020-0 2020- Yes 4mL Q.5D Take 4 mL Stauffer ine 01-01 by Methodi (MUCOMYST) 00:00: 23:[address] 200 mg/mL 00 :00 on every (20 %) 12 nebulizer (twelve) solution hours for 60 days. budesonide 2020-0 2020- Yes ALS .5mg Q.5D Take 2 mL [place] (PULMICORT) 01-01-14 (amyotrophi (0.5 mg Methodi 0.5 mg/2 mL 00:00: 23:59 c lateral total) by st nebulizer 00 :00 sclerosis) nebulizati solution (HCC) on 2 (two) times a day for 60 days. ipratropium 2020-0 2020- Yes 3mL Q.[id number] Take 3 mL Stauffer -albuteroL -03 03- [id number] by Or thodi (DUO-NEB) 00:00: 23:59 3D nebulizati s t 0.5-2.5 00 :00 on every 6 mg/3 mL (six) nebulizer hours while awake for 60 days. guaiFENesin 2019-2019- Yes 200mg Q6H Take 10 mL Stauffer (ROBITUSSIN 01-01 (200 mg Meth karen ) 100 mg/5 00:00: 23:59 total) by s t mL syrup 00 :00 mouth every 6 (six) hours as needed for cough or congestion for up to 30 days. ondansetron 2019- Yes 4mg Q8H Take 1 Mychal ston ODT 01-01 tablet (4 Methodi (ZOFRAN-ODT 00:00: 23:59 mg total) st ) 4 MG 00 :00 by mouth disintegrat every 8 ing tablet (eight) hours as needed for nausea or vomiting for up to 30 days. polyethylen 2019-2019- Yes 17g QD Take 17 g Stauffer e glycol 01-01 by mouth Method i (MIRALAX) 00:00: 23:[address] 17 gram 00 :00 30 days. packet sennosides- 2019- Yes 1{tbl} Q.5D Take 1 [place] docusate 01-01 tablet by Metho di sodium 00:00: 23:[address] (SENOKOT-S) 00 :00 (two) 8.6-50 mg times a per tablet day as needed for constipati on for up to 30 days. phenylephri 2019-2019- Yes .0101g Q.5D Insert 1 [place] ne-mineral 01-01 applicatio Me thodi oil-petrola 00:00: 23:59 n (0.0101 st ricardo 00 :00 g total) (Preparatio into the n H) rectum 2 0.25-14-74. (two) 9 % times a ointment day as needed (hemorrhoi ds) for up to 14 days. bisacodyL 2019-2019- Yes 10mg Q24H Insert 1 Mychal ston (DULCOLAX) 01-01 suppositor Me thodi 10 mg 00:00: 23:59 y ([address] suppository 00 :00 total) into the rectum daily as needed for constipati on for up to 7 days. levoFLOXaci 2019- 2020- Yes 750mg QD Take 1 Ab dawkins n 01-01-17 tablet Methodi (Levaquin) 00:00: 23:59 ([address] 750 MG 00 :00 total) by tablet mouth daily for 2 days. traMADoL 2019- No acute pain 50mg Take 50 mg Stauffer (ULTRAM) 50 12-30 by mouth Met hodi mg tablet 16:35: 00:[address] 55 :00 for moderate pain .acute pain. FENOFIBRATE 2019- No 145mg Take 145 Stauffer ORAL 12-24- mg by Methodi 14:48: 00:[address] 07 :00 amlodipine 2019-0 2020- No QD Take by Mychal luna besylate 12-24- mouth Methodi (AMLODIPINE 14:29: 00:[address] ORAL) 50 :00 albuterol 2019- No Chronic 2.5mg Q6H Take 3 mL Stauffer (ACCUNEB) 11-27 midline low (2.5 mg Methodi 2.5 mg /3 00:00: 00:00 back pain total) by st mL (0.083 00 :00 without nebulizati %) sciatica on every 6 nebulizer (six) solution hours as needed for wheezing for up to 30 days. methocarbam 2019- No 500mg Q.5D Take 1 Ab dawkins oL 11-26 tablet Methodi (ROBAXIN) 00:00: 23:59 ([address] 500 MG 00 :00 total) by tablet mouth 2 (two) times a day for 10 days. methylPREDN 2019-2019- No follow Mychal luna ISolone 11-2616 package Methodi (MEDROL 00:00: 23:[address] DOSEPAK) 4 00 :00 mg tablet gabapentin 2019- No 300mg Q.[id number] Take 300 [place] 300 mg/6 mL 09-27 [id number] mg by Methodi (6 mL) 00:00: 00:[address] solution 00 :00 (three) times a day. gabapentin 2019-2019- No 300mg Q.[id number] Take 1 Stauffer (NEURONTIN) 09-27 [id number] capsule Methodi 300 mg 00:00: 00:00 3D ([address] capsule 00 :00 total) by mouth 3 (three) times a day. riluzole 2019- No ALS 50mg Q12H Take 1 Jake n (RILUTEK) 3-05 03-05 (amyotrophi tablet (50 Methodi 50 mg 00:00: 23:59 c lateral mg total) s t tablet 00 :00 sclerosis) by mouth (HCC) every 12 (twelve) hours. cholecalcif 2019-0 Yes 2000U QD Chew 2,000 Stauffer kain, 3-04 Units Methodi vitamin D3, 00:00: daily. st 2,000 unit 00 tablet,chew able ergocalcife 2019-0 2019- No 70308D Q7D Take [facility] 07-21 04-09 capsule Methodi (VITAMIN 00:00: 23:59 (50,000 st D2) 50,000 00 :00 Units unit total) by capsule mouth once a week for 6 doses. Vital Signs Vital Name Observation Time Observation Value Comments Source Systolic blood 2020-01-03 16:00:00 136 mm[Hg] Evyto n [facility] pressure Diastolic blood 2020-01-03 16:00:00 66 mm[Hg] [place] on [facility] pressure Heart rate 2020-01-03 16:00:00 104 /min Eh Meade Respiratory rate 2020-01-03 16:00:00 40 /min Evy Me[place] Oxygen saturation in 2020-01-03 16:00:00 99 /min Eh [place] Arterial blood by Pulse oximetry Body temperature 2020-01-03 12:11:59 37.11 [place] Evy Meade Body height 2019-12-26 11:00:00 160 cm Eh Meade Body weight 2019-12-26 11:00:00 64.547 kg Eh Meade BMI 2019-12-26 11:00:00 25.21 kg/m2 Eh Meade Procedures Procedure Date / Time Performing Source Performed Clinician POC GLUCOSE 2020-01-03 Jaycee Cabrera 12:13:00 Evangel[facility] POC GLUCOSE 2020-01-03 Jaycee Cabrera 08:11:00 [facility] POC GLUCOSE 2020-01-03 Jaycee Cabrera 05:09:00 [facility] POC GLUCOSE 2020-01-03 [facility] POC GLUCOSE 2020-01-02 [facility] 20:27[facility] XR CHEST 1 VW PORTABLE 2020-01-02 Alex Lechuga [place] 12:47:46 Evangel[facility] POC [facility]COSE 2020[facility]01-02 [facility] 11:53[facility]00 Evangel[facility] POC [facility]COSE 2020[facility]01-02 [facility] 08:26:[facility] Evangel[facility] POC [facility]COSE 2020[facility]01-02 [facility] 06:[facility]:00 Evangel[facility] BASIC METABOLIC PANEL 2020-01-02 [facility] 04:00:00 Lacho [place]ade ESTIMATED GFR 2020-01-02 [facility] 04:00:00 Lacho [facility] HC COMPLETE BLD COUNT W/AUTO DIFF 2020-01-02 [facility] 03:50:00 Lacho Evangel[facility] POC GLUCOSE 2020-01-02 [facility] 01:53:00 Evangel[facility] POC GLUCOSE 2020-01-01 [facility] 21:26:00 Evangel[facility] POC GLUCOSE 2020-01-01 [facility] 16:52:00 Evangel[facility] POC GLUCOSE 2020-01-01 [facility] 12:38:00 Evangel[facility] POC GLUCOSE 2020-01-01 [facility] 08:47:00 Evangel[facility] POC GLUCOSE 2020-01-01 [facility] 05:16:00 Evangel[facility] PHOSPHORUS LEVEL 2020-01-01 [facility] 03:34:00 Lacho Evangel[facility] MAGNESIUM LEVEL 2020-01-01 [facility] 03:34:00 Lacho [facility] BASIC METABOLIC PANEL 2020-01-01 [facility] 03:34:00 Lacho Evangelical ESTIMATED GFR 2020-01-01 [facility] 03:34:00 Lacho [facility] CBC HEMOGRAM 2020-01-01 [facility] 03:34:00 Lacho [facility] POC GLUCOSE 2020-01-01 [facility] 01:12:00 Evangel[facility] POC GLUCOSE 2019-12-[address] [facility] 20:15:00 Evangelical POC GLUCOSE 2019-12-31 [facility] 17:28:00 Evangel[facility] ESOPHAGOGASTRODUODENOSCOPY (EGD) 2019-12-31 Juarez Herr V. [place] 15:11:00 Evangel[facility] POC GLUCOSE 2019-12-31 [facility] [place] 12:11:00 Jeff [facility] POC GLUCOSE 2019-12-31 [facility] [place] 08:14:00 Jeff [facility] POC GLUCOSE 2019-12-31 [facility] 05:19:00 Jeff [facility] MAGNESIUM LEVEL 2019-12-[address] [facility] 05:12:00 Evangel[facility] COMPREHENSIVE METABOLIC PANEL 2019-12-31 [facility] 05:12:00 Evangel[facility] PHOSPHORUS LEVEL 2019-12-31 [facility] 05:12:00 Evangel[facility] ESTIMATED GFR 2019-12-31 [facility] 05:12:00 Evangel[facility] POC GLUCOSE 2019-12-31 Hernan Jurado [place] 00:50:00 Jeff [facility] POC GLUCOSE 2019-12-30 [facility] [place] 21:14:00 Jeff [facility] POC GLUCOSE 2019-12-30 [facility] 16:27:00 Jeff [facility] POC GLUCOSE 2019-12-30 [facility] [place] 12:11:00 Jeff [facility] COVID-19 QUALITATIVE PCR 2019-12-30 Pepe Lopez stoque 09:35:00 Evangel[facility] POC GLUCOSE 2019-12-30 [facility] [place] 07:55:00 Jeff [facility] PHOSPHORUS LEVEL 2019-12-30 [facility] 06:15:00 [facility] MAGNESIUM LEVEL 2019-12-30 [facility] 06:15:00 [facility] HC COMPLETE BLD COUNT W/AUTO DIFF 2019-12-30 [facility] [place] 06:15:00 Jeff [facility] BASIC METABOLIC PANEL 2019-12-30 [facility] [place] 06:15:00 Jeff [facility] ESTIMATED GFR 2019-12-30 Hernan Jurado [place] 06:15:00 Jeff [facility] POC GLUCOSE 2019-12-30 Adrien [facility] 05:23:00 Jeff [facility] POC GLUCOSE 2019-12-30 Hernan Jurado [place] 02:29:00 Jeff [facility] POC GLUCOSE 2019-12-29 Hernan Jurado [place] 21:01:00 Jeff [facility] POC GLUCOSE 2019-12-29 Hernan Jurado [place] 17:39:00 Jeff [facility] POC GLUCOSE 2019-12-29 McCHernan torres [place] 11:44:00 Jeff [facility] POC GLUCOSE 2019-12-29 Hernan Jurado [place] 08:09:00 Jeff [facility] POC GLUCOSE 2019-12-29 Hernan Jurado [place] 03:55:00 Jeff [facility] HC COMPLETE BLD COUNT W/AUTO DIFF 2019-12-29 CastleJimenez [place] 03:38:00 [facility] BASIC METABOLIC PANEL 2019-12-29 Castle, Lucena [place] 03:38:00 Evangel[facility] PHOSPHORUS LEVEL 2019-12-29 Joglekar, [facility] 03:38:00 Evangel[facility] MAGNESIUM LEVEL 2019-12-29 [facility] 03:38:00 Evangelical ESTIMATED GFR 2019-12-29 Joglar, [facility] 03:38:00 Evangelical POC GLUCOSE 2019-12-28 Hernan Jurado [place] 23:54:00 Jeff [facility] POC GLUCOSE 2019-12-28 Hernan Jurado [place] 19:26:00 Jeff [facility] POC GLUCOSE 2019-12-28 Hernan Jurado [place] 17:56:00 Jeff [facility] POC GLUCOSE 2019-12-28 Hernan Jurado [place] 16:34:00 Jeff [facility] POC GLUCOSE 2019-12-28 Hernan Jurado [place] 12:14:00 Jeff [facility] POC GLUCOSE 2019-12-[address] [facility] 03:31:00 Evangelical HC COMPLETE BLD COUNT W/AUTO DIFF 2019-12-28 CastleJimenez [place] 03:09:00 Evangel[facility] BASIC METABOLIC PANEL 2019-12-[address] [facility] 03:09:00 Evangelical TRIGLYCERIDES 2019-12-28 Joglar, [facility] 03:09:00 Evangelical PHOSPHORUS LEVEL 2019-12-28 Joglar, [facility] 03:09:00 Evangelical MAGNESIUM LEVEL 2019-12-28 Joglbanner, [facility] 03:09:00 Evangelical ESTIMATED GFR 2019-12-28 [facility] 03:09:00 Evangelical POC GLUCOSE 2019-12-27 [facility] 23:21:00 Evangelical POC GLUCOSE 2019-12-27 [facility] 20:26:00 Evangelical POC GLUCOSE 2019-12-27 [facility] 16:17:00 Evangelical POC GLUCOSE 2019-12-27 [facility] 11:51:00 Evangelical POC GLUCOSE 2019-12-27 Jumana Brambilakha [place] 08:03:00 Hardy [facility] HC COMPLETE BLD COUNT W/AUTO DIFF 2019-12-27 CastleJimenez [place] 05:20:00 Evangel[facility] BASIC METABOLIC PANEL 2019-12-27 CastleMaximo [place] 04:00:00 Evangelical ESTIMATED GFR 2019-12-27 CastleMaximo [place] 04:00:00 Evangelical POC GLUCOSE 2019-12-26 PattyJumanaSandhya [place] 21:23:00 Hardy [facility] POC GLUCOSE 2019-12-26 PattyJumanaSandhya [place] 10:09:00 Hardy [facility] US DUPLEX VENOUS LOWER EXTREMITY 2019-12-26 [facility] ryim [place] BILATERAL 09:15:00 Evangel[facility] BASIC METABOLIC PANEL 2019-12-26 PattyJumanaSandhya [place] 01:11:00 Hardy [facility] CBC HEMOGRAM 2019-12-26 Sandhya Brambila [place] 01:11:00 Hardy [facility] ESTIMATED GFR 2019-12-26 PattyJumanaSandhya [place] 01:11:00 Hardy [facility] ARTERIAL BLOOD GAS 2019-12-25 , [facility] 20:58:00 Pentecostalism [facility] XR CHEST 1 VW PORTABLE 2019-12-25, [facility] 14:36:[address] CHEST WO CONTRAST 2019-12-25 , [facility] 13:39:26 [facility] BLOOD CULTURE, AEROBIC & ANAEROBIC 2019-12-25, [facility] 13:20:00 [facility] COVID-19 QUALITATIVE PCR 2019-12-25, [facility] 13:10:00 [facility] HC COMPLETE BLD COUNT W/AUTO DIFF 2019-12-25, [facility] 13:10:00 [facility] PROTHROMBIN TIME WITH INR 2019-12-25, [place]- [place] 13:10:00 [facility] PARTIAL THROMBOPLASTIN TIME (PTT) 2019-12-25, n-[facility] 13:10:00 Jan Meade COMPREHENSIVE METABOLIC PANEL 2019-12-25, Yen- [place] 13:10:00 Pentecostalismchris Meade TROPONIN 2019-12-25, n-[facility] 13:10:00 Pentecostalismchris Meade B NATRIURETIC PEPTIDE 2019-12-25, n-[facility] 13:10:00 Jan Meade ESTIMATED GFR 2019-12-25, n-[facility] 13:10:00 [facility] ARTERIAL BLOOD GAS 2019-12-25, n-[facility] 13:10:00 Jan [place]ade SMEAR REVIEW 2019-12-25, n-[facility] 13:10:00 Jan Meade NM CRITICAL CARE, E/M 30-74 2019-12-25, [facility] ton MINUTES 13:02:38 Jan Meade ECG ED PRELIMINARY INTERPRETATION 2019-12-25, [facility] 13:02:38 [facility] ECG 12-LEAD 2019-12-25, [facility] 12:59:17 Jan Meade TTE COMPLETE, WO CONTRAST, W 2019-11-28 [facility] DOPPLER ([id number]) 12:00:00 Jessie Meade TROPONIN 2019-11-28 [facility] 06:00:00 Jessie Meade MRI BRAIN WO CONTRAST 2019-11-28 [facility] 05:05:00 Imbill Meade COVID-19 QUALITATIVE PCR 2019-11-28 [facility] 00:30:00 René Meade XR CHEST 1 VW PORTABLE 2019-11-28 [facility] 00:05:[address] ANGIOGRAM PE CHEST 2019-11-27 [facility] 23:57:35 René Meade B NATRIURETIC PEPTIDE 2019-11-27 [facility] 23:35:00 René Meade TROPONIN 2019-11-27 [facility] 23:35:00 Jessie Meade VENOUS BLOOD GAS 2019-11-27 Edson Patel 23:35:[address] LUMBAR SPINE WO CONTRAST 2019-11-27 Edson Patel ton 22:15:55 René Meade NM CRITICAL CARE, E/M 30-74 2019-11-27 Edson Patel ton MINUTES 19:53:06 René Meade URINE CULTURE 2019-11-27 Edson Patel 19:45:00 René Meade URINALYSIS SCREEN AND MICROSCOPY, 2019-11-27 Edson Patel St[facility]ffer WITH REFLEX TO CULTURE 19:45:00 René Meade HC COMPLETE BLD COUNT W/AUTO DIFF 2019-11-27 Edson Patel [facility] 19:35:00 René Meade COMPREHENSIVE METABOLIC PANEL 2019-11-27 Edson Patel 19:35:00 René Meade ESTIMATED GFR 2019-11-27 Edson Patel [facility] 19:35:00 René Meade SPIROMETRY, MIPS/MEPS 2019-10-28 LilianaAdelina Stauffer 08:19:05 Abdullahi Meade HC COMPLETE BLD COUNT W/AUTO DIFF 2019-10-28 Liliana Adelina [facility] 08:14:00 Abdullahi Meade CREATINE KINASE, TOTAL (CPK) 2019-10-28 LilianaAdelina ston 08:14:00 Abdullahi Meade BASIC METABOLIC PANEL 2019-10-28 Liliana Adelina Eh 08:14:00 Abdullahi Meade HEPATIC FUNCTION PANEL 2019-10-28 Liliana Adelina Stauffer 08:14:00 Abdullahi Meade ESTIMATED GFR 2019-10-28 LilianaAdelina Stauffer 08:14:[address] CHEST W CONTRAST ABDOMEN W WO 2019-07-23 Deirdre Burton CONTRAST PELVIS W CONTRAST 12:18:16 Metho dist HERPES SIMPLEX VIRUS BY PCR 2019-07-22 Adelina Ford ton 12:03:00 Abdullahi Meade MALCOM CASH VIRUS (EBV) BY PCR 2019-07-22 Adelina Ford 12:03:00 Abdullahi Meade ENTEROVIRUS BY PCR 2019-07-22 Adelina Ford 12:03:00 Abdullahi Meade [place] VIRUS BY PCR, CSF 2019-07-22 Adelina Ford ton 12:03:00 [facility] FLOW CYTOMETRY EVALUATION 2019-07-22 Adelina Fordto n 12:03:00 Portan Meade CYTOLOGY (NON-GYNECOLOGICAL) 2019-07-22 Adelina Ford Mychal ston REQUEST 11:44:00 Portan [facility] MISCELLANEOUS REFERRAL TEST 2019-07-22 Adelina Ford ton 08:44:00 [facility] CSF CULTURE 2019-07-21 Adelina Ford [facility] 18:04:00 [facility] GRAM STAIN 2019-07-21 FordAdelina cruz [facility]ffer 18:04:00 [facility] ANGIOTENSIN CONVERTING ENZYME, CSF 2019-07-21 FordKd cruz Stauffer 18:04:00 [facility] VDRL, CSF SCREEN 2019-07-21 Adelina Ford [facility] 18:04:00 [facility] MYELIN BASIC PROTEIN 2019-07-21 FordAdelina cruz Stauffer 18:04:00 [facility] IGG SYNTHESIS RATE STUDY 2019-07-21 Adelina Ford Stauffer 18:04:00 [facility] GLUCOSE LEVEL, CSF 2019-07-21 FordAdelina cruz Stauffer 18:04:00 [facility] CSF CELL COUNT WITH DIFFERENTIAL 2019-07-21 Adelina Ford Stauffer 18:04:00 Abdullahi Meade OLIGOCLONAL BANDING, CSF 2019-07-21 Adelina Ford Stauffer 18:04:00 [facility] MISCELLANEOUS REFERRAL TEST 2019-07-21 FordAdelina cruz ton 17:04:00 Abdullahi Meade IR LUMBAR PUNCTURE 2019-07-21 LilianaAdelina Stauffer 16:09:40 [facility] EMG 2019-07-21 LilianaAdelina Stauffer 11:05:51 [facility] SPIROMETRY, MIPS/MEPS 2019-07-21 FordAdelina cruz Stauffer 08:43:41 [facility] VITAMIN B12 LEVEL 2019-07-21 LilianaAdelina Stauffer 06:49:00 [facility] VITAMIN D 25 HYDROXY LEVEL 2019-07-21 Liliana Adelina Evyt on 06:49:00 [facility] PROTHROMBIN TIME WITH INR 2019-07-21 Adelina Ford n 06:49:00 Abdullahi Meade RHEUMATOID FACTOR 2019-07-21 Adelina Ford 06:49:00 Abdullahi Meade SEDIMENTATION RATE 2019-07-21 Adelina Ford 06:49:00 Abdullahi Meade SERUM ELECTROPHORESIS 2019-07-21 Adelina Ford 06:49:00 Abdullahi Meade PARATHYROID HORMONE 2019-07-21 Adelina Ford Stauffer 06:49:00 Abdullahi Meade HTLV I/II AB WITH REFLEX TO 2019-07-21 Adelina Ford ton CONFIRMATION 06:49:00 Abdullahi Meade GM1 AB PANEL 2019-07-21 Adelina Ford Stauffer 06:49:00 Abdullahi Meade C-REACTIVE PROTEIN 2019-07-21 Adelina Ford 06:49:00 Abdullahi Meade CREATINE KINASE, TOTAL (CPK) 2019-07-21 Adelina Fordu ston 06:49:00 Abdullahi Meade HC COMPLETE BLD COUNT W/AUTO DIFF 2019-07-21 Adelina Ford 06:49:00 Abdullahi Meade BASIC METABOLIC PANEL 2019-07-21 Adelina Ford 06:49:00 Abdullahi Meade SANDRA 2019-07-21 Adelina Ford 06:49:00 Abdullahi Meade ACETYLCHOLINE RECEPTOR BINDING AB 2019-07-21 Adelina Ford 06:49:00 Abdullahi Meade ESTIMATED GFR 2019-07-21 Adelina Ford Stauffer 06:49:00 Abdullahi Meade COMPREHENSIVE METABOLIC PANEL 2019-07-21 Adelina Ford ust[place] 06:49:00 Abdullahi Meade Plan of Care Planned Activity Planned Date Details Comments Source Future Scheduled 2022-07-21 Screening for Eh [facility] 00:00:00 malignant neoplasm of cervix (procedure) [code = 803034552] Future Scheduled 2020-01-19 INFLUENZA VACCINE [facility] 00:00:00 [code = INFLUENZA VACCINE] Future Scheduled 2019 65+ PNEUMOCOCCAL [place] [facility] 00:00:00 VACCINE (1 of 2 - PCV13) [code = 65+ PNEUMOCOCCAL VACCINE (1 of 2 - PCV13)] Future Scheduled 2004-01-10 BREAST CANCER [place] [facility] 00:00:00 SCREENING [code = BREAST CANCER SCREENING] Future Scheduled 2004-01-10 COLONOSCOPY SCREENING Ho juancho [facility] 00:00:00 [code = COLONOSCOPY SCREENING] Future Scheduled 2004-01-10 SHINGLES VACCINES (#1) Nikki ibanez [facility] 00:00:00 [code = SHINGLES VACCINES (#1)] Encounters Start End Encounter Admission Attending Care Care Encounter Source Date/Time Date/Time Type Type Clinicians Facility Department ID 2019-12-25 2020-01-03 Inpatient DEBORAH, [facility] [id number] [place] 00:00:00 00:00:00 JAYCEE 622 [facility] i 2019-11-27 2019-11-28 Outpatient DEBORAH, [facility] [id number] [place] 00:00:00 00:00:00 JAYCEE [address] 2019-10-28 2019-10-28 Outpatient LILIANA, [facility] [id number] [place] 00:00:00 00:00:00 ADELINA [address] 2019-10-28 2019-10-28 Outpatient FORD, [facility] [id number] [place] 00:00:00 00:00:00 ADELINA [address] 2019-09-28 2019-09-28 Outpatient FORD, [facility] [id number] 267 [place] 00:00:00 00:00:00 ADELINA [address] 2019-07-23 2019-07-23 Outpatient FORD, [facility] [id number] 559 [place] 00:00:00 00:00:00 ADELINA [address] 2019-07-23 2019-07-23 Outpatient FORD, [facility] [id number] 910 [place] 00:00:00 00:00:00 ADELINA [address] 2019-07-22 2019-07-22 Outpatient FORD, [facility] [id number] 559 [place] 00:00:00 00:00:00 ADELINA [address] 2019-07-21 2019-07-21 Outpatient FORD, [facility] [id number] 557 [place] 00:00:00 00:00:00 ADELINA [address] 2019-07-21 2019-07-21 Outpatient FORD, [facility] [id number] [place] 00:00:00 00:00:00 ADELINA [address] 2019-07-21 2019-07-21 Outpatient LILIANA, [facility] [id number] 795 [place] 00:00:00 00:00:00 ADELINA [address] 2019-07-21 2019-07-21 Outpatient LILIANA, [facility] [id number] 561 [place] 00:00:00 00:00:00 ADELINA [address] Results Test Description Test Time Test Comments Results Result Comments Source POC glucose 2020-01-03 12:14:00 Test Item Value Reference Range Interpretation Comme nts POC glucose (test code = 146 mg/dL 65-99 H Ope rator Name: Raad Mazariegos [id number]) Fosterice ID: [id number] able: [facility] Notified vending machine attendant Interpretation (test code = Abnormal 39818-5) [place] MethodistXR Chest 1 Vw [id number] 12:54:50Hm Interface, Radiology Results 01/02/2020 12:57 PM CDTEXAMINATION: XR CHEST 1 VW PORTABLECLINICAL HISTORY: Shortness of breathCOMPARISON: Single view chest from 12/25/2019IMPRESSION:An AP radiograph of the chest was submitted for interpretation.Vague airspace disease is again seen within both lung bases and may have slightly improved when compared to priors examination.Mild pulmonary vascular congestion.No new focal areas of consolidation.No pneumothorax. No pleural effusion.The mediastinal contours and cardiac silhouette are unchanged.Osteopenia. [facility]-[id number] MethodistBasic metabolic panel 2020-01-02 06:31:28 Test Item Value Reference Range Interpretation Comments Sodium (test code = 2951-2) 144 135- 148 mEq/L Potassium (test code = 2823-3) 4.0 3.5- 5.0 mEq/L Chloride (test code = 2075-0) 102 98- 112 mEq/L CO2 (test code = 2027-9) 26 24- 31 mEq/L Anion gap (test code = 69147-4) 16@ANIO 7- 15 mEq/L H BUN (test code = 3094-0) 18 mg/dL 8-23 Creatinine (test code = 2160-0) 0.29 mg/dL 0.5-0.9 L Glucose (test code = 2345-7) 123 mg/dL 65-99 H Calcium (test code = 20078-4) 10.1 mg/dL 8.8-10.2 Lab Interpretation (test code = Abnormal 06786-7) Eh MethodistEstimated [id number] 06:31:28 Test Item Value Reference Range Interpretation Comments Estimated GFR (test >=90 mL/min/1.73 m2 Melissa morales Units code = 5488) InterpretationG 1 >=90 Normal or highG2 60-89 Mildly utkccbirbU6i 45-59 Mildly to mode rately vctiydmxfY4f 30-44 Moderately to severely decreasedG4 15-29 Severely decre asedG5 <15 Kidn ey failureThe eGFR was calculated jojo jerome the Chronic Kidney Disease Epidemiology Co llaboration (CKD-EPI) equat ion. Interpretation is based on recommendations of the National Kidney Foundation-Kidn ey Disease Outcomes Qualit y Initiative (NKF-KDOQI) pub lished in 2014. Eh MethodistCBC with platelet and dgbwoqjfjkzl2475-60-15 05:21:26 Test Item Value Reference Range Interpretation Comments WBC (test code = 59985-8) 6.04 4.50- 11.00 k/uL RBC (test code = 41221-2) 4.00 m/uL 4.2-5.5 L HGB (test code = 718-7) 11.6 g/dL 12-16 L HCT (test code = 4544-3) 36.2 % 37-47 L MCV (test code = 787-2) 90.5 fL 82-100 MCH (test code = 785-6) 29.0 pg 27-34 MCHC (test code = 786-4) 32.0 g/dL 31-37 RDW - SD (test code = 42.0 fL 37-55 45116-5) MPV (test code = 72490-2) 10.8 fL 8.8-13.2 Platelet count (test code 303 150- 400 k/uL = 67534-1) Nucleated RBC (test code 0.00 /100 WBC = 85357-0) Neutrophils (test code = 47.7 % 39-69 28172-4) Lymphocytes (test code = 38.4 % 25-45 97452-0) Monocytes (test code = 7.8 % 0-10 10515-3) Eosinophils (test code = 5.3 % 0-5 H 47784-3) Basophils (test code = 0.3 % 0-1 22942-5) Immature granulocytes 0.5 % 0-1 "Immat ure (test code = 80747-2) granul ocytes" (promyelocytes, myelocytes, metamyelocytes) Lab Interpretation (test Abnormal code = 62057-6) Stauffer MethodistMagnesium vnpii4647-89-01 04:41:00 Test Item Value Reference Range Interpretation Comments Magnesium (test code = 93273-6) 1.9 mg/dL 1.6-2.4 [place] MethodistPhosphorus ceqeq6417-83-11 04:40:59 Test Item Value Reference Range Interpretation Comments Phosphorus (test code = 2777-1) 3.9 mg/dL 2.4-4.5 [place] MethodistCBC xjzshowf4133-08-25 04:14:33 Test Item Value Reference Range Interpretation Comments WBC (test code = 87061-8) 7.63 4.50- 11.00 k/uL RBC (test code = 99914-1) 3.77 m/uL 4.2-5.5 L HGB (test code = 718-7) 11.0 g/dL 12-16 L HCT (test code = 4544-3) 33.8 % 37-47 L MCV (test code = 787-2) 89.7 fL 82-100 MCH (test code = 785-6) 29.2 pg 27-34 MCHC (test code = 786-4) 32.5 g/dL 31-37 RDW - SD (test code = 23535-8) 41.8 fL 37-55 MPV (test code = 93887-2) 9.9 fL 8.8-13.2 Platelet count (test code = 291 150- 400 k/uL 16372-7) Nucleated RBC (test code = 0.00 /100 WBC 09891-2) Lab Interpretation (test code = Abnormal 03684-3) [place] MethodistComprehensive metabolic zbgzj3551-10-00 05:58:13 Test Item Value Reference Range Interpretation Comments Sodium (test code = 141 135- 148 mEq/L 2951-2) Potassium (test code = 4.1 3.5- 5.0 mEq/L 2823-3) Chloride (test code = 103 98- 112 mEq/L 2075-0) CO2 (test code = 2027-9) 26 24- 31 mEq/L Anion gap (test code = 12@ANIO 7- 15 mEq/L 63424-3) BUN (test code = 3094-0) 12 mg/dL 8-23 Creatinine (test code = 0.38 mg/dL 0.5-0.9 L 2160-0) Glucose (test code = 111 mg/dL 65-99 H 2345-7) Calcium (test code = 9.8 mg/dL 8.8-10.2 97315-9) Protein (test code = 5.9 g/dL 6.3-8.3 L -[place] n 2885-2) 4.6-7.0 g/dL1 week 4.4-7 .6 g/dL7 months-1y ear 5.1-7 .3 g/dL1-2 years 5.6-7 .5 g/dL>3 years 6.0-8 .0 g/oE56-929 6.3-8 .3 g/dL Albumin (test code = 2.9 g/dL 3.5-5 L 1751-7) A/G ratio (test code = 1.0 0.7-3.8 1759-0) Alkaline phosphatase 59 U/L 35-104 (test code = 6768-6) AST (test code = 1920-8) 24 U/L 10-35 ALT (test code = 1742-6) 31 U/L 5-50 Total bilirubin (test <0.2 0-1.2 code = 1975-2) Lab Interpretation (test Abnormal code = 63175-5) [place] MethodistBlood culture, aerobic & tusbpqlwe9667-98-95 17:03:04 Test Item Value Reference Range Interpretation Comments Blood culture No growth Specimen isolate (test after 5 days InformationSpe cimen code = 600-7) of Source: BloodS pecimen incubation. Site: Forearm, right [place] MethodistCOVID-19 qualitative [id number] 13:59:20 Test Item Value Reference Range Interpretation Comments Interpretation (test Negative results do code = 0019659) not preclude 2019-nCoV infection and should not be used as the sole basis for treatment or other patient management decisions. Negative results must be combined with clinical observations, patient history, and epidemiological information. COVID-19 qualitative Not-Detected Not-Detected PCR result (test code = 73044-7) COVID-19 qualitative See link below for C ase Number: PCR (test code = PDF Lab Report [id number]) [place] NkjzcwjdmZlyjybcdbevit8057-52-30 05:24:48 Test Item Value Reference Range Interpretation Comments Triglycerides (test code = 2571-8) 306 mg/dL <150 H Lab Interpretation (test code = Abnormal 99777-0) [place] MethodistUs duplex venous lower jqpiuparo1447-53-41 16:17:00Interface, Radiology Results In - 12/26/2019 4:18 PM CDT Vascular Ultrasound Laboratory Lower Extremity Venous [id number] [id number] Pat.Name: PARVIN COVINGTON.ID: [id number] St.Date: 12/26/2019 Refer.MD: PHYSICIAN, EMERGENCY, MDExam Time: 8:43:00 AM Study Type:LE Venous Weight: 145lb Age: 8 1955,64Y Sex: FEMALE Sonogrphr: Светлана Melo RVT Pat. Stat.:Outpatient Room: [address] Vol: RF, CPT - 4: 19237 Echo Event ID:[id number] Order ID: [id number] Reason for Study:Bilateral leg swelling. 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 Procedures:Colorflow, Grayscale/2D, Power Doppler Imaging SUMMARY: Deep Veins Superficial Veins* Normal Reflux Criteria: < 1 second * Normal RefluxCriteria: < 0.5 seconds * Abnormal Reflux Criteria: > or equal to 1 second * Abnormal RefluxCriteria: > or equal to 0.5 seconds DUPLEX SCAN OBSERVATIONS Deep Veins Superficial Veins Right Left Right Left GSV (prox) Normal NormalCFV NormalNormal (above knee)Femoral Normal Normal GSV (dist) Normal NormalProfunda Normal Normal (below knee)Popliteal Normal NormalPT (prox) Normal Normal SSV Not Visualized Not VisualizedPT (dist) Normal Normal Peroneal Not Visualized Not Visualized Gastrocs Normal NormalRIGHT: There is normal compressibility with no evidence of echogenicmaterial noted within the lumen of the visualized veins. Colorflow andDoppler signals are normal. LEFT: There is normal compressibility with no evidence of echogenicmaterial noted within the lumen of the visualized veins. Colorflow andDoppler signals are normal. PRELIMINARY FINDINGS:1. Normal venous duplex exam of the visualized veins. PHYSICIAN INTERPRETATION: Venous examination of the both lower extremities demonstrated noevidence of venous thrombosis in the visualized veins. Normalcompressibility and augmentation of all veins visualized. FINDINGS: Signed 12/26/2019 04:17 Ok Vela MD, [facility] MethodistArterial blood [id number] 21:13:33 Test Item Value Reference Range Interpretation Comments pH, arterial (test code = 2744-1) 7.44 7.35-7.45 pCO2, arterial (test code = 41 35- 45 mmHg 2018-12) pO2, arterial (test code = 121 80- 90 mmHg H 3-7) Bicarbonate, arterial (test code 27.6 mmol/L - = 1960-4) Base excess, arterial (test code 4 -2 - 2 mEq-L H = 1925-7) O2 saturation, arterial (test 97 % 95-100 code = 2708-6) Lab Interpretation (test code = Abnormal 31179-9) [place] Omar 12 [id number] 17:13:41 Test Item Value Reference Range Interpretation Comments Ventricular rate (test 131 code = 253) Atrial rate (test code = 131 255) NM interval (test code = 142 266) QRSD interval (test code 88 = 260) QT interval (test code = 294 264) QTC interval (test code 434 = 265) P axis 1 (test code = 40 267) QRS axis 1 (test code = 27 268) T wave axis (test code = 25 270) EKG impression (test Sinus code = 273) tachycardia-Otherwise normal ECG-No previous ECGs available-Electronica lly Signed By Eben Cruz MD ([id number]) on 12/25/2019 5:13:39 PM Eh MeadeB natriuretic bxlpfnz8838-46-91 15:00:25 Test Item Value Reference Range Interpretation Comments BNP (test code = 90076-7) 103 pg/mL 0-100 H Lab Interpretation (test code = Abnormal 02617-7) Eh PedrazaistSmear flcyqr8812-87-55 14:28:36 Test Item Value Reference Range Interpretation Comments Platelet slide review (test code Kristina adequate = 30359-7) Anisocytosis (test code = 702-1) Moderate Spherocytes (test code = 802-9) Occasional Ovalocytes (test code = 774-0) Moderate Enlarged platelets (test code = Moderate A 22012-8) Smudge cells (test code = Few 7798-2) Reactive lymphocytes (test code Few = 733-6) Lab Interpretation (test code = Abnormal 81171-4) Eh MeadeGtftiodpvEpqgaapv2390-24-95 14:17:28 Test Item Value Reference Range Interpretation Comments Troponin (test code = 0.506 ng/mL 0-0.04 H In pat ients 70631-6) suspected of urias ving a myocardial infarction, marc ng with all other appropriate cli nical measures and ac tions including ECG a nd other diagnosti cs as appropriate, me asure Ultra TnI at 0 hrs and at 3 hrs.Myocardial infarction VERY LIKELYThe 0 hr TnI level is > 0.10 ng/mL ----- ----- ----- --Dandy cardial infarct ion LIKELYThe 0 hr TnI level is > 0.04 ng/mL and 3 hr level is increased or decreased by at least 0.020 ng/ mL ----- ----- ----- Dandy cardi al infarction V CAS UNLIKELYBoth th e 0 hr and 3 hr TnI levels <= 0.04 ng/mL(within no rmal limits) OR 0 hr is > 0.04 ng/mL and 3 hr is increased OR decreased by le ss than 0.020 ng/m L Lab Interpretation Abnormal (test code = 97640-5) [place] MethodistPartial thromboplastin time, ypgetvvne1793-04-52 14:07:44 Test Item Value Reference Range Interpretation Comments PTT (test code = 27.3 23.0- 36.0 [place] [address]-6) unfractionated heparin is61.0-112.0 se conds which corresponds to Anti-Xa0.3-0.7 U/ml. [place] MethodistProthrombin time with BIY5457-77-15 14:07:08 Test Item Value Reference Range Interpretation Comments Prothrombin time (test 14.1 11.5- 14.5 sec code = 5902-2) INR (test code = 1.1 The Interna tional 66264-9) Normalized Rati o (INR) is a therapeutic m onitoring tool for patien ts who are stable on oral anticoagulant t herapy. An INR of 2.0-3.0 is suggested for d eep vein thrombosis/pulm onary embolism. [place] MethodistCT Chest Wo Xnxdyjey6474-03-81 13:55:45Hm Interface, Radiology Results 12/25/2019 1:58 PM CDTEXAMINATION: CT CHEST WO CONTRASTCL INICAL HISTORY: 64 years Female sobTECHNIQUE: Multiple axial images of the chest were obtained without intravenous contrast. Sagittal and coronal computerized reformatted images were also obtained. CTimaging was performed with iterative reconstruction techniques and/or automated exposure control to reduce radiation dose. COMPARISON:11/27/2019IMPRESSION:Lungs and airways: There is mucus involving the trachea and right lower lobe bronchus and there is patchy airspace disease and consolidation at theright lung base. Minimal atelectatic changes are present at the left lung base. Calcified granuloma left lung base. No suspicious pulmonary nodules. Pleura: No pleural effusion or pneumothorax.Mediastinum and lymph nodes: No lymphadenopathy. Cardiovascular: The heart size is slightly enlarged. Trace pericardial fluid. The thoracic aorta is atherosclerotic without evidence of aneurysm.Upper abdomen: Status post cholecystectomy.Bones: Hypertrophic changes are present in the thoracic spine. Benign vertebral hemangioma is noted at T12. Other: None.SUMMARY:1.Right lower lobe consolidation with mucous inthe right lower lobe bronchus and to a lesser extent the trachea.2.Minimal left basilar atelectasis.3.Mild cardiomegaly.4.Status post cholecystectomy.[facility]-[id number] [facility] Preliminary Interpretation - Not an [id number] 13:02:38 Test Item Value Reference Range Interpretation Comments DIANE (test code = DIANE) Kelsie Mckeon MD 12/28/2019 11:46 [facility] Preliminary Interpretation - Not an OrderPerformed by: Kelsie Mckeon MDAuthorized by: Kelsie Mckeon MD ECG reviewed by ED Physician in the absence of a investment sales assistant: yes Previous ECG: Previous ECG: UnavailableInterpretat ion: Interpretation: abnormal Rate: ECG rate: 131 ECG rate assessment: tachycardic Rhythm: Rhythm: sinus tachycardia Ectopy: Ectopy: none QRS: QRS axis: Normal QRS intervals: NormalConduction: Conduction: normal ST segments: ST segments: Normal Lab Interpretation Abnormal (test code = 18769-3) [facility] [id number] 13:02:38Kelsie Mckeon MD 12/28/2019 11:46 PMCritical CarePerformed by: Kelsie Mckeon MDAuthorized by: Kelsie Mckeon MD Critical care provider statement: Critical care time (minutes): 35 Critical care start time: 12/25/2019 1:05 PM Critical care end time: 12/25/2019 1:40 PM Critical care time was exclusive of: Separately billable procedures and treating other patients Critical care was necessary to treat or prevent imminent or life-threatening deterioration of the following c onditions: Respiratory failure Critical care was time spent personally by me on the following activities: Development of treatment plan with patient or surrogate, discussions with consultants, evaluation of patient's response to treatment, examination of patient, interpretation of cardiac output patrick surements, obtaining history from patient or surrogate, ordering and performing treatments and interventions, ordering and review of laboratory studies, ordering and review of radiographic studies, pulse oximetry, re-evaluation of patient's condition and review of old charts Timothy 'yes' if you are taking over critical care for this patient from another provider.: Lucas Meade Transthoracic Echocardiogram Complete, (w Contrast, Strain and 3D if needed) 2019-11-28 17:09:00Interface, Radiology Results In - 11/28/2019 5:09 PM T Echocardiography Report [address] [place] [address] Pat.Name: PARVIN COVINGTON.ID: [id number].Date: 11/28/2019 Refer.MD: BRIAN DAVEY MD Exam Time: 10:29:00 AM Study Type:Routine Echo Height: 63in Weight: 145lb BSA: 1.69 m2 Age: 8 1955,64Y Sex: FEMALE BP: 142/68 HR: 91 bpm Sonogrphr: Declan segura RDCS Pat. Stat.:Inpatient Room: [facility] Study Status:Final Echo Event ID:[id number] Order ID: [id number] Reason forStudy:STROKE. Post stroke protocol. If Patient < 60 yrsold, please perform evaluation for PFO with saline agitation. Thanks.History / Clinical:Stroke Procedures: 2D Echo, Colorflow Doppler, PortableRace: SUMMARY: LV EF is normal.Estimated EF is >70%.RV systolic function is normal.LV filling pressure is normal.No significant valvular abnormalities.Estimated PA systolic pressure is appx 28 mmHg, assuming a mean RAP of5 mmHg. FINDINGS: LV: LV size is normal. [...] assuming a mean RAP of 5 mmHg. MEASUREM ENTS: 2DParasternal Long [place] Ao Rtd 3.1 cm Index 1.8 cm/m2 [...] LVOT SVi 40 ml/m2 Signed 11/28/2019 05:09 PMMichael Heaton MethodistMRI Brain Wo Yzxjtgig7567-50-79 06:43:40Hm Interface, Radiology Results 11/28/2019 6:46 AM CDTEXAMINATION: MRI BRAIN WO CONTRASTCLINICAL HISTORY: strokeCOMPARISON: NoneTECHNIQUE: Multiplanar and multisequence MRI [...] along the inner table of the frontal calvarium.Mild mucosal thickening is present in the ethmoid sinus. Minimal mucosal thickening is seenin the maxillary sinuses bilaterally. Globes are maintained bilaterally. Principal intracranial flowvoids are maintained.IMPRESSION: No acute intracranial abnormality. Mild nonspecific T2 FLAIR hyperintensities likely chronic small vessel ischemia otherwise unremarkable study.[id number] MethodistCT Angiogram Pe Cmgyt7960-94-06 00:15:49Hm Interface, Radiology Results 11/28/2019 12:18 AM CDTEXAMINATION: CT ANGIOGRAM PE CHESTCLINICAL HISTORY: 64 years Female sobTECHNIQUE: Multiple CT [...] heart is mildly enlarged. No pericardial effusion isidentified.The caliber of the ascending, transverse, and descending [...] pulmonary embolism.2.No acute abnormality identified in the chest.[facility]-[id number] MethodistVenous blood gas 2019-11-27 23:51:55 Test Item Value Reference Range Interpretation Comments pH, venous (test code = 2746-6) 7.39 7.32-7.42 pCO2, venous (test code = 2020-4) 43 45- 51 mmHg L pO2, venous (test code = 2705-2) 54 25- 40 mmHg H Base excess, venous (test code = 1 meq/L -2-2 1927-3) O2 saturation, venous (test code 85 % 40-70 H = 2711-0) Bicarbonate, venous (test code = 25.4 mmol/L 21-28 55504-5) Lab Interpretation (test code = Abnormal 98667-0) [place] MethodistUrinalysis screen and microscopy, with reflex to culture 2019-11-27 22:44:59 Test Item Value Reference Range Interpretation Comments Specimen site (test code = Catheterized 1025015) Color, UA (test code = 5778-6) Yellow Appearance, UA (test code = Hazy 5767-9) Specific gravity, UA (test code 1.019 1.001-1.035 = 5811-5) pH, UA (test code = 5803-2) 6.0 5.0-8.5 Protein, UA (test code = 1+ Negative A 72597-8) Glucose, UA (test code = Negative Negative 05584-0) Ketones, UA (test code = 2514-8) Negative Negative Bilirubin, UA (test code = Negative Negative 5770-3) Blood, UA (test code = 5794-3) Negative Negative Nitrite, UA (test code = 5802-4) Negative Negative Urobilinogen, UA (test code = 2.0 <2.0 A 96802-1) Leukocyte esterase, UA (test Negative Negative code = 5799-2) Epithelial cells, UA (test code 3 /HPF = 5787-7) WBC, UA (test code = 5821-4) 3 0- 4 /HPF RBC, UA (test code = 72176-5) 1 0- 5 /HPF Bacteria, UA (test code = Few None seen 90395-5) Yeast, UA (test code = 36862-7) None seen Yeast with pseudohyphae, UA None seen (test code = 93548-7) Hyaline casts, UA (test code = 1 /LPF 5796-8) Lab Interpretation (test code = Abnormal 93550-2) [place] MethodistCT Lumbar Spine Wo Qszkkatk0532-84-38 22:21:13Hm Interface, Radiology Results 11/27/2019 10:24 PM [...] contact on the traversing right S1 nerve root.[facility]-[id number] [facility] muwvthj2280-87-70 20:09:06 Test Item Value Reference Range Interpretation Comments Urine culture (test SEE COMMENT Bacteriu reji screen code = 1052018) negative. 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 3 g/dL ALT (test code = 1742-6) 19 U/L 5-50 AST (test code = 1920-8) 22 U/L 10-35 Lab Interpretation (test Abnormal code = 42865-8) [facility] MethodistCreatine kinase, total (CPK)2019-10-28 10:46:48 Test Item Value Reference Range Interpretation Comments Creatine kinase (test code = 2157-6) 63 U/L 26-192 [place] MethodistSpirometry, [facility]/[id number] 08:19:05 Test Item Value Reference Range Interpretation [...] Predicted (test code = 67.7 % 5368) [place] MethodistMiscellaneous referral [id number] 17:42:02 Test Item Value Reference Interpretation Comments Range Misc test ENS2 name (test code = 2566) Misc test SEE NOTE Patient ID: result [id number] Name: (test code Ginny COVINGTON Date: = 1729) 1955 Age: 64 Gender: FOrder Number: [id number] Order Number: [id number] Status: FINAL =====Encephalop athy-Autoimmune Eval, S [...] ............... ......Purkinje Cell Cytoplasmic Ab Type 1 SECURITY INCIDENT RESPONSE SPECIALIST -1, S Negative titer Reference Value : <1:240......... ............... ............... ............... ......Purkinje Cell Cytoplasmic Ab Type 2 SECURITY INCIDENT RESPONSE SPECIALIST -2, S Negative titer Reference Value : <1:240......... ............... ............... ............... ......Purkinje Cell Cytoplasmic Ab Type Tr SECURITY INCIDENT RESPONSE SPECIALIST -Tr, S Negative titer Reference Value : <1:240- - - - - - - - - - - - - - - - - - - - - - - - - - - - - - -Laboratory Not es:This test was developed a nd its performancechar acteristics determined by [facility] in a mannerconsisten t with CLIA requirements. T his test has not beencleared or approved by the U.S. Food a nd DrugAdministrat ion.+ ---+: PERFORMI NG SITE LEGEND :+ +: : [facility] :: : [address], [place] [address] :+ + DIANE (test [place] AUTOIMMUNE code = DIANE) ENCEPHALITIS PANEL 4ML RED TOPTest ID: [id number] hy, Autoimmune Evaluation, Serum [facility] MethodistCSF gjenjsk1368-21-16 17:25:01 Test Item Value Reference Range Interpretation Comments CSF culture No growth Specimen isolate (test after 3 days. InformationSp ecimen code = 606-4) Source: CSF (S jerome Fluid)Specimen Site: No tube number not ed Eh MethodistGram [id number] 17:25:01 Test Item Value Reference Range Interpretation Comments Gram stain No WBC's or Specimen isolate (test organisms seen. Information Specimen code = 1469) Source: CSF (Sp inal Fluid)Specimen Site: No tube number not ed Eh MethodistMyelin basic popvlve3749-30-91 16:44:37 Test Item Value Reference Range Interpretation Comments Myelin basic protein 10.15 ng/mL 0-5.5 H INTERPR ETIVE (test code = 2638-5) INFORMA TION: Myelin Basic ProteinTe st developed and characteristics determined by [facility]. S ee Compliance Stat ement D: [employer] erform ed by [facility] [employer],[address] [place] [address] joh .[employer], Damian Singh MD, La b. Director Lab Interpretation Abnormal (test code = 15562-7) Eh MethodistAngiotensin converting enzyme, [id number] 08:30:20 Test Item Value Reference Range Interpretation Comments Angiotensin converting <0.4 0-2.5 This test was developed enzyme, CSF (test code and i ts performance = 75429-7) characteristics determined by [facility] Anahy tom. The U.S. Food and D rug Administration has not approved or leonardo ared this test; however, FDA clearance or ap proval is not currently r equired for clinical use. T he results are not intende d to be used as the asha e means for clinical diagno sis or patient managem ent decisions.Perfo rmed by [facility],[address] [place], [place] [address] wbs .[facility].aric harkins, Damian gallegos MD, Lab. Director Stauffer KeilaistWest Nile virus by PCR, [id number] 07:02:48 Test Item Value Reference Range Interpretation Comments West Nile virus Not-Detected Not-Detected PCR, CSF (test code = 76211-8) West Nile virus See link below for Case N umber: PCR, CSF (test PDF Lab Report [id number] 7 code = 2510) Eh MeadeEpstein Cash Virus (EBV) by [id number] 18:09:10 Test Item Value Reference Range Interpretation Comments Malcom Cash Not-Detected Not-Detected virus, PCR (test copies/mL code = 5005-4) Malcom Cash See link below Case Number: virus, PCR (test for PDF Lab [id number] 7 code = 1340) Report Eh MethodistHerpes simplex virus by [id number] 15:46:50 Test Item Value Reference Range Interpretation Comments Herpes virus, PCR Not-Detected Not-Detected (test code = 15864-7) Herpes virus, PCR See link below Case Num adilson: (test code = 1523) for PDF Lab [id number] Report Eh MethodistVaricella zoster by [id number] 15:14:54 Test Item Value Reference Range Interpretation Comments VZV result (test Not-Detected Not-Detected code = 00003-4) copies/mL Varicella zoster, See link below Case Num adilson: pcr (test code = for PDF Lab [id number] 7 124) Report Eh MethodistEnterovirus by [id number] 15:08:50 Test Item Value Reference Range Interpretation Comments Enterovirus PCR (test See link below Not-Detected Case Number: code = 09341-2) for PDF Lab [id number] Report Eh MethodistGM1 Ab [id number] 14:24:13 Test Item Value Reference Range Interpretation Comments GM1 IgG (test 3 0- 50 IV code = 00990-7) GM1 IgM (test 3 0- 50 IV INTERPRETIVE I NFORMATION: code = 75793-1) Ganglioside (GM1) Antibodies, IgG an d IgM [...] diseases as well as norm al individuals. ron tests by themselves are not diagnostic and should be used in conjunc tion with other clinical parameters to confirm disease .Test developed and characteristics determined by [facility]. See Compliance Stat ement D: [employer] erformed by [facility],[address] [facility], [facility] [address] ynq .[employer], Damian Singh MD, Lab. Director Asialo GM1 IgM see note not performed as a part of (test code = GM1 panel 11043-5) [facility] MethodistCytology (non-gynecological) [id number] 14:19:55 Test Item Value Reference Range Interpretation Comments Case number (test code = [id number]) Cytology See link below for (non-gynecological) PDF Lab Report report (test code = 1178) Result status (test code This is Final Report = [id number]) for [id number] [facility] MethodistCT Chest W Contrast Abdomen W Wo [...] to a consensus statement published by the [place] [employer] of chest physicians and the Fleischner Society, the [facility] collaborative imaging recommendations for multiple solid nodules < 6 mm in a patient without malignancy or immunosuppression are:Low risk - No routine follow-upHigh risk - Optional CT at 12 monthsuse most suspicious nodule as guide to management; follow-up intervals may vary according to size and riskHM [id number] MethodistIgG synthesis rate [id number] 11:34:23 Test Item Value Reference Range Interpretation Comments IgG albumin ratio, CSF (test 0.09 0.00-0.23 code = 1588) IgG index, CSF (test code = 0.50 0.01-0.63 70093-8) IgG synthetic rate (test 1.63 -9.90 - 3.30 mg-day code = 20732-1) Q-albumin ratio, CSF (test 7.88 2.40-8.10 code = 1756-6) IgG, CSF (test code = 2.91 mg/dL 1-3 2464-6) Albumin, CSF (test code = 33.88 mg/dL 10-30 H 65658-8) IgG (test code = 2465-3) 735 mg/dL 700-1600 Albumin, S (test code = 4300.0 mg/dL 2364-4265 23356-7) Lab Interpretation (test Abnormal code = 35425-3) [facility] MethodistFlow cytometry [id number] 09:24:00 Test Item Value Reference Range Interpretation Comments Case number (test code = [id number]) Flow cytometry evaluation See link below for (test code = 5741292) PDF Lab Report [place] MethodistVDRL, CSF [id number] 20:51:39 Test Item Value Reference Range Interpretation Comments VDRL, CSF screen (test code = Non-reactive Non-reactive 3046) [place] MethodistAcetylcholine receptor binding [id number] 18:05:55 Test Item Value Reference Range Interpretation [...] developed and characteris tics determined by A [facility]. S ee Compliance Stat ement B: [employer] erformed by RENEE tom,[address], [place] [address] vle .[employer] Damian carver do, MD, Lab. Director [place] Ebonyerum kbpjytypmbywnmo3187-15-55 17:44:08 Test Item Value Reference Range Interpretation Comments Protein (test code = 7.0 g/dL 6.3-8.3 9994.6-7.0 2885-2) g/dL1 vltg7873.4-7.6 g/dL7 months-1ycxp410 .1- 7.3 g/dL1-2 .6-7.5 g/dL>3 .0-8.0 g/nR28-2891808. 3-8 .3 g/dL SPE albumin (test code = 4.56 g/dL 3.51-5.42 2862-1) SPE alpha 1 (test code = 0.33 g/dL 0.18-0.4 2865-4) SPE alpha 2 (test code = 0.60 g/dL 0.44-0.96 2868-8) SPE beta (test code = 0.86 g/dL 0.52-1.07 43365-6) SPE gamma (test code = 0.64 g/dL 0.7-1.54 L 2874-6) SPE extended See Comment Gamma globulins interpretation (test are sli ghtly code = 43556-7) decreased. SPE interpretation (test See Comment Armani Aguilar, PhD; code = 2218) Lynn Daigle, PhD; Zia Lara MD, Ph D Lab Interpretation (test Abnormal code = 74069-0) Eh PedrazaBqwsiseztYJR2003-32-19 15:21:32 Test Item Value Reference Range Interpretation Comments SANDRA screen (test Negative Negative Test perfor med using NOVA code = 550) Lite DAPI SANDRA k it (Indirect Immunofluoresce nce Assay) for Anti-Nuclea r Antibody on INOVA QUANTA-Ly ser 160 Analyzer. [place] MethodistHTLV I/II Ab with reflex to [id number] 14:35:16 Test Item Value Reference Range Interpretation Comments HTLV I/II Ab (test Negative Negative Based on the non-reactive code = 12174-0) anti-HTLV EL MARY JO screen, the HTLV Katelyn n Blot is not indicated a nd therefore not performed.INTER PRETIVE INFORMATION: H TLV I/II Antibodies w/Re flex to ConfirmThis ass ay should not be used for blood donor screening , associated re-e ntry protocols, or f or screening Human Cell, Tissues and [place] lular and Tissue-Based Pr oducts (HCT/P).Perform ed by [facility],[address] [facility], [facility] [place] [address] rtf .[employer].aric harkins, Damian gallegos MD, Lab. Director [place] MethodistOligoclonal banding, [id number] 13:46:30 Test Item Value Reference Range Interpretation Comments Protein, CSF (test code SEE COMMENT 15-45 Foot note---------Ca = 2880-3) ncel test per Joelle Burton. Credit will be issued.Correcte d result; previou sly reported as 56 on 07/21/2019 at 1 9:18 by I/AUT Prealbumin, CSF (test SEE COMMENT 3.5-11.1 Footno te--------- code = 15842-6) Albumin, CSF (test code SEE COMMENT 40.8-66.2 Foot note--------- = 85009-6) Alpha 1, CSF (test code SEE COMMENT 2.3-6.4 Foot note--------- = 27762-9) Alpha 2, CSF (test code SEE COMMENT 6.1-12.6 Foot note--------- = 43861-5) Beta, CSF (test code = SEE COMMENT 11.7-24.1 Footn ote--------- 65427-4) Gamma, CSF (test code = SEE COMMENT 5.6-12.2 Foot note--------- 53675-6) CSF extended SEE COMMENT Footnote------- -- interpretation (test code = 06417-1) CSF interpretation SEE COMMENT Footnote- -------- (test code = 1163) Eh MeadeCSF cell count with tjixhxhhvaop9472-10-28 21:25:11 Test Item Value Reference Range Interpretation Comments Color, CSF (test code = 80856-6) Colorless Appearance, CSF (test code = Clear 27385-6) RBC, CSF (test code = 39454-2) 1836 0- 1 /CMM H WBC, CSF (test code = 66005-7) 40 0- 5 /CMM H CSF mononuclear cell (test code = See Diff 56980-2) Neutrophils, CSF (test code = 2 % 27565-4) Lymphocytes, CSF (test code = 93 % 75938-3) Monocytes, CSF (test code = 5 % 07876-4) Lab Interpretation (test code = Abnormal 86023-1) Eh PedrazaistGlucose level, [id number] 19:18:51 Test Item Value Reference Range Interpretation Comments Glucose, CSF (test code = 2342-4) 56 mg/dL 40-70 [facility] MethodistIR Lumbar Puncture by Youqcewks2552-48-06 17:35:17Hm Interface, Radiology Results 07/21/2019 5:38 PM [...] imagesIMPRESSION:Successful fluoroscopic guided lumbar puncture as detailed above.[facility]-[id number] MethodistVitamin D 25 hydroxy level 2019-07-21 15:36:36 Test Item Value Reference Range Interpretation Comments Vitamin D, 25-hydroxy 8.9 ng/mL 30-150 L This a ssay reports (test code = 1988-07) the sum of 25-hydroxy vitamin D3 and [...] methods. Lab Interpretation Abnormal (test code = 03272-3) Eh MethodistRheumatoid [id number] 12:20:51 Test Item Value Reference Range Interpretation Comments Rheumatoid factor (test code = 55293-5) <10 0- 13 IU/mL Eh MeadeVitamin B12 edwju3616-15-38 10:08:29 Test Item Value Reference Range Interpretation Comments Vitamin B12 (test 570 pg/mL 211-946 Significan t overlap code = 2132-9) exists betwee n normal and deficiency states.However, most patients with deficiencies wi ll have Serum B12 <2 00 pg/mL. Eh MeadeC-reactive gyjsuli7379-13-18 09:51:45 Test Item Value Reference Range Interpretation Comments CRP (test code = 1987-) <0.30 0-0.5 Eh MeadeParathyroid zrjcnpv7000-47-11 09:42:53 Test Item Value Reference Range Interpretation Comments PTH (test code = 2731-8) 33 pg/mL 15-65 Eh PedrazaistSedimentation [id number] 09:42:53 Test Item Value Reference Range Interpretation Comments Sedimentation rate (test code = 5 0- 20 mm/hr 33654-5) [facility] MethodistSpirometry, [facility]/[id number] 08:43:41 Test Item Value Reference Range Interpretation [...]
[2020-01-04] MEDS ORDERED: CEFTRIAXONE/SWI 1gm 1 GM/10 ML SYR ONE (06:41)
[2020-01-04 06:52] LABS: Absolute Lymphocytes (CBC) 3.3 K/uL (0.7-4.9); Basophils % 0.4 % (0-1.3); RBC Red Blood Cell Count 4.29 M/uL (3.86-4.86)
[2020-01-04] MEDS ORDERED: NA CHLORIDE 0.9% 1,000 ML ONE (06:57)
[2020-01-04 07:06] LABS: ALT/SGPT 40 U/L (12-78); AST/SGOT 28 U/L (15-37); Albumin 3.5 g/dL (3.4-5.0); Alkaline Phosphatase 92 U/L (45-117); BUN Blood Urea Nitrogen 18 mg/dL (7-18); Bicarbonate 32 mmol/L (21-32); Bilirubin Direct < 0.1 mg/dL (0-0.2); Bilirubin Total 0.3 mg/dL (0.2-1.0); Glucose Level 196 mg/dL (74-106); Magnesium 2.2 mg/dL (1.8-2.4); NT PRO-BNP 1884 pg/mL (<125); Potassium 4.1 mmol/L (3.5-5.1); Protein, Total 7.4 g/dL (6.4-8.2); Sodium Level 141 mmol/L (136-145); Troponin (Emerg Dept Use Only) 0.05 ng/mL (0.0-0.045)
[2020-01-04 07:15] LABS: Protime INR 1.08
--- NOTE | 2020-01-04 07:45 | RAD REPORT ---
EXAM DESCRIPTION: Daniel Single View01/04/2020 6:51 am CLINICAL HISTORY: Shortness of breath COMPARISON: December 22, 2019 FINDINGS: The lungs appear clear of acute infiltrate. The heart is mildly to moderately enlarged IMPRESSION: No acute abnormalities displayed
--- NOTE | 2020-01-04 08:25 | RAD REPORT ---
EXAM DESCRIPTION: CT - Chest For Pe Angio - 01/04/2020 7:55 am CLINICAL HISTORY: Shortness of breath COMPARISON: December 22, 2019 TECHNIQUE: Dynamically enhanced axial 3 mm thick images of the chest were obtained during administra tion of <100> mL Isovue 370 IV contrast. Coronal and oblique reconstruction images were generated and reviewed. Exam utilizes a protocol for optimal evaluation of pulmonary arterial tree. Maximum intensity projections 3D imaging was utilized All CT scans are performed using dose optimization technique as appropriate and may include automated exposure control or mA/KV adjustment according to patient size. FINDINGS: A pulmonary embolus is not seen. A thoracic aortic aneurysm is not noted. A pleural effusion is not seen. A pericardial effusion is not seen. Right lower lobe bronchus is occluded with mild right lower lobe atelectasis IMPRESSION: Negative for a pulmonary embolism. Right lower lobe bronchus remains occluded. Bronchoscopy rectum
[2020-01-04 08:55] LABS: Urine Blood TRACE (NEG); Urine Glucose NEGATIVE (NEG); Urine Protein NEGATIVE (NEG); Urine Specific Gravity 1.015 (1.005-1.030); Urine pH 7.5 (5.0-7.0)
[2020-01-04 09:01] LABS: Urine Amorphous Sediment 2+ /HPF (NONE SEEN); Urine Bacteria <20 /HPF (<20); Urine Culture Reflex Order NOT NEEDED
[2020-01-04 09:37] LABS: Arterial Blood Carboxyhemoglob 0.4 % (0-1.5); Blood Gas Oxyhemoglobin 95.1 % (94-97); Blood O2 Saturation 97.4 % (92-98.5)
[2020-01-04] MEDS ORDERED: LORazepam 2 MG/ML VIAL ONE ×2 (10:33→12:08)
--- NOTE | 2020-01-04 12:41 | RAD REPORT ---
EXAM DESCRIPTION: CT - Stone Protocol - 01/04/2020 12:33 pm CLINICAL HISTORY: Flank pain. ABD PAIN COMPARISON: Chest For Pe Angio dated 01/04/2020; Chest For Pe Angio dated 12/22/2019 TECHNIQUE: Axial images were obtained without oral or IV contrast. Lack of contrast limits solid org an and vascular assessment. The dfhfp-lp-ibqa spans the entirety of the system partially obscuring uppermost abdomen and lung bases. Coronal reformatted images were obtained and reviewed. All CT scans are performed using dose optimization technique as appropriate and may include automated exposure control or mA/KV adjustment according to patient size. FINDINGS: Airspace opacity is present posterior right lung base with soft tissue occlusion of the po sterior right lower lobe bronchus. This may be related to mucous plugging/ aspiration pneumonia. Imaged portions of the liver and spleen show no suspicious findings on non-contrast imaging.Cholecyst ectomy clips. The pancreas and adrenal glands are normal. No pathologic lymphadenopathy in the abdome n or pelvis. No urinary tract stones or obstructive uropathy. Multiple parapelvic renal cysts. Gastrostomy tube. No bowel obstruction, free air, free fluid or abscess. Normal appendix noted.Significant stool is pre sent in the rectosigmoid colon. No significant bony abnormality. IMPRESSION: No urinary tract stones or obstructive uropathy. Right lung base airspace opacity with soft tissue in the right lower lobe bronchus posteriorly. This may be related to mucous plugging/aspiration pneumonia. Endobronchial neoplastic lesion is not exclud ed.
--- NOTE | 2020-01-04 12:49 | EDPHYS ---
Physician Documentation [facility] Name: Arline Gregory Age: 64 yrs Sex: Female : 1955 Arrival Date: 01/04/2020 Time: 05:58 Bed 7 Private MD: ED Physician Jose Leos HPI: 01/03 06:39 This 64 yrs old Female presents to ER via EMS with complaints of Breathing jmm Difficulty. 06:39 The patient has shortness of breath at rest. Onset: The symptoms/episode began/occurred jmm gradually. Duration: The symptoms are continuous. This is a 64 year old female with a history of als, htn that presents to the ED with complaints of ongoing SOB. Patient was discharged from [facility] with pneumonia yesterday. Patient uses CPAP at home. . Historical: - Allergies: 06:15 Sulfa (Sulfonamide Antibiotics) (Hives); vc - PMHx: 06:15 ALS; Hypertension; Uses CPAP at home; Respiratory distress; peg tube; vc - PSHx: 06:15 None; vc - Social history:: Smoking status: Patient denies any tobacco usage or history of. ROS: 06:39 Constitutional: Negative for fever, chills, and weight loss, Cardiovascular: Negative jmm for chest pain, palpitations, and edema. 06:39 Respiratory: Positive for shortness of breath. 06:39 All other systems are negative. Exam: 06:39 Head/Face: atraumatic. Eyes: EOMI, no conjunctival erythema appreciated ENT: Moist jmm Mucus Membranes Neck: Trachea midline, Supple Chest/axilla: Normal chest wall appearance and motion. 06:39 Abdomen/GI: Non distended, soft Back: Normal ROM Skin: General appearance color normal MS/ Extremity: Moves all extremities, no obvious deformities appreciated, no edema noted to the lower extremities 06:39 Constitutional: The patient appears alert, awake, anxious. 06:39 Cardiovascular: Rate: tachycardic, Rhythm: regular. 06:39 Respiratory: moderate respiratory distress is noted, Respirations: labored breathing, that is moderate, Breath sounds: are clear throughout. 06:39 Neuro: Orientation: is normal, Mentation: is normal, Memory: is normal. 06:39 Psych: Behavior/mood is cooperative, anxious. Vital Signs: 06:06 BP 187 / 98; Pulse 121; Resp 26; Temp 97.6; Pulse Ox 94% on 6 lpm NC; Weight 108.86 kg; vc Height 5 ft. 3 in. (160.02 cm); 06:30 BP 114 / 88; Pulse 130; Resp 28; Pulse Ox 97% on BiPAP; vc 07:30 BP 120 / 83; Pulse 110; Resp 30 S; Pulse Ox 98% on BiPAP; aa5 08:08 BP 140 / 109; Pulse 113; Resp 27; Pulse Ox 99% on BiPAP; sv 08:30 BP 138 / 79; Pulse 102; Resp 22 S; Pulse Ox 100% on BiPAP; aa5 09:30 BP 156 / 94; Pulse 105; Resp 23; Pulse Ox 100% on BiPAP; sv 10:30 BP 162 / 81; Pulse 124; Resp 30 S; Pulse Ox 97% on BiPAP; aa5 10:50 Temp 98.1(O); aa5 11:03 BP 164 / 107; Pulse 124; Resp 29; Pulse Ox 96% on BiPAP; aa5 12:00 BP 143 / 88; Pulse 117; Resp 30 S; Pulse Ox 100% on 3 lpm NC; aa5 12:35 BP 138 / 103; Pulse 107; Resp 28 S; Temp 98.0(O); Pulse Ox 100% on 3 lpm NC; aa5 13:30 BP 149 / 99; Pulse 106; Resp 24 S; Pulse Ox 100% on 2 lpm NC; aa5 14:30 BP 145 / 99; Pulse 104; Resp 22; Temp 98.1(O); Pulse Ox 99% on 2 lpm NC; aa5 06:06 Body Mass Index 42.51 (108.86 kg, 160.02 cm) vc MDM: 06:16 Patient medically screened. [facility] 08:47 ED course: I discussed the patient with Dr. Osuna whom will visit with the patient for [facility] admission/transfer. 12:11 Data reviewed: vital signs, nurses notes. [facility] 12:16 Data reviewed: lab test result(s), radiologic studies. ED course: I discussed the [facility] patient with Dr. Osuna after [facility] declined transfer due to capacity. Will accept patient after consulting with Dr. Posada. 01/03 06:17 Order name: Basic Metabolic Panel; Complete Time: 07:16 [facility] 01/03 06:17 Order name: CBC with Diff; Complete Time: 07:20 [facility] 01/03 06:17 Order name: LFT's; Complete Time: 07:16 [facility] 01/03 06:17 Order name: Magnesium; Complete Time: 07:16 [facility] 01/03 06:17 Order name: NT PRO-BNP; Complete Time: 07:16 [facility] 01/03 06:17 Order name: PT-INR; Complete Time: 07:16 [facility] 01/03 06:17 Order name: Troponin (emerg Dept Use Only); Complete Time: 07:16 [facility] 01/03 06:17 Order name: Procalcitonin; Complete Time: 07:16 [facility] 01/03 06:17 Order name: Blood Culture Adult (2) [facility] 01/03 06:17 Order name: Lactate; Complete Time: 07:04 [facility] 01/03 06:51 Order name: Glucose, Ancillary Testing; Complete Time: 06:51 EDMS 01/03 08:30 Order name: Urine Dipstick--Ancillary (enter results); Complete Time: 08:56 mt 01/03 08:37 Order name: Urine Microscopic Only; Complete Time: 09:07 dh3 01/03 08:41 Order name: Urine Culture 3 01/03 06:17 Order name: XRAY Chest (1 view); Complete Time: 08:47 [facility] 01/03 06:17 Order name: EKG; Complete Time: 06:18 [facility] 01/03 06:17 Order name: Cardiac monitoring; Complete Time: 06:20 [facility] 01/03 06:17 Order name: EKG - Nurse/Tech; Complete Time: 06:40 [facility] 01/03 06:17 Order name: BIPAP [facility] 01/03 07:21 Order name: CT Chest For PE Angio; Complete Time: 08:47 [facility] 01/03 09:02 Order name: ABG; Complete Time: 10:35 [facility] 01/03 12:11 Order name: CT Stone Protocol; Complete Time: 12:46 [facility] 01/03 12:52 Order name: CREATININE WHOLE BLOOD; Complete Time: 13:05 EDMS 01/03 12:53 Order name: SARS-COV-2 RT PCR; Complete Time: 13:05 [facility] 01/03 06:17 Order name: IV Saline Lock; Complete Time: 06:40 [facility] 01/03 06:17 Order name: Labs collected and sent; Complete Time: 06:40 [facility] 01/03 06:17 Order name: O2 Per Protocol; Complete Time: 06:40 [facility] 01/03 06:17 Order name: O2 Sat Monitoring; Complete Time: 06:40 [facility] 01/03 06:18 Order name: Urine Dipstick-Ancillary (obtain specimen); Complete Time: 08:30 [facility] 01/03 08:40 Order name: Straight Cath - Urine: VO received at 0815; Complete Time: 08:40 aa5 Administered Medications: 06:40 Drug: Rocephin - (cefTRIAXone) 1 grams Route: IVPB; Infused Over: 30 mins; Site: right wh antecubital; 07:30 Drug: NS 0.9% 1000 ml Route: IV; Rate: 1 bolus; Site: right antecubital; aa5 10:30 Drug: Ativan 0.5 mg Route: IVP; Site: right antecubital; aa5 11:59 Drug: Ativan 1 mg Route: IVP; Site: right antecubital; aa5 14:00 Drug: Ativan 0.5 mg Route: IVP; Site: right antecubital; aa5 Disposition: 01/04 10:52 Co-signature as Attending Physician, Jose Leos MD I agree with the assessment and tw4 plan of care. Disposition: 01/04/20 12:49 Hospitalization ordered by Ric Osuna for Inpatient Admission. Preliminary diagnosis are Acute respiratory failure with hypoxia, Amyotrophic lateral sclerosis. - Bed requested for Telemetry/MedSurg (Inpatient). - Status is Inpatient Admission. aa5 - Condition is Stable. - Problem is an acute exacerbation. - Symptoms have improved. Signatures: Dispatcher [employer] EDMS Reshma Coleman RN RN dw Mickail, Joel, PA PA jmm Nieto, Roman, MD MD rn Calderon, Audri, RN RN aa5 Madi Miller Terrence, MD MD tw4 Mireya Stovall RN RN vc Corrections: (The following items were deleted from the chart) 01/03 11:17 09:41 CORONAVIRUS+MR.LAB.BRZ ordered. EDTN EDMS 14:46 12:49 Hospitalization Ordered by Ric Osuna DO for Inpatient Admission. Preliminary dw diagnosis is Acute respiratory failure with hypoxia; Amyotrophic lateral sclerosis. Bed requested for Telemetry/MedSurg (Inpatient). Status is Inpatient Admission. Condition is Stable. Problem is an acute exacerbation. Symptoms have improved. thais 15:20 14:46 01/04/2020 12:49 Hospitalization Ordered by Ric Osuna DO for Inpatient aa5 Admission. Preliminary diagnosis is Acute respiratory failure with hypoxia; Amyotrophic lateral sclerosis. Bed requested for Telemetry/MedSurg (Inpatient). Status is Inpatient Admission. Condition is Stable. Problem is an acute exacerbation. Symptoms have improved. dw
--- NOTE | 2020-01-04 12:49 | ER ---
Nurse's Notes [facility] Name: Arline Gregory Age: 64 yrs Sex: Female : 1955 Arrival Date: 01/04/2020 Time: 05:58 Bed 7 Private MD: Diagnosis: Acute respiratory failure with hypoxia;Amyotrophic lateral sclerosis Presentation: 01/03 06:06 Chief complaint: EMS states: "Patient was released from [facility] a day ago with a home vc concentrated CPAP, called stating patient was in respiratory distress. When we arrived patient was 89% on CPAP. We placed her on a non rebreather and her oxygen went up to 98%. Patient pulse was 120's to 130's. Coronavirus screen: difficulty breathing, shortness of breath, Client presents with at least one sign or symptom that may indicate coronavirus-19. Standard/surgical mask placed on the client. Ebola Screen: No symptoms or risks identified at this time. Initial Sepsis Screen: Does the patient meet any 2 criteria? RR > 20 per min. HR > 90 bpm. Yes Does the patient have a suspected source of infection? No. Patient's initial sepsis screen is negative. Risk Assessment: Do you want to hurt yourself or someone else? Patient reports no desire to harm self or others. Onset of symptoms was January 04, 2020. 06:06 Method Of Arrival: EMS: [facility] vc 06:06 Acuity: BEENA 2 vc Triage Assessment: 06:00 General: Appears distressed, uncomfortable, Behavior is cooperative, anxious. vc Respiratory: Onset: The symptoms/episode began/occurred at an unknown time. Historical: - Allergies: 06:15 Sulfa (Sulfonamide Antibiotics) (Hives); vc - PMHx: 06:15 ALS; Hypertension; Uses CPAP at home; Respiratory distress; peg tube; vc - PSHx: 06:15 None; vc - Social history:: Smoking status: Patient denies any tobacco usage or history of. Screenin:00 Abuse screen: Denies threats or abuse. Nutritional screening: No deficits noted. vc Tuberculosis screening: No symptoms or risk factors identified. Fall Risk None identified. Assessment: 06:00 General: Appears distressed, uncomfortable, ill, Behavior is cooperative, anxious. vc Pain: Denies pain. Cardiovascular: Rhythm is sinus tachycardia. Respiratory: Airway is patent Respiratory effort is even, labored, with nasal flaring, Respiratory pattern is symmetrical, tachypnea. Respiratory: Reports shortness of breath at rest labored breathing the patient has moderate shortness of breath. GI: No signs and/or symptoms were reported involving the gastrointestinal system. : No signs and/or symptoms were reported regarding the genitourinary system. EENT: No signs and/or symptoms were reported regarding the EENT system. Derm: No deficits noted. 06:30 Reassessment: Patient appears in no apparent distress at this time. Patient and/or vc family updated on plan of care and expected duration. Pain level reassessed. Respiratory: Patient placed on BiPAP:. 07:00 Reassessment: REJI Gomes reported pt's O2 was 72% before pt was placed on Bi-PAP. . aa5 07:20 General: Appears comfortable, Behavior is calm, cooperative. Pain: Denies pain. Neuro: aa5 Level of Consciousness is awake, alert, obeys commands, Oriented to person, place, time, situation. Cardiovascular: Heart tones S1 S2 present Edema is absent. Rhythm is sinus tachycardia. Respiratory: Reports SOB has improved with Bi-PAP, pt tolerating Bi-PAP well. Airway is patent Respiratory effort is even, unlabored, Respiratory pattern is tachypnea Breath sounds are clear bilaterally. GI: PEG tube in place, Site clean. : Brief noted. EENT: No signs and/or symptoms were reported regarding the EENT system. Derm: Skin is pink, warm \\T\\ dry. Decubitus located on sacrum Wound appears macerated. is stage II is draining none noted. Musculoskeletal: Pt is bed bound, pt unable to move lower extremities due to ALS as reported by pt. 08:20 Reassessment: Patient is alert, oriented x 3, equal unlabored respirations, skin aa5 warm/dry/pink. Pt cleaned of urinary incontinence and stool, small amount of soft brown stool noted. Clean brief applied. Pt repositioned in bed. . 09:00 Reassessment: Patient is alert, oriented x 3, equal unlabored respirations, skin aa5 warm/dry/pink. Pt tolerating Bi-PAP well . 10:20 Reassessment: Pt c/o anxiety, PA was notified. . aa5 10:20 Reassessment: Patient is alert, oriented x 3, equal unlabored respirations, skin aa5 warm/dry/pink. 10:20 General: Appears uncomfortable, Behavior is anxious. Respiratory: Respiratory pattern aa5 is tachypnea. 10:30 Reassessment: COVID-19 swab collected and sent to lab . aa5 10:30 Reassessment: Pt repositioned in bed. . aa5 11:20 Reassessment: Pt c/o increased SOB, RR 34 at this time. Pt appears anxious. Pt states aa5 "I need some oxygen", pt reminded she is receiving oxygen via Bi-PAP at this time. PA was notified. . 11:59 Reassessment: Pt taken off Bi-PAP per PA at this time and O2 via NC at 3L a this time, aa5 O2 sat 100% 3L NC, RR28. Pt c/o anxiety, pt restless and anxious at this time. PA at bedside and Ativan ordered. . 11:59 General: Appears uncomfortable, Behavior is anxious. aa5 12:30 Reassessment: Pt appears comfortable, resting in bed with eyes closed, respirations aa5 even and unlabored, skin is pink/warm/dry. O2 sat 100% via 3 L NC at this time. . 13:00 Reassessment: Pt cleaned of urinary incontinence, clean brief applied. Pt repositioned aa5 in bed. DuoDerm removed from sacral area and new DuoDerm applied. . 13:30 Reassessment: Pt resting in bed with eyes closed, respirations even and unlabored, skin aa5 is pink/warm/dry. Pt repositioned in bed. . 14:00 Reassessment: Pt c/o increased anxiety, PA was notified. . aa5 14:00 Reassessment: Pt's brought pt's personal CPAP and Cough stimulant machine per aa5 Dr. Osuna. Cough stimulant used for 5 minutes, pt tolerated well. . 14:05 Reassessment: Pt repositioned in bed. . aa5 14:30 Reassessment: Pt appears calm, resting in bed with eyes closed, respirations even and aa5 unlabored, skin is pink/warm/dry. . Vital Signs: 06:06 BP 187 / 98; Pulse 121; Resp 26; Temp 97.6; Pulse Ox 94% on 6 lpm NC; Weight 108.86 kg; vc Height 5 ft. 3 in. (160.02 cm); 06:30 BP 114 / 88; Pulse 130; Resp 28; Pulse Ox 97% on BiPAP; vc 07:30 BP 120 / 83; Pulse 110; Resp 30 S; Pulse Ox 98% on BiPAP; aa5 08:08 BP 140 / 109; Pulse 113; Resp 27; Pulse Ox 99% on BiPAP; sv 08:30 BP 138 / 79; Pulse 102; Resp 22 S; Pulse Ox 100% on BiPAP; aa5 09:30 BP 156 / 94; Pulse 105; Resp 23; Pulse Ox 100% on BiPAP; sv 10:30 BP 162 / 81; Pulse 124; Resp 30 S; Pulse Ox 97% on BiPAP; aa5 10:50 Temp 98.1(O); aa5 11:03 BP 164 / 107; Pulse 124; Resp 29; Pulse Ox 96% on BiPAP; aa5 12:00 BP 143 / 88; Pulse 117; Resp 30 S; Pulse Ox 100% on 3 lpm NC; aa5 12:35 BP 138 / 103; Pulse 107; Resp 28 S; Temp 98.0(O); Pulse Ox 100% on 3 lpm NC; aa5 13:30 BP 149 / 99; Pulse 106; Resp 24 S; Pulse Ox 100% on 2 lpm NC; aa5 14:30 BP 145 / 99; Pulse 104; Resp 22; Temp 98.1(O); Pulse Ox 99% on 2 lpm NC; aa5 06:06 Body Mass Index 42.51 (108.86 kg, 160.02 cm) vc ED Course: 05:58 Patient arrived in ED. cl3 06:00 Arm band placed on right wrist. vc 06:00 Patient has correct armband on for positive identification. Bed in low position. Call vc light in reach. Side rails up X2. telemetry monitor on. Pulse ox on. NIBP on. 06:09 Froylan Reinoso PA is PHCP. jmm 06:09 Jose Leos MD is Attending Physician. jmm 06:13 Triage completed. vc 06:18 Madi Miller is Primary Nurse. wh 06:30 Inserted saline lock: 20 gauge in right antecubital area, using aseptic technique. wh Blood collected. 06:51 XRAY Chest (1 view) In Process Unspecified. EDMS 07:00 Report received from REJI Gomes and REJI Barraza. aa5 07:55 CT Chest For PE Angio In Process Unspecified. EDMS 08:20 Straight cath inserted, using sterile technique, 16 Fr. Specimen obtained. Patient aa5 tolerated well. 09:51 BIPAP Sent. sv 11:30 connected the feeder associate applications support engineer for [facility] with Froylan for patient transfer eb consultation. 12:33 CT Stone Protocol In Process Unspecified. EDMS 12:48 Ric Osuna DO is Hospitalizing Provider. [facility] 15:19 No provider procedures requiring assistance completed. Patient admitted, IV remains in aa5 place. Administered Medications: 06:40 Drug: Rocephin - (cefTRIAXone) 1 grams Route: IVPB; Infused Over: 30 mins; Site: right wh antecubital; 07:30 Drug: NS 0.9% 1000 ml Route: IV; Rate: 1 bolus; Site: right antecubital; aa5 10:30 Drug: Ativan 0.5 mg Route: IVP; Site: right antecubital; aa5 11:59 Drug: Ativan 1 mg Route: IVP; Site: right antecubital; aa5 14:00 Drug: Ativan 0.5 mg Route: IVP; Site: right antecubital; aa5 Outcome: 12:49 Decision to Hospitalize by Provider. [facility] 15:19 Admitted to Tele accompanied by tech, via stretcher, with oxygen, with chart, Report aa5 called to REJI Butterfield 15:19 Condition: stable 15:19 Instructed on the need for admit, Demonstrated understanding of instructions, Pt's belongings (2 white bed sheets and blas sheet) were given to pt's . C-PAP and cough stimulant machine were taken to room 219 with pt, REJI Butterfield was notified. 15:20 Patient left the ED. aa5 Signatures: Dispatcher [employer] EDMS Marissa Lazo RN RN sv Mickail, Joel, PA PA jmm Calderon, Audri, RN RN aa Madi Miller Yu Mcneill Charde cl3 Mireya Stovall RN RN vc Corrections: (The following items were deleted from the chart) 08:42 08:30 BP 138 / 79; Pulse 102bpm; Resp 18bpm; Spontaneous; Pulse Ox 100% BiPAP; aa5 aa5 08:47 07:20 Derm: Skin is pink, warm \\T\\ dry. aa5 aa5 13:22 11:03 BP 164 / 107; Pulse 124bpm; Resp 29bpm; Pulse Ox 96%; sv aa5 15:29 13:00 Reassessment: Pt cleaned of urinary incontinence, clean brief applied. Pt aa5 repositioned in bed. . aa5 15:31 15:19 Instructed on the need for admit, Demonstrated understanding of instructions, aa5 aa5
--- NOTE | 2020-01-04 13:56 | P.HP ---
Certification for Inpatient Patient admitted to: Observation With expected LOS: <2 Midnights Patient will require the following post-hospital care: Home Health Services Practitioner: I am a practitioner with admitting privileges, knowledge of patient current condition, hospital course, and medical plan of care. Services: Services provided to patient in accordance with Admission requirements found in Title 42 Section 412.3 of the Code of Federal Regulations Patient History Date of Service: 01/04/20 Primary Care Provider: unknown; ALS team [facility]-Dr. Akila Schultz Reason for admission: Shortness of breath History of Present Illness: 64-year-old female with history of ALS. Patient presented with shortness of breath. Patient reports that she was recently discharge from [facility] for pneumonia. At that time they also placed a feeding tube. Patient has CPAP at home. She start to have increasing shortness of breath. Most of the information came from the nurse and . No mention of fever, chills. Patient with increase anxiety. In the ER patient was evaluated. Patient was on initially BiPAP. Now on nasal cannula. Patient given medication for anxiety. Patient was hypoxic in the 70s. On lab white count 13.7, hemoglobin 12.4. Sodium 141, potassium 4.1. Peak BUN of 18, creatinine 0.3 with a GFR greater than 90. Glucose 196. Pro calcitonin 2.6. Lactic acid 1.1. BMP 1800. CT scan shows no pulmonary embolism. Right pulmonary branch lower lobe shows occlusion likely mucus plug. CT scan abdomen unremarkable. Atelectasis noted to the right lower lobe. Patient was to be transferred to [facility] per patient preference but no beds available at this time. I was asked to admit the patient. When I saw the patient ER, she appeared comfortable. Patient on nasal cannula at this time. Spoke with . Allergies Sulfa (Sulfonamide Antibiotics) Allergy (Mild, Verified 12/22/19 18:45) Unknown Home medications list reviewed: Yes Home Medications: Fenofibrate [Tricor*] 145 mg PO DAILY 12/22/19 Gabapentin [Neurontin Oral Soln] 300 mg PO TID 12/22/19 LORazepam [Ativan*] 1 mg PO DAILY PRN 12/22/19 Lansoprazole [Prevacid] 30 mg PO DAILY 12/22/19 Riluzole [Rilutek] 50 mg PO Q12H 08/04/20 Simvastatin 20 mg PO DAILY 12/22/19 hydrOXYzine HCL [Atarax*] 1 tab PO Q8H PRN 12/22/19 - Past Medical/Surgical History Diabetic: No -: Hypertension -: Hyperlipidemia -: ALS -: Feeding tube Psychosocial/ Personal History: Patient lives at home - Family History Family History: Reviewed- Non-Contributory - Social History Smoking Status: Unknown if ever smoked Alcohol use: No CD- Drugs: No Caffeine use: No Place of Residence: Home Review of Systems is unable to be obtained Physical Examination - Physical Exam General: Alert, In no apparent distress, Oriented x3, Cooperative HEENT: Atraumatic, Mucous membr. moist/pink Neck: Supple Respiratory: Clear to auscultation bilaterally, Normal air movement Cardiovascular: Normal pulses, Regular rate/rhythm Gastrointestinal: Normal bowel sounds, Soft and benign, Non-distended, Other (Feeding tube in place) Neurological: Abnormal strength (No strength to the lower extremities.) - Studies Laboratory Data (last 24 hrs) 01/04/20 06:28: PT 12.7 H, INR 1.08 01/04/20 06:28: WBC 13.7 H D, Hgb 12.4, Hct 37.0, Plt Count 364 01/04/20 06:28: Sodium 141, Potassium 4.1, BUN 18, Creatinine 0.34 L, Glucose 196 H, Magnesium 2.2, Total Bilirubin 0.3, AST 28, ALT 40, Alkaline Phosphatase 92 Assessment and Plan - Plan Impression: Dyspnea secondary to acute on chronic respiratory failure with hypoxia with recent pneumonia likely related to right lower lobe atelectasis and mucus blood ALS Hypertension Hyperlipidemia Anxiety Plan: Dyspnea secondary to acute on chronic respiratory failure with hypoxia with recent pneumonia likely related to right lower lobe atelectasis and mucus blood: Patient was to be transferred to [facility] to the ALS to [facility] but no beds available. Therefore patient admitted. Patient does not appear septic. Patient now stable on nasal cannula. Will continue to maintain oxygen saturations above 93%. Patient started on IV Zosyn. Blood, urine and sputum cultures to be obtained. Will obtain records from [facility]. Would try to reach her ALS Dr. Akila Schultz. Aspiration, fall and skin precaution. Physical therapy to help stimulate. Will provide air bed. Will move the patient every 2 hr. Will allow to cough stimulator and CPAP from home to use. Continue CPAP at night. Provide DVT prophylaxis. Will continue to monitor closely. Will discuss with pulmonology. Anticipate improvement over the next 24 hr. Anticipate the need for home oxygen at discharge. Will discuss with mental health social worker. Obtain and restart home medication. Dietary consulted to address daily needs. ALS: Will reach out to her team physician. Continue with above. Skin care will be important. Change every 2 hr in positioning. Physical therapy to help. Hypertension: Will provide medication Hyperlipidemia: Obtain and verify home medication Anxiety: Will provide medication. Discharge Plan: Home Plan to discharge in: 48 Hours - Advance Directives Does patient have a Living Will: No Does patient have a Durable POA for Healthcare: No - Code Status/Comfort Care Code Status Assessed: No (Unsure will discuss with patient and ) Time Spent Managing Pts Care (In Minutes): 55
[2020-01-04] MEDS ORDERED: ONDANSETRON 4 MG/2 ML VIAL IV PRN (16:09)
[2020-01-04] MEDS ORDERED: ACETAMINOPHEN 500 MG TAB FT PRN (16:09)
[2020-01-04] MEDS ORDERED: SODIUM CHLORIDE 0.9% 10ML INJ IV PRN (16:09)
[2020-01-04] MEDS ORDERED: IPRATROPIUM BROM 0.5MG/2.5ML NEB PRN (16:09)
[2020-01-04] MEDS ORDERED: HYDRALAZINE HCL 20 MG/ML VIAL IV PRN (16:09)
[2020-01-04] MEDS: INSULIN -REGULAR HUMAN 50 UNIT/0.5 ML ML SQ SCH ×2 (16:30→21:00)
[2020-01-04 17:42] VITALS: BMI 42.5
[2020-01-04] MEDS: ENOXAPARIN 40 MG/0.4 ML SQ SCH (18:01)
[2020-01-04] MEDS ORDERED: TRAMADOL HCL 100 MG PO PRN (18:03)
[2020-01-04] MEDS ORDERED: DOCUSATE NA/SENNA CONC 1 TAB PO PRN (18:03)
[2020-01-04] MEDS: PIPER/TAZO/NS 3.375gm 3.375 GM/100 ML BAG IVPB SCH (18:04)
[2020-01-04] MEDS: RILUZOLE 50 MG PO SCH (18:15)
[2020-01-04] MEDS ORDERED: TRAMADOL HCL 50 MG TAB PO PRN (18:35)
[2020-01-04] MEDS: ALBUTEROL 2.5 MG/3 ML NEB SOL NEB PRN (19:45)
[2020-01-04] MEDS: guaiFENesin 100 MG/5 ML UCUP PO PRN (19:58)
[2020-01-04] MEDS: hydrOXYzine HCL 25 MG TAB PO SCH (19:58)
[2020-01-04] MEDS: LORazepam 2 MG/ML VIAL IV PRN (19:59)
[2020-01-04] MEDS: GABAPENTIN PO SCH (20:23)
[2020-01-04] MEDS ORDERED: HOME MED 1 EA UNK (Melatonin [Melatonin] 10 MG) PO SCH (21:00)
[2020-01-04] MEDS ORDERED: MELATONIN 5 MG TABLET PO SCH (21:00)
[2020-01-04] MEDS: LACTOSE REDUCED FOOD DT SCH (21:00)
[2020-01-04] MEDS ORDERED: ATORVASTATIN 10 MG TAB PO SCH (21:00)
[2020-01-04] MEDS: FIBER DT SCH (21:00)
[2020-01-04] MEDS: BUDESONIDE 0.25 MG/2 ML NEB IH SCH (22:50)
[2020-01-04] MEDS: ACETYLCYST 20% 4 ML VIAL IH SCH (22:50)
[2020-01-05] MEDS: PIPER/TAZO/NS 3.375gm 3.375 GM/100 ML BAG IVPB SCH ×2 (00:58→09:04)
[2020-01-05] MEDS: LORazepam 2 MG/ML VIAL IV PRN ×2 (02:50→09:08)
[2020-01-05] MEDS: guaiFENesin 100 MG/5 ML UCUP PO PRN (02:50)
[2020-01-05 04:23] LABS: Absolute Lymphocytes (CBC) 2.2 K/uL (0.7-4.9); Basophils % 1.2 % (0-1.3); Hematocrit 31.3 % (36.0-45.0); Lymphocytes % 23.9 % (15.3-44.8); MPV 9.3 fL (7.6-11.3); RBC Red Blood Cell Count 3.67 M/uL (3.86-4.86)
[2020-01-05 04:44] LABS: BUN Blood Urea Nitrogen 15 mg/dL (7-18); Bicarbonate 29 mmol/L (21-32); Glucose Level 116 mg/dL (74-106); Magnesium 1.9 mg/dL (1.8-2.4); Potassium 3.1 mmol/L (3.5-5.1); Sodium Level 149 mmol/L (136-145)
[2020-01-05] MEDS ORDERED: LORazepam 2 MG/ML VIAL IV ONE (04:52)
[2020-01-05] MEDS: RILUZOLE 50 MG PO SCH (06:15)
--- NOTE | 2020-01-05 07:25 | P.DS ---
Admission Date: 01/04/20 Discharge Date: 01/05/20 Primary Care Provider: unknown; ALS team [facility]-Dr. Akila Schultz Disposition: DC HOME/HOME HEALTH CARE Discharge Condition: GOOD Reason for Admission: Shortness of breath Consultations: Pulmonary-Dr. Posada Procedures: CT Scan: FINDINGS: Airspace opacity is present posterior right lung base with soft ti ssue occlusion of the posterior right lower lobe bronchus. This may be related to mucous plugging/ aspiration pneumonia. Imaged portions of the liver and spleen show no suspicious findings on non-con trast imaging.Cholecystectomy clips. The pancreas and adrenal glands are normal. No pathologic lymphadenopathy in the abdomen or pelvis. No urinary tract stones or obstructive uropathy. Multiple parapelvic renal cysts. Gastrostomy tube. No bowel obstruction, free air, free fluid or abscess. Normal appendix noted.Significant stool is present in the rectosigmoid colon. No significant bony abnormality. IMPRESSION: No urinary tract stones or obstructive uropathy. Right lung base airspace opacity with soft tissue in the right lower lobe bronchus posteriorly. This may be related to mucous plugging/aspiration pneumonia. Endobronchial neoplastic lesion is not excluded. CT Scan: FINDINGS: A pulmonary embolus is not seen. A thoracic aortic aneurysm is not noted. A pleural effusion is not seen. A pericardial effusion is not seen. Right lower lobe bronchus is occluded with mild right lower lobe atelectasis IMPRESSION: Negative for a pulmonary embolism. Right lower lobe bronchus remains occluded. Medical Problem List: Dyspnea secondary to acute on chronic respiratory failure with hypoxia with recent pneumonia likely related to right lower lobe atelectasis and mucus blood ALS Hypertension Hyperlipidemia Anxiety Mild protein malnutrition with feeding tube in place Brief History of Present Illness: 64-year-old female with history of ALS. Patient presented with shortness of breath. Patient reports that she was recently discharge from [facility] for pneumonia. At that time they also placed a feeding tube. Patient has CPAP at home. She start to have increasing shortness of breath. Most of the information came from the nurse and . No mention of fever, chills. Patient with increase anxiety. In the ER patient was evaluated. Patient was on initially BiPAP. Now on nasal cannula. Patient given medication for anxiety. Patient was hypoxic in the 70s. On lab white count 13.7, hemoglobin 12.4. Sodium 141, potassium 4.1. Peak BUN of 18, creatinine 0.3 with a GFR greater than 90. Glucose 196. Pro calcitonin 2.6. Lactic acid 1.1. BMP 1800. CT scan shows no pulmonary embolism. Right pulmonary branch lower lobe shows occlusion likely mucus plug. CT scan abdomen unremarkable. Atelectasis noted to the right lower lobe. Patient was to be transferred to [facility] per patient preference but no beds available at this time. I was asked to admit the patient. When I saw the patient ER, she appeared comfortable. Patient on nasal cannula at this time. Spoke with . Hospital Course: Patient presented with dyspnea secondary to acute on chronic respiratory failure with hypoxia. Patient with history of ALS. This was diagnosed in 2019. Patient was recently hospitalized at [facility] for pneumonia. Patient with right lower lobe atelectasis and mucus plug to the right lower lobe per CT scan. Patient was treated during the course of her stay. Patient required oxygen. Patient has done well. Respiratory provided education on percussion therapy. Patient has a cough stimulator at home which she brought to help. At discharge she is without significant shortness of breath. Patient on nasal cannula. I spoke with at length to continue percussion therapy at home. At discharge will continue with home health, physical therapy. Patient would benefit with Respiratory therapy at home. Will check to see if this can be arranged. At discharge she will continue with home oxygen to maintain sats above 93%. Aspiration, skin, and fall precaution in place. At discharge patient will continue to finish her course of Levaquin 750 mg daily. At discharge she will continue her other medications including Mucomyst twice daily, Pulmicort twice daily, Atrovent 4 times a day, and Rilutek 50 mg twice a day. Patient may also take Ativan 1 mg up to 3 times a day as needed for anxi ety. There may be a component of anxiety that may be effecting her shortness of breath. This was discussed in detail with the . Recommend follow up with her ALS team within 1 week to follow up this hospitalization. Will recommend follow up with pulmonology in 1 week to continue her care. As mentioned above patient with ALS. This was diagnosed in 2019. She will continue to follow up with her ALS team at [facility] including Dr. Akila Schultz. She will continue with her CPAP machine and cough stimulator. As recommended above will recommend pulmonary therapy as well. Continue home health and physical therapy. Patient will continue with her current medications including gabapentin 3 times a day. Robitussin as needed. And melatonin 10 mg at bedtime. Patient also takes other multiple supplements. Patient with hypertension. At discharge she will continue with Norvasc/lisinopril 5/20 mg daily. Recommend to maintain blood pressure less 150/80. Further adjustment can be done by her PCP. May need to hold medication if blood pressure less than 110 systolic. Patient with hyperlipidemia. At discharge she will continue with Tricor 145 mg daily and Zocor 20 mg daily. Patient with anxiety. As mentioned above patient takes Ativan 1 mg daily as needed. Patient may take up to 3 times a day as needed for anxiety. This was discussed in detail with . This can be further adjusted by her ALS team. Patient with Mild protein malnutrition. On her last hospitalization at [facility] her oral intake was very poor. She now has a feeding tube in place. She will continue with her feeds of Isosource 1.5 calories 250 cc 5 times a day. Patient may continue with oral feeding but will need to monitor for aspiration precaution. Patient with GERD. At discharge she will continue with Prevacid 30 mg daily. Vital Signs/Physical Exam: Temp Pulse Resp BP Pulse Ox 97.7 F 98 H 20 144/74 H 94 01/05/20 04:00 01/05/20 04:00 01/05/20 04:00 01/05/20 04:00 01/05/20 04:00 General: Alert, In no apparent distress, Cooperative HEENT: Atraumatic Neck: Supple Respiratory: Clear to auscultation bilaterally, Normal air movement Cardiovascular: Normal pulses Gastrointestinal: Normal bowel sounds, No tenderness, No masses, No rebound, No guarding, Other (Feeding tube in place) Integumentary: No erythema, No warmth, No cyanosis Neurological: Normal affect, Abnormal strength Laboratory Data at Discharge: WBC 9.2 K/uL (4.3-10.9) D 01/05/20 03:31 Hgb 10.8 g/dL (12.0-15.0) L 01/05/20 03:31 Hct 31.3 % (36.0-45.0) L D 01/05/20 03:31 Plt Count 279 K/uL (152-406) D 01/05/20 03:31 PT 12.7 SECONDS (9.5-12.5) H 01/04/20 06:28 INR 1.08 01/04/20 06:28 Sodium 149 mmol/L (136-145) H 01/05/20 03:31 Potassium 3.1 mmol/L (3.5-5.1) L 01/05/20 03:31 BUN 15 mg/dL (7-18) 01/05/20 03:31 Creatinine 0.30 mg/dL (0.55-1.3) L 01/05/20 03:31 Glucose 116 mg/dL (74-106) H 01/05/20 03:31 Magnesium 1.9 mg/dL (1.8-2.4) 01/05/20 03:31 Total Bilirubin 0.3 mg/dL (0.2-1.0) 01/04/20 06:28 AST 28 U/L (15-37) 01/04/20 06:28 ALT 40 U/L (12-78) 01/04/20 06:28 Alkaline Phosphatase 92 U/L (45-117) 01/04/20 06:28 Home Medications: Fenofibrate [Tricor*] 145 mg PO DAILY 12/22/19 Gabapentin [Neurontin Oral Soln] 12 ml PO TID 12/22/19 LORazepam [Ativan*] 1 mg PO DAILY PRN 12/22/19 Lansoprazole [Prevacid] 30 mg PO DAILY 12/22/19 Riluzole [Rilutek] 50 mg PO Q12H 12/22/19 Simvastatin 20 mg PO DAILY 12/22/19 hydrOXYzine HCL [Atarax*] 1 tab PO TID 12/22/19 Acetylcyst 20% Resp [Mucomyst 20% (FOR RESPIRATORY)*] 4 ml IH Q12H 01/04/20 Amlodipine Besylate/Benazepril [Amlodipine-Benazepril 5-20 mg] 1 tab PO DAILY 01/04/20 Ascorbic Acid [C-1000] 1 tab PO DAILY 01/04/20 Beta-Carotene [Beta Carotene] 25,000 unit PO DAILY 01/04/20 Bisacodyl [Dulcolax*] 10 mg RC DAILY PRN 01/04/20 Budesonide [Pulmicort] 1 amp IH BID 01/04/20 Cholecalciferol (Vitamin D3) [Vitamin D 1000 Iu Tab*] 2,000 unit PO DAILY 01/04/20 Ipratropium Neb [Atrovent*] 0.2 mg IH Q6H 01/04/20 Lactose-Reduced Food/Fiber [Isosource 1.5 Travon Tube Feed Lq] 250 ml DT 5XD 01/04/20 Melatonin 10 mg PO BEDTIME 01/04/20 Ondansetron [Ondansetron Odt] 4 mg PO Q6H PRN 01/04/20 Sennosides/Docusate Sodium [Senna-Docusate Sodium Tablet] 1 each PO BID PRN 01/04/20 Tramadol HCl 100 mg PO Q6H PRN 01/04/20 guaiFENesin [Robitussin 100MG/5ML*] 100 mg PO Q6H PRN 01/04/20 levoFLOXacin [Levaquin*] 750 mg PO DAILY 01/04/20 Patient Discharge Instructions: 1. Follow up with PCP in 1 week to follow up this hospitalization. 2. Patient presented with dyspnea secondary to acute on chronic respiratory failure with hypoxia. Patient with history of ALS. This was diagnosed in 2019. Patient was recently hospitalized at [facility] for pneumonia. Patient with right lower lobe atelectasis and mucus plug to the right lower lobe per CT scan. Patient was treated during the course of her stay. Patient required oxygen. Patient has done well. Respiratory provided education on percussion therapy. Patient has a cough stimulator at home which she brought to help. At discharge she is without significant shortness of breath. Patient on nasal cannula. I spoke with at length to continue percussion therapy at home. At discharge will continue with home health, physical therapy. Patient would benefit with Respiratory therapy at home. Will check to see if this can be arranged. At discharge she will continue with home oxygen to maintain sats above 93%. Aspiration, skin, and fall precaution in place. At discharge patient will continue to finish her course of Levaquin 750 mg daily. At discharge she will continue her other medications including Mucomyst twice daily, Pulmicort twice daily, Atrovent 4 times a day, and Rilutek 50 mg twice a day. Patient may also take Ativan 1 mg up to 3 times a day as needed for anxiety. There may be a component of anxiety that may be effecting her shortness of breath. This was discussed in detail with the . Recommend follow up with her ALS team within 1 week to follow up this hospitalization. Will recommend follow up with pulmonology in 1 week to continue her care. 3. As mentioned above patient with ALS. This was diagnosed in 2019. She will continue to follow up with her ALS team at [facility] including Dr. Akila Schultz. She will continue with her CPAP machine and cough stimulator. As recommended above will recommend pulmonary therapy as well. Continue home health and physical therapy. Patient will continue with her current medications including gabapentin 3 times a day. Robitussin as needed. And melatonin 10 mg at bedtime. Patient also takes other multiple supplements. 4. Patient with hypertension. At discharge she will continue with Norvasc/lisinopril 5/20 mg daily. Recommend to maintain blood pressure less 150/80. Further adjustment can be done by her PCP. May need to hold medication if blood pressure less than 110 systolic. 5. Patient with hyperlipidemia. At discharge she will continue with Tricor 145 mg daily and Zocor 20 mg daily. 6. Patient with anxiety. As mentioned above patient takes Ativan 1 mg daily as needed. Patient may take up to 3 times a day as needed for anxiety. This was discussed in detail with . This can be further adjusted by her ALS team. 7. Patient with Mild protein malnutrition. On her last hospitalization at [facility] her oral intake was very poor. She now has a feeding tube in place. She will continue with her feeds of Isosource 1.5 calories 250 cc 5 times a day. Patient may continue with oral feeding but will need to monitor for aspiration precaution. 8. Patient with GERD. At discharge she will continue with Prevacid 30 mg daily. Diet: GI soft Activity: Scan in precaution, aspiration precaution, Time spent managing pt's care (in minutes): 55
[2020-01-05] MEDS: INSULIN -REGULAR HUMAN 50 UNIT/0.5 ML ML SQ SCH ×2 (07:30→11:30)
[2020-01-05] MEDS: BUDESONIDE 0.25 MG/2 ML NEB IH SCH (07:57)
[2020-01-05] MEDS: ACETYLCYST 20% 4 ML VIAL IH SCH (07:57)
[2020-01-05] MEDS: ALBUTEROL 2.5 MG/3 ML NEB SOL NEB PRN (07:57)
[2020-01-05] MEDS: FIBER DT SCH ×3 (08:00→13:15)
[2020-01-05] MEDS: LACTOSE REDUCED FOOD DT SCH ×3 (08:00→13:15)
[2020-01-05] MEDS: GABAPENTIN PO SCH ×2 (08:58→13:15)
[2020-01-05] MEDS ORDERED: BENAZEPRIL 20 MG TAB PO SCH (09:00)
[2020-01-05] MEDS ORDERED: ASCORBIC ACID 500 MG TABLET PO SCH (09:00)
[2020-01-05] MEDS ORDERED: PANTOPRAZOLE 40 MG INJ IVP SCH (09:00)
[2020-01-05] MEDS ORDERED: AMLODIPINE 5 MG TAB PO SCH (09:00)
[2020-01-05] MEDS ORDERED: HOME MED 1 EA UNK (Simvastatin [Simvastatin] 20 MG) PO SCH (09:00)
[2020-01-05] MEDS ORDERED: VITAMIN D 1000 UNIT TAB PO SCH (09:00)
[2020-01-05] MEDS ORDERED: BETA CAROTENE 25000 UNIT PO SCH (09:00)
[2020-01-05] MEDS ORDERED: FENOFIBRATE 160 MG TAB PO SCH (09:00)
[2020-01-05] MEDS ORDERED: POTASSIUM 25 MEQ EFFERV TAB PO ONE (09:00)
[2020-01-05] MEDS: ENOXAPARIN 40 MG/0.4 ML SQ SCH (09:04)
[2020-01-05] MEDS: hydrOXYzine HCL 25 MG TAB PO SCH ×2 (09:06→13:16)
--- NOTE | 2020-01-05 11:34 | P.CNS ---
Date of Consult: 01/05/20 Primary Care Provider: unknown; ALS team [facility]-Dr. Akila Schultz Chief Complaint: Shortness of breath History of Present Illness: Patient is 64 years of age with a history of ALS admitted to the emergency room with hypoxemia shortness of breath she was wrist recently discharged from [facility] with pneumonia she also has a feeding tube in place patient noninvasive ventilator here to be very anxious and a right lower lobe infiltrate the patient is doing better she is alert responsive cooperative requiring BiPAP not needing oxygen Allergies Sulfa (Sulfonamide Antibiotics) Allergy (Mild, Verified 12/22/19 18:45) Unknown Home Medications: Fenofibrate [Tricor*] 145 mg PO DAILY 12/22/19 Gabapentin [Neurontin Oral Soln] 12 ml PO TID 12/22/19 LORazepam [Ativan*] 1 mg PO DAILY PRN 12/22/19 Lansoprazole [Prevacid] 30 mg PO DAILY 12/22/19 Riluzole [Rilutek] 50 mg PO Q12H 12/22/19 Simvastatin 20 mg PO DAILY 12/22/19 hydrOXYzine HCL [Atarax*] 1 tab PO TID 12/22/19 Acetylcyst 20% Resp [Mucomyst 20% (FOR RESPIRATORY)*] 4 ml IH Q12H 01/04/20 Amlodipine Besylate/Benazepril [Amlodipine-Benazepril 5-20 mg] 1 tab PO DAILY 01/04/20 Ascorbic Acid [C-1000] 1 tab PO DAILY 01/04/20 Beta-Carotene [Beta Carotene] 25,000 unit PO DAILY 01/04/20 Bisacodyl [Dulcolax*] 10 mg RC DAILY PRN 01/04/20 Budesonide [Pulmicort] 1 amp IH BID 01/04/20 Cholecalciferol (Vitamin D3) [Vitamin D 1000 Iu Tab*] 2,000 unit PO DAILY 01/04/20 Ipratropium Neb [Atrovent*] 0.2 mg IH Q6H 01/04/20 Lactose-Reduced Food/Fiber [Isosource 1.5 Travon Tube Feed Lq] 250 ml DT 5XD 01/04/20 Melatonin 10 mg PO BEDTIME 01/04/20 Ondansetron [Ondansetron Odt] 4 mg PO Q6H PRN 01/04/20 Sennosides/Docusate Sodium [Senna-Docusate Sodium Tablet] 1 each PO BID PRN 01/04/20 Tramadol HCl 100 mg PO Q6H PRN 01/04/20 guaiFENesin [Robitussin 100MG/5ML*] 100 mg PO Q6H PRN 01/04/20 levoFLOXacin [Levaquin*] 750 mg PO DAILY 01/04/20 - Past Medical/Surgical History Diabetic: No -: Hypertension -: Hyperlipidemia -: ALS -: anxiety -: Feeding tube 01/02/20 Psychosocial/ Personal History: Patient lives at home - Social History Smoking Status: Current some day smoker Alcohol use: No CD- Drugs: No Caffeine use: No Place of Residence: Home Review of Systems General: Weakness Respiratory: Shortness of Breath Physical Examination Temp Pulse Resp BP Pulse Ox 97.5 F 102 H 25 H 160/92 H 97 01/05/20 08:00 01/05/20 09:05 01/05/20 08:00 01/05/20 09:05 01/05/20 08:00 General: Alert, Moderate distress Respiratory: Clear to auscultation bilaterally Cardiovascular: No edema, Normal S1 S2 Gastrointestinal: Normal bowel sounds, Soft and benign - Problems (1) Acute respiratory distress Current Visit: No Status: Acute Plan: Patient is 64 years of age admitted with respiratory distress she has recently discharged from [facility] she has a right lung opacity Nikos combination of a pneumonia and atelectasis continue with the chest percussion white count is normal CT scanner in a reviewed she may have residual pneumonia atelectasis of the right lower lobe not apparent on the chest x-ray white count is normal no evidence of sepsis patient's saturation is satisfactory and no ninvasive ventilator room-air sat is 99% off BiPAP patient has severe anxiety agree with discharge resumed current medication no evidence of thromboembolism blood pressure is mildly elevated
[2020-01-05 12:11] VITALS: O2SAT 96
[2020-01-05 12:23] VITALS: BP 117/60; TEMP 96.3
[2020-01-05] MEDS ORDERED: JEVITY 1.5 CAL LIQUID 1,000 ML BOT FT SCH (14:00)
--- NOTE | 2020-01-06 07:43 | EKG ---
Test Date: 2020-01-04 Test Time: 06:35:05 Catering Cook: MEASUREMENT RESULTS: Intervals: Rate: 134 NE: 130 QRSD: 74 QT: 288 QTc: 430 [place]: P: 65 NE: 130 QRS: 123 T: -17 INTERPRETIVE STATEMENTS: Sinus tachycardia Left posterior fascicular block Cannot rule out Inferior infarct, age undetermined Cannot rule out Anterior infarct, age undetermined Abnormal ECG Compared to ECG 12/22/2019 12:19:10 Left posterior fascicular block now present Sinus rhythm no longer present Myocardial infarct finding still present Electronically Signed On 01-06-20 07:40:11 CDT by Dell Dillon
== END 2020-01-05 14:00 | disposition home health service (06) ==
LOC: ER 05:54 → ERHOLD 13:41 → 2ND 15:06
PROVIDERS: ADMIT Family Medicine; ATTEND Family Medicine
DX: J96.21 Acute and chronic respiratory failure with hypoxia (principal); G12.21 Amyotrophic lateral sclerosis; J98.11 Atelectasis; F41.9 Anxiety disorder, unspecified; I10 Essential (primary) hypertension; E78.5 Hyperlipidemia, unspecified; E44.1 Mild protein-calorie malnutrition; Z68.41 Body mass index [BMI] 40.0-44.9, adult; K21.9 Gastro-esophageal reflux disease without esophagitis; Z99.81 Dependence on supplemental oxygen; Z93.1 Gastrostomy status; Z88.2 Allergy status to sulfonamides; F17.200 Nicotine dependence, unspecified, uncomplicated
CPT/HCPCS: 93005; 87040 ×2; 87088; 85025 ×2; 80048 ×2; 36415; 83735 ×2; 85610; 82565; 82947 ×5; 80076; 83605; 84443; 84484; 84439; 84145; 83880; 76377; 71275; 74176; 71045; 97161; 94640; 94667; 82805; 94760; 94660; 94668 ×2; 51702; 96375; 96374; 99285; U0003; Q9967; J0360; C9113; J1650 ×2; J2543; J0696; J7030; J2405; G0378 ×3; 81003; 81015; 87086